=== PATIENT | male | born 1945 | race Caucasian/White ===

== ENCOUNTER → 2017-05-20 | Outpatient (CLI) | payer MEDICARE ==
[2017-05-20 07:33] LABS: CH 30.8; CHCM 34.3; HCT 38.1 % (39.0-53.0); HDW 2.58; HGB 13.5 gm/dL (13.0-17.5); MCHC 35.4 g/dL (31.0-37.0); MCV 90.3 fL (80.0-100.0); Mean Platelet Volume 7.2; RBC 4.22 m/uL (4.30-5.90); RDW 12.9 % (11.5-15.5); WBC 5.9 k/uL (3.8-10.6)
[2017-05-20 08:02] LABS: ALT 35 U/L (21-72); AST 21 U/L (17-59); Alkaline Phosphatase 51 U/L (38-126); Anion Gap 12 mmol/L; Blood Urea Nitrogen 19 mg/dL (9-20); Calcium 9.4 mg/dL (8.4-10.2); Carbon Dioxide 27 mmol/L (22-30); Chloride 102 mmol/L (98-107); Cholesterol 148 mg/dL (<200); Glucose 172 mg/dL (74-99); HDL Cholesterol 51 mg/dL (40-60); Non-African American GFR(MDRD) >60 (>60 ml/min/1.73 sqM); Potassium 4.5 mmol/L (3.5-5.1); Sodium 141 mmol/L (137-145); Total Bilirubin 0.5 mg/dL (0.2-1.3); Total Protein 7.6 g/dL (6.3-8.2); Triglycerides 122 mg/dL (<150)
[2017-05-20 12:41] LABS: Urine Creatinine 113.1 mg/dL
[2017-05-20 14:38] LABS: Hemoglobin A1C 7.6 % (4.2-6.1)
== END | disposition home or self-care (01) ==
LOC: LABWHC1 06:40
PROVIDERS: ATTEND Internal Medicine
DX: I10 Essential (primary) hypertension (principal); E78.00 Pure hypercholesterolemia, unspecified; E11.9 Type 2 diabetes mellitus without complications
CPT/HCPCS: 36415; 80053; 80061; 82043; 82570; 83036; 84443; 85027

== ENCOUNTER 2018-03-27 15:12 | Emergency (ER) | payer MEDICARE ==
[2018-03-27 15:32] VITALS: PULSE 82; TEMP 98.1
--- NOTE | 2018-03-27 16:30 | ED ---
Fall HPI - General Chief Complaint: Fall Stated Complaint: Fall From Ladder Time Seen by Provider: 03/27/18 16:01 Source: patient Mode of arrival: ambulatory - History of Present Illness Initial Comments: Patient is a 73-year-old male presenting for injuries sustained from the fall. He states that he was on approximately a 4 foot ladder when he fell off landing on his right side. He states that he did not hit his head and denies any back pain or neck pain as well as loss consciousness. He takes aspirin but primarily came in for right shoulder pain. He admits to decreased range of motion of the right shoulder as well as some minor right rib pain and right thigh pain. He thinks that the thigh pain came from the keys that were in his pocket. There is no nausea/vomiting or abdominal pain as well and he denies any vision changes or changes in mental status as well - Related Data Home Medications Medication Instructions Recorded Confirmed Aspirin [Adult Low Dose Aspirin EC] 81 mg PO DAILY 11/23/15 05/11/16 Atenolol [Atenolol] 50 mg PO BID 11/23/15 05/11/16 Cholecalciferol [Vitamin D3] 2,000 unit PO DAILY@1600 11/23/15 05/11/16 Cyanocobalamin [Vitamin B-12] 500 mcg PO DAILY@1600 11/23/15 05/11/16 Glimepiride [Amaryl] 2 mg PO TID 11/23/15 05/11/16 Nitroglycerin Sl Tabs [Nitrostat] 0.4 mg PO Q5M PRN 11/23/15 05/11/16 Omeprazole [PriLOSEC] 20 mg PO DAILY 11/23/15 05/11/16 Simvastatin [Simvastatin] 20 mg PO DAILY@1600 11/23/15 05/11/16 Allergies Allergy/AdvReac Type Severity Reaction Status Date / Time cyclobenzaprine Allergy Unknown Verified 03/27/18 15:32 [From Flexeril] doxycycline Allergy Unknown Verified 03/27/18 15:32 metformin Allergy Unknown Verified 03/27/18 15:32 Penicillins Allergy Unknown Verified 03/27/18 15:32 Review of Systems ROS Statement: Those systems with pertinent positive or pertinent negative responses have been documented in the HPI. Constitutional: Negative for chills, fatigue and fever. HENT: Negative for congestion. Respiratory: Negative for chest tightness, shortness of breath and wheezing. Negative for cough Cardiovascular: Negative for chest pain and palpitations. Gastrointestinal: Negative for abdominal pain. Negative for abdominal distention , diarrhea, nausea and vomiting. Genitourinary: Negative for dysuria. Musculoskeletal: Negative for back pain, neck pain and neck stiffness. Positive for right rib pain, right thigh pain, right shoulder pain Skin: Negative for color change. Neurological: Negative for dizziness, speech difficulty, weakness and light- headedness. Psychiatric/Behavioral: Negative for agitation and confusion. The patient is not nervous/anxious. ROS Other: All systems not noted in ROS Statement are negative. Past Medical History Past Medical History: Chest Pain / Angina, Diabetes Mellitus, GERD/Reflux, Hyperlipidemia, Hypertension History of Any Multi-Drug Resistant Organisms: None Reported Past Surgical History: Appendectomy, Heart Catheterization Additional Past Surgical History / Comment(s): Patient has never had a colonoscopy. Past Anesthesia/Blood Transfusion Reactions: No Reported Reaction Past Psychological History: No Psychological Hx Reported Smoking Status: Former smoker Past Alcohol Use History: Rare Past Drug Use History: None Reported - Past Family History Mother Additional Family Medical History / Comment(s): BREAST Father Additional Family Medical History / Comment(s): Father at age 60 from a myocardial infarction. Brother(s) Additional Family Medical History / Comment(s): Patient has 7 brothers and one has coronary artery disease status post 3 vessel CABG. Patient does not have any sisters. Patient has 3 children, 2 boys and one girl with no major medical problems. General Exam - General Exam Comments Initial Comments: Constitutional: Pt is oriented to person, place, and time. Pt appears well- developed and well-nourished. No distress. HENT: Head: Normocephalic and atraumatic. Eyes: EOM are normal. Neck: Normal range of motion. Neck supple. Cardiovascular: Normal rate, regular rhythm, S1 normal, S2 normal and normal heart sounds. Exam reveals no gallop and no friction rub. No murmur heard. Pulmonary/Chest: Effort normal and breath sounds normal. No tachypnea and no bradypnea. No respiratory distress. No wheezes or rales noted. Abdominal: Soft. Bowel sounds are normal. Pt exhibits no shifting dullness, no distension, no pulsatile liver, no fluid wave, no abdominal bruit and no ascites. There is no tenderness. There is no rigidity, no rebound, no guarding, no tenderness at McBurney's point and negative Crouch's sign. Musculoskeletal: Decreased range of motion of the right shoulder in flexion, extension, abduction. Palpable pulses and neurosensory is intact. No tenderness to the C-spine, T-spine, L-spine. Pelvis is stable with full range of motion of the right hip. There is mild tenderness to the right thigh with no overlying ecchymosis or hematomas. Neurological: Pt is alert and oriented to person, place, and time. No cranial nerve deficit. Skin: Skin is warm and dry. No rash noted. Pt is not diaphoretic. No erythema. No pallor. Psychiatric: Pt has a normal mood and affect. Pt behavior is normal. Thought content normal. Limitations: no limitations Course Vital Signs 03/27/18 15:29 Temperature 98.1 F Pulse Rate 82 Respiratory 20 Rate Blood Pressure 145/73 O2 Sat by Pulse 96 Oximetry Medical Decision Making - Medical Decision Making X-ray showed no evidence of acute pathology which included chest x-ray, shoulder x-ray, humerus, pelvis, right ribs, femur patient was ambulatory in the emergency department and in good spirits. He was recommended to follow-up with orthopedics and use Tylenol or Motrin for pain. He currently declined any narcotics such as [place]. There is extensive discussion had with both family and the son and stated that CAT scan is likely not reveal any significant pathology but that if symptoms worsen or return, he should return immediately to the ER. He was also advised to follow up with PCP 1-2 days. Patient was agreeable to plan. Disposition Clinical Impression: Fall from ladder, Syncope, Right shoulder pain Disposition: HOME SELF-CARE Condition: Good Instructions: Fall Prevention for Older Adults (ED) Is patient prescribed a controlled substance at d/c from ED?: No Referrals: Preston Cast MD [Primary Care Provider] - 1-2 days Santiago Crouch MD [STAFF PHYSICIAN] - 1-2 days Time of Disposition: 17:50
--- NOTE | 2018-03-27 17:35 | XR ---
Right humerus and right shoulder HISTORY: Trauma and pain 2 views of the right humerus correlated to 3 views of the right shoulder Arthropathy is present in the acromion clavicular joint. Right shoulder is somewhat high riding. Bone mineralization maintained. No dislocation. No evident fracture. IMPRESSION: Correlate for possible rotator cuff tear.
--- NOTE | 2018-03-27 17:36 | XR ---
EXAMINATION TYPE: XR chest 2V DATE OF EXAM: 03/27/2018 COMPARISON: Prior chest x-ray dated 05/11/2016 HISTORY: Trauma and pain TECHNIQUE: Frontal and lateral views of the chest are obtained. FINDINGS: There is no focal air space opacity, pleural effusion, or pneumothorax seen. The cardiac silhouette size is within normal limits. The osseous structures are intact. IMPRESSION: No acute cardiopulmonary process.
--- NOTE | 2018-03-27 17:37 | XR ---
Right femur HISTORY: Trauma and pain 2 views of the right femur on 4 images Bone mineralization, joint spaces and alignment are maintained. IMPRESSION: No fracture or dislocation.
--- NOTE | 2018-03-27 17:38 | XR ---
Right RIBS HISTORY: Trauma and pain 4 views of the right RIBS Comparison to chest x-ray same date No pneumothorax or pleural effusion, no evident lung contusion. Bone mineralization is maintained. Ri ght shoulder is high riding. No evident displaced rib fracture. IMPRESSION: No evident displaced rib fracture, bone scan could be performed for increased sensitivity if occult fracture is suspected clinically.
[2018-03-27 18:26] VITALS: BP 145/71; RESP 18
== END 2018-03-27 17:55 | disposition home or self-care (01) ==
LOC: EC 15:12
DX: M25.511 Pain in right shoulder (principal); R55 Syncope and collapse; R07.81 Pleurodynia; M79.651 Pain in right thigh; E11.9 Type 2 diabetes mellitus without complications; K21.9 Gastro-esophageal reflux disease without esophagitis; E78.5 Hyperlipidemia, unspecified; I10 Essential (primary) hypertension; Z87.891 Personal history of nicotine dependence; Z79.82 Long term (current) use of aspirin; Z79.84 Long term (current) use of oral hypoglycemic drugs; Z79.899 Other long term (current) drug therapy; Z88.0 Allergy status to penicillin; Z88.1 Allergy status to other antibiotic agents; Z88.8 Allergy status to other drugs, medicaments and biological substances; Z95.818 Presence of other cardiac implants and grafts; W11.XXXA Fall on and from ladder, initial encounter; Y92.009 Unspecified place in unspecified non-institutional (private) residence as the place of occurrence of the external cause
CPT/HCPCS: 71046; 99283

== ENCOUNTER → 2018-04-09 | Outpatient (CLI) | payer MEDICARE ==
[2018-04-09 07:17] LABS: Albumin 4.4 g/dL (3.5-5.0); Calcium 9.4 mg/dL (8.4-10.2); Potassium 4.8 mmol/L (3.5-5.1); Total Bilirubin 0.5 mg/dL (0.2-1.3); Total Protein 7.1 g/dL (6.3-8.2)
[2018-04-09 12:25] LABS: Hemoglobin A1C 7.2 % (4.0-6.0)
== END | disposition home or self-care (01) ==
LOC: LABWHC1 06:34
PROVIDERS: ATTEND Internal Medicine
DX: E11.9 Type 2 diabetes mellitus without complications (principal)
CPT/HCPCS: 36415; 80053; 83036

== ENCOUNTER 2020-09-17 07:02 | Emergency (ER) | payer MEDICARE ==
[2020-09-17] MEDS ORDERED: DEXTROSE 5%-0.45% NACL 1,000 ML IV ONE (07:22)
--- NOTE | 2020-09-17 07:25 | ED ---
General Adult HPI - General Chief complaint: Weakness Stated complaint: weakness Time Seen by Provider: 09/17/20 07:13 Source: patient, family, RN notes reviewed Mode of arrival: wheelchair Limitations: no limitations - History of Present Illness Initial comments: Patient is a pleasant 75-year-old male presenting to the emergency Department with complaints of generalized weakness. Onset of symptoms was around a week ago. Patient's is in the hospital and he does have increased stress. Patient has decreased appetite. Blood sugars have been running low, sometimes in the 50s and 60s. Patient last took his oral diabetic medication yesterday. He should stop taking his injection of insulin and nighttime around 4 days ago. A fish feels generally weak all over. No isolated area of weakness. No confusion or speech problems. - Related Data Home Medications Medication Instructions Recorded Confirmed Aspirin [Adult Low Dose Aspirin EC] 81 mg PO DAILY 11/23/15 09/17/20 Cholecalciferol [Vitamin D3] 5,000 unit PO MOWEFR 11/23/15 09/17/20 Glimepiride [Amaryl] 4 mg PO BID 11/23/15 09/17/20 Nitroglycerin Sl Tabs [Nitrostat] 0.4 mg PO Q5M PRN 11/23/15 09/17/20 Omeprazole [PriLOSEC] 20 mg PO BID 11/23/15 09/17/20 Simvastatin 20 mg PO DAILY 11/23/15 09/17/20 atenoloL [Atenolol] 50 mg PO BID 11/23/15 09/17/20 Brimonidine Tartrate [Alphagan P 1 drop BOTH EYES BID 09/17/20 09/17/20 0.2% Ophth Soln] Insulin Glargine,Hum.rec.anlog 15 unit SQ DAILY 09/17/20 09/17/20 [Lantus Solostar] Isosorbide Mononitrate ER [Imdur] 15 mg PO DAILY 09/17/20 09/17/20 Latanoprost Ophth [Xalatan 0.005%] 1 drop PO HS 09/17/20 09/17/20 Timolol 0.5% Ophth Soln [Timoptic 1 drop BOTH EYES BID 09/17/20 09/17/20 0.5% Ophth Soln] lisinopriL 40 mg PO DAILY 09/17/20 09/17/20 Allergies Allergy/AdvReac Type Severity Reaction Status Date / Time cyclobenzaprine Allergy Unknown Verified 09/17/20 09:59 [From Flexeril] doxycycline Allergy Unknown Verified 09/17/20 09:59 metformin Allergy Unknown Verified 09/17/20 09:59 Penicillins Allergy Unknown Verified 09/17/20 09:59 Review of Systems ROS Statement: Those systems with pertinent positive or pertinent negative responses have been documented in the HPI. ROS Other: All systems not noted in ROS Statement are negative. Constitutional: Denies: fever Eyes: Denies: eye pain ENT: Denies: ear pain Respiratory: Denies: cough Cardiovascular: Denies: chest pain Endocrine: Denies: fatigue Gastrointestinal: Denies: abdominal pain Genitourinary: Denies: dysuria Musculoskeletal: Denies: back pain Skin: Denies: rash Neurological: Reports: as per HPI. Denies: headache, confusion Past Medical History Past Medical History: Chest Pain / Angina, Diabetes Mellitus, GERD/Reflux, Hyperlipidemia, Hypertension History of Any Multi-Drug Resistant Organisms: None Reported Past Surgical History: Appendectomy, Heart Catheterization Additional Past Surgical History / Comment(s): Patient has never had a colonoscopy. Past Anesthesia/Blood Transfusion Reactions: No Reported Reaction Past Psychological History: No Psychological Hx Reported Smoking Status: Former smoker Past Alcohol Use History: Rare Past Drug Use History: None Reported - Past Family History Mother Additional Family Medical History / Comment(s): BREAST Father Additional Family Medical History / Comment(s): Father at age 60 from a myocardial infarction. Brother(s) Additional Family Medical History / Comment(s): Patient has 7 brothers and one has coronary artery disease status post 3 vessel CABG. Patient does not have any sisters. Patient has 3 children, 2 boys and one girl with no major medical problems. General Exam Limitations: no limitations General appearance: alert, in no apparent distress Head exam: Present: normocephalic Eye exam: Present: normal appearance, PERRL, EOMI ENT exam: Present: normal oropharynx Neck exam: Present: normal inspection Respiratory exam: Present: normal lung sounds bilaterally Cardiovascular Exam: Present: regular rate, normal rhythm GI/Abdominal exam: Present: soft. Absent: tenderness Extremities exam: Present: normal inspection, full ROM Neurological exam: Present: alert, oriented X3, CN II-XII intact. Absent: motor sensory deficit Expanded Neurological exam: Present: protecting the airway Speech: Present: fluid speech Cranial nerves: EOM's Intact: Normal Sensory exam: Upper Extremity Light Touch: Normal, Lower Extremity Light Touch: Normal Motor strength exam: RUE: 5, LUE: 5, RLE: 5, LLE: 5 Eye Response: (4) open spontaneously Motor Response: (6) obeys commands Verbal Response: (5) oriented Psychiatric exam: Present: normal affect, normal mood Skin exam: Present: normal color Course Vital Signs 09/17/20 07:09 Temperature 98 F Pulse Rate 66 Respiratory 16 Rate Blood Pressure 138/77 O2 Sat by Pulse 98 Oximetry EKG Findings - EKG Comments: EKG Findings:: Sinus rhythm at 66. First 3 AV block MD of 236. QRS 174. QT 454. QTC 470 5P left axis. Left bundle branch block. No acute ST change. Medical Decision Making - Medical Decision Making Patient reevaluated and resting comfortably in bed. Patient is able to perform ADLs and patient and family are comfortable with discharge home. They are recommended close follow-up and will be given fluid prior to discharge. - Lab Data Result diagrams: 09/17/20 07:31 09/17/20 07:31 Lab Results 09/17/20 09/17/20 09/17/20 Range/Units 07:19 07:31 07:31 WBC 5.5 (3.8-10.6) k/uL RBC 4.25 L (4.30-5.90) m/uL Hgb 13.0 (13.0-17.5) gm/dL Hct 39.0 (39.0-53.0) % MCV 91.7 (80.0-100.0) fL MCH 30.6 (25.0-35.0) pg MCHC 33.3 (31.0-37.0) g/dL RDW 12.6 (11.5-15.5) % Plt Count 182 (150-450) k/uL Neutrophils % 68 % Lymphocytes % 13 % Monocytes % 15 % Eosinophils % 0 % Basophils % 1 % Neutrophils # 3.7 (1.3-7.7) k/uL Lymphocytes # 0.7 L (1.0-4.8) k/uL Monocytes # 0.8 (0-1.0) k/uL Eosinophils # 0.0 (0-0.7) k/uL Basophils # 0.1 (0-0.2) k/uL PT 10.0 (9.0-12.0) sec INR 1.0 (<1.2) APTT 25.8 (22.0-30.0) sec Sodium (137-145) mmol/L Potassium (3.5-5.1) mmol/L Chloride (98-107) mmol/L Carbon Dioxide (22-30) mmol/L Anion Gap mmol/L BUN (9-20) mg/dL Creatinine (0.66-1.25) mg/dL Est GFR (CKD-EPI)AfAm (>60 ml/min/1.73 sqM) Est GFR (CKD-EPI)NonAf (>60 ml/min/1.73 sqM) Glucose (74-99) mg/dL POC Glucose (mg/dL) 72 L (75-99) mg/dL POC Glu Spool Winder SHANICE Crouch Leonel Plasma Lactic Acid Yovany (0.7-2.0) mmol/L Calcium (8.4-10.2) mg/dL Phosphorus (2.5-4.5) mg/dL Magnesium (1.6-2.3) mg/dL Total Bilirubin (0.2-1.3) mg/dL AST (17-59) U/L ALT (4-49) U/L Alkaline Phosphatase (38-126) U/L Troponin I (0.000-0.034) ng/mL Total Protein (6.3-8.2) g/dL Albumin (3.5-5.0) g/dL TSH (0.465-4.680) mIU/L Urine Color Urine Appearance (Clear) Urine pH (5.0-8.0) Ur Specific [place] (1.001-1.035) Urine Protein (Negative) Urine Glucose (UA) (Negative) Urine Ketones (Negative) Urine Blood (Negative) Urine Nitrite (Negative) Urine Bilirubin (Negative) Urine Urobilinogen (<2.0) mg/dL Ur Leukocyte Esterase (Negative) Urine RBC (0-5) /hpf Urine WBC (0-5) /hpf Ur Squamous Epith Cells (0-4) /hpf Urine Mucus (None) /hpf 09/17/20 09/17/20 09/17/20 Range/Units 07:31 07:31 07:31 WBC (3.8-10.6) k/uL RBC (4.30-5.90) m/uL Hgb (13.0-17.5) gm/dL Hct (39.0-53.0) % MCV (80.0-100.0) fL MCH (25.0-35.0) pg MCHC (31.0-37.0) g/dL RDW (11.5-15.5) % Plt Count (150-450) k/uL Neutrophils % % Lymphocytes % % Monocytes % % Eosinophils % % Basophils % % Neutrophils # (1.3-7.7) k/uL Lymphocytes # (1.0-4.8) k/uL Monocytes # (0-1.0) k/uL Eosinophils # (0-0.7) k/uL Basophils # (0-0.2) k/uL PT (9.0-12.0) sec INR (<1.2) APTT (22.0-30.0) sec Sodium 135 L (137-145) mmol/L Potassium 4.5 (3.5-5.1) mmol/L Chloride 101 (98-107) mmol/L Carbon Dioxide 26 (22-30) mmol/L Anion Gap 8 mmol/L BUN 28 H (9-20) mg/dL Creatinine 1.10 (0.66-1.25) mg/dL Est GFR (CKD-EPI)AfAm 76 (>60 ml/min/1.73 sqM) Est GFR (CKD-EPI)NonAf 66 (>60 ml/min/1.73 sqM) Glucose 67 L (74-99) mg/dL POC Glucose (mg/dL) (75-99) mg/dL POC Glu Spool Winder ID Plasma Lactic Acid Yovany 1.1 (0.7-2.0) mmol/L Calcium 9.0 (8.4-10.2) mg/dL Phosphorus 4.2 (2.5-4.5) mg/dL Magnesium 2.0 (1.6-2.3) mg/dL Total Bilirubin 0.5 (0.2-1.3) mg/dL AST 62 H (17-59) U/L ALT 44 (4-49) U/L Alkaline Phosphatase 45 (38-126) U/L Troponin I (0.000-0.034) ng/mL Total Protein 7.5 (6.3-8.2) g/dL Albumin 4.3 (3.5-5.0) g/dL TSH 0.304 L (0.465-4.680) mIU/L Urine Color Yellow Urine Appearance Clear (Clear) Urine pH 5.5 (5.0-8.0) Ur Specific [place] 1.025 (1.001-1.035) Urine Protein Trace H (Negative) Urine Glucose (UA) Negative (Negative) Urine Ketones Negative (Negative) Urine Blood Negative (Negative) Urine Nitrite Negative (Negative) Urine Bilirubin Negative (Negative) Urine Urobilinogen <2.0 (<2.0) mg/dL Ur Leukocyte Esterase Moderate H (Negative) Urine RBC <1 (0-5) /hpf Urine WBC 3 (0-5) /hpf Ur Squamous Epith Cells 1 (0-4) /hpf Urine Mucus Rare H (None) /hpf 09/17/20 09/17/20 Range/Units 07:31 10:00 WBC (3.8-10.6) k/uL RBC (4.30-5.90) m/uL Hgb (13.0-17.5) gm/dL Hct (39.0-53.0) % MCV (80.0-100.0) fL MCH (25.0-35.0) pg MCHC (31.0-37.0) g/dL RDW (11.5-15.5) % Plt Count (150-450) k/uL Neutrophils % % Lymphocytes % % Monocytes % % Eosinophils % % Basophils % % Neutrophils # (1.3-7.7) k/uL Lymphocytes # (1.0-4.8) k/uL Monocytes # (0-1.0) k/uL Eosinophils # (0-0.7) k/uL Basophils # (0-0.2) k/uL PT (9.0-12.0) sec INR (<1.2) APTT (22.0-30.0) sec Sodium (137-145) mmol/L Potassium (3.5-5.1) mmol/L Chloride (98-107) mmol/L Carbon Dioxide (22-30) mmol/L Anion Gap mmol/L BUN (9-20) mg/dL Creatinine (0.66-1.25) mg/dL Est GFR (CKD-EPI)AfAm (>60 ml/min/1.73 sqM) Est GFR (CKD-EPI)NonAf (>60 ml/min/1.73 sqM) Glucose (74-99) mg/dL POC Glucose (mg/dL) 147 H (75-99) mg/dL POC Glu Spool Winder Leonel Jimenez Plasma Lactic Acid Yovany (0.7-2.0) mmol/L Calcium (8.4-10.2) mg/dL Phosphorus (2.5-4.5) mg/dL Magnesium (1.6-2.3) mg/dL Total Bilirubin (0.2-1.3) mg/dL AST (17-59) U/L ALT (4-49) U/L Alkaline Phosphatase (38-126) U/L Troponin I <0.012 (0.000-0.034) ng/mL Total Protein (6.3-8.2) g/dL Albumin (3.5-5.0) g/dL TSH (0.465-4.680) mIU/L Urine Color Urine Appearance (Clear) Urine pH (5.0-8.0) Ur Specific [place] (1.001-1.035) Urine Protein (Negative) Urine Glucose (UA) (Negative) Urine Ketones (Negative) Urine Blood (Negative) Urine Nitrite (Negative) Urine Bilirubin (Negative) Urine Urobilinogen (<2.0) mg/dL Ur Leukocyte Esterase (Negative) Urine RBC (0-5) /hpf Urine WBC (0-5) /hpf Ur Squamous Epith Cells (0-4) /hpf Urine Mucus (None) /hpf - Radiology Data Radiology results: report reviewed (Computed tomography scan of the brain shows no acute hemorrhage or shift. Mild atrophy and mild to moderateVessel ischemic change.), image reviewed (Chest x-ray shows no acute process) Disposition Clinical Impression: General weakness Disposition: HOME SELF-CARE Condition: Stable Instructions (If sedation given, give patient instructions): Weakness (ED) Additional Instructions: Please follow-up with your primary care physician in the next day or 2 for recheck. If symptoms continue consider neurology evaluation. Return for increased weakness, fevers, unable able to take care of self, worsening symptoms or other concerns. Please continue to hold her diabetic medication at this time and do frequent blood sugar tests, at least 4 times daily Is patient prescribed a controlled substance at d/c from ED?: No Referrals: Preston Cast MD [Primary Care Provider] - 1-2 days Time of Disposition: 10:30
[2020-09-17 07:26] LABS: Glucose,Whole Blood 72 mg/dL (75-99)
--- NOTE | 2020-09-17 07:56 | XR ---
EXAMINATION TYPE: XR chest 2V DATE OF EXAM: 09/17/2020 COMPARISON: 03/27/2018 HISTORY: Shortness of breath TECHNIQUE: Frontal and lateral views of the chest are obtained. FINDINGS: Scattered senescent parenchymal changes noted. Hyperinflation compatible with COPD. No evidence for infiltrate. No evidence for atelectasis. Heart size is stable. Mediastinal structures are stable and grossly unremarkable. No evidence for hilar prominence. Degenerative changes dorsal spine. IMPRESSION: 1. No evidence for acute pulmonary disease.
[2020-09-17 08:04] LABS: Albumin 4.3 g/dL (3.5-5.0); Partial Thromboplastin Time 25.8 sec (22.0-30.0); Phosphorus 4.2 mg/dL (2.5-4.5); Potassium 4.5 mmol/L (3.5-5.1); Total Bilirubin 0.5 mg/dL (0.2-1.3); Total Protein 7.5 g/dL (6.3-8.2)
[2020-09-17 08:10] LABS: Basophils # (A) 0.1 k/uL (0-0.2); Basophils % (A) 1 %; Eosinophils % (A) 0 %; Lymphocytes # (A) 0.7 k/uL (1.0-4.8); Lymphocytes % (A) 13 %; MCH 30.6 pg (25.0-35.0); MCHC 33.3 g/dL (31.0-37.0); MCV 91.7 fL (80.0-100.0); Mean Platelet Volume 7.5; Monocytes # (A) 0.8 k/uL (0-1.0); Monocytes % (A) 15 %; Neutrophils # (A) 3.7 k/uL (1.3-7.7); Neutrophils % (A) 68 %; Platelet Count 182 k/uL (150-450); RBC 4.25 m/uL (4.30-5.90); RDW 12.6 % (11.5-15.5); WBC 5.5 k/uL (3.8-10.6)
[2020-09-17 09:30] LABS: Appearance,Urine Clear (Clear); Bilirubin,Urine Negative (Negative); Blood,Urine Negative (Negative); Color,Urine Yellow; Glucose,Urine (UA) Negative (Negative); Ketones,Urine Negative (Negative); Leukocyte Esterase,Urine Moderate (Negative); Mucus,Urine Rare /hpf; Nitrite,Urine Negative (Negative); PH, Urine 5.5 (5.0-8.0); Protein,Urine Trace (Negative); RBC,Urine <1 /hpf (0-5); Specific Gravity,Urine 1.025 (1.001-1.035); Squamous Epithelial Cell,Urine 1 /hpf (0-4); Urobilinogen,Urine <2.0 mg/dL (<2.0); WBC,Urine 3 /hpf (0-5)
--- NOTE | 2020-09-17 09:36 | CT ---
EXAMINATION TYPE: CT brain wo con DATE OF EXAM: 09/17/2020 HISTORY: dizzy, weak CT DLP: 997.7 mGycm. Automated Exposure Control for Dose Reduction was Utilized. TECHNIQUE: CT scan of the head is performed without contrast. COMPARISON: None. FINDINGS: There is no acute intracranial hemorrhage or midline shift identified. There is diffuse v entricular and sulcal prominence consistent with diffuse age-related cerebral atrophy. There is low- attenuation in the periventricular white matter consistent with chronic small vessel ischemic change. The globes are intact and the visualized sinuses are clear. IMPRESSION: No acute intracranial hemorrhage or midline shift. There is mild diffuse age-related ce rebral atrophy and mild to moderate chronic small vessel ischemic change noted.
[2020-09-17 10:02] LABS: Glucose,Whole Blood 147 mg/dL (75-99)
[2020-09-17] MEDS ORDERED: SODIUM CHLORIDE 0.9% 500 ML 500 ML IV STA (10:29)
[2020-09-17 11:32] VITALS: BP 135/61; PULSE 65; RESP 18; TEMP 98.5
== END 2020-09-17 11:45 | disposition home or self-care (01) ==
LOC: EC 07:02
DX: R53.1 Weakness (principal); I10 Essential (primary) hypertension; E11.9 Type 2 diabetes mellitus without complications; I20.9 Angina pectoris, unspecified; K21.9 Gastro-esophageal reflux disease without esophagitis; E78.5 Hyperlipidemia, unspecified; Z79.82 Long term (current) use of aspirin; Z79.899 Other long term (current) drug therapy; Z79.4 Long term (current) use of insulin; Z88.0 Allergy status to penicillin; Z88.8 Allergy status to other drugs, medicaments and biological substances; Z88.1 Allergy status to other antibiotic agents; Z87.891 Personal history of nicotine dependence
CPT/HCPCS: 36415; 70450; 71046; 80053; 81001; 83605; 83735; 84100; 84443; 84484; 85025; 85610; 85730; 93005; 96360; 96361; 99285

== ENCOUNTER 2020-09-20 11:14 | Inpatient (IN) | payer MEDICARE ==
[2020-09-20 13:02] LABS: Basophils # (A) 0.1 k/uL (0-0.2); Basophils % (A) 2 %; Eosinophils % (A) 0 %; HCT 35.2 % (39.0-53.0); HGB 12.1 gm/dL (13.0-17.5); Lymphocytes # (A) 0.5 k/uL (1.0-4.8); Lymphocytes % (A) 10 %; MCH 31.4 pg (25.0-35.0); MCHC 34.5 g/dL (31.0-37.0); MCV 90.9 fL (80.0-100.0); Mean Platelet Volume 7.3; Monocytes # (A) 0.4 k/uL (0-1.0); Monocytes % (A) 8 %; Neutrophils # (A) 3.8 k/uL (1.3-7.7); Neutrophils % (A) 79 %; Platelet Count 180 k/uL (150-450); RBC 3.87 m/uL (4.30-5.90); WBC 4.8 k/uL (3.8-10.6)
[2020-09-20 13:16] LABS: Albumin 3.8 g/dL (3.5-5.0); C Reactive Protein 63.9 mg/L (<10.0); Calcium 8.4 mg/dL (8.4-10.2); Magnesium 1.8 mg/dL (1.6-2.3); Potassium 4.8 mmol/L (3.5-5.1); Total Bilirubin 0.6 mg/dL (0.2-1.3); Total Protein 6.7 g/dL (6.3-8.2)
[2020-09-20 13:23] LABS: Partial Thromboplastin Time 27.1 sec (22.0-30.0); Prothrombin Time 10.2 sec (9.0-12.0)
--- NOTE | 2020-09-20 13:35 | ED ---
Recheck HPI - General Chief Complaint: Recheck/Abnormal Lab/Rx Stated Complaint: Covid symptoms, confusion Time Seen by Provider: 09/20/20 11:58 Source: patient Mode of arrival: wheelchair Limitations: no limitations - History of Present Illness Initial Comments: 75-year-old male presenting today for chief complaint of generalized weakness fatigue, slight cough. Patient states that last Thursday his tested positive for Covid 19. He states he feels he has had symptoms for the past week and a half. Patient states he feels weak all over fatigue he has an occasional dry cough and states she has had chills at times but has not recorded a fever he denies chest pain or shortness of breath he denies leg swelling hemoptysis or pain with deep inspiration. Denies vomiting, abdominal pain diarrhea, headache or neck stiffness. Patient states that he did present on Thursday was evaluated and discharged home. Patient denies any additional complaints. Afebrile on arrival - Related Data Home Medications Medication Instructions Recorded Confirmed Aspirin [Adult Low Dose Aspirin EC] 81 mg PO DAILY 11/23/15 09/20/20 Cholecalciferol [Vitamin D3] 5,000 unit PO MOWEFR 11/23/15 09/20/20 Glimepiride [Amaryl] 4 mg PO BID 11/23/15 09/20/20 Nitroglycerin Sl Tabs [Nitrostat] 0.4 mg PO Q5M PRN 11/23/15 09/20/20 Omeprazole [PriLOSEC] 20 mg PO BID 11/23/15 09/20/20 Simvastatin 20 mg PO DAILY 11/23/15 09/20/20 atenoloL [Atenolol] 50 mg PO BID 11/23/15 09/20/20 Brimonidine Tartrate [Alphagan P 1 drop BOTH EYES BID 09/17/20 09/20/20 0.2% Ophth Soln] Insulin Glargine,Hum.rec.anlog 15 unit SQ DAILY 09/17/20 09/20/20 [Lantus Solostar] Isosorbide Mononitrate ER [Imdur] 15 mg PO DAILY 09/17/20 09/20/20 Latanoprost Ophth [Xalatan 0.005%] 1 drop PO HS 11/09/20 11/12/20 Timolol 0.5% Ophth Soln [Timoptic 1 drop BOTH EYES BID 09/17/20 09/20/20 0.5% Ophth Soln] lisinopriL 40 mg PO DAILY 09/17/20 09/20/20 Ondansetron [Zofran] 4 mg PO Q8HR PRN 09/20/20 09/20/20 Allergies Allergy/AdvReac Type Severity Reaction Status Date / Time cyclobenzaprine Allergy Unknown Verified 09/20/20 11:25 [From Flexeril] doxycycline Allergy Unknown Verified 09/20/20 11:25 metformin Allergy Unknown Verified 09/20/20 11:25 Penicillins Allergy Unknown Verified 09/20/20 11:25 Review of Systems ROS Statement: Those systems with pertinent positive or pertinent negative responses have been documented in the HPI. ROS Other: All systems not noted in ROS Statement are negative. Past Medical History Past Medical History: Chest Pain / Angina, Diabetes Mellitus, GERD/Reflux, Hyperlipidemia, Hypertension History of Any Multi-Drug Resistant Organisms: None Reported Past Surgical History: Appendectomy, Heart Catheterization Additional Past Surgical History / Comment(s): Patient has never had a colonoscopy. Past Anesthesia/Blood Transfusion Reactions: No Reported Reaction Past Psychological History: No Psychological Hx Reported Smoking Status: Former smoker Past Alcohol Use History: Rare Past Drug Use History: None Reported - Past Family History Mother Additional Family Medical History / Comment(s): BREAST Father Additional Family Medical History / Comment(s): Father at age 60 from a myocardial infarction. Brother(s) Additional Family Medical History / Comment(s): Patient has 7 brothers and one has coronary artery disease status post 3 vessel CABG. Patient does not have any sisters. Patient has 3 children, 2 boys and one girl with no major medical problems. General Exam - General Exam Comments Initial Comments: General: The patient is awake and alert, appears fatigued, but not altered or lethargic Eye: +3 mm pupils are equal, round and reactive to light, extra-ocular movements are intact. No nystagmus. There is normal conjunctiva bilaterally. No signs of icterus. Ears, nose, mouth and throat: There are moist mucous membranes and no oral lesions. Neck: The neck is supple, there is no tenderness or JVD. Cardiovascular: There is a regular rate and rhythm. No murmur, rub or gallop is appreciated. Respiratory: Lungs are clear to auscultation, respirations are non-labored, breath sounds are equal. No wheezes, stridor, rales, or rhonchi. Gastrointestinal: Soft, non-distended, non-tender abdomen without masses or organomegaly noted. There is no rebound or guarding present. Musculoskeletal: Normal ROM, no tenderness. Strength 5/5 of the UE and LE b/l. Sensation intact. radial pulses equal bilaterally 2+. Neurological: A&O x 3. CN II-XII intact, There are no obvious motor or sensory deficits. Coordination appears grossly intact. Speech is normal. Skin: Skin is warm and dry and no rashes or lesions are noted. No lower extremity edema. No calf swelling or pain Psychiatric: Cooperative, appropriate mood & affect, normal judgment. Limitations: no limitations Course Vital Signs 09/20/20 09/20/20 09/20/20 11:22 12:34 13:00 Temperature 98.8 F Pulse Rate 83 73 71 Respiratory 18 18 18 Rate Blood Pressure 122/63 111/63 103/60 O2 Sat by Pulse 94 L 94 L 91 L Oximetry 09/20/20 09/20/20 09/20/20 13:30 14:00 15:00 Temperature Pulse Rate 75 Respiratory Rate Blood Pressure 103/60 104/56 113/81 O2 Sat by Pulse 90 L 97 Oximetry 09/20/20 09/20/20 09/20/20 15:30 16:00 16:30 Temperature Pulse Rate 71 73 83 Respiratory Rate Blood Pressure 113/54 99/56 125/64 O2 Sat by Pulse 96 97 94 L Oximetry 09/20/20 17:00 Temperature Pulse Rate 84 Respiratory Rate Blood Pressure 125/86 O2 Sat by Pulse Oximetry Medical Decision Making - Medical Decision Making Hyponatremia on labs. Patient remains with oxygen levels in the low 90s, given symptoms and exposure to covid 19 (sleeps with who has it) I feel this is most likely cause. Patient denies chest pain/SOB. Patient case discussed with Dr Terry garcia advanced age, clinical appearance, oxygen saturation and hyponatremia felt most likely to be secondary to dehydration pt will be admitted for IV hydration/monitoring. Patient agreeable to admission. Dr. Mcdaniel who accepted admission after speaking with Dr. Stewart who was agreeable to care plan. - Lab Data Result diagrams: 09/20/20 12:41 09/20/20 12:41 Lab Results 09/20/20 09/20/20 09/20/20 Range/Units 12:41 12:41 12:41 WBC 4.8 (3.8-10.6) k/uL RBC 3.87 L (4.30-5.90) m/uL Hgb 12.1 L (13.0-17.5) gm/dL Hct 35.2 L (39.0-53.0) % MCV 90.9 (80.0-100.0) fL MCH 31.4 (25.0-35.0) pg MCHC 34.5 (31.0-37.0) g/dL RDW 12.0 (11.5-15.5) % Plt Count 180 (150-450) k/uL MPV 7.3 Neutrophils % 79 % Lymphocytes % 10 % Monocytes % 8 % Eosinophils % 0 % Basophils % 2 % Neutrophils # 3.8 (1.3-7.7) k/uL Lymphocytes # 0.5 L (1.0-4.8) k/uL Monocytes # 0.4 (0-1.0) k/uL Eosinophils # 0.0 (0-0.7) k/uL Basophils # 0.1 (0-0.2) k/uL PT 10.2 (9.0-12.0) sec INR 1.0 (<1.2) APTT 27.1 (22.0-30.0) sec D-Dimer (<0.60) mg/L FEU Sodium 128 L (137-145) mmol/L Potassium 4.8 (3.5-5.1) mmol/L Chloride 95 L (98-107) mmol/L Carbon Dioxide 26 (22-30) mmol/L Anion Gap 7 mmol/L BUN 16 (9-20) mg/dL Creatinine 0.97 (0.66-1.25) mg/dL Est GFR (CKD-EPI)AfAm 89 (>60 ml/min/1.73 sqM) Est GFR (CKD-EPI)NonAf 77 (>60 ml/min/1.73 sqM) Glucose 163 H (74-99) mg/dL Plasma Lactic Acid Yovany (0.7-2.0) mmol/L Calcium 8.4 (8.4-10.2) mg/dL Magnesium 1.8 (1.6-2.3) mg/dL Ferritin 1644.3 H (22.0-322.0) ng/mL Total Bilirubin 0.6 (0.2-1.3) mg/dL AST 53 (17-59) U/L ALT 33 (4-49) U/L Alkaline Phosphatase 41 (38-126) U/L Lactate Dehydrogenase 596 (313-618) U/L C-Reactive Protein 63.9 H (<10.0) mg/L Total Protein 6.7 (6.3-8.2) g/dL Albumin 3.8 (3.5-5.0) g/dL Procalcitonin (0.02-0.09) ng/mL 09/20/20 09/20/20 09/20/20 Range/Units 12:41 12:41 12:41 WBC (3.8-10.6) k/uL RBC (4.30-5.90) m/uL Hgb (13.0-17.5) gm/dL Hct (39.0-53.0) % MCV (80.0-100.0) fL MCH (25.0-35.0) pg MCHC (31.0-37.0) g/dL RDW (11.5-15.5) % Plt Count (150-450) k/uL MPV Neutrophils % % Lymphocytes % % Monocytes % % Eosinophils % % Basophils % % Neutrophils # (1.3-7.7) k/uL Lymphocytes # (1.0-4.8) k/uL Monocytes # (0-1.0) k/uL Eosinophils # (0-0.7) k/uL Basophils # (0-0.2) k/uL PT (9.0-12.0) sec INR (<1.2) APTT (22.0-30.0) sec D-Dimer 0.56 (<0.60) mg/L FEU Sodium (137-145) mmol/L Potassium (3.5-5.1) mmol/L Chloride (98-107) mmol/L Carbon Dioxide (22-30) mmol/L Anion Gap mmol/L BUN (9-20) mg/dL Creatinine (0.66-1.25) mg/dL Est GFR (CKD-EPI)AfAm (>60 ml/min/1.73 sqM) Est GFR (CKD-EPI)NonAf (>60 ml/min/1.73 sqM) Glucose (74-99) mg/dL Plasma Lactic Acid Yovany 1.4 (0.7-2.0) mmol/L Calcium (8.4-10.2) mg/dL Magnesium (1.6-2.3) mg/dL Ferritin (22.0-322.0) ng/mL Total Bilirubin (0.2-1.3) mg/dL AST (17-59) U/L ALT (4-49) U/L Alkaline Phosphatase (38-126) U/L Lactate Dehydrogenase (313-618) U/L C-Reactive Protein (<10.0) mg/L Total Protein (6.3-8.2) g/dL Albumin (3.5-5.0) g/dL Procalcitonin 0.06 (0.02-0.09) ng/mL Disposition Clinical Impression: Weakness, Hypoxia, Exposure to COVID-19 virus Disposition: ADMITTED IP TO THIS [facility] Condition: Stable Is patient prescribed a controlled substance at d/c from ED?: No Time of Disposition: 14:34 Decision to Admit Reason: Admit from EC Decision Date: 09/20/20 Decision Time: 14:34
[2020-09-20] MEDS ORDERED: SODIUM CHLORIDE 0.9% 500 ML 500 ML IV ONE (13:38)
--- NOTE | 2020-09-20 13:53 | XR ---
EXAMINATION TYPE: XR chest 1V portable DATE OF EXAM: 09/20/2020 COMPARISON: Chest x-ray 3 days ago HISTORY: Weakness and shortness of breath. Covid exposure TECHNIQUE: Single AP portable frontal upright view of the chest is obtained. FINDINGS: There is chronic parenchymal change without definitive new suspicious focal air space opac ity, pleural effusion, or pneumothorax seen. Slightly diminished inspiration on current study. The ca rdiac silhouette size is upper limits of normal. The osseous structures are intact. IMPRESSION: Chronic changes without new acute focal infiltrate.
[2020-09-20] MEDS ORDERED: NALOXONE 0.4 MG/ML 1 ML VIAL IV PRN (14:27)
[2020-09-20] MEDS ORDERED: NITROGLYCERIN SL TABS 0.4 MG TAB SUBLINGUAL PRN (16:43)
[2020-09-20] MEDS ORDERED: ONDANSETRON 4 MG TAB PO PRN (16:43)
[2020-09-20 17:43] LABS: Glucose,Whole Blood 115 mg/dL (75-99)
[2020-09-20] MEDS: INSULIN ASPART (NovoLOG) 100 UNIT/ML VIAL SQ SCH ×2 (17:54→21:53)
--- NOTE | 2020-09-20 18:16 | CONS ---
CONSULTATION DATE OF SERVICE: September 20, 2020 HISTORY OF PRESENT ILLNESS: This is a 75-year-old gentleman who apparently presents with complaints of weakness and fatigue. A bit of a mild cough. No phlegm production. No shortness of breath. The patient's apparently tested positive for COVID 19 a week ago. The patient apparently has had symptoms for the last couple of days. He states his primary complaint is just weakness. He was feeling a little bit dehydrated. Denies any chest pain or pressure. He is not short of breath. He has very minimal cough. Not producing any phlegm. He does have some muscle aches and joint aches. The patient denies any nausea, vomiting, diarrhea, or abdominal pain. Denies any genitourinary complaints. The patient is currently in the ER, being evaluated. His Covid test was sent. It is not back yet. Currently, he is on 2 L. Not receiving any IV fluids. MEDICATIONS: Reviewed. He is on aspirin, vitamin D3, Amaryl, Nitrostat, omeprazole, simvastatin, atenolol, eye drops, insulin, Imdur, lisinopril, and Zofran. ALLERGIES: FLEXERIL, DOXYCYCLINE, METFORMIN, PENICILLIN. MEDICAL HISTORY: Angina pectoris, diabetes mellitus, gastroesophageal reflux disease, hyperlipidemia, hypertension. SURGICAL HISTORY: Includes appendectomy and heart catheterization. SOCIAL HISTORY: Positive for rare alcohol use. He is a former smoker. No illicit drug use. FAMILY HISTORY: Positive for mother with breast cancer. Father with a history of previous myocardial infarction and a brother with coronary artery disease. REVIEW OF SYSTEMS: CONSTITUTIONAL weakness and fatigue. NEUROLOGIC negative. HEENT negative. CARDIOVASCULAR negative. PULMONARY: Dry cough. GI negative. negative. RHEUMATOLOGIC negative. IMMUNOLOGIC negative. ENDOCRINOLOGIC negative. DERMATOLOGIC negative. PHYSICAL EXAMINATION: VITAL SIGNS: Current vital signs reveal temperature 98.8, heart rate 71, respiratory rate 18, blood pressure 103/60 mean 74, room air saturation 91%. GENERAL: Appears in no acute distress. HEENT: Examination is grossly unremarkable. NECK: Supple. Full range of motion. No adenopathy. Neck veins are flat. CARDIOVASCULAR: Examination reveals regular rhythm and rate. Heart rate 71. S1, S2 normal. No S3, S4, or murmur. LUNGS: Reveal clear breath sounds. No wheezes or rhonchi. ABDOMEN: Soft. Bowel sounds are heard. EXTREMITIES are intact. No cyanosis, clubbing, or edema. SKIN: Without rash. NEUROLOGIC: Examination is nonfocal. LABS: Reviewed. White count 4.8, hemoglobin 12.1, hematocrit 35.2, platelet count is a 180,000. PT/INR normal. PTT normal. Sodium 128, potassium 4.8, chloride 95, CO2 26, anion gap is 7. BUN and creatinine were 16 and 0.97. Glucose 163. C-reactive protein 63.9, LDH 596. Microbiology is negative. COVID testing is pending. Chest x-ray shows no acute disease. There are some granulomatous changes. Current medications are reviewed. The patient is on vitamin C, Decadron, Lovenox, folic acid, Narcan, zinc, and saline IV. ASSESSMENT: 1. Suspected Covid 19 infection, with mild complaints. Currently, no respiratory issues to speak of. 2. History of diabetes mellitus. 3. History of angina pectoris. 4. History of gastroesophageal reflux disease. 5. History of hyperlipidemia. 6. History of hypertension. PLAN: Currently, the patient seemed relatively stable. I do not think the patient should be admitted to the hospital. I would have given some IV fluids and sent him home. No additional recommendations are made. If he gets sick, he can come back to the hospital. Currently not having any pulmonary complaints whatsoever other than mild nonproductive cough. Chest x-ray is normal. No additional recommendations are made. Prognosis is thought to be good. MMODL / IJN: [id number] /
[2020-09-20] MEDS: SODIUM CHLORIDE 0.9% 1,000 ML IV SCH ×2 (20:23→23:50)
[2020-09-20] MEDS: BRIMONIDINE TARTRATE 0.2% DROPS 5 ML BTL BOTH EYES SCH (20:34)
[2020-09-20] MEDS: atenoloL 50 MG TAB PO SCH (20:35)
[2020-09-20] MEDS: LATANOPROST 0.005% OPHTH DROPS 2.5 ML BTL BOTH EYES SCH (20:35)
[2020-09-20] MEDS: TIMOLOL 0.5% OPHTH DROPS 5 ML BTL BOTH EYES SCH (20:35)
[2020-09-20] MEDS: GLIMEPIRIDE 4 MG TAB PO SCH ×2 (20:36→20:50)
[2020-09-20 21:32] LABS: Glucose,Whole Blood 121 mg/dL (75-99)
[2020-09-20] MEDS: dexAMETHasone 4 MG TAB PO SCH (21:53)
[2020-09-20 22:25] LABS: Ferritin 1644.3 ng/mL (22.0-322.0)
--- NOTE | 2020-09-20 23:14 | P.HPIM ---
History of Present Illness H&P Date: 09/20/20 Chief Complaint: Covid 19, severe hyponatremia, weakness, history of hyperte nsion, hyperlipi 75-year-old male one of Dr. mishra's patient with past medical history of type 2 diabetes, hypertension, hyperlipidemia and severe GERD who has not felt well the last 10 days. Patient's was admitted to the hospital last week for Covid 19 positive along with pneumonitis left the hospital on Thursday and according to him there both have been quite keen for the last 2 weeks. Patient become more symptomatic with fever or chills significant fatigue This and worsening symptoms with lack of appetite not been able to ambulate walk today he developed to have significant shortness of breath dyspnea and severe hypoxia with minimum exertion ended up coming to the emergency department at [facility] where was seen and evaluated surprisingly sodium was low at 128 Covid test was done still pending patient was hospitalized after done his lab and chest x-ray lab shows slightly abnormal marker with C-reactive protein be in 63 and ferritin level was 1644, blood sugar was mildly elevated patient's LDH was 596. Patient was started on IV hydration, Decadron, vitamin C, vitamin D and zinc we'll consult infectious disease and pulmonary admit patient to the hospital for the above problem. Review of Systems CONSTITUTIONAL: Well-developed no acute respiratory distress. EYES: No icterus sclerae, no conjunctivitis. EARS, NOSE, MOUTH, THROAT, and FACE: No sore throat, lymphadenopathy, carotid bruits or deformity. Significant congestion with sinus ALLERGY. RESPIRATORY: Positive shortness of breath with hypoxia cough no wheezes. CARDIOVASCULAR: No CP, Palpitation, PND, Orthopnea, or angina. GASTROINTESTINAL: No Abd pain, Nausea or vomiting, no Diarrhea or constipation, No GI Bleed, no distention or masses. GENITOURINARY: Negative for Hematuria or UTI, no kidney stones. INTEGUMENT/BREAST: Negative for any muscular injury with mild osteoarthritis.. Generalized myalgia and arthralgia. HEMATOLOGIC/LYMPHATIC: Negative for bleed or purpura. MUSCULOSKELTAL: Negative for Myalgia or arthralgia. NEURLOGICAL: No LOC, Sz or syncope, blurred vision dizziness or abnormality.. BEHAVIORAL/PSYCH: Negative. ENDOCRINE: Negative. Past Medical History Past Medical History: Chest Pain / Angina, Diabetes Mellitus, GERD/Reflux, Hyperlipidemia, Hypertension History of Any Multi-Drug Resistant Organisms: None Reported Past Surgical History: Appendectomy, Heart Catheterization Additional Past Surgical History / Comment(s): Patient has never had a colonoscopy. Past Anesthesia/Blood Transfusion Reactions: No Reported Reaction Past Psychological History: No Psychological Hx Reported Smoking Status: Former smoker Past Alcohol Use History: Rare Past Drug Use History: None Reported - Past Family History Mother Additional Family Medical History / Comment(s): BREAST Father Additional Family Medical History / Comment(s): Father at age 60 from a myocardial infarction. Brother(s) Additional Family Medical History / Comment(s): Patient has 7 brothers and one has coronary artery disease status post 3 vessel CABG. Patient does not have any sisters. Patient has 3 children, 2 boys and one girl with no major medical problems. Medications and Allergies Home Medications Medication Instructions Recorded Confirmed Type Aspirin [Adult Low Dose Aspirin EC] 81 mg PO DAILY 11/23/15 09/20/20 History Cholecalciferol [Vitamin D3] 5,000 unit PO MOWEFR 11/23/15 09/20/20 History Glimepiride [Amaryl] 4 mg PO BID 11/23/15 09/20/20 History Nitroglycerin Sl Tabs [Nitrostat] 0.4 mg PO Q5M PRN 11/23/15 09/20/20 History Omeprazole [PriLOSEC] 20 mg PO BID 11/23/15 09/20/20 History Simvastatin 20 mg PO DAILY 11/23/15 09/20/20 History atenoloL [Atenolol] 50 mg PO BID 11/23/15 09/20/20 History Brimonidine Tartrate [Alphagan P 1 drop BOTH EYES BID 09/17/20 09/20/20 History 0.2% Ophth Soln] Insulin Glargine,Hum.rec.anlog 15 unit SQ DAILY 09/17/20 09/20/20 History [Lantus Solostar] Isosorbide Mononitrate ER [Imdur] 15 mg PO DAILY 09/17/20 09/20/20 History Latanoprost Ophth [Xalatan 0.005%] 1 drop PO HS 09/17/20 09/20/20 History Timolol 0.5% Ophth Soln [Timoptic 1 drop BOTH EYES BID 09/17/20 09/20/20 History 0.5% Ophth Soln] lisinopriL 40 mg PO DAILY 09/17/20 09/20/20 History Ondansetron [Zofran] 4 mg PO Q8HR PRN 09/20/20 09/20/20 History Allergies Allergy/AdvReac Type Severity Reaction Status Date / Time cyclobenzaprine Allergy Unknown Verified 09/20/20 11:25 [From Flexeril] doxycycline Allergy Unknown Verified 09/20/20 11:25 metformin Allergy Unknown Verified 09/20/20 11:25 Penicillins Allergy Unknown Verified 09/20/20 11:25 Physical Exam Vitals: Vital Signs Temp Pulse Resp BP Pulse Ox 09/20/20 17:00 84 125/86 09/20/20 16:30 83 125/64 94 L 09/20/20 16:00 73 99/56 97 09/20/20 15:30 71 113/54 96 09/20/20 15:00 75 113/81 97 09/20/20 14:00 104/56 09/20/20 13:30 103/60 90 L 09/20/20 13:00 71 18 103/60 91 L 09/20/20 12:34 73 18 111/63 94 L 09/20/20 11:22 98.8 F 83 18 122/63 94 L Intake and Output 09/20/20 09/20/20 09/20/20 06:59 14:59 22:59 Other: Weight 81.647 kg General Appearance: Alert, cooperative, no distress, appears stated age. Neck HEENT: Supple, no lymphadenopathy, no thyroid enlargement, no carotid bruits. Mild sinus drainage Lungs: Clear to auscultation without crackles or wheezes no rhonchi, no deformity. Chest Wall: Decrease expansion with deep inspiration no tenderness and no deformity was found on exam, no costochondral pain or discomfort. Heart: Regular rate and rhythm, S1, S2 normal, no murmur, rub or gallop. Back: Symmetric, no curvature, ROM normal, no CVA tenderness. Abdomen: Soft, non-tender, bowel sounds active all four quadrants, no masses, no organomegaly. Extremities: Extremities normal, atraumatic, no cyanosis or edema. Positive generalized arthralgia Pulses: 2+ and symmetric. Skin: Skin color, texture, tugor normal, no rashes or lesions. Neurologic: Alert oriented x3 cranial nerves II through XII intact, no motor deficit, no abnormal balance or gait. Results CBC & Chem 7: 09/20/20 12:41 11 12:41 Labs: Abnormal Lab Results - Last 24 Hours (Table) 09/20/20 09/20/20 09/20/20 Range/Units 12:41 12:41 17:41 RBC 3.87 L (4.30-5.90) m/uL Hgb 12.1 L (13.0-17.5) gm/dL Hct 35.2 L (39.0-53.0) % Lymphocytes # 0.5 L (1.0-4.8) k/uL Sodium 128 L (137-145) mmol/L Chloride 95 L (98-107) mmol/L Glucose 163 H (74-99) mg/dL POC Glucose (mg/dL) 115 H (75-99) mg/dL C-Reactive Protein 63.9 H (<10.0) mg/L Assessment and Plan Assessment: 1 Covid 19 infection: Patient does not have any classical symptoms at this point keep watching patient symptom for any worsening hypoxia, worsening of respiration along with cardiac symptoms if he continue to run very high fever then antiviral medication will be an option the meanwhile continue anticoagulation, continue vitamin D along with zinc. 2 severe hyponatremia: Continue gentle hydration repeat CMP in the next 24 hours. 3 severe hypoxia: Most likely from Covid 19 continue oxygen support and care. 4 Type 2 diabetes: Accu-Chek with sliding scales coverage and be done continue patient on Levemir along with NovoLog. 5 hypertension: Remain on lisinopril 40 mg a day along with atenolol 50 mg twice a day continue medication. 6 hyperlipidemia: Remain on simvastatin 20 mg a day. 7 severe GERD: Continue patient on omeprazole. 8 CODE STATUS: Full code. Admit patient to inpatient service for more than 2 night stay.
[2020-09-21] MEDS: SODIUM CHLORIDE 0.9% 1,000 ML IV SCH ×3 (05:38→20:54)
[2020-09-21 07:12] LABS: Glucose,Whole Blood 181 mg/dL (75-99)
[2020-09-21] MEDS: ZINC SULFATE 220 MG CAP PO SCH (07:32)
[2020-09-21] MEDS: INSULIN DETEMIR (LEVEMIR) 100 UNIT/ML SYR SQ SCH (07:32)
[2020-09-21] MEDS: ISOSORBIDE MONONITRATE ER 15 MG TAB PO SCH (07:32)
[2020-09-21] MEDS: ASPIRIN 81 MG PO SCH (07:33)
[2020-09-21] MEDS: FOLIC ACID 1 MG TAB PO SCH (07:33)
[2020-09-21] MEDS: ASCORBIC ACID 500 MG TAB PO SCH (07:33)
[2020-09-21] MEDS: dexAMETHasone 4 MG TAB PO SCH ×2 (07:33→20:58)
[2020-09-21] MEDS: GLIMEPIRIDE 4 MG TAB PO SCH ×2 (07:33→20:58)
[2020-09-21] MEDS: atenoloL 50 MG TAB PO SCH ×2 (07:33→20:58)
[2020-09-21] MEDS: ATORVASTATIN 10 MG TAB PO SCH (07:34)
[2020-09-21] MEDS: PANTOPRAZOLE 40 MG TABLET PO SCH (07:34)
[2020-09-21] MEDS: INSULIN ASPART (NovoLOG) 100 UNIT/ML VIAL SQ SCH ×4 (07:43→20:56)
[2020-09-21] MEDS: ENOXAPARIN 40 MG/0.4 ML SYRINGE SQ SCH (07:44)
[2020-09-21] MEDS: TIMOLOL 0.5% OPHTH DROPS 5 ML BTL BOTH EYES SCH ×2 (07:44→20:59)
[2020-09-21] MEDS: BRIMONIDINE TARTRATE 0.2% DROPS 5 ML BTL BOTH EYES SCH ×2 (07:44→20:58)
[2020-09-21] MEDS ORDERED: lisinopriL 20 MG TAB PO SCH (09:00)
[2020-09-21] MEDS ORDERED: CHOLECALCIFEROL 1,000 UNIT TAB PO SCH (09:00)
[2020-09-21 09:36] LABS: African American GFR (CKD) 85.6 (60.0-200.0); Anion Gap 10.2 mmol/L (4.00-12.00); Calcium 8.3 mg/dL (8.7-10.3); Carbon Dioxide 24.8 mmol/L (21.6-31.8); Non-African American GFR(CKD) 73.8 (60.0-200.0); Potassium 4.9 mmol/L (3.5-5.5)
--- NOTE | 2020-09-21 10:57 | P.PN ---
Subjective Progress Note Date: 09/21/20 HISTORY OF PRESENT ILLNESS 75-year-old male one of Dr. mishra's patient with past medical history of type 2 diabetes, hypertension, hyperlipidemia and severe GERD who has not felt well the last 10 days. Patient's was admitted to the hospital last week for Covid 19 positive along with pneumonitis left the hospital on Thursday and according to him there both have been quite keen for the last 2 weeks. Patient become more symptomatic with fever or chills significant fatigue This and worsening symptoms with lack of appetite not been able to ambulate walk today he developed to have significant shortness of breath dyspnea and severe hypoxia with minimum exertion ended up coming to the emergency department at [facility] where was seen and evaluated surprisingly sodium was low at 128 Covid test was done still pending patient was hospitalized after done his lab and chest x-ray lab shows slightly abnormal marker with C-reactive protein be in 63 and ferritin level was 1644, blood sugar was mildly elevated patient's LDH was 596. Patient was started on IV hydration, Decadron, vitamin C, vitamin D and zinc we'll consult infectious disease and pulmonary admit patient to the hospital for the above problem. 09/21: Patient denies any new complaints today. He is on room air pulse oxing 93%. He's been afebrile overnight. Heart rate 136/66, heart rate 65. Repeat sodium is up to 136, potassium 4.9, creatinine 1. Blood sugars running between 120 181. Patient has been seen by pulmonary medicine. REVIEW OF SYSTEMS CONSTITUTIONAL: Well-developed no acute respiratory distress. EYES: No icterus sclerae, no conjunctivitis. EARS, NOSE, MOUTH, THROAT, and FACE: No sore throat, lymphadenopathy, carotid bruits or deformity. Significant congestion with sinus ALLERGY. RESPIRATORY: Positive shortness of breath with hypoxia cough no wheezes. CARDIOVASCULAR: No CP, Palpitation, PND, Orthopnea, or angina. GASTROINTESTINAL: No Abd pain, Nausea or vomiting, no Diarrhea or constipation, No GI Bleed, no distention or masses. GENITOURINARY: Negative for Hematuria or UTI, no kidney stones. INTEGUMENT/BREAST: Negative for any muscular injury with mild osteoarthritis.. Generalized myalgia and arthralgia. HEMATOLOGIC/LYMPHATIC: Negative for bleed or purpura. MUSCULOSKELTAL: Negative for Myalgia or arthralgia. NEURLOGICAL: No LOC, Sz or syncope, blurred vision dizziness or abnormality.. BEHAVIORAL/PSYCH: Negative. ENDOCRINE: Negative. PHYSICAL EXAMINATION General Appearance: Alert, cooperative, no distress, appears stated age. Neck HEENT: Supple, no lymphadenopathy, no thyroid enlargement, no carotid b ruits. Mild sinus drainage Lungs: Clear to auscultation without crackles or wheezes no rhonchi, no deformity. Chest Wall: Decrease expansion with deep inspiration no tenderness and no deformity was found on exam, no costochondral pain or discomfort. Heart: Regular rate and rhythm, S1, S2 normal, no murmur, rub or gallop. Back: Symmetric, no curvature, ROM normal, no CVA tenderness. Abdomen: Soft, non-tender, bowel sounds active all four quadrants, no masses, no organomegaly. Extremities: Extremities normal, atraumatic, no cyanosis or edema. Positive generalized arthralgia Pulses: 2+ and symmetric. Skin: Skin color, texture, tugor normal, no rashes or lesions. Neurologic: Alert oriented x3 cranial nerves II through XII intact, no motor deficit, no abnormal balance or gait. ASSESSMENT AND PLAN 1 Covid 19 infection: Patient does not have any classical symptoms at this point keep watching patient symptom for any worsening hypoxia, worsening of respir ation along with cardiac symptoms. if he continue to run very high fever then antiviral medication will be an option the meanwhile continue anticoagulation, continue vitamin D along with zinc. 2 severe hyponatremia: Continue gentle hydration repeat CMP in the next 24 hours. 3 monitor for hypoxia from Covid 19 continue oxygen support and care. 4 Type 2 diabetes: Accu-Chek with sliding scales coverage and be done continue patient on Levemir along with NovoLog. 5 hypertension: Remain on lisinopril 40 mg a day along with atenolol 50 mg twice a day continue medication. 6 hyperlipidemia: Remain on simvastatin 20 mg a day. 7 severe GERD: Continue patient on omeprazole. 8 CODE STATUS: Full code. DISCHARGE PLAN home Thursday Impression and plan of care have been directed as dictated by the signing physician. Cathy Walker nurse practitioner acting as scribe for signing physician. Objective - Vital Signs Vital signs: Vital Signs Temp 97.9 F 09/21/20 07:00 Pulse 65 09/21/20 07:00 Resp 16 09/21/20 07:00 BP 136/66 09/21/20 07:00 Pulse Ox 93 L 09/21/20 07:00 Intake & Output 09/20/20 09/21/20 09/21/20 18:59 06:59 18:59 Weight 81.647 kg Other: Voiding Method Toilet # Voids 4 - Labs CBC & Chem 7: 09/20/20 12:41 09/21/20 06:12 Labs: Abnormal Lab Results - Last 24 Hours (Table) 09/20/20 09/20/20 09/20/20 Range/Units 12:41 12:41 17:41 RBC 3.87 L (4.30-5.90) m/uL Hgb 12.1 L (13.0-17.5) gm/dL Hct 35.2 L (39.0-53.0) % Lymphocytes # 0.5 L (1.0-4.8) k/uL Sodium 128 L (137-145) mmol/L Chloride 95 L (98-107) mmol/L Glucose 163 H (74-99) mg/dL POC Glucose (mg/dL) 115 H (75-99) mg/dL Ferritin 1644.3 H (22.0-322.0) ng/mL C-Reactive Protein 63.9 H (<10.0) mg/L 09/20/20 09/21/20 Range/Units 21:22 07:10 RBC (4.30-5.90) m/uL Hgb (13.0-17.5) gm/dL Hct (39.0-53.0) % Lymphocytes # (1.0-4.8) k/uL Sodium (137-145) mmol/L Chloride (98-107) mmol/L Glucose (74-99) mg/dL POC Glucose (mg/dL) 121 H 181 H (75-99) mg/dL Ferritin (22.0-322.0) ng/mL C-Reactive Protein (<10.0) mg/L
[2020-09-21 11:35] LABS: Glucose,Whole Blood 159 mg/dL (75-99)
--- NOTE | 2020-09-21 14:42 | P.PN ---
Subjective Progress Note Date: 09/21/20 Principal diagnosis: Weakness, fatigue, mild cough This is 75-year-old white male patient of Dr. Cast who came into the hospital on 09/20/2020 for evaluation of weakness, fatigue, mild cough, which was nonproductive, but no shortness of breath. Patient's spouse was diagnosed with COVID 19 a week ago. Patient developed his symptoms couple days ago before presentation. He also felt to be dehydrated, denied any chest discomfort, denying palpitations, some mild muscle aches and joint aches, but denied any nausea vomiting, diarrhea or abdominal pain. His chest x-ray did not show any acute disease, and showed some evidence of granulomatous changes. His Covid 19 PCR is still pending at this time. On today's evaluation patient remains on room air, pulse ox 93%, no worsening symptoms, feeling a little better, afebrile, hemodynamically stable, no dyspnea, no chest pain. Patient continues on Decadron, IV hydration, vitamin C, oral zinc, and prophylactic dose of Loven ox. Did not qualify for Remdesivir due to lack of dyspnea, mild symptoms, and no pulmonary infiltrates on the chest x-ray. Objective - Vital Signs Vital signs: Vital Signs Temp 97.9 F 09/21/20 07:00 Pulse 65 09/21/20 08:00 Resp 16 09/21/20 08:00 BP 136/66 09/21/20 07:00 Pulse Ox 93 L 09/21/20 07:00 Intake & Output 09/20/20 09/21/20 09/21/20 18:59 06:59 18:59 Weight 81.647 kg Other: Voiding Method Toilet Toilet # Voids 4 4 - Exam GENERAL EXAM: Alert, very pleasant, 75-year-old white male, on room air, with a pulse ox 93% comfortable in no apparent distress. HEAD: Normocephalic/atraumatic. EYES: Normal reaction of pupils, equal size. Conjunctiva pink, sclera white. NOSE: Clear with pink turbinates. THROAT: No erythema or exudates. NECK: No masses, no JVD, no thyroid enlargement, no adenopathy. CHEST: No chest wall deformity. Symmetrical expansion. LUNGS: Equal air entry with no crackles, wheeze, rhonchi or dullness. CVS: Regular rate and rhythm, normal S1 and S2, no gallops, no murmurs, no rubs ABDOMEN: Soft, nontender. No hepatosplenomegaly, normal bowel sounds, no guarding or rigidity. EXTREMITIES: No clubbing, no edema, no cyanosis, 2+ pulses and upper and lower extremities. MUSCULOSKELETAL: Muscle strength and tone normal. SPINE: No scoliosis or deformity SKIN: No rashes CENTRAL NERVOUS SYSTEM: Alert and oriented -3. No focal deficits, tone is normal in all 4 extremities. PSYCHIATRIC: Alert and oriented -3. Appropriate affect. Intact judgment and insight. - Labs CBC & Chem 7: 09/20/20 12:41 09/21/20 06:12 Labs: Abnormal Lab Results - Last 24 Hours (Table) 09/20/20 09/20/20 09/20/20 Range/Units 12:41 17:41 21:22 Glucose (70-110) mg/dL POC Glucose (mg/dL) 115 H 121 H (75-99) mg/dL Calcium (8.7-10.3) mg/dL Ferritin 1644.3 H (22.0-322.0) ng/mL 09/21/20 09/21/20 09/21/20 Range/Units 06:12 07:10 11:34 Glucose 156 H (70-110) mg/dL POC Glucose (mg/dL) 181 H 159 H (75-99) mg/dL Calcium 8.3 L (8.7-10.3) mg/dL Ferritin (22.0-322.0) ng/mL Assessment and Plan Plan: Assessment: #1. Rule out COVID 19 infection, patient presented symptoms of weakness, fatigue, dehydration, muscle aches, mild dry cough, no dyspnea, chest x-ray showed no acute pulmonary process #2. Spouse diagnosed with Covid 19 infection a week ago #3. Type 2 diabetes mellitus #4. Hypertension #5. Hyperlipidemia #6. Severe GERD Plan: No reports of dyspnea, patient is feeling better, continue IV hydration, has been afebrile, vital signs are stable, continue Lovenox, Decadron, and vitamin C and zinc supplements, still awaiting results of his Covid 19 PCR. Continues to remain stable and improved and consider for discharge home tomorrow I performed a history & physical examination of the patient and discussed their management with my nurse practitioner, Ciara Koenig. I reviewed the nurse practitioner's note and agree with the documented findings and plan of care. Lung sounds are positive for diminished breath sounds. The findings and the impression was discussed with the patient. I attest to the documentation by the nurse practitioner. Time with Patient: Less than 30
[2020-09-21 16:34] LABS: Glucose,Whole Blood 89 mg/dL (75-99)
[2020-09-21 20:54] LABS: Glucose,Whole Blood 122 mg/dL (75-99)
[2020-09-21] MEDS: LATANOPROST 0.005% OPHTH DROPS 2.5 ML BTL BOTH EYES SCH (20:58)
--- NOTE | 2020-09-21 22:53 | P.CONS ---
History of Present Illness - Reason for Consult Consult date: 09/21/20 Covid 19 Requesting physician: Eduardo Mcdaniel - Chief Complaint Weakness and not feeling well x 1 week - History of Present Illness Patient is a 75 year male presenting to the ER at [facility] yesterday morning for evaluation of generalized weakness. The patient's and has been going on for about a week, the patient tested positive for covid 19 prior to his symptoms, the patient may symptom remains to be Generalized weakness and fatigue. She did have mild dry cough not bringing up any sputum did have some chills, the patient denies having any nausea no vomiting and no diarrhea, patient will milligrams daily was afebrile patient currently has been sitting 94-98% on room air, patient did have a normal white count with lymphopenia d-dimer was normal at 0.56, patient did have normal liver enzymes CRP was 63.9 and pro-calcitonin of 0.06, patient's chest x-ray was negative for any acute infiltrate, patient is currently being treated with Love nox dexamethasone and zinc infectious disease was consulted for further management Review of Systems Positive point has been mentioned in the HPI rest of the systems are negative Past Medical History Past Medical History: Chest Pain / Angina, Diabetes Mellitus, GERD/Reflux, Hyperlipidemia, Hypertension History of Any Multi-Drug Resistant Organisms: None Reported Past Surgical History: Appendectomy, Heart Catheterization Additional Past Surgical History / Comment(s): Patient has never had a colonoscopy. Past Anesthesia/Blood Transfusion Reactions: No Reported Reaction Past Psychological History: No Psychological Hx Reported Smoking Status: Former smoker Past Alcohol Use History: Rare Past Drug Use History: None Reported - Past Family History Mother Additional Family Medical History / Comment(s): BREAST Father Additional Family Medical History / Comment(s): Father at age 60 from a myocardial infarction. Brother(s) Additional Family Medical History / Comment(s): Patient has 7 brothers and one has coronary artery disease status post 3 vessel CABG. Patient does not have any sisters. Patient has 3 children, 2 boys and one girl with no major medical problems. Medications and Allergies Home Medications Medication Instructions Recorded Confirmed Type Aspirin [Adult Low Dose Aspirin EC] 81 mg PO DAILY 11/23/15 09/20/20 History Cholecalciferol [Vitamin D3] 5,000 unit PO MOWEFR 11/23/15 09/20/20 History Glimepiride [Amaryl] 4 mg PO BID 11/23/15 09/20/20 History Nitroglycerin Sl Tabs [Nitrostat] 0.4 mg PO Q5M PRN 11/23/15 09/20/20 History Omeprazole [PriLOSEC] 20 mg PO BID 11/23/15 09/20/20 History Simvastatin 20 mg PO DAILY 11/23/15 09/20/20 History atenoloL [Atenolol] 50 mg PO BID 11/23/15 09/20/20 History Brimonidine Tartrate [Alphagan P 1 drop BOTH EYES BID 09/17/20 09/20/20 History 0.2% Ophth Soln] Insulin Glargine,Hum.rec.anlog 15 unit SQ DAILY 09/17/20 09/20/20 History [Lantus Solostar] Isosorbide Mononitrate ER [Imdur] 15 mg PO DAILY 09/17/20 09/20/20 History Latanoprost Ophth [Xalatan 0.005%] 1 drop PO HS 09/17/20 09/20/20 History Timolol 0.5% Ophth Soln [Timoptic 1 drop BOTH EYES BID 09/17/20 09/20/20 History 0.5% Ophth Soln] lisinopriL 40 mg PO DAILY 09/17/20 09/20/20 History Ondansetron [Zofran] 4 mg PO Q8HR PRN 09/20/20 09/20/20 History Allergies Allergy/AdvReac Type Severity Reaction Status Date / Time cyclobenzaprine Allergy Unknown Verified 09/20/20 11:25 [From Flexeril] doxycycline Allergy Unknown Verified 09/20/20 11:25 metformin Allergy Unknown Verified 09/20/20 11:25 Penicillins Allergy Unknown Verified 09/20/20 11:25 Physical Exam Vitals: Vital Signs Temp Pulse Pulse Resp BP BP Pulse Ox 09/21/20 15:00 98.2 F 63 18 138/74 93 L 09/21/20 08:00 65 16 09/21/20 07:00 97.9 F 65 16 136/66 93 L 09/21/20 01:40 98.7 F 83 16 128/63 93 L 09/21/20 00:10 16 09/20/20 20:05 98.1 F 94 18 108/74 98 09/20/20 17:00 84 125/86 09/20/20 16:30 83 125/64 94 L Intake and Output 09/21/20 09/21/20 09/21/20 06:59 14:59 22:59 Other: Voiding Method Toilet # Voids 4 3 GENERAL DESCRIPTION: Elderly male lying in bed, no distress. No tachypnea or accessory muscle of respiration use. HEENT: Shows Pallor , no scleral icterus. Oral mucous membrane is dry. No pharyngeal erythema or thrush NECK: Trachea central, no thyromegaly. LUNGS: Unlabored breathing. Decreased breath sounds at the base. No wheeze or crackle. HEART: S1, S2, regular rate and rhythm. No loud murmur ABDOMEN: Soft, no tenderness , guarding or rigidity, no organomegaly EXTREMITIES: No edema of feet. SKIN: No rash, no masses palpable. NEUROLOGICAL: The patient is awake, alert, oriented x3, mood and affect normal. Results CBC & Chem 7: 09/20/20 12:41 09/21/20 06:12 Labs: Abnormal Lab Results - Last 24 Hours (Table) 09/20/20 09/20/20 09/20/20 Range/Units 12:41 17:41 21:22 Glucose (70-110) mg/dL POC Glucose (mg/dL) 115 H 121 H (75-99) mg/dL Calcium (8.7-10.3) mg/dL Ferritin 1644.3 H (22.0-322.0) ng/mL 09/21/20 09/21/20 09/21/20 Range/Units 06:12 07:10 11:34 Glucose 156 H (70-110) mg/dL POC Glucose (mg/dL) 181 H 159 H (75-99) mg/dL Calcium 8.3 L (8.7-10.3) mg/dL Ferritin (22.0-322.0) ng/mL Assessment and Plan Assessment: 1-patient presented to the hospital with generalized weakness no energy in this patient did not have significant respiratory symptoms currently not running any fever and not required any supplemental oxygen likely representing a mild covid 19 infection (1) COVID-19 Current Visit: Yes Status: Acute Code(s): U07.1 - COVID-19 SNOMED Code(s): 631864939 Plan: 1-patient to continue with the dexamethasone Lovenox and zinc sulfate 2-no need for Remdisivir or systemic antibiotic therapy 3-droplet isolation We will follow on clinical condition and cultures to further adjust medication if needed Thank you for this consultation will follow this patient with you Time with Patient: Greater than 30
[2020-09-22] MEDS: SODIUM CHLORIDE 0.9% 1,000 ML IV SCH (05:39)
[2020-09-22 07:34] LABS: Glucose,Whole Blood 143 mg/dL (75-99)
[2020-09-22 09:19] VITALS: BP 150/74; TEMP 97.5
[2020-09-22] MEDS: FOLIC ACID 1 MG TAB PO SCH (09:35)
[2020-09-22] MEDS: ASCORBIC ACID 500 MG TAB PO SCH (09:35)
[2020-09-22] MEDS: dexAMETHasone 4 MG TAB PO SCH (09:35)
[2020-09-22] MEDS: INSULIN ASPART (NovoLOG) 100 UNIT/ML VIAL SQ SCH ×2 (09:35→12:44)
[2020-09-22] MEDS: atenoloL 50 MG TAB PO SCH (09:35)
[2020-09-22] MEDS: PANTOPRAZOLE 40 MG TABLET PO SCH (09:35)
[2020-09-22] MEDS: ATORVASTATIN 10 MG TAB PO SCH (09:35)
[2020-09-22] MEDS: ASPIRIN 81 MG PO SCH (09:35)
[2020-09-22] MEDS: ISOSORBIDE MONONITRATE ER 15 MG TAB PO SCH (09:35)
[2020-09-22] MEDS: GLIMEPIRIDE 4 MG TAB PO SCH (09:35)
[2020-09-22] MEDS: ZINC SULFATE 220 MG CAP PO SCH (09:36)
[2020-09-22] MEDS: ENOXAPARIN 40 MG/0.4 ML SYRINGE SQ SCH (09:36)
[2020-09-22] MEDS: INSULIN DETEMIR (LEVEMIR) 100 UNIT/ML SYR SQ SCH (09:38)
[2020-09-22] MEDS: BRIMONIDINE TARTRATE 0.2% DROPS 5 ML BTL BOTH EYES SCH (09:38)
[2020-09-22] MEDS: TIMOLOL 0.5% OPHTH DROPS 5 ML BTL BOTH EYES SCH (09:39)
[2020-09-22 10:19] VITALS: PULSE 63
--- NOTE | 2020-09-22 10:40 | P.DS ---
Providers Date of admission: 09/20/20 14:36 Attending physician: Mouna Kelly Consults: 09/20/20 15:10 Consult Physician Urgent Consulting Provider: Alessandro Huitron Consult Reason/Comments: COVID Do you want consulting provider notified?: Yes 09/20/20 15:11 Consult Physician Urgent Consulting Provider: Tim Peterson Consult Reason/Comments: COVID Do you want consulting provider notified?: Yes Primary care physician: [facility] Course: 75-year-old male one of Dr. mishra's patient with past medical history of type 2 diabetes, hypertension, hyperlipidemia and severe GERD who has not felt well the last 10 days. Patient's was admitted to the hospital last week for Covid 19 positive along with pneumonitis left the hospital on Thursday and according to him there both have been quite keen for the last 2 weeks. Patient become more symptomatic with fever or chills significant fatigue This and worsening symptoms with lack of appetite not been able to ambulate walk today he developed to have significant shortness of breath dyspnea and severe hypoxia with minimum exertion ended up coming to the emergency department at [facility] where was seen and evaluated surprisingly sodium was low at 128 Covid test was done still pending patient was hospitalized after done his lab and chest x-ray lab shows slightly abnormal marker with C-reactive protein be in 63 and ferritin level was 1644, blood sugar was mildly elevated patient's LDH was 596. Patient was started on IV hydration, Decadron, vitamin C, vitamin D and zinc we'll consult infectious disease and pulmonary admit patient to the hospital for the above problem. 09/21: Patient denies any new complaints today. He is on room air pulse oxing 93%. He's been afebrile overnight. Heart rate 136/66, heart rate 65. Repeat sodium is up to 136, potassium 4.9, creatinine 1. Blood sugars running between 120 181. Patient has been seen by pulmonary medicine. 09/22: Patient is sitting up in bed without any new complaints. He is pulse oxing 94% 3 L. Patient will be evaluated for home O2 prior to discharge today. Patient does not want to wait for his test to come back here like to leave today. Discharge diagnosis: 1 Covid 19 infection: 2 severe hyponatremia: 3 hypoxia from Covid 19 4 Type 2 diabetes: 5 hypertension 6 hyperlipidemia: 7 severe GERD: Discharge disposition: Home self-care Impression and plan of care have been directed as dictated by the signing physician. Ginger Shepard nurse practitioner acting as scribe for signing physician. Patient Condition at Discharge: Stable Plan - Discharge Summary Discharge Rx Participant: Yes New Discharge Prescriptions: New Folic Acid 1 mg PO DAILY #30 tab dexAMETHasone [Hexadrol] 4 mg PO BID #10 tab Zinc Sulfate [Orazinc] 220 mg PO DAILY #30 cap Ascorbic Acid [Vitamin C] 500 mg PO DAILY #30 tab Azithromycin [Zithromax] 500 mg PO DAILY 5 Days #5 tab Continue Simvastatin 20 mg PO DAILY Omeprazole [PriLOSEC] 20 mg PO BID Nitroglycerin Sl Tabs [Nitrostat] 0.4 mg PO Q5M PRN PRN Reason: Angina Glimepiride [Amaryl] 4 mg PO BID Cholecalciferol [Vitamin D3 (25 Mcg = 1000 Iu)] 5,000 unit PO MOWEFR atenoloL [Atenolol] 50 mg PO BID Aspirin [Adult Low Dose Aspirin EC] 81 mg PO DAILY Brimonidine Tartrate [Alphagan P 0.2% Ophth Soln] 1 drop BOTH EYES BID Insulin Glargine,Hum.rec.anlog [Lantus Solostar] 15 unit SQ DAILY Isosorbide Mononitrate ER [Imdur] 15 mg PO DAILY Latanoprost Ophth [Xalatan 0.005%] 1 drop PO HS lisinopriL 40 mg PO DAILY Timolol 0.5% Ophth Soln [Timoptic 0.5% Ophth Soln] 1 drop BOTH EYES BID Ondansetron [Zofran] 4 mg PO Q8HR PRN PRN Reason: severe nausea Discharge Medication List Aspirin [Adult Low Dose Aspirin EC] 81 mg PO DAILY 11/23/15 [History] Cholecalciferol [Vitamin D3 (25 Mcg = 1000 Iu)] 5,000 unit PO MOWEFR 11/23/15 [History] Glimepiride [Amaryl] 4 mg PO BID 11/23/15 [History] Nitroglycerin Sl Tabs [Nitrostat] 0.4 mg PO Q5M PRN 11/23/15 [History] Omeprazole [PriLOSEC] 20 mg PO BID 11/23/15 [History] Simvastatin 20 mg PO DAILY 11/23/15 [History] atenoloL [Atenolol] 50 mg PO BID 11/23/15 [History] Brimonidine Tartrate [Alphagan P 0.2% Ophth Soln] 1 drop BOTH EYES BID 09/17/20 [History] Insulin Glargine,Hum.rec.anlog [Lantus Solostar] 15 unit SQ DAILY 09/17/20 [History] Isosorbide Mononitrate ER [Imdur] 15 mg PO DAILY 09/17/20 [History] Latanoprost Ophth [Xalatan 0.005%] 1 drop PO HS 09/17/20 [History] Timolol 0.5% Ophth Soln [Timoptic 0.5% Ophth Soln] 1 drop BOTH EYES BID 09/17/20 [History] lisinopriL 40 mg PO DAILY 09/17/20 [History] Ondansetron [Zofran] 4 mg PO Q8HR PRN 09/20/20 [History] Ascorbic Acid [Vitamin C] 500 mg PO DAILY #30 tab 09/22/20 [Rx] Azithromycin [Zithromax] 500 mg PO DAILY 5 Days #5 tab 09/22/20 [Rx] Folic Acid 1 mg PO DAILY #30 tab 09/22/20 [Rx] Zinc Sulfate [Orazinc] 220 mg PO DAILY #30 cap 09/22/20 [Rx] dexAMETHasone [Hexadrol] 4 mg PO BID #10 tab 09/22/20 [Rx] Follow up Appointment(s)/Referral(s): Preston Cast MD [Primary Care Provider] - 1-2 days (office closed at time of discharge. Please call Thursday to schedule appointment)
[2020-09-22 11:48] LABS: Glucose,Whole Blood 169 mg/dL (75-99)
[2020-09-22 12:38] VITALS: RESP 18
--- NOTE | 2020-09-22 15:01 | PN ---
PROGRESS NOTE DATE OF SERVICE: 09/22/2020. REASON FOR FOLLOW UP: COVID-19 infection. INTERVAL HISTORY: Patient is seen early this afternoon. The patient has been afebrile. The patient is breathing comfortably on room air. The patient denies having any chest pain. No cough. No abdominal pain or diarrhea. PHYSICAL EXAMINATION: Blood pressure 150/74 with a pulse of 73, temperature 97.5. He is 96% on room air. General description is an elderly male up in the room in no distress. Respiratory system reveals unlabored breathing, clear to auscultation. Extremities no edema of the feet. LABS: No new labs have been obtained today. IMPRESSION/PLAN: Patient has COVID-19 infection. This patient has shown overall clinical improvement. He will finish therapy with short course of oral dexamethasone, zinc, and . close outpatient followup. Questions and concerns were answered. MMODL / IJN: [id number] /
== END 2020-09-22 13:15 | disposition home or self-care (01) | DRG 178 ==
LOC: EC 11:14 → 6NMEDSUR 14:36 → 4SSUR 17:24
PROVIDERS: ADMIT Family Medicine; ATTEND Family Medicine
DX: U07.1 COVID-19 (principal); E87.1 Hypo-osmolality and hyponatremia; E11.9 Type 2 diabetes mellitus without complications; E78.5 Hyperlipidemia, unspecified; I10 Essential (primary) hypertension; K21.9 Gastro-esophageal reflux disease without esophagitis; E86.0 Dehydration; R09.02 Hypoxemia; Z79.899 Other long term (current) drug therapy; Z79.84 Long term (current) use of oral hypoglycemic drugs; Z79.82 Long term (current) use of aspirin; Z90.49 Acquired absence of other specified parts of digestive tract; Z87.891 Personal history of nicotine dependence; Z82.49 Family history of ischemic heart disease and other diseases of the circulatory system; Z80.3 Family history of malignant neoplasm of breast
CPT/HCPCS: 36415; 71045; 80048; 80053; 82728; 83605; 83615; 83735; 84145; 85025; 85379; 85610; 85730; 86140; 93005; 99285

== ENCOUNTER 2020-09-25 08:11 | Inpatient (IN) | payer MEDICARE ==
--- NOTE | 2020-09-25 08:42 | ED ---
SOB HPI - General Chief Complaint: Shortness of Breath Stated Complaint: Covid Positive,JANIA Time Seen by Provider: 09/25/20 08:20 Source: patient Mode of arrival: wheelchair Limitations: physical limitation - History of Present Illness Initial Comments: Patient is a 75-year-old male with past medical history of hypertension, diabetes who presents to the emergency department with worsening shortness of breath. Patient reports that he was diagnosed with Covid and hospitalized at our facility. Patient was admitted on the and discharged on the . He had an oxygen evaluation prior to discharge and the patient states his oxygen saturation sat around 92% so he went home without oxygen. He did not receive remdesmivir. Patient reports that since he has been home he has not felt any better. He has not developed a pleuritic chest pain, worsening shortness of breath. He does have a pulse ox machine at home and noted that it was reading 82%. He feels generally fatigued and has had difficulty eating a good appetite. Because of his reported worsening symptoms he presents again to the emergency room for evaluation. Denies ripping or tearing sensation to his back. No other alleviating, precipitating or modifying factors - Related Data Home Medications Medication Instructions Recorded Confirmed Aspirin [Adult Low Dose Aspirin EC] 81 mg PO DAILY 11/23/15 09/25/20 Cholecalciferol [Vitamin D3 (25 5,000 unit PO MOWEFR 11/23/15 09/25/20 Mcg = 1000 Iu)] Glimepiride [Amaryl] 4 mg PO BID 11/23/15 09/25/20 Nitroglycerin Sl Tabs [Nitrostat] 0.4 mg PO Q5M PRN 11/23/15 09/25/20 Omeprazole [PriLOSEC] 20 mg PO BID 11/23/15 09/25/20 Simvastatin 20 mg PO DAILY 11/23/15 09/25/20 atenoloL [Atenolol] 50 mg PO BID 11/23/15 09/25/20 Brimonidine Tartrate [Alphagan P 1 drop BOTH EYES BID 09/17/20 09/25/20 0.2% Ophth Soln] Insulin Glargine,Hum.rec.anlog 15 unit SQ HS 09/17/20 09/25/20 [Lantus Solostar] Isosorbide Mononitrate ER [Imdur] 15 mg PO DAILY 09/17/20 09/25/20 Latanoprost Ophth [Xalatan 0.005%] 1 drop BOTH EYES HS 09/17/20 09/25/20 Timolol 0.5% Ophth Soln [Timoptic 1 drop BOTH EYES BID 09/17/20 09/25/20 0.5% Ophth Soln] lisinopriL 40 mg PO DAILY 09/17/20 09/25/20 Ondansetron [Zofran] 4 mg PO Q8HR PRN 09/20/20 09/25/20 Previous Rx's Medication Instructions Recorded Ascorbic Acid [Vitamin C] 500 mg PO DAILY #30 tab 09/22/20 Azithromycin [Zithromax] 500 mg PO DAILY 5 Days #5 tab 09/22/20 Folic Acid 1 mg PO DAILY #30 tab 09/22/20 Zinc Sulfate [Orazinc] 220 mg PO DAILY #30 cap 09/22/20 dexAMETHasone [Hexadrol] 4 mg PO BID #10 tab 09/22/20 Allergies Allergy/AdvReac Type Severity Reaction Status Date / Time cyclobenzaprine Allergy Unknown Verified 09/25/20 08:31 [From Flexeril] doxycycline Allergy Unknown Verified 09/25/20 08:31 metformin Allergy Unknown Verified 09/25/20 08:31 Penicillins Allergy Unknown Verified 09/25/20 08:31 Review of Systems ROS Statement: Those systems with pertinent positive or pertinent negative responses have been documented in the HPI. ROS Other: All systems not noted in ROS Statement are negative. Past Medical History Past Medical History: Chest Pain / Angina, Diabetes Mellitus, GERD/Reflux, Hyperlipidemia, Hypertension Additional Past Medical History / Comment(s): covid History of Any Multi-Drug Resistant Organisms: None Reported Past Surgical History: Appendectomy, Heart Catheterization Additional Past Surgical History / Comment(s): Patient has never had a colonoscopy. Past Anesthesia/Blood Transfusion Reactions: No Reported Reaction Past Psychological History: No Psychological Hx Reported Smoking Status: Former smoker Past Alcohol Use History: Rare Past Drug Use History: None Reported - Past Family History Mother Additional Family Medical History / Comment(s): BREAST Father Additional Family Medical History / Comment(s): Father at age 60 from a myocardial infarction. Brother(s) Additional Family Medical History / Comment(s): Patient has 7 brothers and one has coronary artery disease status post 3 vessel CABG. Patient does not have any sisters. Patient has 3 children, 2 boys and one girl with no major medical problems. General Exam Limitations: physical limitation General appearance: alert, in no apparent distress Head exam: Present: atraumatic, normocephalic, normal inspection Eye exam: Present: normal appearance, PERRL, EOMI. Absent: scleral icterus, conjunctival injection, periorbital swelling ENT exam: Present: normal exam, mucous membranes moist Neck exam: Present: normal inspection. Absent: tenderness, meningismus, lymphadenopathy Respiratory exam: Present: normal lung sounds bilaterally, accessory muscle use, other (tachypnia at rest). Absent: wheezes, rales, rhonchi, stridor Cardiovascular Exam: Present: regular rate, normal rhythm, normal heart sounds. Absent: systolic murmur, diastolic murmur, rubs, gallop, clicks GI/Abdominal exam: Present: soft, normal bowel sounds. Absent: distended, tenderness, guarding, rebound, rigid Extremities exam: Present: normal inspection, full ROM, normal capillary refill. Absent: tenderness, pedal edema, joint swelling, calf tenderness Back exam: Present: normal inspection Neurological exam: Present: alert, oriented X3, CN II-XII intact Psychiatric exam: Present: normal affect, normal mood Skin exam: Present: warm, dry, intact, normal color. Absent: rash Course Vital Signs 09/25/20 09/25/20 09/25/20 08:20 08:54 09:01 Temperature 97.7 F Pulse Rate 84 76 Pulse Rate [ Left] Respiratory 22 30 H 18 Rate Blood Pressure 150/60 133/78 Blood Pressure [Left Arm] O2 Sat by Pulse 83 L 94 L Oximetry 09/25/20 09/25/20 09/25/20 11:19 14:16 14:23 Temperature 98.2 F 98.6 F Pulse Rate 76 52 L 69 Pulse Rate [ Left] Respiratory 24 18 18 Rate Blood Pressure 133/83 153/76 Blood Pressure [Left Arm] O2 Sat by Pulse 94 L 97 97 Oximetry 09/25/20 09/25/20 14:42 15:00 Temperature 97.9 F Pulse Rate Pulse Rate [ 75 Left] Respiratory 24 Rate Blood Pressure Blood Pressure 148/77 [Left Arm] O2 Sat by Pulse 97 93 L Oximetry Medical Decision Making - Medical Decision Making Upon arrival patient is placed into room 3. A thorough history and physical exam was performed. Patient does require 4 L of oxygen. Laboratory studies were obtained. White count 22.4. D-dimer 1.19. Glucose 43. LDH 1095, C reactive protein 157.[address] the patient's chest was performed which demonstrates no signs of PE. Diffuse bilateral infiltrates consistent with Covid pneumonia. Discuss results with the patient. Recommend hospitalization for which patient did agree to. He was given a dose of Decadron and an amp of dextrose. Patient reevaluated and remained in stable condition. He is awaiting a bed on the floor - Lab Data Result diagrams: 09/29/20 05:46 09/29/20 05:46 Lab Results 09/25/20 09/25/20 09/25/20 Range/Units 08:47 08:47 08:47 WBC 22.4 H (3.8-10.6) k/uL RBC 4.27 L (4.30-5.90) m/uL Hgb 12.9 L (13.0-17.5) gm/dL Hct 38.3 L (39.0-53.0) % MCV 89.7 (80.0-100.0) fL MCH 30.3 (25.0-35.0) pg MCHC 33.7 (31.0-37.0) g/dL RDW 12.6 (11.5-15.5) % Plt Count 303 (150-450) k/uL MPV 7.7 Neutrophils % 95 % Lymphocytes % 2 % Monocytes % 2 % Eosinophils % 0 % Basophils % 0 % Neutrophils # 21.2 H (1.3-7.7) k/uL Lymphocytes # 0.5 L (1.0-4.8) k/uL Monocytes # 0.4 (0-1.0) k/uL Eosinophils # 0.1 (0-0.7) k/uL Basophils # 0.1 (0-0.2) k/uL PT 10.2 (9.0-12.0) sec INR 1.0 (<1.2) APTT 22.2 (22.0-30.0) sec D-Dimer 1.19 H (<0.60) mg/L FEU Sodium 137 (137-145) mmol/L Potassium 4.3 (3.5-5.1) mmol/L Chloride 104 (98-107) mmol/L Carbon Dioxide 25 (22-30) mmol/L Anion Gap 8 mmol/L BUN 15 (9-20) mg/dL Creatinine 0.78 (0.66-1.25) mg/dL Est GFR (CKD-EPI)AfAm >90 (>60 ml/min/1.73 sqM) Est GFR (CKD-EPI)NonAf 89 (>60 ml/min/1.73 sqM) Glucose 43 L* (74-99) mg/dL Plasma Lactic Acid Yovany (0.7-2.0) mmol/L Calcium 9.1 (8.4-10.2) mg/dL Magnesium 2.1 (1.6-2.3) mg/dL Ferritin 2679.7 H (22.0-322.0) ng/mL Total Bilirubin 0.8 (0.2-1.3) mg/dL AST 78 H (17-59) U/L ALT 54 H (4-49) U/L Alkaline Phosphatase 49 (38-126) U/L Lactate Dehydrogenase 1295 H (313-618) U/L C-Reactive Protein 157.9 H (<10.0) mg/L Total Protein 7.0 (6.3-8.2) g/dL Albumin 3.7 (3.5-5.0) g/dL Procalcitonin (0.02-0.09) ng/mL Coronavirus (PCR) (Not Detectd) Influenza Type A RNA (Not Detectd) Influenza Type B (PCR) (Not Detectd) 09/25/20 09/25/20 09/25/20 Range/Units 08:47 08:47 08:47 WBC (3.8-10.6) k/uL RBC (4.30-5.90) m/uL Hgb (13.0-17.5) gm/dL Hct (39.0-53.0) % MCV (80.0-100.0) fL MCH (25.0-35.0) pg MCHC (31.0-37.0) g/dL RDW (11.5-15.5) % Plt Count (150-450) k/uL MPV Neutrophils % % Lymphocytes % % Monocytes % % Eosinophils % % Basophils % % Neutrophils # (1.3-7.7) k/uL Lymphocytes # (1.0-4.8) k/uL Monocytes # (0-1.0) k/uL Eosinophils # (0-0.7) k/uL Basophils # (0-0.2) k/uL PT (9.0-12.0) sec INR (<1.2) APTT (22.0-30.0) sec D-Dimer (<0.60) mg/L FEU Sodium (137-145) mmol/L Potassium (3.5-5.1) mmol/L Chloride (98-107) mmol/L Carbon Dioxide (22-30) mmol/L Anion Gap mmol/L BUN (9-20) mg/dL Creatinine (0.66-1.25) mg/dL Est GFR (CKD-EPI)AfAm (>60 ml/min/1.73 sqM) Est GFR (CKD-EPI)NonAf (>60 ml/min/1.73 sqM) Glucose (74-99) mg/dL Plasma Lactic Acid Yovany 1.9 (0.7-2.0) mmol/L Calcium (8.4-10.2) mg/dL Magnesium (1.6-2.3) mg/dL Ferritin (22.0-322.0) ng/mL Total Bilirubin (0.2-1.3) mg/dL AST (17-59) U/L ALT (4-49) U/L Alkaline Phosphatase (38-126) U/L Lactate Dehydrogenase (313-618) U/L C-Reactive Protein (<10.0) mg/L Total Protein (6.3-8.2) g/dL Albumin (3.5-5.0) g/dL Procalcitonin 0.05 (0.02-0.09) ng/mL Coronavirus (PCR) Detected A (Not Detectd) Influenza Type A RNA Not Detected (Not Detectd) Influenza Type B (PCR) Not Detected (Not Detectd) - EKG Data EKG Comments: EKG demonstrates a sinus rhythm with a first-degree AV block. Rate of 84. OK interval is 224. QRS 172. QTC of 527. There is a left bundle branch block. Negative sgarbossa criteria. Critical Care Time Critical Care Time: Yes Critical Care Time: 32 minutes Disposition Clinical Impression: COVID-19, Hypoxia, Hypoglycemia, Pneumonia due to COVID-19 virus Disposition: ADMITTED IP TO THIS [facility] Condition: Serious Is patient prescribed a controlled substance at d/c from ED?: No Decision to Admit Reason: Admit from EC Decision Date: 09/25/20 Decision Time: 10:01
[2020-09-25 09:04] LABS: Basophils # (A) 0.1 k/uL (0-0.2); Basophils % (A) 0 %; Eosinophils # (A) 0.1 k/uL (0-0.7); Eosinophils % (A) 0 %; HCT 38.3 % (39.0-53.0); HGB 12.9 gm/dL (13.0-17.5); Lymphocytes # (A) 0.5 k/uL (1.0-4.8); Lymphocytes % (A) 2 %; MCH 30.3 pg (25.0-35.0); MCHC 33.7 g/dL (31.0-37.0); MCV 89.7 fL (80.0-100.0); Mean Platelet Volume 7.7; Monocytes # (A) 0.4 k/uL (0-1.0); Monocytes % (A) 2 %; Neutrophils # (A) 21.2 k/uL (1.3-7.7); Neutrophils % (A) 95 %; Platelet Count 303 k/uL (150-450); RBC 4.27 m/uL (4.30-5.90); RDW 12.6 % (11.5-15.5); WBC 22.4 k/uL (3.8-10.6)
[2020-09-25 09:20] LABS: ALT 54 U/L (4-49); AST 78 U/L (17-59); African American GFR (CKD) >90 (>60 ml/min/1.73 sqM); Albumin 3.7 g/dL (3.5-5.0); Alkaline Phosphatase 49 U/L (38-126); Anion Gap 8 mmol/L; Blood Urea Nitrogen 15 mg/dL (9-20); Calcium 9.1 mg/dL (8.4-10.2); Carbon Dioxide 25 mmol/L (22-30); Chloride 104 mmol/L (98-107); LDH 1295 U/L (313-618); Magnesium 2.1 mg/dL (1.6-2.3); Non-African American GFR(CKD) 89 (>60 ml/min/1.73 sqM); Potassium 4.3 mmol/L (3.5-5.1); Sodium 137 mmol/L (137-145); Total Bilirubin 0.8 mg/dL (0.2-1.3)
[2020-09-25 09:25] LABS: SARS-CoV-2 RNA Rapid Abbott Detected (Not Detectd)
[2020-09-25] MEDS: ALBUTEROL HFA INHALER INHALATION PRN ×2 (09:28→11:59)
[2020-09-25 09:30] LABS: Partial Thromboplastin Time 22.2 sec (22.0-30.0); Prothrombin Time 10.2 sec (9.0-12.0)
[2020-09-25 09:35] LABS: D-Dimer 1.19 mg/L FEU (<0.60)
[2020-09-25 09:49] LABS: C Reactive Protein 157.9 mg/L (<10.0); Glucose 43 mg/dL (74-99)
[2020-09-25] MEDS ORDERED: DEXTROSE 50% SYRINGE 50 ML IVP STA (09:49)
--- NOTE | 2020-09-25 10:39 | CT ---
EXAMINATION TYPE: CT chest angio for PE DATE OF EXAM: 09/25/2020 COMPARISON: Chest x-ray 09/20/2020 HISTORY: SOB, chest pain, covid positive CT DLP: 456.4 mGycm Automated exposure control for dose reduction was used. CONTRAST: CT Chest for pulmonary embolism performed with with IV Contrast, patient injected with 100 mL of Isov ue 370. FINDINGS: LUNGS: The lungs show bilateral groundglass opacity, airspace disease, there is some motion on the ex am. There is no pleural effusion or pneumothorax seen. The tracheobronchial tree is patent. MEDIASTINUM: There is satisfactory enhancement of the pulmonary artery and somewhat limited opacifica tion of the peripheral branches at the lung bases thought likely to be technical, there is no CT evid ence for pulmonary embolism. There are no greater than 1 cm hilar or mediastinal lymph nodes. No p ericardial effusion is seen. There is a hiatal hernia present. AORTA: No additional significant abnormality is seen. OTHER: No additional significant abnormality is seen. IMPRESSION: There are some technical limitations the exam. No pulmonary embolism is evident. Findings consistent with Covid pneumonia.
[2020-09-25] MEDS ORDERED: NALOXONE 0.4 MG/ML 1 ML VIAL IV PRN (10:48)
[2020-09-25] MEDS ORDERED: DEXAMETHASONE SOD PHOSPHATE 10 MG/ML 1 ML VIAL IV STA (11:24)
[2020-09-25 11:44] LABS: Glucose,Whole Blood 76 mg/dL (75-99)
[2020-09-25] MEDS: ENOXAPARIN 40 MG/0.4 ML SYRINGE SQ SCH (11:45)
[2020-09-25] MEDS: ACETAMINOPHEN TAB 325 MG TAB PO PRN (11:51)
[2020-09-25 13:12] LABS: Glucose,Whole Blood 107 mg/dL (75-99)
[2020-09-25] MEDS ORDERED: NITROGLYCERIN SL TABS 0.4 MG TAB SUBLINGUAL PRN (14:08)
[2020-09-25] MEDS ORDERED: ONDANSETRON 4 MG TAB PO PRN (14:08)
[2020-09-25 14:23] LABS: Glucose,Whole Blood 97 mg/dL (75-99)
[2020-09-25 15:48] LABS: Ferritin 2679.7 ng/mL (22.0-322.0)
[2020-09-25 17:24] LABS: Glucose,Whole Blood 95 mg/dL (75-99)
[2020-09-25] MEDS ORDERED: CHOLECALCIFEROL 400 UNIT TAB PO SCH (18:00)
--- NOTE | 2020-09-25 18:53 | P.HPIM ---
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 Patient was the hospital for 3 days did not require much oxygen he ended up feeling decent insisted leave the hospital on Thursday. Patient return to the emergency room today complaining of worsening symptom with fever chills severe hypoxia with minimum exertion fatigue tiredness nausea and mild diarrhea and overall not feeling well. His d-dimer was elevated his marker were much higher today including d-dimer, C-reactive protein, Ferritin and LDH patient ended up going for CT of the lung came back with ground glass picture consistent with Covid pneumonitis, patient was severely hypoxic requiring 4 L O2 to keep his pulse ox above 90 percentile. Call pulmonary start patient on Remdesivir, steroid and O2 and admit patient to the hospital. Review of Systems CONSTITUTIONAL: Well-developed no acute respiratory distress. EYES: No icterus sclerae, no conjunctivitis. EARS, NOSE, MOUTH, THROAT, and FACE: No sore throat, lymphadenopathy, carotid bruits or deformity. RESPIRATORY: No SOB cough or wheezes. Severe dyspnea and shortness of breath with Covid pneumonitis. CARDIOVASCULAR: No CP, Palpitation, PND, Orthopnea, or angina. Palpitation. GASTROINTESTINAL: Lack of appetite nausea with mild vomiting positive diarrhea no GI bleed. GENITOURINARY: Negative for Hematuria or UTI, no kidney stones. INTEGUMENT/BREAST: Negative for any muscular injury with mild osteoarthritis.. HEMATOLOGIC/LYMPHATIC: Negative for bleed or purpura. MUSCULOSKELTAL: Generalized arthralgia and myalgia. NEURLOGICAL: No LOC, Sz or syncope, blurred vision dizziness or abnormality.. BEHAVIORAL/PSYCH: Negative. ENDOCRINE: Negative. Past Medical History Past Medical History: Chest Pain / Angina, Diabetes Mellitus, GERD/Reflux, Hyperlipidemia, Hypertension Additional Past Medical History / Comment(s): covid History of Any Multi-Drug Resistant Organisms: None Reported Past Surgical History: Appendectomy, Heart Catheterization Additional Past Surgical History / Comment(s): Patient has never had a colonoscopy. Past Anesthesia/Blood Transfusion Reactions: No Reported Reaction Past Psychological History: No Psychological Hx Reported Smoking Status: Former smoker Past Alcohol Use History: Rare Past Drug Use History: None Reported - Past Family History Mother Additional Family Medical History / Comment(s): BREAST Father Additional Family Medical History / Comment(s): Father at age 60 from a myocardial infarction. Brother(s) Additional Family Medical History / Comment(s): Patient has 7 brothers and one has coronary artery disease status post 3 vessel CABG. Patient does not have any sisters. Patient has 3 children, 2 boys and one girl with no major medical problems. Medications and Allergies Home Medications Medication Instructions Recorded Confirmed Type Aspirin [Adult Low Dose Aspirin EC] 81 mg PO DAILY 11/23/15 09/25/20 History Cholecalciferol [Vitamin D3 (25 5,000 unit PO MOWEFR 11/23/15 09/25/20 History Mcg = 1000 Iu)] Glimepiride [Amaryl] 4 mg PO BID 11/23/15 09/25/20 History Nitroglycerin Sl Tabs [Nitrostat] 0.4 mg PO Q5M PRN 11/23/15 09/25/20 History Omeprazole [PriLOSEC] 20 mg PO BID 11/23/15 09/25/20 History Simvastatin 20 mg PO DAILY 11/23/15 09/25/20 History atenoloL [Atenolol] 50 mg PO BID 11/23/15 09/25/20 History Brimonidine Tartrate [Alphagan P 1 drop BOTH EYES BID 09/17/20 09/25/20 History 0.2% Ophth Soln] Insulin Glargine,Hum.rec.anlog 15 unit SQ HS 09/17/20 09/25/20 History [Lantus Solostar] Isosorbide Mononitrate ER [Imdur] 15 mg PO DAILY 09/17/20 09/25/20 History Latanoprost Ophth [Xalatan 0.005%] 1 drop BOTH EYES HS 09/17/20 09/25/20 History Timolol 0.5% Ophth Soln [Timoptic 1 drop BOTH EYES BID 09/17/20 09/25/20 History 0.5% Ophth Soln] lisinopriL 40 mg PO DAILY 09/17/20 09/25/20 History Ondansetron [Zofran] 4 mg PO Q8HR PRN 09/20/20 09/25/20 History Ascorbic Acid [Vitamin C] 500 mg PO DAILY #30 tab 09/22/20 09/25/20 Rx Azithromycin [Zithromax] 500 mg PO DAILY 5 Days #5 tab 09/22/20 09/25/20 Rx Folic Acid 1 mg PO DAILY #30 tab 09/22/20 09/25/20 Rx Zinc Sulfate [Orazinc] 220 mg PO DAILY #30 cap 09/22/20 09/25/20 Rx dexAMETHasone [Hexadrol] 4 mg PO BID #10 tab 09/22/20 09/25/20 Rx Allergies Allergy/AdvReac Type Severity Reaction Status Date / Time cyclobenzaprine Allergy Unknown Verified 09/25/20 08:31 [From Flexeril] doxycycline Allergy Unknown Verified 09/25/20 08:31 metformin Allergy Unknown Verified 09/25/20 08:31 Penicillins Allergy Unknown Verified 09/25/20 08:31 Physical Exam Vitals: Vital Signs Temp Pulse Pulse Resp BP BP Pulse Ox 09/25/20 15:47 75 20 09/25/20 15:25 69 20 145/77 97 09/25/20 15:00 97.9 F 75 24 148/77 93 L 09/25/20 14:42 97 09/25/20 14:23 98.6 F 69 18 97 09/25/20 14:16 52 L 18 153/76 97 09/25/20 11:19 98.2 F 76 24 133/83 94 L 09/25/20 09:01 76 18 133/78 94 L 09/25/20 08:54 30 H 09/25/20 08:20 97.7 F 84 22 150/60 83 L Intake and Output 09/25/20 09/25/20 09/25/20 06:59 14:59 22:59 Other: Weight 81.647 kg General Appearance: Alert, cooperative, no distress, appears stated age. Neck HEENT: Supple, no lymphadenopathy, no thyroid enlargement, no carotid bruits. Dry mucosa Lungs: Occasional expansion bilaterally pacify rhonchi with mild crackles in the bases positive mild expiratory wheezes. Chest Wall: Decrease expansion with deep inspiration no tenderness and no deformity was found on exam, no costochondral pain or discomfort. Heart: Regular rate and rhythm, S1, S2 normal, no murmur, rub or gallop. Back: Symmetric, no curvature, ROM normal, no CVA tenderness. Abdomen: Soft, non-tender, bowel sounds active all four quadrants, slight disc omfort in the mid epigastric and mid abdominal region area. Extremities: Extremities normal, atraumatic, no cyanosis or edema. Pulses: 2+ and symmetric. Skin: Skin color, texture, tugor normal, no rashes or lesions. Neurologic: Alert oriented x3 cranial nerves II through XII intact, no motor deficit, no abnormal balance or gait. Results CBC & Chem 7: 09/25/20 08:47 09/25/20 08:47 Labs: Abnormal Lab Results - Last 24 Hours (Table) 09/25/20 09/25/20 09/25/20 Range/Units 08:47 08:47 08:47 WBC 22.4 H (3.8-10.6) k/uL RBC 4.27 L (4.30-5.90) m/uL Hgb 12.9 L (13.0-17.5) gm/dL Hct 38.3 L (39.0-53.0) % Neutrophils # 21.2 H (1.3-7.7) k/uL Lymphocytes # 0.5 L (1.0-4.8) k/uL D-Dimer 1.19 H (<0.60) mg/L FEU Glucose 43 L* (74-99) mg/dL POC Glucose (mg/dL) (75-99) mg/dL Ferritin 2679.7 H (22.0-322.0) ng/mL AST 78 H (17-59) U/L ALT 54 H (4-49) U/L Lactate Dehydrogenase 1295 H (313-618) U/L C-Reactive Protein 157.9 H (<10.0) mg/L Coronavirus (PCR) (Not Detectd) 09/25/20 09/25/20 Range/Units 08:47 13:11 WBC (3.8-10.6) k/uL RBC (4.30-5.90) m/uL Hgb (13.0-17.5) gm/dL Hct (39.0-53.0) % Neutrophils # (1.3-7.7) k/uL Lymphocytes # (1.0-4.8) k/uL D-Dimer (<0.60) mg/L FEU Glucose (74-99) mg/dL POC Glucose (mg/dL) 107 H (75-99) mg/dL Ferritin (22.0-322.0) ng/mL AST (17-59) U/L ALT (4-49) U/L Lactate Dehydrogenase (313-618) U/L C-Reactive Protein (<10.0) mg/L Coronavirus (PCR) Detected A (Not Detectd) Thrombosis Risk Factor Assmnt - DVT/VTE Prophylaxis DVT/VTE Prophylaxis: Pharmacologic Prophylaxis ordered, Mechanical Prophylaxis ordered - Choose All That Apply Any of the Below Risk Factors Present?: Yes Each Factor Represents 1 point: Obesity (BMI >25) Other Risk Factors: Yes Each Risk Factor Represents 2 Points: Age 61-74 years Thrombosis Risk Factor Assessment Total Risk Factor Score: 3 Thrombosis Risk Factor Assessment Level: Moderate Risk Assessment and Plan Assessment: 1 acute Covid pneumonitis: With failure to outpatient treatment, and relapse from last week with much worsening hypoxia, chest x-ray and CTA of the chest consistent with Covid pneumonitis patient will be started on Remdisevir, along with Decadron, O2, updraft treatment zinc vitamin D vitamin C. Pulmonary consultation and ID consultation be done. 2 severe hypoxia: Secondary to Covid pneumonitis: Patient will be on O2 continue supportive care for now he might require oxygen for the next 4 weeks. 3 severe gastrointestinal symptom: Mostly from Covid continue supportive care along with hydration gradually increase on his diet continue anti-inflammatory medication along with PPI. 4 type 2 diabetes: Continue patient on Accu-Chek with sliding scales coverage, patient has been on oral hypoglycemic agent along with Lantus and NovoLog. 5 hypertension: Remain on lisinopril 40 mg a day and atenolol 50 mg twice a day. 6 hyperlipidemia: Remain on simvastatin 20 mg daily. 7 atherosclerotic heart disease: Remain on beta brayan, alex and isosorbide. 8 severe GERD/GI prophylaxis: Patient will be on omeprazole or pantoprazole daily. 9 DVT prophylaxis: Patient will be on Lovenox 40 mg subcutaneous daily. CODE STATUS: Full code. Admit patient to the inpatient service for more than 2 night stay.
[2020-09-25] MEDS ORDERED: REMDESIVIR (EUA) 200 MG in SODIUM CHLORIDE 0.9% 250 ML IVPB ONE (19:00)
--- NOTE | 2020-09-25 19:20 | P.CNPUL ---
History of Present Illness Consult date: 09/25/20 Reason for consult: dyspnea, pneumonia History of present illness: 75-year-old male patient, with established diagnosis of COVID 19 infection who was admitted to the hospital between 09/20/2020 and 09/22/2020. At that time, the patient was treated symptomatically and the patient was discharged home. The patient is known to have diabetes and hypertension as morbid conditions. The patient came back at a hospital today as the patient was feeling shortness of breath and his pulse ox and drop down to 82%. Note that at the time of discharge from the hospital during his earlier admission, the patient's phosphorus was above 90%. He was feeling fatigued and tired and he was having difficulties with oral intake. Based on his worsening symptoms, the patient was admitted to the hospital and a pulmonary consultation was requested. The patient's current white cell count of 22.4. Hemoglobin was at 12.9 and the patient's platelet count is at 303. He continues to have lymphopenia. D-dimer 1.19. Rest of the coagulation profile is within normal limits. His glucose was 43 in the emergency department and this was treated. BUN is at 50 with a creatinine of 0.7. Rest of the electrodes are within normal limits. Ferritin level is at 2679. AST 78, ALT 54, LDH is at 1295 and the patient has a CRP of 157. The pro-calcitonin is a 0.05. The pleitez virus Covid 19 testing was repeated and it was again positive. A CT angiogram was done and the patient's lungs showed bilateral groundglass opacity and airspace disease. No pleural e ffusion. Note that during his earlier admission, the patient was not given Remdesivir as the patient's symptoms were mild and the patient had no significant shortness of breath and hypoxemia or pulmonary infiltration of the chest x-ray at that time. Review of Systems Constitutional: Reports fatigue, Reports poor appetite, Reports weakness Eyes: denies as per HPI, denies blurred vision, denies bulging eye, denies decreased vision, denies diplopia, denies discharge, denies dry eye, denies irritation, denies itching, denies pain, denies photophobia, denies loss of peripheral vision, denies loss of vision, denies tunnel vision/blind spots Ears: deny: decreased hearing, ear discharge, earache, tinnitus Ears, nose, mouth and throat: Denies headache, Denies sore throat Breasts: absent: as per HPI, gynecomastia Cardiovascular: Reports decreased exercise tolerance, Reports dyspnea on exertion Respiratory: Reports cough, Reports dyspnea Gastrointestinal: Reports as per HPI Genitourinary: Reports as per HPI Musculoskeletal: Reports as per HPI Musculoskeletal: absent: ankle pain, ankle stiffness, ankle swelling, as per HPI Integumentary: Reports as per HPI Neurological: Reports as per HPI, Reports weakness Psychiatric: Reports as per HPI Endocrine: Reports as per HPI Hematologic/Lymphatic: Reports as per HPI Allergic/Immunologic: Reports as per HPI Past Medical History Past Medical History: Chest Pain / Angina, Diabetes Mellitus, GERD/Reflux, Hyperlipidemia, Hypertension Additional Past Medical History / Comment(s): covid History of Any Multi-Drug Resistant Organisms: None Reported Past Surgical History: Appendectomy, Heart Catheterization Additional Past Surgical History / Comment(s): Patient has never had a colonoscopy. Past Anesthesia/Blood Transfusion Reactions: No Reported Reaction Past Psychological History: No Psychological Hx Reported Smoking Status: Former smoker Past Alcohol Use History: Rare Past Drug Use History: None Reported - Past Family History Mother Additional Family Medical History / Comment(s): BREAST Father Additional Family Medical History / Comment(s): Father at age 60 from a myocardial infarction. Brother(s) Additional Family Medical History / Comment(s): Patient has 7 brothers and one has coronary artery disease status post 3 vessel CABG. Patient does not have any sisters. Patient has 3 children, 2 boys and one girl with no major medical problems. Medications and Allergies Home Medications Medication Instructions Recorded Confirmed Type Aspirin [Adult Low Dose Aspirin EC] 81 mg PO DAILY 11/23/15 09/25/20 History Cholecalciferol [Vitamin D3 (25 5,000 unit PO MOWEFR 11/23/15 09/25/20 History Mcg = 1000 Iu)] Glimepiride [Amaryl] 4 mg PO BID 11/23/15 09/25/20 History Nitroglycerin Sl Tabs [Nitrostat] 0.4 mg PO Q5M PRN 11/23/15 09/25/20 History Omeprazole [PriLOSEC] 20 mg PO BID 11/23/15 09/25/20 History Simvastatin 20 mg PO DAILY 11/23/15 09/25/20 History atenoloL [Atenolol] 50 mg PO BID 11/23/15 09/25/20 History Brimonidine Tartrate [Alphagan P 1 drop BOTH EYES BID 09/17/20 09/25/20 History 0.2% Ophth Soln] Insulin Glargine,Hum.rec.anlog 15 unit SQ HS 09/17/20 09/25/20 History [Lantus Solostar] Isosorbide Mononitrate ER [Imdur] 15 mg PO DAILY 09/17/20 09/25/20 History Latanoprost Ophth [Xalatan 0.005%] 1 drop BOTH EYES HS 09/17/20 09/25/20 History Timolol 0.5% Ophth Soln [Timoptic 1 drop BOTH EYES BID 09/17/20 09/25/20 History 0.5% Ophth Soln] lisinopriL 40 mg PO DAILY 09/17/20 09/25/20 History Ondansetron [Zofran] 4 mg PO Q8HR PRN 09/20/20 09/25/20 History Ascorbic Acid [Vitamin C] 500 mg PO DAILY #30 tab 09/22/20 09/25/20 Rx Azithromycin [Zithromax] 500 mg PO DAILY 5 Days #5 tab 09/22/20 09/25/20 Rx Folic Acid 1 mg PO DAILY #30 tab 09/22/20 09/25/20 Rx Zinc Sulfate [Orazinc] 220 mg PO DAILY #30 cap 09/22/20 09/25/20 Rx dexAMETHasone [Hexadrol] 4 mg PO BID #10 tab 09/22/20 09/25/20 Rx Allergies Allergy/AdvReac Type Severity Reaction Status Date / Time cyclobenzaprine Allergy Unknown Verified 09/25/20 08:31 [From Flexeril] doxycycline Allergy Unknown Verified 09/25/20 08:31 metformin Allergy Unknown Verified 09/25/20 08:31 Penicillins Allergy Unknown Verified 09/25/20 08:31 Physical Exam Vitals: Vital Signs Temp Pulse Pulse Resp BP BP Pulse Ox 09/25/20 15:47 75 20 09/25/20 15:25 69 20 145/77 97 09/25/20 15:00 97.9 F 75 24 148/77 93 L 09/25/20 14:42 97 09/25/20 14:23 98.6 F 69 18 97 09/25/20 14:16 52 L 18 153/76 97 09/25/20 11:19 98.2 F 76 24 133/83 94 L 09/25/20 09:01 76 18 133/78 94 L 09/25/20 08:54 30 H 09/25/20 08:20 97.7 F 84 22 150/60 83 L Intake and Output 09/25/20 09/25/20 09/25/20 06:59 14:59 22:59 Other: Weight 81.647 kg GENERAL EXAM: Alert, very pleasant, 75-year-old white male, currently on 4 L of oxygen by nasal cannula with pulse ox of 97% HEAD: Normocephalic/atraumatic. EYES: Normal reaction of pupils, equal size. Conjunctiva pink, sclera white. NOSE: Clear with pink turbinates. THROAT: No erythema or exudates. NECK: No masses, no JVD, no thyroid enlargement, no adenopathy. CHEST: No chest wall deformity. Symmetrical expansion. LUNGS: Equal air entry with bilateral crackles, and there is no wheeze, rhonchi or dullness. CVS: Regular rate and rhythm, normal S1 and S2, no gallops, no murmurs, no rubs ABDOMEN: Soft, nontender. No hepatosplenomegaly, normal bowel sounds, no guarding or rigidity. EXTREMITIES: No clubbing, no edema, no cyanosis, 2+ pulses and upper and lower extremities. MUSCULOSKELETAL: Muscle strength and tone normal. SPINE: No scoliosis or deformity SKIN: No rashes CENTRAL NERVOUS SYSTEM: Alert and oriented -3. No focal deficits, tone is nor mal in all 4 extremities. PSYCHIATRIC: Alert and oriented -3. Appropriate affect. Intact judgment and insight. Results - Laboratory Findings CBC and BMP: 09/25/20 08:47 09/25/20 08:47 PT/INR, D-dimer PT 10.2 sec (9.0-12.0) 09/25/20 08:47 INR 1.0 (<1.2) 09/25/20 08:47 D-Dimer 1.19 mg/L FEU (<0.60) H 09/25/20 08:47 Abnormal lab findings: Abnormal Labs 09/25/20 09/25/20 09/25/20 08:47 08:47 08:47 WBC 22.4 H RBC 4.27 L Hgb 12.9 L Hct 38.3 L Neutrophils # 21.2 H Lymphocytes # 0.5 L D-Dimer 1.19 H Glucose 43 L* POC Glucose (mg/dL) Ferritin 2679.7 H AST 78 H ALT 54 H Lactate Dehydrogenase 1295 H C-Reactive Protein 157.9 H Coronavirus (PCR) 09/25/20 09/25/20 08:47 13:11 WBC RBC Hgb Hct Neutrophils # Lymphocytes # D-Dimer Glucose POC Glucose (mg/dL) 107 H Ferritin AST ALT Lactate Dehydrogenase C-Reactive Protein Coronavirus (PCR) Detected A - Diagnostic Findings CT scan - chest: image reviewed Assessment and Plan Plan: 1 Covid 19 related pneumonia with secondary shortness of breath. The patient w as diagnosed and hospitalized briefly between 09/20/2028 09/22/2020 and the patient's condition got worse and the patient became more short of breath and he is coming in for worsening shortness of breath and hypoxemia. 2 acute hypoxic respiratory failure currently on 4 L of oxygen by nasal cannula, secondary to above 3 Generalized weakness secondary to above 4 leukocytosis, likely reactive. Pro-calcitonin is negative and it's very unlikely the patient is superinfection with bacteria. This is pretty much in progression of his pleitez virus Covid 19 infection 5 diabetes mellitus type 2 6 hypertension 7 hyperlipidemia 8 elevated inflammatory markers secondary to Covid 19 infection Plan Continue oxygen therapy at 4 L per minute nasal cannula Monitor oxygenation Offered this patient Decadron 6 vigorous by mouth daily Offered this patient Remdesivir per protocol Monitored inflammatory markers IV fluid hydration Lovenox subcu for prophylaxis, d-dimer is mildly elevated at 1.19 Monitor the blood sugar as the patient will be placed on Decadron Continue supplements including vitamin C, vitamin D, zinc, Pepcid and melatonin We'll continue to follow.
[2020-09-25 20:16] LABS: Glucose,Whole Blood 191 mg/dL (75-99)
[2020-09-25] MEDS: BRIMONIDINE TARTRATE 0.2% DROPS 5 ML BTL BOTH EYES SCH (20:26)
[2020-09-25] MEDS: atenoloL 50 MG TAB PO SCH (20:26)
[2020-09-25] MEDS: FAMOTIDINE 20 MG TAB PO SCH (20:26)
[2020-09-25] MEDS: ASCORBIC ACID 500 MG TAB PO SCH (20:26)
[2020-09-25] MEDS: SODIUM CHLORIDE 0.9% 1,000 ML IV SCH (20:27)
[2020-09-25] MEDS: LATANOPROST 0.005% OPHTH DROPS 2.5 ML BTL BOTH EYES SCH (20:27)
[2020-09-25] MEDS: GLIMEPIRIDE 4 MG TAB PO SCH (20:27)
[2020-09-25] MEDS: TIMOLOL 0.5% OPHTH DROPS 5 ML BTL BOTH EYES SCH (20:27)
[2020-09-25] MEDS ORDERED: INSULIN DETEMIR (LEVEMIR) 100 UNIT/ML SYR SQ SCH (21:00)
[2020-09-25] MEDS ORDERED: dexAMETHasone 4 MG TAB PO SCH (21:00)
[2020-09-26 04:17] LABS: Glucose,Whole Blood 39 mg/dL (75-99)
[2020-09-26 04:17] LABS: Glucose,Whole Blood 36 mg/dL (75-99)
[2020-09-26 04:34] LABS: Glucose,Whole Blood 43 mg/dL (75-99)
[2020-09-26 04:52] LABS: Glucose,Whole Blood 55 mg/dL (75-99)
[2020-09-26 05:09] LABS: Glucose,Whole Blood 70 mg/dL (75-99)
[2020-09-26 05:27] LABS: Glucose,Whole Blood 97 mg/dL (75-99)
[2020-09-26 06:57] LABS: Glucose,Whole Blood 130 mg/dL (75-99)
[2020-09-26 07:02] LABS: Basophils % (A) 0 %; Eosinophils % (A) 0 %; HCT 39.3 % (39.0-53.0); HGB 12.9 gm/dL (13.0-17.5); Lymphocytes # (A) 0.3 k/uL (1.0-4.8); Lymphocytes % (A) 2 %; MCH 30.6 pg (25.0-35.0); MCHC 32.9 g/dL (31.0-37.0); Mean Platelet Volume 7.4; Monocytes # (A) 0.4 k/uL (0-1.0); Monocytes % (A) 2 %; Neutrophils # (A) 19.2 k/uL (1.3-7.7); Neutrophils % (A) 95 %; Platelet Count 348 k/uL (150-450); RBC 4.22 m/uL (4.30-5.90); RDW 12.4 % (11.5-15.5); WBC 20.1 k/uL (3.8-10.6)
[2020-09-26] MEDS ORDERED: PANTOPRAZOLE 40 MG TABLET PO SCH (07:30)
[2020-09-26] MEDS: ALBUTEROL HFA INHALER INHALATION PRN ×3 (08:53→20:58)
[2020-09-26] MEDS ORDERED: ASCORBIC ACID 500 MG TAB PO SCH (09:00)
[2020-09-26] MEDS: ASCORBIC ACID 500 MG TAB PO SCH (09:19)
[2020-09-26] MEDS: ASPIRIN 81 MG PO SCH (09:20)
[2020-09-26] MEDS: FOLIC ACID 1 MG TAB PO SCH (09:20)
[2020-09-26] MEDS: FAMOTIDINE 20 MG TAB PO SCH ×3 (09:20→20:25)
[2020-09-26] MEDS: CHOLECALCIFEROL 1,000 UNIT TAB PO SCH (09:20)
[2020-09-26] MEDS: lisinopriL 20 MG TAB PO SCH (09:20)
[2020-09-26] MEDS: ATORVASTATIN 10 MG TAB PO SCH (09:20)
[2020-09-26] MEDS: SODIUM CHLORIDE 0.9% 1,000 ML IV SCH ×2 (09:21→20:50)
[2020-09-26] MEDS: dexAMETHasone 2 MG TAB PO SCH (09:21)
[2020-09-26] MEDS: atenoloL 50 MG TAB PO SCH ×2 (09:21→20:25)
[2020-09-26] MEDS: ZINC SULFATE 220 MG CAP PO SCH (09:22)
[2020-09-26] MEDS: AZITHROMYCIN 500 MG TAB PO SCH (09:22)
[2020-09-26] MEDS: ENOXAPARIN 40 MG/0.4 ML SYRINGE SQ SCH (09:22)
[2020-09-26] MEDS: ISOSORBIDE MONONITRATE ER 15 MG TAB PO SCH (09:22)
[2020-09-26] MEDS: BRIMONIDINE TARTRATE 0.2% DROPS 5 ML BTL BOTH EYES SCH ×3 (09:23→20:44)
[2020-09-26] MEDS: GLIMEPIRIDE 4 MG TAB PO SCH ×2 (09:23→09:33)
[2020-09-26] MEDS: TIMOLOL 0.5% OPHTH DROPS 5 ML BTL BOTH EYES SCH ×3 (09:23→20:49)
[2020-09-26 09:24] LABS: African American GFR (CKD) 97.2 (60.0-200.0); Albumin 3.6 g/dL (3.80-4.90); Albumin/Globulin Ratio 1.24 (1.60-3.17); Anion Gap 11.3 mmol/L (4.00-12.00); BUN/Creat Ratio 22.22 Ratio (12.00-20.00); Calcium 8.9 mg/dL (8.7-10.3); Carbon Dioxide 24.7 mmol/L (21.6-31.8); Globulin 2.9 g/dL (1.6-3.3); Non-African American GFR(CKD) 83.8 (60.0-200.0); Potassium 3.9 mmol/L (3.5-5.5); Total Bilirubin 0.5 mg/dL (0.2-1.2); Total Protein 6.5 g/dL (6.2-8.2)
--- NOTE | 2020-09-26 10:34 | P.PN ---
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 Patient was the hospital for 3 days did not require much oxygen he ended up feeling decent insisted leave the hospital on Thursday. Patient return to the emergency room today complaining of worsening symptom with fever chills severe hypoxia with minimum exertion fatigue tiredness nausea and mild diarrhea and overall not feeling well. His d-dimer was elevated his marker were much higher today including d-dimer, C-reactive protein, Ferritin and LDH patient ended up going for CT of the lung came back with ground glass picture consistent with Covid pneumonitis, patient was severely hypoxic requiring 4 L O2 to keep his pulse ox above 90 percentile. Call pulmonary start patient on Remdesivir, steroid and O2 and admit patient to the hospital. 09/26: Patient remains on oxygen also oxygenating 89% on 4 L. We'll plan to switch her to high flow nasal cannula. His blood sugar was 36 during the night and Levemir and glimepiride will be discontinued for now and continue NovoLog scale only. He has been afebrile, heart rate 76, blood pressure 148/70. Repeat blood work reveals W BC 20.1, hemoglobin 12.9. Electrolytes renal function normal. REVIEW OF SYSTEMS CONSTITUTIONAL: Well-developed no acute respiratory distress. No documented fevers. EYES: No icterus sclerae, no conjunctivitis. EARS, NOSE, MOUTH, THROAT, and FACE: No sore throat, lymphadenopathy, carotid bruits or deformity. RESPIRATORY: Positive SOB cough or wheezes. Severe dyspnea and shortness of breath with Covid pneumonitis. CARDIOVASCULAR: No CP, Palpitation, PND, Orthopnea, or angina. Palpitation. GASTROINTESTINAL: Lack of appetite nausea with mild vomiting positive diarrhea no GI bleed. GENITOURINARY: Negative for Hematuria or UTI, no kidney stones. INTEGUMENT/BREAST: Negative for any muscular injury with mild osteoarthritis.. HEMATOLOGIC/LYMPHATIC: Negative for bleed or purpura. MUSCULOSKELTAL: Generalized arthralgia and myalgia. NEURLOGICAL: No LOC, Sz or syncope, blurred vision dizziness or abnormality.. BEHAVIORAL/PSYCH: Negative. ENDOCRINE: Negative. PHYSICAL EXAMINATION General Appearance: Alert, cooperative, no distress, appears stated age. Neck HEENT: Supple, no lymphadenopathy, no thyroid enlargement, no carotid bruits. Dry mucosa Lungs: Occasional expansion bilaterally pacify rhonchi with mild crackles in the bases positive mild expiratory wheezes. Chest Wall: Decrease expansion with deep inspiration no tenderness and no deformity was found on exam, no costochondral pain or discomfort. Heart: Regular rate and rhythm, S1, S2 normal, no murmur, rub or gallop. Back: Symmetric, no curvature, ROM normal, no CVA tenderness. Abdomen: Soft, non-tender, bowel sounds active all four quadrants, slight discomfort in the mid epigastric and mid abdominal region area. Extremities: Extremities normal, atraumatic, no cyanosis or edema. Pulses: 2+ and symmetric. Skin: Skin color, texture, tugor normal, no rashes or lesions. Neurologic: Alert oriented x3 cranial nerves II through XII intact, no motor deficit, no abnormal balance or gait. ASSESSMENT AND PLAN 1 acute hypoxic respiratory failure secondary to Covid pneumonitis: With failure to outpatient treatment, and relapse from last week with much worsening hypoxia, chest x-ray and CTA of the chest consistent with Covid pneumonitis patient will be started on Remdisevir, along with Decadron, O2, updraft treatment zinc vitamin D vitamin C. Pulmonary consultation and ID consultation be done. Continue O2 supplementation 2 acute hypoxic respiratory failure Secondary to Covid pneumonitis: Patient will be on O2 continue supportive care for now he might require oxygen for the next 4 weeks. Patient will be switched to high flow nasal cannula. 3 severe gastrointestinal symptom: Mostly from Covid continue supportive care along with hydration gradually increase on his diet continue anti-inflammatory medication along with PPI. 4 type 2 diabetes uncontrolled with hypoglycemia. Glimepiride and Levemir will be discontinued. Patient will be on NovoLog scale only for now.: 5 hypertension: Remain on lisinopril 40 mg a day and atenolol 50 mg twice a day. 6 hyperlipidemia: Remain on simvastatin 20 mg daily. 7 atherosclerotic heart disease: Remain on beta brayan, alex and isosorbide. 8 severe GERD/GI prophylaxis: Patient will be on omeprazole or pantoprazole daily. 9 DVT prophylaxis: Patient will be on Lovenox 40 mg subcutaneous daily. CODE STATUS: Full code. DISCHARGE PLAN Most likely return home once stabilized. Impression and plan of care have been directed as dictated by the signing physician. Cathy Walker nurse practitioner acting as scribe for signing physician. Objective - Vital Signs Vital signs: Vital Signs Temp 97.8 F 09/26/20 07:00 Pulse 76 09/26/20 07:00 Resp 18 09/26/20 07:00 BP 148/70 09/26/20 07:00 Pulse Ox 89 L 09/26/20 07:00 Intake & Output 09/25/20 09/26/20 09/26/20 18:59 06:59 18:59 Intake Total 600 Output Total 200 Balance 400 Weight 81.647 kg Intake: Intake, IV Titration 600 Amount Sodium Chloride 0.9% 1, 600 000 ml @ 75 mls/hr IV . [id number] DELFINO Rx#:[id number] Output: Urine 200 Other: # Voids 3 # Bowel Movements 1 - Labs CBC & Chem 7: 09/26/20 06:30 09/26/20 06:30 Labs: Abnormal Lab Results - Last 24 Hours (Table) 09/25/20 09/25/20 09/25/20 Range/Units 08:47 08:47 08:47 WBC 22.4 H (3.8-10.6) k/uL RBC 4.27 L (4.30-5.90) m/uL Hgb 12.9 L (13.0-17.5) gm/dL Hct 38.3 L (39.0-53.0) % Neutrophils # 21.2 H (1.3-7.7) k/uL Lymphocytes # 0.5 L (1.0-4.8) k/uL D-Dimer 1.19 H (<0.60) mg/L FEU Glucose 43 L* (74-99) mg/dL POC Glucose (mg/dL) (75-99) mg/dL Ferritin 2679.7 H (22.0-322.0) ng/mL AST 78 H (17-59) U/L ALT 54 H (4-49) U/L Lactate Dehydrogenase 1295 H (313-618) U/L C-Reactive Protein 157.9 H (<10.0) mg/L Coronavirus (PCR) (Not Detectd) 09/25/20 09/25/2009/25/20 Range/Units 08:47 13:11 20:15 WBC (3.8-10.6) k/uL RBC (4.30-5.90) m/uL Hgb (13.0-17.5) gm/dL Hct (39.0-53.0) % Neutrophils # (1.3-7.7) k/uL Lymphocytes # (1.0-4.8) k/uL D-Dimer (<0.60) mg/L FEU Glucose (74-99) mg/dL POC Glucose (mg/dL) 107 H 191 H (75-99) mg/dL Ferritin (22.0-322.0) ng/mL AST (17-59) U/L ALT (4-49) U/L Lactate Dehydrogenase (313-618) U/L C-Reactive Protein (<10.0) mg/L Coronavirus (PCR) Detected A (Not Detectd) 09/26/20 09/26/20 09/26/20 Range/Units 04:14 04:15 04:33 WBC (3.8-10.6) k/uL RBC (4.30-5.90) m/uL Hgb (13.0-17.5) gm/dL Hct (39.0-53.0) % Neutrophils # (1.3-7.7) k/uL Lymphocytes # (1.0-4.8) k/uL D-Dimer (<0.60) mg/L FEU Glucose (74-99) mg/dL POC Glucose (mg/dL) 39 L 36 L 43 L (75-99) mg/dL Ferritin (22.0-322.0) ng/mL AST (17-59) U/L ALT (4-49) U/L Lactate Dehydrogenase (313-618) U/L C-Reactive Protein (<10.0) mg/L Coronavirus (PCR) (Not Detectd) 09/26/20 09/26/20 09/26/20 Range/Units 04:51 05:08 06:30 WBC 20.1 H (3.8-10.6) k/uL RBC 4.22 L (4.30-5.90) m/uL Hgb 12.9 L (13.0-17.5) gm/dL Hct (39.0-53.0) % Neutrophils # 19.2 H (1.3-7.7) k/uL Lymphocytes # 0.3 L (1.0-4.8) k/uL D-Dimer (<0.60) mg/L FEU Glucose (74-99) mg/dL POC Glucose (mg/dL) 55 L 70 L (75-99) mg/dL Ferritin (22.0-322.0) ng/mL AST (17-59) U/L ALT (4-49) U/L Lactate Dehydrogenase (313-618) U/L C-Reactive Protein (<10.0) mg/L Coronavirus (PCR) (Not Detectd) 09/26/20 Range/Units 06:55 WBC (3.8-10.6) k/uL RBC (4.30-5.90) m/uL Hgb (13.0-17.5) gm/dL Hct (39.0-53.0) % Neutrophils # (1.3-7.7) k/uL Lymphocytes # (1.0-4.8) k/uL D-Dimer (<0.60) mg/L FEU Glucose (74-99) mg/dL POC Glucose (mg/dL) 130 H (75-99) mg/dL Ferritin (22.0-322.0) ng/mL AST (17-59) U/L ALT (4-49) U/L Lactate Dehydrogenase (313-618) U/L C-Reactive Protein (<10.0) mg/L Coronavirus (PCR) (Not Detectd)
[2020-09-26 10:56] LABS: Glucose,Whole Blood 101 mg/dL (75-99)
[2020-09-26] MEDS: INSULIN ASPART (NovoLOG) 100 UNIT/ML VIAL SQ SCH ×3 (12:45→20:25)
--- NOTE | 2020-09-26 16:10 | P.PN ---
Subjective Progress Note Date: 09/26/20 Principal diagnosis: Dyspnea, pneumonia 75-year-old male patient, with established diagnosis of COVID 19 infection who was admitted to the hospital between 09/20/2020 and 09/22/2020. At that time, the patient was treated symptomatically and the patient was discharged home. The patient is known to have diabetes and hypertension as morbid conditions. The patient came back at a hospital today as the patient was feeling shortness of breath and his pulse ox and drop down to 82%. Note that at the time of discharge from the hospital during his earlier admission, the patien t's phosphorus was above 90%. He was feeling fatigued and tired and he was having difficulties with oral intake. Based on his worsening symptoms, the patient was admitted to the hospital and a pulmonary consultation was requested. The patient's current white cell count of 22.4. Hemoglobin was at 12.9 and the patient's platelet count is at 303. He continues to have lymphopenia. D-dimer 1.19. Rest of the coagulation profile is within normal limits. His glucose was 43 in the emergency department and this was treated. BUN is at 50 with a creatinine of 0.7. Rest of the electrodes are within normal limits. Ferritin level is at 2679. AST 78, ALT 54, LDH is at 1295 and the patient has a CRP of 157. The pro-calcitonin is a 0.05. The pleitez virus Covid 19 testing was repeated and it was again positive. A CT angiogram was done and the patient's lungs showed bilateral groundglass opacity and airspace disease. No pleural effusion. Note that during his earlier admission, the patient was not given Remdesivir as the patient's symptoms were mild and the patient had no significant shortness of breath and hypoxemia or pulmonary infiltration of the chest x-ray at that time. On 09/26/2020 patient seen in follow-up on medical surgical floor. Remains on 15 L of oxygen, his pulse ox of 97%, we dropped FiO2 down to 10 L. This is day 2 of Remdesivir, remains on azithromycin, oral Decadron. Patient has been afebrile, no chest discomfort. Lung sounds reveal bilateral crackles. Pro- calcitonin 0.05, inflammatory markers are significantly elevated on admission. No nausea vomiting diarrhea. No cough. Objective - Vital Signs Vital signs: Vital Signs Temp 97.8 F 09/26/20 07:00 Pulse 76 09/26/20 07:00 Resp 18 09/26/20 07:00 BP 148/70 09/26/20 07:00 Pulse Ox 97 09/26/20 11:01 Intake & Output 09/25/20 09/26/20 09/26/20 18:59 06:59 18:59 Intake Total 600 Output Total 200 Balance 400 Weight 81.647 kg Intake: Intake, IV Titration 600 Amount Sodium Chloride 0.9% 1, 600 000 ml @ 75 mls/hr IV . [id number] [facility] Rx#:[id number] Output: Urine 200 Other: # Voids 3 # Bowel Movements 1 - Exam GENERAL EXAM: Alert, very pleasant, 75-year-old white male, on 15 L of oxygen a pulse ox of 97% comfortable in no apparent distress. HEAD: Normocephalic/atraumatic. EYES: Normal reaction of pupils, equal size. Conjunctiva pink, sclera white. NOSE: Clear with pink turbinates. THROAT: No erythema or exudates. NECK: No masses, no JVD, no thyroid enlargement, no adenopathy. CHEST: No chest wall deformity. Symmetrical expansion. LUNGS: Equal air entry with bilateral crackles, but no wheeze, rhonchi or dullness. CVS: Regular rate and rhythm, normal S1 and S2, no gallops, no murmurs, no rubs ABDOMEN: Soft, nontender. No hepatosplenomegaly, normal bowel sounds, no guarding or rigidity. EXTREMITIES: No clubbing, no edema, no cyanosis, 2+ pulses and upper and lower extremities. MUSCULOSKELETAL: Muscle strength and tone normal. SPINE: No scoliosis or deformity SKIN: No rashes CENTRAL NERVOUS SYSTEM: Alert and oriented -3. No focal deficits, tone is normal in all 4 extremities. PSYCHIATRIC: Alert and oriented -3. Appropriate affect. Intact judgment and insight. - Labs CBC & Chem 7: 09/26/20 06:30 09/26/20 06:30 Labs: Abnormal Lab Results - Last 24 Hours (Table) 09/25/20 09/26/20 09/26/20 Range/Units 20:15 04:14 04:15 WBC (3.8-10.6) k/uL RBC (4.30-5.90) m/uL Hgb (13.0-17.5) gm/dL Neutrophils # (1.3-7.7) k/uL Lymphocytes # (1.0-4.8) k/uL BUN/Creatinine Ratio (12.00-20.00) Ratio Glucose (70-110) mg/dL POC Glucose (mg/dL) 191 H 39 L 36 L (75-99) mg/dL AST (14-35) U/L ALT (10-49) U/L Albumin (3.80-4.90) g/dL Albumin/Globulin Ratio (1.60-3.17) g/dL 09/26/20 09/26/20 09/26/20 Range/Units 04:33 04:51 05:08 WBC (3.8-10.6) k/uL RBC (4.30-5.90) m/uL Hgb (13.0-17.5) gm/dL Neutrophils # (1.3-7.7) k/uL Lymphocytes # (1.0-4.8) k/uL BUN/Creatinine Ratio (12.00-20.00) Ratio Glucose (70-110) mg/dL POC Glucose (mg/dL) 43 L 55 L 70 L (75-99) mg/dL AST (14-35) U/L ALT (10-49) U/L Albumin (3.80-4.90) g/dL Albumin/Globulin Ratio (1.60-3.17) g/dL 09/26/20 09/26/20 09/26/20 Range/Units 06:30 06:30 06:55 WBC 20.1 H (3.8-10.6) k/uL RBC 4.22 L (4.30-5.90) m/uL Hgb 12.9 L (13.0-17.5) gm/dL Neutrophils # 19.2 H (1.3-7.7) k/uL Lymphocytes # 0.3 L (1.0-4.8) k/uL BUN/Creatinine Ratio 22.22 H (12.00-20.00) Ratio Glucose 133 H (70-110) mg/dL POC Glucose (mg/dL) 130 H (75-99) mg/dL AST 73 H (14-35) U/L ALT 76 H (10-49) U/L Albumin 3.60 L (3.80-4.90) g/dL Albumin/Globulin Ratio 1.24 L (1.60-3.17) g/dL 09/26/20 Range/Units 10:52 WBC (3.8-10.6) k/uL RBC (4.30-5.90) m/uL Hgb (13.0-17.5) gm/dL Neutrophils # (1.3-7.7) k/uL Lymphocytes # (1.0-4.8) k/uL BUN/Creatinine Ratio (12.00-20.00) Ratio Glucose (70-110) mg/dL POC Glucose (mg/dL) 101 H (75-99) mg/dL AST (14-35) U/L ALT (10-49) U/L Albumin (3.80-4.90) g/dL Albumin/Globulin Ratio (1.60-3.17) g/dL Microbiology - Last 24 Hours (Table) 09/25/20 08:47 Blood Culture - Preliminary Blood No Growth after 24 hours Assessment and Plan Plan: Assessment: 1 Covid 19 related pneumonia with secondary shortness of breath. The patient was diagnosed and hospitalized briefly between 09/20/2028 09/22/2020 and the patient's condition got worse and the patient became more short of breath and he is coming in for worsening shortness of breath and hypoxemia. 2 acute hypoxic respiratory failure currently on 4 L of oxygen by nasal cannula, secondary to above 3 Generalized weakness secondary to above 4 leukocytosis, likely reactive. Pro-calcitonin is negative and it's very unlikely the patient is superinfection with bacteria. This is pretty much in progression of his pleitez virus Covid 19 infection 5 diabetes mellitus type 2 6 hypertension 7 hyperlipidemia 8 elevated inflammatory markers secondary to Covid 19 infection Plan: Continue with Remdesivir, continue oral Decadron, continue vitamin C, zinc supplement, we'll transfuse 1 unit of convalescent plasma. Repeat inflammatory markers for tomorrow, repeat chest x-ray, IV hydration, continue to follow I performed a history & physical examination of the patient and discussed their management with my nurse practitioner, Ciara Koenig. I reviewed the nurse pr actitioner's note and agree with the documented findings and plan of care. Lung sounds are positive for diminished breath sounds. The findings and the impression was discussed with the patient. I attest to the documentation by the nurse practitioner. Time with Patient: Less than 30
[2020-09-26 16:59] LABS: Glucose,Whole Blood 112 mg/dL (75-99)
[2020-09-26 20:11] LABS: Glucose,Whole Blood 160 mg/dL (75-99)
[2020-09-26] MEDS: MELATONIN 3 MG TABLET PO SCH (20:25)
[2020-09-26] MEDS: REMDESIVIR (EUA) 100 MG in SODIUM CHLORIDE 0.9% 250 ML IVPB SCH (20:25)
[2020-09-26] MEDS: LATANOPROST 0.005% OPHTH DROPS 2.5 ML BTL BOTH EYES SCH (20:50)
--- NOTE | 2020-09-26 22:24 | P.CONS ---
History of Present Illness - Reason for Consult Consult date: 09/26/20 Covid 19 pneumonia Requesting physician: Eduardo Mcdaniel - Chief Complaint Shortness of breath x few days - History of Present Illness Patient is a 75-year-old male presenting to the at [facility] yesterday morning for evaluation of worsening shortness of breath apparently the patient was recently admitted to this facility between September 20 and with the patient was treated symptomatically and subsequently discharged home without any oxygen patient mentioned since he left the hospital he has not been feeling well patient complaining of worsening shortness of breath on minimal exertion and check his O2 sats at home which was 82% cream to complain of generalized fatigue no appetite with asymptomatic the patient presented back to the hospital, on arrival to the patient was afebrile however he was hypoxic with O2 sats of 83%. He did have a white count of 20,000 with lymphopenia, patient did have normal creatinine and liver enzymes elevated, patient did have CT angiogram of the chest with no PE however evidence of a late stage infected concerning for community pneumonia patient was admitted to the hospital the patient has been started on Zithromax , dexamethasone Lovenox and Remdisivir , infectious disease was consulted for further management Review of Systems Positive point has been mentioned in the HPI rest of the systems are negative Past Medical History Past Medical History: Chest Pain / Angina, Diabetes Mellitus, GERD/Reflux, Hyperlipidemia, Hypertension Additional Past Medical History / Comment(s): covid History of Any Multi-Drug Resistant Organisms: None Reported Past Surgical History: Appendectomy, Heart Catheterization Additional Past Surgical History / Comment(s): Patient has never had a colonoscopy. Past Anesthesia/Blood Transfusion Reactions: No Reported Reaction Past Psychological History: No Psychological Hx Reported Smoking Status: Former smoker Past Alcohol Use History: Rare Past Drug Use History: None Reported - Past Family History Mother Additional Family Medical History / Comment(s): BREAST Father Additional Family Medical History / Comment(s): Father at age 60 from a myocardial infarction. Brother(s) Additional Family Medical History / Comment(s): Patient has 7 brothers and one has coronary artery disease status post 3 vessel CABG. Patient does not have any sisters. Patient has 3 children, 2 boys and one girl with no major medical problems. Medications and Allergies Home Medications Medication Instructions Recorded Confirmed Type Aspirin [Adult Low Dose Aspirin EC] 81 mg PO DAILY 11/23/15 09/25/20 History Cholecalciferol [Vitamin D3 (25 5,000 unit PO MOWEFR 11/23/15 09/25/20 History Mcg = 1000 Iu)] Glimepiride [Amaryl] 4 mg PO BID 11/23/15 09/25/20 History Nitroglycerin Sl Tabs [Nitrostat] 0.4 mg PO Q5M PRN 11/23/15 09/25/20 History Omeprazole [PriLOSEC] 20 mg PO BID 11/23/15 09/25/20 History Simvastatin 20 mg PO DAILY 11/23/15 09/25/20 History atenoloL [Atenolol] 50 mg PO BID 11/23/15 09/25/20 History Brimonidine Tartrate [Alphagan P 1 drop BOTH EYES BID 09/17/20 09/25/20 History 0.2% Ophth Soln] Insulin Glargine,Hum.rec.anlog 15 unit SQ HS 09/17/20 09/25/20 History [Lantus Solostar] Isosorbide Mononitrate ER [Imdur] 15 mg PO DAILY 09/17/20 09/25/20 History Latanoprost Ophth [Xalatan 0.005%] 1 drop BOTH EYES HS 09/17/20 09/25/20 History Timolol 0.5% Ophth Soln [Timoptic 1 drop BOTH EYES BID 09/17/20 09/25/20 History 0.5% Ophth Soln] lisinopriL 40 mg PO DAILY 09/17/20 09/25/20 History Ondansetron [Zofran] 4 mg PO Q8HR PRN 09/20/20 09/25/20 History Ascorbic Acid [Vitamin C] 500 mg PO DAILY #30 tab 09/22/20 09/25/20 Rx Azithromycin [Zithromax] 500 mg PO DAILY 5 Days #5 tab 09/22/20 09/25/20 Rx Folic Acid 1 mg PO DAILY #30 tab 09/22/20 09/25/20 Rx Zinc Sulfate [Orazinc] 220 mg PO DAILY #30 cap 09/22/20 09/25/20 Rx dexAMETHasone [Hexadrol] 4 mg PO BID #10 tab 09/22/20 09/25/20 Rx Allergies Allergy/AdvReac Type Severity Reaction Status Date / Time cyclobenzaprine Allergy Unknown Verified 09/25/20 08:31 [From Flexeril] doxycycline Allergy Unknown Verified 09/25/20 08:31 metformin Allergy Unknown Verified 09/25/20 08:31 Penicillins Allergy Unknown Verified 09/25/20 08:31 Physical Exam Vitals: Vital Signs Temp Pulse Pulse Pulse Resp BP BP 09/26/20 11:01 09/26/20 09:07 09/26/20 07:00 97.8 F 76 18 148/70 09/26/20 00:19 97.8 F 66 24 159/72 09/25/20 19:30 97.8 F 85 26 H 147/73 09/25/20 15:47 75 20 09/25/20 15:25 69 20 145/77 Pulse Ox 09/26/20 11:01 97 09/26/20 09:07 94 L 09/26/20 07:00 89 L 09/26/20 00:19 91 L 09/25/20 19:30 88 L 09/25/20 15:47 09/25/20 15:25 97 Intake and Output 09/26/20 09/26/20 09/26/20 06:59 14:59 22:59 Intake Total 600 Balance 600 Intake: Intake, IV Titration 600 Amount Sodium Chloride 0.9% 1, 600 000 ml @ 75 mls/hr IV . [id number] [facility] Rx#:[id number] Other: # Voids 3 # Bowel Movements 1 GENERAL DESCRIPTION: An elderly male lying in bed, no distress. No tachypnea or accessory muscle of respiration use. HEENT: Shows Pallor , no scleral icterus. Oral mucous membrane is dry. No pharyngeal erythema or thrush NECK: Trachea central, no thyromegaly. LUNGS: Unlabored breathing. Decreased intensity of breath sounds. No wheeze or crackle. HEART: S1, S2, regular rate and rhythm. No loud murmur ABDOMEN: Soft, no tenderness , guarding or rigidity, no organomegaly EXTREMITIES: No edema of feet. SKIN: No rash, no masses palpable. NEUROLOGICAL: The patient is awake, alert, oriented x3, mood and affect normal. Results CBC & Chem 7: 09/26/20 06:30 09/26/20 06:30 Labs: Abnormal Lab Results - Last 24 Hours (Table) 11/17/20 11/17/20 11/18/20 Range/Units 08:47 20:15 04:14 WBC (3.8-10.6) k/uL RBC (4.30-5.90) m/uL Hgb (13.0-17.5) gm/dL Neutrophils # (1.3-7.7) k/uL Lymphocytes # (1.0-4.8) k/uL BUN/Creatinine Ratio (12.00-20.00) Ratio Glucose (70-110) mg/dL POC Glucose (mg/dL) 191 H 39 L (75-99) mg/dL Ferritin 2679.7 H (22.0-322.0) ng/mL AST (14-35) U/L ALT (10-49) U/L Albumin (3.80-4.90) g/dL Albumin/Globulin Ratio (1.60-3.17) g/dL 09/26/20 09/26/20 09/26/20 Range/Units 04:15 04:33 04:51 WBC (3.8-10.6) k/uL RBC (4.30-5.90) m/uL Hgb (13.0-17.5) gm/dL Neutrophils # (1.3-7.7) k/uL Lymphocytes # (1.0-4.8) k/uL BUN/Creatinine Ratio (12.00-20.00) Ratio Glucose (70-110) mg/dL POC Glucose (mg/dL) 36 L 43 L 55 L (75-99) mg/dL Ferritin (22.0-322.0) ng/mL AST (14-35) U/L ALT (10-49) U/L Albumin (3.80-4.90) g/dL Albumin/Globulin Ratio (1.60-3.17) g/dL 09/26/20 09/26/20 09/26/20 Range/Units 05:08 06:30 06:30 WBC 20.1 H (3.8-10.6) k/uL RBC 4.22 L (4.30-5.90) m/uL Hgb 12.9 L (13.0-17.5) gm/dL Neutrophils # 19.2 H (1.3-7.7) k/uL Lymphocytes # 0.3 L (1.0-4.8) k/uL BUN/Creatinine Ratio 22.22 H (12.00-20.00) Ratio Glucose 133 H (70-110) mg/dL POC Glucose (mg/dL) 70 L (75-99) mg/dL Ferritin (22.0-322.0) ng/mL AST 73 H (14-35) U/L ALT 76 H (10-49) U/L Albumin 3.60 L (3.80-4.90) g/dL Albumin/Globulin Ratio 1.24 L (1.60-3.17) g/dL 09/26/20 09/26/20 Range/Units 06:55 10:52 WBC (3.8-10.6) k/uL RBC (4.30-5.90) m/uL Hgb (13.0-17.5) gm/dL Neutrophils # (1.3-7.7) k/uL Lymphocytes # (1.0-4.8) k/uL BUN/Creatinine Ratio (12.00-20.00) Ratio Glucose (70-110) mg/dL POC Glucose (mg/dL) 130 H 101 H (75-99) mg/dL Ferritin (22.0-322.0) ng/mL AST (14-35) U/L ALT (10-49) U/L Albumin (3.80-4.90) g/dL Albumin/Globulin Ratio (1.60-3.17) g/dL Microbiology - Last 24 Hours (Table) 09/25/20 08:47 Blood Culture - Preliminary Blood No Growth after 24 hours Assessment and Plan Assessment: 1- patient presented to the hospital with increasing shortness of breath or hypoxemia in this patient did have evidence of diffuse decision depending on the CT angiogram with recent diagnosis of covid 19 and pneumonia this patient feeling outpatient symptomatic treatment (1) Pneumonia due to COVID-19 virus Current Visit: Yes Status: Acute Code(s): U07.1 - COVID-19; J12.89 - OTHER VIRAL PNEUMONIA SNOMED Code(s): 495902776923430781 Plan: 1- patient to continue with Remdisivir per protocol 2-continue with dexamethasone Lovenox and zinc sulfate 3-droplet isolation and respiratory support We will follow on clinical condition and cultures to further adjust medication if needed Thank you for this consultation will follow this patient with you Time with Patient: Greater than 30
[2020-09-27 03:49] LABS: Glucose,Whole Blood 140 mg/dL (75-99)
[2020-09-27 06:50] LABS: Glucose,Whole Blood 121 mg/dL (75-99)
[2020-09-27] MEDS: INSULIN ASPART (NovoLOG) 100 UNIT/ML VIAL SQ SCH ×4 (07:57→20:41)
[2020-09-27 08:06] LABS: Basophils # (A) 0.1 k/uL (0-0.2); Basophils % (A) 1 %; Eosinophils % (A) 0 %; HCT 37.3 % (39.0-53.0); HGB 12.4 gm/dL (13.0-17.5); Lymphocytes # (A) 0.3 k/uL (1.0-4.8); Lymphocytes % (A) 3 %; MCH 30.8 pg (25.0-35.0); MCHC 33.2 g/dL (31.0-37.0); MCV 92.7 fL (80.0-100.0); Mean Platelet Volume 7.6; Monocytes # (A) 0.4 k/uL (0-1.0); Monocytes % (A) 3 %; Neutrophils # (A) 10.1 k/uL (1.3-7.7); Neutrophils % (A) 92 %; Platelet Count 361 k/uL (150-450); RBC 4.02 m/uL (4.30-5.90); RDW 12.3 % (11.5-15.5); WBC 10.9 k/uL (3.8-10.6)
[2020-09-27] MEDS: ALBUTEROL HFA INHALER INHALATION PRN ×4 (08:10→20:39)
[2020-09-27] MEDS: ASPIRIN 81 MG PO SCH (08:41)
[2020-09-27] MEDS: atenoloL 50 MG TAB PO SCH ×2 (08:41→20:46)
[2020-09-27] MEDS: ATORVASTATIN 10 MG TAB PO SCH (08:41)
[2020-09-27] MEDS: FOLIC ACID 1 MG TAB PO SCH (08:41)
[2020-09-27] MEDS: lisinopriL 20 MG TAB PO SCH (08:41)
[2020-09-27] MEDS: FAMOTIDINE 20 MG TAB PO SCH ×2 (08:41→20:46)
[2020-09-27] MEDS: dexAMETHasone 2 MG TAB PO SCH (08:41)
[2020-09-27] MEDS: ZINC SULFATE 220 MG CAP PO SCH (08:42)
[2020-09-27] MEDS: ASCORBIC ACID 500 MG TAB PO SCH (08:42)
[2020-09-27] MEDS: ENOXAPARIN 40 MG/0.4 ML SYRINGE SQ SCH (08:42)
[2020-09-27] MEDS: AZITHROMYCIN 500 MG TAB PO SCH (08:42)
[2020-09-27] MEDS: ISOSORBIDE MONONITRATE ER 15 MG TAB PO SCH (08:42)
[2020-09-27] MEDS: BRIMONIDINE TARTRATE 0.2% DROPS 5 ML BTL BOTH EYES SCH ×2 (10:04→20:45)
[2020-09-27] MEDS: TIMOLOL 0.5% OPHTH DROPS 5 ML BTL BOTH EYES SCH ×2 (10:05→20:45)
--- NOTE | 2020-09-27 10:05 | P.PN ---
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 Cast patient was hospitalized last week for Covid symptoms at the time was mildly hypoxic but was having more constitutional symptoms consistent with fever chills generalized fatigue tiredness with mild exertional shortness of breath. Patient was the hospital for 3 days did not require much oxygen he ended up feeling decent insisted leave the hospital on Thursday. Patient return to the emergency room today complaining of worsening symptom with fever chills severe hypoxia with minimum exertion fatigue tiredness nausea and mild diarrhea and overall not feeling well. His d-dimer was elevated his marker were much higher today including d-dimer, C-reactive protein, Ferritin and LDH patient ended up going for CT of the lung came back with ground glass picture consistent with Covid pneumonitis, patient was severely hypoxic requiring 4 L O2 to keep his pulse ox above 90 percentile. Call pulmonary start patient on Remdesivir, steroid and O2 and admit patient to the hospital. 09/26: Patient remains on oxygen also oxygenating 89% on 4 L. We'll plan to switch her to high flow nasal cannula. His blood sugar was 36 during the night and Levemir and glimepiride will be discontinued for now and continue NovoLog scale only. He has been afebrile, heart rate 76, blood pressure 148/70. Repeat blood work reveals W BC 20.1, hemoglobin 12.9. Electrolytes renal function normal. 09/27: Patient continues to complain of shortness of breath but he appears more relaxed today. Lung sounds are improving. He was started on convalescent plasma treatment yesterday. He is observatory 1200 MLS on incentive spirometry. Pulse ox is 90% on 10 L high flow nasal cannula. He has been afebrile, heart rate 70, blood pressure 158/76. Patient continues to have very little appetite and is eating very little. REVIEW OF SYSTEMS CONSTITUTIONAL: Well-developed no acute respiratory distress. No documented fevers. EYES: No icterus sclerae, no conjunctivitis. EARS, NOSE, MOUTH, THROAT, and FACE: No sore throat, lymphadenopathy, carotid bruits or deformity. RESPIRATORY: Positive SOB cough or wheezes. Severe dyspnea and shortness of breath with Covid pneumonitis. CARDIOVASCULAR: No CP, Palpitation, PND, Orthopnea, or angina. Palpitation. GASTROINTESTINAL: Lack of appetite nausea with mild vomiting positive diarrhea no GI bleed. GENITOURINARY: Negative for Hematuria or UTI, no kidney stones. INTEGUMENT/BREAST: Negative for any muscular injury with mild osteoarthritis.. HEMATOLOGIC/LYMPHATIC: Negative for bleed or purpura. MUSCULOSKELTAL: Generalized arthralgia and myalgia. NEURLOGICAL: No LOC, Sz or syncope, blurred vision dizziness or abnormality.. BEHAVIORAL/PSYCH: Negative. ENDOCRINE: Negative. PHYSICAL EXAMINATION General Appearance: Alert, cooperative, no distress, appears stated age. Neck HEENT: Supple, no lymphadenopathy, no thyroid enlargement, no carotid bruits. Dry mucosa Lungs: Occasional expansion bilaterally mild rhonchi with mild crackles in the bases positive mild expiratory wheezes. Chest Wall: Decrease expansion with deep inspiration no tenderness and no deformity was found on exam, no costochondral pain or discomfort. Heart: Regular rate and rhythm, S1, S2 normal, no murmur, rub or gallop. Back: Symmetric, no curvature, ROM normal, no CVA tenderness. Abdomen: Soft, non-tender, bowel sounds active all four quadrants, slight discomfort in the mid epigastric and mid abdominal region area. Extremities: Extremities normal, atraumatic, no cyanosis or edema. Pulses: 2+ and symmetric. Skin: Skin color, texture, tugor normal, no rashes or lesions. Neurologic: Alert oriented x3 cranial nerves II through XII intact, no motor de ficit, no abnormal balance or gait. ASSESSMENT AND PLAN 1 acute hypoxic respiratory failure secondary to Covid pneumonitis: With failure to outpatient treatment, and relapse from last week with much worsening hypoxia, chest x-ray and CTA of the chest consistent with Covid pneumonitis patient will be started on Remdisevir, along with Decadron, O2, updraft treatment zinc vitamin D vitamin C. Pulmonary consultation and ID consultation be done. Continue O2 supplementation. Patient is status post convalescent plasma treatment. 2 acute hypoxic respiratory failure Secondary to Covid pneumonitis: Patient will be on O2 continue supportive care for now he might require oxygen for the next 4 weeks. Patient will be switched to high flow nasal cannula. 3 severe gastrointestinal symptom: Mostly from Covid continue supportive care along with hydration gradually increase on his diet continue anti-inflammatory medication along with PPI. 4 type 2 diabetes uncontrolled with hypoglycemia. Glimepiride and Levemir will be discontinued. Patient will be on NovoLog scale only for now.: 5 hypertension: Remain on lisinopril 40 mg a day and atenolol 50 mg twice a day. 6 hyperlipidemia: Remain on simvastatin 20 mg daily. 7 atherosclerotic heart disease: Remain on beta brayan, alex and isosorbide. 8 severe GERD/GI prophylaxis: Patient will be on omeprazole or pantoprazole daily. 9 DVT prophylaxis: Patient will be on Lovenox 40 mg subcutaneous daily. CODE STATUS: Full code. DISCHARGE PLAN Most likely return home once stabilized. Impression and plan of care have been directed as dictated by the signing physician. Cathy Walker nurse practitioner acting as scribe for signing physician. Objective - Vital Signs Vital signs: Vital Signs Temp 97.7 F 09/27/20 04:32 Pulse 72 09/27/20 04:32 Resp 16 09/27/20 04:32 BP 162/79 09/27/20 04:32 Pulse Ox 92 L 09/27/20 04:32 Intake & Output 09/26/20 09/27/20 09/27/20 18:59 06:59 18:59 Intake Total 800 Output Total 600 200 Balance -600 600 Intake: Intake, IV Titration 600 Amount Sodium Chloride 0.9% 1, 600 000 ml @ 75 mls/hr IV . [id number] [facility] Rx#:[id number] Blood Product 200 Ffp Pher Conval Covid19 200 Acda 2 Unit [id number] Output: Urine 600 200 Other: # Voids 4 - Labs CBC & Chem 7: 09/27/20 07:07 09/26/20 06:30 Labs: Abnormal Lab Results - Last 24 Hours (Table) 09/26/20 09/26/20 09/26/20 Range/Units 06:30 10:52 16:57 BUN/Creatinine Ratio 22.22 H (12.00-20.00) Ratio Glucose 133 H (70-110) mg/dL POC Glucose (mg/dL) 101 H 112 H (75-99) mg/dL AST 73 H (14-35) U/L ALT 76 H (10-49) U/L Albumin 3.60 L (3.80-4.90) g/dL Albumin/Globulin Ratio 1.24 L (1.60-3.17) g/dL 09/26/20 09/27/2009/27/20 Range/Units 20:10 03:48 06:47 BUN/Creatinine Ratio (12.00-20.00) Ratio Glucose (70-110) mg/dL POC Glucose (mg/dL) 160 H 140 H 121 H (75-99) mg/dL AST (14-35) U/L ALT (10-49) U/L Albumin (3.80-4.90) g/dL Albumin/Globulin Ratio (1.60-3.17) g/dL Microbiology - Last 24 Hours (Table) 09/25/20 08:47 Blood Culture - Preliminary Blood No Growth after 24 hours
[2020-09-27 11:24] LABS: Glucose,Whole Blood 139 mg/dL (75-99)
[2020-09-27] MEDS: SODIUM CHLORIDE 0.9% 1,000 ML IV SCH (12:08)
[2020-09-27 13:38] LABS: Albumin 3.4 g/dL (3.80-4.90); Albumin/Globulin Ratio 1.36 (1.60-3.17); Anion Gap 9.8 mmol/L (4.00-12.00); BUN/Creat Ratio 27.5 Ratio (12.00-20.00); C Reactive Protein 12.5 mg/dL (0.0-0.8); Calcium 8.5 mg/dL (8.7-10.3); Carbon Dioxide 24.2 mmol/L (21.6-31.8); Globulin 2.5 g/dL (1.6-3.3); Potassium 4.4 mmol/L (3.5-5.5); Total Bilirubin 0.6 mg/dL (0.3-1.2); Total Protein 5.9 g/dL (6.2-8.2)
--- NOTE | 2020-09-27 16:18 | P.PN ---
Subjective Progress Note Date: 09/27/20 Principal diagnosis: Dyspnea, pneumonia 75-year-old male patient, with established diagnosis of COVID 19 infection who was admitted to the hospital between 09/20/2020 and 09/22/2020. At that time, the patient was treated symptomatically and the patient was discharged home. The patient is known to have diabetes and hypertension as morbid conditions. The patient came back at a hospital today as the patient was feeling shortness of breath and his pulse ox and drop down to 82%. Note that at the time of discharge from the hospital during his earlier admission, the patien t's phosphorus was above 90%. He was feeling fatigued and tired and he was having difficulties with oral intake. Based on his worsening symptoms, the patient was admitted to the hospital and a pulmonary consultation was requested. The patient's current white cell count of 22.4. Hemoglobin was at 12.9 and the patient's platelet count is at 303. He continues to have lymphopenia. D-dimer 1.19. Rest of the coagulation profile is within normal limits. His glucose was 43 in the emergency department and this was treated. BUN is at 50 with a creatinine of 0.7. Rest of the electrodes are within normal limits. Ferritin level is at 2679. AST 78, ALT 54, LDH is at 1295 and the patient has a CRP of 157. The pro-calcitonin is a 0.05. The pleitez virus Covid 19 testing was repeated and it was again positive. A CT angiogram was done and the patient's lungs showed bilateral groundglass opacity and airspace disease. No pleural effusion. Note that during his earlier admission, the patient was not given Remdesivir as the patient's symptoms were mild and the patient had no significant shortness of breath and hypoxemia or pulmonary infiltration of the chest x-ray at that time. On 09/26/2020 patient seen in follow-up on medical surgical floor. Remains on 15 L of oxygen, his pulse ox of 97%, we dropped FiO2 down to 10 L. This is day 2 of Remdesivir, remains on azithromycin, oral Decadron. Patient has been afebrile, no chest discomfort. Lung sounds reveal bilateral crackles. Pro- calcitonin 0.05, inflammatory markers are significantly elevated on admission. No nausea vomiting diarrhea. No cough. On 09/27/2020 patient is seen in follow-up on medical surgical floor. Remains on high flow oxygen 15 L, with pulse ox of 92%, and afebrile. Patient continues on Remdesivir, today is day 2, continues on oral dexamethasone, but didn't seek, zinc, and vitamin D. No worsening dyspnea. Yesterday we started him on convalescent plasma, no nausea vomiting or diarrhea. She is on azithromycin for empiric antibiotic coverage. Respiratory improving, LDH is down 444, and CRP 12.5. Pro-calcitonin is negative at 0.05. D-dimer is 3.40, white blood cell count is improving, down to 10.9. Objective - Vital Signs Vital signs: Vital Signs Temp 98.2 F 09/27/20 14:25 Pulse 77 09/27/20 14:25 Resp 18 09/27/20 14:25 BP 151/74 09/27/20 14:25 Pulse Ox 92 L 09/27/20 14:25 Intake & Output 09/26/20 09/27/20 09/27/20 18:59 06:59 18:59 Intake Total 800 450 Output Total 600 200 Balance -600 600 450 Intake: Intake, IV Titration 600 450 Amount Sodium Chloride 0.9% 1, 600 450 000 ml @ 75 mls/hr IV . [id number] DELFINO Rx#:[id number] Blood Product 200 Ffp Pher Conval Covid19 200 Acda 2 Unit [id number] Output: Urine 600 200 Other: # Voids 4 - Exam GENERAL EXAM: Alert, very pleasant, 75-year-old white male, on 10 L of oxygen a pulse ox of 92% comfortable in no apparent distress. HEAD: Normocephalic/atraumatic. EYES: Normal reaction of pupils, equal size. Conjunctiva pink, sclera white. NOSE: Clear with pink turbinates. THROAT: No erythema or exudates. NECK: No masses, no JVD, no thyroid enlargement, no adenopathy. CHEST: No chest wall deformity. Symmetrical expansion. LUNGS: Equal air entry with bilateral crackles, but no wheeze, rhonchi or dullness. CVS: Regular rate and rhythm, normal S1 and S2, no gallops, no murmurs, no rubs ABDOMEN: Soft, nontender. No hepatosplenomegaly, normal bowel sounds, no guarding or rigidity. EXTREMITIES: No clubbing, no edema, no cyanosis, 2+ pulses and upper and lower extremities. MUSCULOSKELETAL: Muscle strength and tone normal. SPINE: No scoliosis or deformity SKIN: No rashes CENTRAL NERVOUS SYSTEM: Alert and oriented -3. No focal deficits, tone is normal in all 4 extremities. PSYCHIATRIC: Alert and oriented -3. Appropriate affect. Intact judgment and insight. - Labs CBC & Chem 7: 09/27/20 07:07 09/27/20 07:07 Labs: Abnormal Lab Results - Last 24 Hours (Table) 09/26/20 09/26/20 09/27/20 Range/Units 16:57 20:10 03:48 WBC (3.8-10.6) k/uL RBC (4.30-5.90) m/uL Hgb (13.0-17.5) gm/dL Hct (39.0-53.0) % Neutrophils # (1.3-7.7) k/uL Lymphocytes # (1.0-4.8) k/uL D-Dimer (<0.60) mg/L FEU BUN/Creatinine Ratio (12.00-20.00) Ratio Glucose (70-110) mg/dL POC Glucose (mg/dL) 112 H 160 H 140 H (75-99) mg/dL Calcium (8.7-10.3) mg/dL AST (14-35) U/L ALT (10-49) U/L Lactate Dehydrogenase (120-246) U/L C-Reactive Protein (0.0-0.8) mg/dL Total Protein (6.2-8.2) g/dL Albumin (3.80-4.90) g/dL Albumin/Globulin Ratio (1.60-3.17) g/dL 09/27/20 09/27/20 09/27/20 Range/Units 06:47 07:07 07:07 WBC 10.9 H (3.8-10.6) k/uL RBC 4.02 L (4.30-5.90) m/uL Hgb 12.4 L (13.0-17.5) gm/dL Hct 37.3 L (39.0-53.0) % Neutrophils # 10.1 H (1.3-7.7) k/uL Lymphocytes # 0.3 L (1.0-4.8) k/uL D-Dimer (<0.60) mg/L FEU BUN/Creatinine Ratio 27.50 H (12.00-20.00) Ratio Glucose 123 H (70-110) mg/dL POC Glucose (mg/dL) 121 H (75-99) mg/dL Calcium 8.5 L (8.7-10.3) mg/dL AST 50 H (14-35) U/L ALT 77 H (10-49) U/L Lactate Dehydrogenase 444 H (120-246) U/L C-Reactive Protein 12.5 H (0.0-0.8) mg/dL Total Protein 5.9 L (6.2-8.2) g/dL Albumin 3.40 L (3.80-4.90) g/dL Albumin/Globulin Ratio 1.36 L (1.60-3.17) g/dL 09/27/20 09/27/20 Range/Units 07:07 11:22 WBC (3.8-10.6) k/uL RBC (4.30-5.90) m/uL Hgb (13.0-17.5) gm/dL Hct (39.0-53.0) % Neutrophils # (1.3-7.7) k/uL Lymphocytes # (1.0-4.8) k/uL D-Dimer 3.40 H (<0.60) mg/L FEU BUN/Creatinine Ratio (12.00-20.00) Ratio Glucose (70-110) mg/dL POC Glucose (mg/dL) 139 H (75-99) mg/dL Calcium (8.7-10.3) mg/dL AST (14-35) U/L ALT (10-49) U/L Lactate Dehydrogenase (120-246) U/L C-Reactive Protein (0.0-0.8) mg/dL Total Protein (6.2-8.2) g/dL Albumin (3.80-4.90) g/dL Albumin/Globulin Ratio (1.60-3.17) g/dL Microbiology - Last 24 Hours (Table) 09/25/20 08:47 Blood Culture - Preliminary Blood No Growth after 48 hours Assessment and Plan Plan: Assessment: 1 Covid 19 related pneumonia with secondary shortness of breath. The patient was diagnosed and hospitalized briefly between 09/20/2028 09/22/2020 and the patient's condition got worse and the patient became more short of breath and he is coming in for worsening shortness of breath and hypoxemia. 2 acute hypoxic respiratory failure currently on 4 L of oxygen by nasal cannula, secondary to above 3 Generalized weakness secondary to above 4 leukocytosis, likely reactive. Pro-calcitonin is negative and it's very unlikely the patient is superinfection with bacteria. This is pretty much in p rogression of his pletiez virus Covid 19 infection 5 diabetes mellitus type 2 6 hypertension 7 hyperlipidemia 8 elevated inflammatory markers secondary to Covid 19 infection Plan: Continue current treatment, inflammatory markers are significantly improved from a couple days ago, still requiring high flow oxygen, wean FiO2, continue with oral Decadron, patient's d-dimer has increased and Lovenox will be adjusted to 40 mg subcu twice daily. We'll continue following inflammatory markers, wean FiO2, monitor oxygenation, dyspnea, febrile pattern. We'll continue to follow I performed a history & physical examination of the patient and discussed their management with my nurse practitioner, Ciara Koenig. I reviewed the nurse practitioner's note and agree with the documented findings and plan of care. Lung sounds are positive for diminished breath sounds. The findings and the impression was discussed with the patient. I attest to the documentation by the nurse practitioner. Time with Patient: Less than 30
[2020-09-27 16:46] LABS: Glucose,Whole Blood 178 mg/dL (75-99)
[2020-09-27] MEDS: REMDESIVIR (EUA) 100 MG in SODIUM CHLORIDE 0.9% 250 ML IVPB SCH (18:12)
[2020-09-27 20:29] LABS: Glucose,Whole Blood 185 mg/dL (75-99)
[2020-09-27] MEDS: LATANOPROST 0.005% OPHTH DROPS 2.5 ML BTL BOTH EYES SCH (20:45)
[2020-09-27] MEDS: MELATONIN 3 MG TABLET PO SCH (20:46)
--- NOTE | 2020-09-27 23:02 | PN ---
PROGRESS NOTE DATE OF SERVICE: 09/27/2020 REASON FOR FOLLOWUP: Acute COVID-19 infection. INTERVAL HISTORY: The patient is currently afebrile. The patient is breathing slightly comfortably; however, he is still requiring high-flow nasal cannula oxygen. The patient denies having any chest pain. Did have a cough, not bringing up any sputum. No nausea, no vomiting. No abdominal pain or diarrhea. PHYSICAL EXAMINATION: Blood pressure 151/80 with a pulse of 85, temperature 98.4. He is 92% on 15 L nasal cannula. General description is an elderly male lying in bed in no distress. RESPIRATORY SYSTEM: Unlabored breathing with decreased intensity of breath sounds. No wheeze. HEART: S1, S2. Regular rate and rhythm. ABDOMEN: Soft. No tenderness. LABS: White count 10.9, hemoglobin 12.4, BUN of 22, creatinine 0.8. DIAGNOSTIC IMPRESSION AND PLAN: Patient with acute COVID-19 pneumonia in this patient currently being treated with Zithromax, Lovenox, dexamethasone and remdesivir; to continue along with respiratory support. Monitor clinical course closely. MMODL / IJN: [id number] /
[2020-09-28] MEDS: SODIUM CHLORIDE 0.9% 1,000 ML IV SCH ×2 (01:56→23:57)
[2020-09-28 06:54] LABS: Glucose,Whole Blood 101 mg/dL (75-99)
[2020-09-28 07:08] LABS: Basophils % (A) 0 %; Eosinophils % (A) 0 %; HCT 37.1 % (39.0-53.0); HGB 12.5 gm/dL (13.0-17.5); Lymphocytes # (A) 0.3 k/uL (1.0-4.8); Lymphocytes % (A) 2 %; MCH 30.7 pg (25.0-35.0); MCHC 33.8 g/dL (31.0-37.0); MCV 90.9 fL (80.0-100.0); Mean Platelet Volume 7.3; Monocytes # (A) 0.4 k/uL (0-1.0); Monocytes % (A) 3 %; Neutrophils # (A) 12.4 k/uL (1.3-7.7); Neutrophils % (A) 93 %; Platelet Count 391 k/uL (150-450); RBC 4.07 m/uL (4.30-5.90); RDW 12.2 % (11.5-15.5); WBC 13.2 k/uL (3.8-10.6)
[2020-09-28] MEDS: INSULIN ASPART (NovoLOG) 100 UNIT/ML VIAL SQ SCH ×3 (07:55→22:00)
[2020-09-28] MEDS: ALBUTEROL HFA INHALER INHALATION PRN ×3 (08:04→16:25)
[2020-09-28] MEDS: ZINC SULFATE 220 MG CAP PO SCH (09:50)
[2020-09-28] MEDS: ISOSORBIDE MONONITRATE ER 15 MG TAB PO SCH (09:50)
[2020-09-28] MEDS: dexAMETHasone 2 MG TAB PO SCH (09:50)
[2020-09-28] MEDS: ASCORBIC ACID 500 MG TAB PO SCH (09:51)
[2020-09-28] MEDS: ATORVASTATIN 10 MG TAB PO SCH (09:51)
[2020-09-28] MEDS: ASPIRIN 81 MG PO SCH (09:51)
[2020-09-28] MEDS: ENOXAPARIN 40 MG/0.4 ML SYRINGE SQ SCH (09:51)
[2020-09-28] MEDS: FAMOTIDINE 20 MG TAB PO SCH ×2 (09:51→22:00)
[2020-09-28] MEDS: lisinopriL 20 MG TAB PO SCH (09:51)
[2020-09-28] MEDS: FOLIC ACID 1 MG TAB PO SCH (09:51)
[2020-09-28] MEDS: BRIMONIDINE TARTRATE 0.2% DROPS 5 ML BTL BOTH EYES SCH ×2 (09:51→22:00)
[2020-09-28] MEDS: atenoloL 50 MG TAB PO SCH ×2 (09:51→22:00)
[2020-09-28] MEDS: AZITHROMYCIN 500 MG TAB PO SCH (09:51)
[2020-09-28] MEDS: TIMOLOL 0.5% OPHTH DROPS 5 ML BTL BOTH EYES SCH ×2 (09:52→23:58)
[2020-09-28] MEDS: CHOLECALCIFEROL 1,000 UNIT TAB PO SCH (10:50)
[2020-09-28 11:31] LABS: Glucose,Whole Blood 165 mg/dL (75-99)
[2020-09-28 12:18] LABS: Albumin 3.3 g/dL (3.80-4.90); Albumin/Globulin Ratio 1.27 (1.60-3.17); Anion Gap 9.2 mmol/L (4.00-12.00); BUN/Creat Ratio 26.25 Ratio (12.00-20.00); C Reactive Protein 7.4 mg/dL (0.0-0.8); Calcium 8.8 mg/dL (8.7-10.3); Carbon Dioxide 24.8 mmol/L (21.6-31.8); Globulin 2.6 g/dL (1.6-3.3); Potassium 4.7 mmol/L (3.5-5.5); Total Bilirubin 0.6 mg/dL (0.2-1.2); Total Protein 5.9 g/dL (6.2-8.2)
--- NOTE | 2020-09-28 13:17 | P.PN ---
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 Cast patient was hospitalized last week for Covid symptoms at the time was mildly hypoxic but was having more constitutional symptoms consistent with fever chills generalized fatigue tiredness with mild exertional shortness of breath. Patient was the hospital for 3 days did not require much oxygen he ended up feeling decent insisted leave the hospital on Thursday. Patient return to the emergency room today complaining of worsening symptom with fever chills severe hypoxia with minimum exertion fatigue tiredness nausea and mild diarrhea and overall not feeling well. His d-dimer was elevated his marker were much higher today including d-dimer, C-reactive protein, Ferritin and LDH patient ended up going for CT of the lung came back with ground glass picture consistent with Covid pneumonitis, patient was severely hypoxic requiring 4 L O2 to keep his pulse ox above 90 percentile. Call pulmonary start patient on Remdesivir, steroid and O2 and admit patient to the hospital. 09/26: Patient remains on oxygen also oxygenating 89% on 4 L. We'll plan to switch her to high flow nasal cannula. His blood sugar was 36 during the night and Levemir and glimepiride will be discontinued for now and continue NovoLog scale only. He has been afebrile, heart rate 76, blood pressure 148/70. Repeat blood work reveals W BC 20.1, hemoglobin 12.9. Electrolytes renal function normal. 09/27: Patient continues to complain of shortness of breath but he appears more relaxed today. Lung sounds are improving. He was started on convalescent plasma treatment yesterday. He is observatory 1200 MLS on incentive spirometry. Pulse ox is 90% on 10 L high flow nasal cannula. He has been afebrile, heart rate 70, blood pressure 158/76. Patient continues to have very little appetite and is eating very little. 09/28: Patient is seen today on the [facility] floor, sitting in chair. He is day 4/5 of Remdesivir in status post convalescent plasma treatment. He continues to have crackles in bilateral bases. He denies any abdominal symptoms and eating very little. He has been afebrile, heart rate 71, blood pressure 149/84, pulse ox 90% on 15 L high flow nasal cannula. Repeat blood work revealed WBC 13.2, hemoglobin 12.5. Electrolytes and renal function normal. Blood sugar running between 101 185. LDH 525. D-dimer 4.87. C-reactive protein 7.4, CK 787. AST 63 and ALT 70. The patient will be ready for discharge until early next week. REVIEW OF SYSTEMS CONSTITUTIONAL: Well-developed no acute respiratory distress. No documented fevers. Denies chills. EYES: No icterus sclerae, no conjunctivitis. EARS, NOSE, MOUTH, THROAT, and FACE: No sore throat, lymphadenopathy, carotid bruits or deformity. RESPIRATORY: Positive SOB cough or wheezes. Severe dyspnea and shortness of breath with Covid pneumonitis. CARDIOVASCULAR: No CP, Palpitation, PND, Orthopnea, or angina. Palpitation. GASTROINTESTINAL: Lack of appetite nausea with mild vomiting positive diarrhea no GI bleed. GENITOURINARY: Negative for Hematuria or UTI, no kidney stones. INTEGUMENT/BREAST: Negative for any muscular injury with mild osteoarthritis.. HEMATOLOGIC/LYMPHATIC: Negative for bleed or purpura. MUSCULOSKELTAL: Generalized arthralgia and myalgia. NEURLOGICAL: No LOC, Sz or syncope, blurred vision dizziness or abnormality.. BEHAVIORAL/PSYCH: Negative. ENDOCRINE: Negative. PHYSICAL EXAMINATION General Appearance: Alert, cooperative, no distress, appears stated age. Patient is resting in chair and appears to be comfortable at rest. Neck HEENT: Supple, no lymphadenopathy, no thyroid enlargement, no carotid bruits. Dry mucosa Lungs: Occasional expansion bilaterally mild rhonchi with mild crackles in the bilateral bases positive mild expiratory wheezes. Chest Wall: Decrease expansion with deep inspiration no tenderness and no deformity was found on exam, no costochondral pain or discomfort. Heart: Regular rate and rhythm, S1, S2 normal, no murmur, rub or gallop. Back: Symmetric, no curvature, ROM normal, no CVA tenderness. Abdomen: Soft, non-tender, bowel sounds active all four quadrants, slight discomfort in the mid epigastric and mid abdominal region area. Extremities: Extremities normal, atraumatic, no cyanosis or edema. Pulses: 2+ and symmetric. Skin: Skin color, texture, tugor normal, no rashes or lesions. Neurologic: Alert oriented x3 cranial nerves II through XII intact, no motor deficit, no abnormal balance or gait. ASSESSMENT AND PLAN 1 acute hypoxic respiratory failure secondary to Covid pneumonitis: With failure to outpatient treatment, and relapse from last week with much worsening hypoxia, chest x-ray and CTA of the chest consistent with Covid pneumonitis patient will be started on Remdisevir 4/5, along with Decadron, O2, updraft treatment zinc vitamin D vitamin C. Pulmonary consultation and ID consultation be done. Continue O2 supplementation. Patient is status post convalescent plasma treatme nt. 2 acute hypoxic respiratory failure Secondary to Covid pneumonitis: Patient will be on O2 continue supportive care for now he might require oxygen for the next 4 weeks. Continue high flow nasal cannula. 3 severe gastrointestinal symptom: Mostly from Covid continue supportive care along with hydration gradually increase on his diet continue anti-inflammatory medication along with PPI. 4 type 2 diabetes uncontrolled with hypoglycemia. Glimepiride and Levemir will be discontinued. Patient will be on NovoLog scale only for now.: 5 hypertension: Remain on lisinopril 40 mg a day and atenolol 50 mg twice a day. 6 hyperlipidemia: Remain on simvastatin 20 mg daily. 7 atherosclerotic heart disease: Remain on beta brayan, alex and isosorbide. 8 severe GERD/GI prophylaxis: Patient will be on omeprazole or pantoprazole daily. 9 DVT prophylaxis: Patient will be on Lovenox 40 mg subcutaneous daily. CODE STATUS: Full code. DISCHARGE PLAN Most likely return home once stabilized. Impression and plan of care have been directed as dictated by the signing physic ian. Cathy Walker nurse practitioner acting as scribe for signing physician. Objective - Vital Signs Vital signs: Vital Signs Temp 98.0 F 09/28/20 05:37 Pulse 71 09/28/20 05:37 Resp 17 09/28/20 05:37 BP 149/84 09/28/20 05:37 Pulse Ox 90 L 09/28/20 05:37 Intake & Output 09/27/20 09/28/20 09/28/20 18:59 06:59 18:59 Intake Total 450 225 Balance 450 225 Intake: Intake, IV Titration 450 225 Amount Sodium Chloride 0.9% 1, 450 225 000 ml @ 75 mls/hr IV . [id number] DELFINO Rx#:[id number] Other: # Voids 5 6 - Labs CBC & Chem 7: 09/28/20 06:16 09/28/20 06:16 Labs: Abnormal Lab Results - Last 24 Hours (Table) 09/27/20 09/27/20 09/27/20 Range/Units 07:07 11:22 16:45 WBC (3.8-10.6) k/uL RBC (4.30-5.90) m/uL Hgb (13.0-17.5) gm/dL Hct (39.0-53.0) % Neutrophils # (1.3-7.7) k/uL Lymphocytes # (1.0-4.8) k/uL D-Dimer (<0.60) mg/L FEU BUN/Creatinine Ratio 27.50 H (12.00-20.00) Ratio Glucose 123 H (70-110) mg/dL POC Glucose (mg/dL) 139 H 178 H (75-99) mg/dL Calcium 8.5 L (8.7-10.3) mg/dL AST 50 H (14-35) U/L ALT 77 H (10-49) U/L Lactate Dehydrogenase 444 H (120-246) U/L C-Reactive Protein 12.5 H (0.0-0.8) mg/dL Total Protein 5.9 L (6.2-8.2) g/dL Albumin 3.40 L (3.80-4.90) g/dL Albumin/Globulin Ratio 1.36 L (1.60-3.17) g/dL 09/27/20 09/28/20 09/28/20 Range/Units 20:27 06:16 06:16 WBC 13.2 H (3.8-10.6) k/uL RBC 4.07 L (4.30-5.90) m/uL Hgb 12.5 L (13.0-17.5) gm/dL Hct 37.1 L (39.0-53.0) % Neutrophils # 12.4 H (1.3-7.7) k/uL Lymphocytes # 0.3 L (1.0-4.8) k/uL D-Dimer 4.87 H (<0.60) mg/L FEU BUN/Creatinine Ratio (12.00-20.00) Ratio Glucose (70-110) mg/dL POC Glucose (mg/dL) 185 H (75-99) mg/dL Calcium (8.7-10.3) mg/dL AST (14-35) U/L ALT (10-49) U/L Lactate Dehydrogenase (120-246) U/L C-Reactive Protein (0.0-0.8) mg/dL Total Protein (6.2-8.2) g/dL Albumin (3.80-4.90) g/dL Albumin/Globulin Ratio (1.60-3.17) g/dL 09/28/20 Range/Units 06:53 WBC (3.8-10.6) k/uL RBC (4.30-5.90) m/uL Hgb (13.0-17.5) gm/dL Hct (39.0-53.0) % Neutrophils # (1.3-7.7) k/uL Lymphocytes # (1.0-4.8) k/uL D-Dimer (<0.60) mg/L FEU BUN/Creatinine Ratio (12.00-20.00) Ratio Glucose (70-110) mg/dL POC Glucose (mg/dL) 101 H (75-99) mg/dL Calcium (8.7-10.3) mg/dL AST (14-35) U/L ALT (10-49) U/L Lactate Dehydrogenase (120-246) U/L C-Reactive Protein (0.0-0.8) mg/dL Total Protein (6.2-8.2) g/dL Albumin (3.80-4.90) g/dL Albumin/Globulin Ratio (1.60-3.17) g/dL Microbiology - Last 24 Hours (Table) 09/25/20 08:47 Blood Culture - Preliminary Blood No Growth after 48 hours
--- NOTE | 2020-09-28 16:41 | P.PN ---
Subjective Progress Note Date: 09/28/20 Principal diagnosis: Dyspnea, pneumonia 75-year-old male patient, with established diagnosis of COVID 19 infection who was admitted to the hospital between 09/20/2020 and 09/22/2020. At that time, the patient was treated symptomatically and the patient was discharged home. The patient is known to have diabetes and hypertension as morbid conditions. The patient came back at a hospital today as the patient was feeling shortness of breath and his pulse ox and drop down to 82%. Note that at the time of discharge from the hospital during his earlier admission, the patien t's phosphorus was above 90%. He was feeling fatigued and tired and he was having difficulties with oral intake. Based on his worsening symptoms, the patient was admitted to the hospital and a pulmonary consultation was requested. The patient's current white cell count of 22.4. Hemoglobin was at 12.9 and the patient's platelet count is at 303. He continues to have lymphopenia. D-dimer 1.19. Rest of the coagulation profile is within normal limits. His glucose was 43 in the emergency department and this was treated. BUN is at 50 with a creatinine of 0.7. Rest of the electrodes are within normal limits. Ferritin level is at 2679. AST 78, ALT 54, LDH is at 1295 and the patient has a CRP of 157. The pro-calcitonin is a 0.05. The pleitez virus Covid 19 testing was repeated and it was again positive. A CT angiogram was done and the patient's lungs showed bilateral groundglass opacity and airspace disease. No pleural effusion. Note that during his earlier admission, the patient was not given Remdesivir as the patient's symptoms were mild and the patient had no significant shortness of breath and hypoxemia or pulmonary infiltration of the chest x-ray at that time. On 09/26/2020 patient seen in follow-up on medical surgical floor. Remains on 15 L of oxygen, his pulse ox of 97%, we dropped FiO2 down to 10 L. This is day 2 of Remdesivir, remains on azithromycin, oral Decadron. Patient has been afebrile, no chest discomfort. Lung sounds reveal bilateral crackles. Pro- calcitonin 0.05, inflammatory markers are significantly elevated on admission. No nausea vomiting diarrhea. No cough. On 09/27/2020 patient is seen in follow-up on medical surgical floor. Remains on high flow oxygen 15 L, with pulse ox of 92%, and afebrile. Patient continues on Remdesivir, today is day 2, continues on oral dexamethasone, but didn't seek, zinc, and vitamin D. No worsening dyspnea. Yesterday we started him on convalescent plasma, no nausea vomiting or diarrhea. She is on azithromycin for empiric antibiotic coverage. Respiratory improving, LDH is down 444, and CRP 12.5. Pro-calcitonin is negative at 0.05. D-dimer is 3.40, white blood cell count is improving, down to 10.9. On 09/28/2020 patient seen in follow-up on medical surgical floor. He is on high flow oxygen, currently 15 L with pulse ox of 90%, minimal crackles at bilateral bases, he is generally weak, but no acute distress, breathing comfortably, slightly confused, he is on Remdesivir and he has received 1 unit of convalescent plasma. Is on prophylactic dose of Lovenox, azithromycin, and oral Decadron. His diet d-dimer has increased to 4.87, and we will increase his Lovenox to therapeutic dose his white blood cell count is 13.2, still lymphopenia with the cone of 0.3, inflammatory markers including LDH and CRP came down, his CK has increased to 787 on today's labs. Objective - Vital Signs Vital signs: Vital Signs Temp 98.5 F 09/28/20 14:00 Pulse 72 09/28/20 15:10 Resp 17 09/28/20 15:10 BP 130/74 09/28/20 14:00 Pulse Ox 92 L 09/28/20 14:00 Intake & Output 09/27/20 09/28/20 09/28/20 18:59 06:59 18:59 Intake Total 450 225 950 Output Total 400 Balance 450 225 550 Intake: Intake, IV Titration 450 225 600 Amount Sodium Chloride 0.9% 1, 450 225 600 000 ml @ 75 mls/hr IV . [id number] [facility] Rx#:[id number] Oral 350 Output: Urine 400 Other: # Voids 5 6 3 - Exam GENERAL EXAM: Alert, very pleasant, 75-year-old white male, on 10 L of oxygen a pulse ox of 92% comfortable in no apparent distress. HEAD: Normocephalic/atraumatic. EYES: Normal reaction of pupils, equal size. Conjunctiva pink, sclera white. NOSE: Clear with pink turbinates. THROAT: No erythema or exudates. NECK: No masses, no JVD, no thyroid enlargement, no adenopathy. CHEST: No chest wall deformity. Symmetrical expansion. LUNGS: Equal air entry with bilateral crackles, but no wheeze, rhonchi or dullness. CVS: Regular rate and rhythm, normal S1 and S2, no gallops, no murmurs, no rubs ABDOMEN: Soft, nontender. No hepatosplenomegaly, normal bowel sounds, no guarding or rigidity. EXTREMITIES: No clubbing, no edema, no cyanosis, 2+ pulses and upper and lower extremities. MUSCULOSKELETAL: Muscle strength and tone normal. SPINE: No scoliosis or deformity SKIN: No rashes CENTRAL NERVOUS SYSTEM: Alert and oriented -3. No focal deficits, tone is normal in all 4 extremities. PSYCHIATRIC: Alert and oriented -3. Appropriate affect. Intact judgment and insight. - Labs CBC & Chem 7: 09/28/20 06:16 09/28/20 06:16 Labs: Abnormal Lab Results - Last 24 Hours (Table) 09/27/20 09/27/20 09/28/20 Range/Units 16:45 20:27 06:16 WBC 13.2 H (3.8-10.6) k/uL RBC 4.07 L (4.30-5.90) m/uL Hgb 12.5 L (13.0-17.5) gm/dL Hct 37.1 L (39.0-53.0) % Neutrophils # 12.4 H (1.3-7.7) k/uL Lymphocytes # 0.3 L (1.0-4.8) k/uL D-Dimer (<0.60) mg/L FEU BUN/Creatinine Ratio (12.00-20.00) Ratio POC Glucose (mg/dL) 178 H 185 H (75-99) mg/dL AST (14-35) U/L ALT (10-49) U/L Lactate Dehydrogenase (120-246) U/L Creatine Kinase (35-257) U/L C-Reactive Protein (0.0-0.8) mg/dL Total Protein (6.2-8.2) g/dL Albumin (3.80-4.90) g/dL Albumin/Globulin Ratio (1.60-3.17) g/dL 09/28/20 09/28/20 09/28/20 Range/Units 06:16 06:16 06:53 WBC (3.8-10.6) k/uL RBC (4.30-5.90) m/uL Hgb (13.0-17.5) gm/dL Hct (39.0-53.0) % Neutrophils # (1.3-7.7) k/uL Lymphocytes # (1.0-4.8) k/uL D-Dimer 4.87 H (<0.60) mg/L FEU BUN/Creatinine Ratio 26.25 H (12.00-20.00) Ratio POC Glucose (mg/dL) 101 H (75-99) mg/dL AST 63 H (14-35) U/L ALT 70 H (10-49) U/L Lactate Dehydrogenase 525 H (120-246) U/L Creatine Kinase 787 H (35-257) U/L C-Reactive Protein 7.4 H (0.0-0.8) mg/dL Total Protein 5.9 L (6.2-8.2) g/dL Albumin 3.30 L (3.80-4.90) g/dL Albumin/Globulin Ratio 1.27 L (1.60-3.17) g/dL 09/28/20 Range/Units 11:29 WBC (3.8-10.6) k/uL RBC (4.30-5.90) m/uL Hgb (13.0-17.5) gm/dL Hct (39.0-53.0) % Neutrophils # (1.3-7.7) k/uL Lymphocytes # (1.0-4.8) k/uL D-Dimer (<0.60) mg/L FEU BUN/Creatinine Ratio (12.00-20.00) Ratio POC Glucose (mg/dL) 165 H (75-99) mg/dL AST (14-35) U/L ALT (10-49) U/L Lactate Dehydrogenase (120-246) U/L Creatine Kinase (35-257) U/L C-Reactive Protein (0.0-0.8) mg/dL Total Protein (6.2-8.2) g/dL Albumin (3.80-4.90) g/dL Albumin/Globulin Ratio (1.60-3.17) g/dL Microbiology - Last 24 Hours (Table) 09/25/20 08:47 Blood Culture - Preliminary Blood No Growth after 72 hours Assessment and Plan Plan: Assessment: 1 Covid 19 related pneumonia with secondary shortness of breath. The patient was diagnosed and hospitalized briefly between 09/20/2028 09/22/2020 and the patient's condition got worse and the patient became more short of breath and he is coming in for worsening shortness of breath and hypoxemia. 2 acute hypoxic respiratory failure currently on 4 L of oxygen by nasal cannula, secondary to above, 3 Generalized weakness secondary to above 4 leukocytosis, likely reactive. Pro-calcitonin is negative and it's very unlikely the patient is superinfection with bacteria. This is pretty much in progression of his pleitez virus Covid 19 infection 5 diabetes mellitus type 2 6 hypertension 7 hyperlipidemia 8 elevated inflammatory markers secondary to Covid 19 infection Plan: Continue Remdesivir, patient is status post 1 unit of convalescent plasma, he is on 15 L high flow oxygen, titrate FiO2 to keep O2 sat at 90% or above. His CK was elevated on today's labs, we'll discontinue Lipitor, we'll obtain troponin, we'll increase Lovenox to therapeutic dose 80 mg twice daily, discontinue azithromycin, pro-calcitonin was negative. Continue oral dexamethasone, vitamin C, zinc supplement, melatonin, and vitamin D. We'll continue to follow I performed a history & physical examination of the patient and discussed their management with my nurse practitioner, Ciara Koenig. I reviewed the nurse practitioner's note and agree with the documented findings and plan of care. Lung sounds are positive for diminished breath sounds. The findings and the impression was discussed with the patient. I attest to the documentation by the nurse practitioner. Time with Patient: Less than 30
[2020-09-28 16:54] LABS: Glucose,Whole Blood 210 mg/dL (75-99)
[2020-09-28 20:37] LABS: Glucose,Whole Blood 199 mg/dL (75-99)
[2020-09-28] MEDS: ENOXAPARIN 80 MG/0.8 ML SYRINGE SQ SCH (22:00)
[2020-09-28] MEDS: MELATONIN 3 MG TABLET PO SCH (22:00)
[2020-09-28] MEDS: REMDESIVIR (EUA) 100 MG in SODIUM CHLORIDE 0.9% 250 ML IVPB SCH (22:04)
[2020-09-28] MEDS: LATANOPROST 0.005% OPHTH DROPS 2.5 ML BTL BOTH EYES SCH (23:58)
[2020-09-29] MEDS: INSULIN ASPART (NovoLOG) 100 UNIT/ML VIAL SQ SCH ×5 (04:38→20:38)
[2020-09-29] MEDS: SODIUM CHLORIDE 0.9% 1,000 ML IV SCH ×2 (04:39→18:51)
--- NOTE | 2020-09-29 06:02 | PN ---
PROGRESS NOTE DATE OF SERVICE: 09/28/2020 REASON FOR VISIT: Acute COVID-19 pneumonia. INTERVAL HISTORY: Patient is . The patient has been afebrile, breathing more comfortably. Denies having any chest pain. Minimal cough. No nausea. No vomiting or diarrhea. PHYSICAL EXAMINATION: Blood pressure 156/80 with a pulse of 83, temperature 99, he is 92% on 3 L nasal cannula. General description is an elderly male lying in bed in no distress. Respiratory system: Unlabored breathing, decreased breath sounds at the bases. No wheeze. HEART: S1, S2. Regular rate and rhythm. Abdomen is soft, no tenderness. LABS: Hemoglobin is 12.5, white count 13.2, BUN of 21, creatinine 0.8. Blood culture has been negative. IMPRESSION/PLAN: Patient with acute COVID-19 pneumonia in this patient currently covered with dexamethasone, Lovenox and Remdesivir. Continue along with respiratory support and monitor clinical course closely. MMODL / IJN: [id number] /
[2020-09-29 06:29] LABS: Basophils % (A) 0 %; Eosinophils % (A) 0 %; HCT 32.3 % (39.0-53.0); HGB 11.1 gm/dL (13.0-17.5); Lymphocytes # (A) 0.3 k/uL (1.0-4.8); Lymphocytes % (A) 3 %; MCHC 34.4 g/dL (31.0-37.0); MCV 89.9 fL (80.0-100.0); Mean Platelet Volume 7.4; Monocytes # (A) 0.3 k/uL (0-1.0); Monocytes % (A) 3 %; Neutrophils # (A) 10.2 k/uL (1.3-7.7); Neutrophils % (A) 94 %; Platelet Count 278 k/uL (150-450); RDW 12.2 % (11.5-15.5); WBC 10.9 k/uL (3.8-10.6)
[2020-09-29 07:00] LABS: Glucose,Whole Blood 141 mg/dL (75-99)
[2020-09-29] MEDS: ASCORBIC ACID 500 MG TAB PO SCH (08:59)
[2020-09-29] MEDS: ENOXAPARIN 80 MG/0.8 ML SYRINGE SQ SCH ×2 (08:59→20:41)
[2020-09-29] MEDS: FAMOTIDINE 20 MG TAB PO SCH ×2 (08:59→20:43)
[2020-09-29] MEDS: ASPIRIN 81 MG PO SCH (08:59)
[2020-09-29] MEDS: FOLIC ACID 1 MG TAB PO SCH (09:00)
[2020-09-29] MEDS: ISOSORBIDE MONONITRATE ER 15 MG TAB PO SCH (09:00)
[2020-09-29] MEDS: ZINC SULFATE 220 MG CAP PO SCH (09:00)
[2020-09-29] MEDS: dexAMETHasone 2 MG TAB PO SCH (09:00)
[2020-09-29] MEDS: atenoloL 50 MG TAB PO SCH ×2 (09:00→20:43)
[2020-09-29] MEDS: lisinopriL 20 MG TAB PO SCH (09:01)
[2020-09-29] MEDS: TIMOLOL 0.5% OPHTH DROPS 5 ML BTL BOTH EYES SCH ×2 (09:09→19:42)
[2020-09-29] MEDS: BRIMONIDINE TARTRATE 0.2% DROPS 5 ML BTL BOTH EYES SCH ×2 (09:09→19:42)
[2020-09-29 09:31] LABS: Albumin 2.9 g/dL (3.80-4.90); Albumin/Globulin Ratio 1.32 (1.60-3.17); Anion Gap 7.9 mmol/L (4.00-12.00); BUN/Creat Ratio 28.75 Ratio (12.00-20.00); C Reactive Protein 11.2 mg/dL (0.0-0.8); Calcium 8.1 mg/dL (8.7-10.3); Carbon Dioxide 24.1 mmol/L (21.6-31.8); Globulin 2.2 g/dL (1.6-3.3); Potassium 4.1 mmol/L (3.5-5.5); Total Bilirubin 0.5 mg/dL (0.3-1.2); Total Protein 5.1 g/dL (6.2-8.2)
--- NOTE | 2020-09-29 10:28 | XR ---
EXAMINATION TYPE: XR chest 1V portable DATE OF EXAM: 09/29/2020 HISTORY: Shortness of breath. COMPARISON: 09/20/2020 TECHNIQUE: Single view of the chest is submitted. FINDINGS: Demonstrated are scattered senescent parenchymal change. Patchy right upper lobe and left lower lobe infiltrates compatible with pneumonia. The heart is stable. Hilar and mediastinal structures are within normal limits. Degenerative changes are seen of the dorsal spine. IMPRESSION: 1. Patchy right upper lobe and left lower lobe infiltrates compatible with pneumonia.
[2020-09-29] MEDS: DEXAMETHASONE SOD PHOSPHATE 10 MG/ML 1 ML VIAL IV SCH ×3 (10:54→20:43)
--- NOTE | 2020-09-29 11:07 | P.PN ---
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 Patient was the hospital for 3 days did not require much oxygen he ended up feeling decent insisted leave the hospital on Thursday. Patient return to the emergency room today complaining of worsening symptom with fever chills severe hypoxia with minimum exertion fatigue tiredness nausea and mild diarrhea and overall not feeling well. His d-dimer was elevated his marker were much higher today including d-dimer, C-reactive protein, Ferritin and LDH patient ended up going for CT of the lung came back with ground glass picture consistent with Covid pneumonitis, patient was severely hypoxic requiring 4 L O2 to keep his pulse ox above 90 percentile. Call pulmonary start patient on Remdesivir, steroid and O2 and admit patient to the hospital. 09/26: Patient remains on oxygen also oxygenating 89% on 4 L. We'll plan to switch her to high flow nasal cannula. His blood sugar was 36 during the night and Levemir and glimepiride will be discontinued for now and continue NovoLog scale only. He has been afebrile, heart rate 76, blood pressure 148/70. Repeat blood work reveals W BC 20.1, hemoglobin 12.9. Electrolytes renal function normal. 09/27: Patient continues to complain of shortness of breath but he appears more relaxed today. Lung sounds are improving. He was started on convalescent plasma treatment yesterday. He is observatory 1200 MLS on incentive spirometry. Pulse ox is 90% on 10 L high flow nasal cannula. He has been afebrile, heart rate 70, blood pressure 158/76. Patient continues to have very little appetite and is eating very little. 09/28: Patient is seen today on the [facility] floor, sitting in chair. He is day 4/5 of Remdesivir in status post convalescent plasma treatment. He continues to have crackles in bilateral bases. He denies any abdominal symptoms and eating very little. He has been afebrile, heart rate 71, blood pressure 149/84, pulse ox 90% on 15 L high flow nasal cannula. Repeat blood work revealed WBC 13.2, hemoglobin 12.5. Electrolytes and renal function normal. Blood sugar running between 101 185. LDH 525. D-dimer 4.87. C-reactive protein 7.4, CK 787. AST 63 and ALT 70. The patient will be ready for discharge until early next week. 09/29: Patient has worsening hypoxia with pulse ox of 81% on nonrebreather. P atient is being transitioned to BiPAP and assisted into a prone position. Dexamethasone changed to IV at 6 mg every 6 hours. He will complete course of Remdesivir this evening. He has been afebrile, heart rate 87, respiratory rate 34, blood pressure 134/64. Repeat blood work reveals WBC 10.9, hemoglobin 11.3, lymphopenia at 0.3. Electrolytes and renal function normal. Blood sugars running 141-199. AST 59, ALT 59, alkaline phosphatase 50. LDH 472. CK 593. C-reactive protein 11.2. Due to resolution of hypoglycemia and increased dose of steroids, Levemir will be resumed at 15 mg at bedtime. REVIEW OF SYSTEMS CONSTITUTIONAL: Well-developed acute respiratory distress. No documented fevers. Denies chills. EYES: No icterus sclerae, no conjunctivitis. EARS, NOSE, MOUTH, THROAT, and FACE: No sore throat, lymphadenopathy, carotid bruits or deformity. RESPIRATORY: Positive SOB cough or wheezes. Severe dyspnea and shortness of breath with Covid pneumonitis. CARDIOVASCULAR: No CP, Palpitation, PND, Orthopnea, or angina. Palpitation. GASTROINTESTINAL: Lack of appetite nausea with mild vomiting positive diarrhea no GI bleed. GENITOURINARY: Negative for Hematuria or UTI, no kidney stones. INTEGUMENT/BREAST: Negative for any muscular injury with mild osteoarthritis.. HEMATOLOGIC/LYMPHATIC: Negative for bleed or purpura. MUSCULOSKELTAL: Generalized arthralgia and myalgia. NEURLOGICAL: No LOC, Sz or syncope, blurred vision dizziness or abnormality.. BEHAVIORAL/PSYCH: Negative. ENDOCRINE: Negative. PHYSICAL EXAMINATION General Appearance: Alert, cooperative, no distress, appears stated age. Patient is resting in bed and appears dyspneic at rest. Neck HEENT: Supple, no lymphadenopathy, no thyroid enlargement, no carotid bruits. Dry mucosa Lungs: Occasional expansion bilaterally mild rhonchi with mild crackles in the bilateral bases positive mild expiratory wheezes. Chest Wall: Decrease expansion with deep inspiration no tenderness and no deformity was found on exam, costochondral pain or discomfort. Heart: Regular rate and rhythm, S1, S2 normal, no murmur, rub or gallop. Back: Symmetric, no curvature, ROM normal, no CVA tenderness. Abdomen: Soft, non-tender, bowel sounds active all four quadrants, slight discomfort in the mid epigastric and mid abdominal region area. Extremities: Extremities normal, atraumatic, no cyanosis or edema. Pulses: 2+ and symmetric. Skin: Skin color, texture, tugor normal, no rashes or lesions. Neurologic: Alert oriented x3 cranial nerves II through XII intact, no motor def icit, no abnormal balance or gait. ASSESSMENT AND PLAN 1 acute hypoxic respiratory failure secondary to Covid pneumonitis: With failure to outpatient treatment, and relapse from last week with much worsening hypoxia, chest x-ray and CTA of the chest consistent with Covid pneumonitis. Continue Remdisevir 5/5, along with Decadron transitioned to IV 6 mg every 6 hours, O2, updraft treatment zinc vitamin D vitamin C. Pulmonary consultation and ID consultation be done. Continue O2 supplementation. Patient is status post convalescent plasma treatment. Prone positioning. 2 acute hypoxic respiratory failure Secondary to Covid pneumonitis: Patient will be on O2 continue supportive care for now he might require oxygen for the next 4 weeks. Patient transitioning to BiPAP. 3 severe gastrointestinal symptom: Mostly from Covid continue supportive care along with hydration gradually increase on his diet continue anti-inflammatory medication along with PPI. 4 type 2 diabetes uncontrolled with hypoglycemia. Glimepiride discontinued. Patient will be on NovoLog scale only for now. Levemir resumed at 15 units at bedtime. 5 hypertension: Remain on lisinopril 40 mg a day and atenolol 50 mg twice a day. 6 hyperlipidemia: Remain on simvastatin 20 mg daily. 7 atherosclerotic heart disease: Remain on beta brayan, alex and isosorbide. 8 severe GERD/GI prophylaxis: Patient will be on omeprazole or pantoprazole daily. 9 DVT prophylaxis: Patient will be on Lovenox 40 mg subcutaneous daily. CODE STATUS: Full code. DISCHARGE PLAN Most likely return home once stabilized. Impression and plan of care have been directed as dictated by the signing physician. Cathy Walker nurse practitioner acting as scribe for signing physi pancho. Objective - Vital Signs Vital signs: Vital Signs Temp 97.2 F L 09/29/20 06:10 Pulse 71 09/29/20 06:10 Resp 20 09/29/20 06:10 BP 169/84 09/29/20 06:10 Pulse Ox 95 09/29/20 06:10 Intake & Output 09/28/20 09/29/20 09/29/20 18:59 06:59 18:59 Intake Total 950 Output Total 400 Balance 550 Intake: Intake, IV Titration 600 Amount Sodium Chloride 0.9% 1, 600 000 ml @ 75 mls/hr IV . [id number] [facility] Rx#:[id number] Oral 350 Output: Urine 400 Other: # Voids 3 3 - Labs CBC & Chem 7: 09/29/20 05:46 09/29/20 05:46 Labs: Abnormal Lab Results - Last 24 Hours (Table) 09/28/20 09/28/20 09/28/20 Range/Units 06:16 11:29 16:52 WBC (3.8-10.6) k/uL RBC (4.30-5.90) m/uL Hgb (13.0-17.5) gm/dL Hct (39.0-53.0) % Neutrophils # (1.3-7.7) k/uL Lymphocytes # (1.0-4.8) k/uL D-Dimer (<0.60) mg/L FEU BUN/Creatinine Ratio 26.25 H (12.00-20.00) Ratio Glucose (70-110) mg/dL POC Glucose (mg/dL) 165 H 210 H (75-99) mg/dL Calcium (8.7-10.3) mg/dL AST 63 H (14-35) U/L ALT 70 H (10-49) U/L Lactate Dehydrogenase 525 H (120-246) U/L Creatine Kinase 787 H (35-257) U/L C-Reactive Protein 7.4 H (0.0-0.8) mg/dL Total Protein 5.9 L (6.2-8.2) g/dL Albumin 3.30 L (3.80-4.90) g/dL Albumin/Globulin Ratio 1.27 L (1.60-3.17) g/dL 11/09/29/20 09/29/20 Range/Units 20:35 05:46 05:46 WBC 10.9 H (3.8-10.6) k/uL RBC 3.60 L (4.30-5.90) m/uL Hgb 11.1 L (13.0-17.5) gm/dL Hct 32.3 L (39.0-53.0) % Neutrophils # 10.2 H (1.3-7.7) k/uL Lymphocytes # 0.3 L (1.0-4.8) k/uL D-Dimer 14.68 H (<0.60) mg/L FEU BUN/Creatinine Ratio (12.00-20.00) Ratio Glucose (70-110) mg/dL POC Glucose (mg/dL) 199 H (75-99) mg/dL Calcium (8.7-10.3) mg/dL AST (14-35) U/L ALT (10-49) U/L Lactate Dehydrogenase (120-246) U/L Creatine Kinase (35-257) U/L C-Reactive Protein (0.0-0.8) mg/dL Total Protein (6.2-8.2) g/dL Albumin (3.80-4.90) g/dL Albumin/Globulin Ratio (1.60-3.17) g/dL 09/29/20 09/29/20 Range/Units 05:46 06:59 WBC (3.8-10.6) k/uL RBC (4.30-5.90) m/uL Hgb (13.0-17.5) gm/dL Hct (39.0-53.0) % Neutrophils # (1.3-7.7) k/uL Lymphocytes # (1.0-4.8) k/uL D-Dimer (<0.60) mg/L FEU BUN/Creatinine Ratio 28.75 H (12.00-20.00) Ratio Glucose 154 H (70-110) mg/dL POC Glucose (mg/dL) 141 H (75-99) mg/dL Calcium 8.1 L (8.7-10.3) mg/dL AST 59 H (14-35) U/L ALT 59 H (10-49) U/L Lactate Dehydrogenase 472 H (120-246) U/L Creatine Kinase 593 H (35-257) U/L C-Reactive Protein 11.2 H (0.0-0.8) mg/dL Total Protein 5.1 L (6.2-8.2) g/dL Albumin 2.90 L (3.80-4.90) g/dL Albumin/Globulin Ratio 1.32 L (1.60-3.17) g/dL Microbiology - Last 24 Hours (Table) 09/25/20 08:47 Blood Culture - Preliminary Blood No Growth after 72 hours
[2020-09-29 12:06] LABS: Glucose,Whole Blood 183 mg/dL (75-99)
[2020-09-29 16:16] LABS: Glucose,Whole Blood 184 mg/dL (75-99)
--- NOTE | 2020-09-29 17:14 | P.PN ---
Subjective Progress Note Date: 09/29/20 Principal diagnosis: Acute CoVID 19 pneumonia 75-year-old male patient, with established diagnosis of COVID 19 infection who was admitted to the hospital between 09/20/2020 and 09/22/2020. At that time, the patient was treated symptomatically and the patient was discharged h ome. The patient is known to have diabetes and hypertension as morbid conditions. The patient came back at a hospital today as the patient was feeling shortness of breath and his pulse ox and drop down to 82%. Note that at the time of discharge from the hospital during his earlier admission, the patient's phosphorus was above 90%. He was feeling fatigued and tired and he was having difficulties with oral intake. Based on his worsening symptoms, the patient was admitted to the hospital and a pulmonary consultation was requested. The patient's current white cell count of 22.4. Hemoglobin was at 12.9 and the patient's platelet count is at 303. He continues to have lymphopenia. D-dimer 1.19. Rest of the coagulation profile is within normal limits. His glucose was 43 in the emergency department and this was treated. BUN is at 50 with a creatinine of 0.7. Rest of the electrodes are within normal limits. Ferritin level is at 2679. AST 78, ALT 54, LDH is at 1295 and the patient has a CRP of 157. The pro-calcitonin is a 0.05. The pleitez virus Covid 19 testing was repeated and it was again positive. A CT angiogram was done and the patient's lungs showed bilateral groundglass opacity and airspace disease. No pleural effusion. Note that during his earlier admission, the patient was not given Remdesivir as the patient's symptoms were mild and the patient had no significa nt shortness of breath and hypoxemia or pulmonary infiltration of the chest x- ray at that time. On 09/26/2020 patient seen in follow-up on medical surgical floor. Remains on 15 L of oxygen, his pulse ox of 97%, we dropped FiO2 down to 10 L. This is day 2 of Remdesivir, remains on azithromycin, oral Decadron. Patient has been afebrile, no chest discomfort. Lung sounds reveal bilateral crackles. Pro- calcitonin 0.05, inflammatory markers are significantly elevated on admission. No nausea vomiting diarrhea. No cough. On 09/27/2020 patient is seen in follow-up on medical surgical floor. Remains on high flow oxygen 15 L, with pulse ox of 92%, and afebrile. Patient continues on Remdesivir, today is day 2, continues on oral dexamethasone, but didn't seek, zinc, and vitamin D. No worsening dyspnea. Yesterday we started him on convalescent plasma, no nausea vomiting or diarrhea. She is on azithromycin for empiric antibiotic coverage. Respiratory improving, LDH is down 444, and CRP 12.5. Pro-calcitonin is negative at 0.05. D-dimer is 3.40, white blood cell count is improving, down to 10.9. On 09/28/2020 patient seen in follow-up on medical surgical floor. He is on high flow oxygen, currently 15 L with pulse ox of 90%, minimal crackles at bilateral bases, he is generally weak, but no acute distress, breathing comfortably, slightly confused, he is on Remdesivir and he has received 1 unit of convalescent plasma. Is on prophylactic dose of Lovenox, azithromycin, and oral Decadron. His diet d-dimer has increased to 4.87, and we will increase his Lovenox to therapeutic dose his white blood cell count is 13.2, still lymphopenia with the cone of 0.3, inflammatory markers including LDH and CRP came down, his CK has increased to 787 on today's labs. The patient is seen today 09/29/2020 in follow-up on the regular medical floor. He is still requiring 15 L high flow nasal cannula to maintain O2 saturations in the 90s. Chest x-ray shows a new patchy right upper lobe and left lower lobe infiltrates compatible with pneumonia. He is still quite dyspneic with minimal exertion. White count 10.9. Hemoglobin 11.1. D-dimer 14.6. Sodium 136. Potassium 4.1. Creatinine 0.8. Glucose 154. LDH 472. C-reactive protein 11.2. This is day #5 of Remdesivir. He received 1 convalescent plasma. Continued on vitamin supplements and Decadron, Pepcid along with Lovenox. Objective - Vital Signs Vital signs: Vital Signs Temp 98.2 F 09/29/20 17:04 Pulse 63 09/29/20 17:04 Resp 31 H 09/29/20 17:04 BP 179/93 09/29/20 17:04 Pulse Ox 93 L 09/29/20 15:40 Intake & Output 09/28/20 09/29/20 09/29/20 18:59 06:59 18:59 Intake Total 950 214 Output Total 400 700 Balance 550 -486 Intake: Intake, IV Titration 600 Amount Sodium Chloride 0.9% 1, 600 000 ml @ 75 mls/hr IV . [id number] [facility] Rx#:[id number] Oral 350 Blood Product 214 Ffp Pher Conval Covid19 214 Acda 2 Unit [id number] Output: Urine 400 700 Other: # Voids 3 3 - Exam GENERAL EXAM: Alert, very pleasant, 75-year-old white male, on 15 L of oxygen a pulse ox of 93% comfortable in no apparent distress. HEAD: Normocephalic/atraumatic. EYES: Normal reaction of pupils, equal size. Conjunctiva pink, sclera white. NOSE: Clear with pink turbinates. THROAT: No erythema or exudates. NECK: No masses, no JVD, no thyroid enlargement, no adenopathy. CHEST: No chest wall deformity. Symmetrical expansion. LUNGS: Equal air entry with bilateral crackles, but no wheeze, rhonchi or dullness. CVS: Regular rate and rhythm, normal S1 and S2, no gallops, no murmurs, no rubs ABDOMEN: Soft, nontender. No hepatosplenomegaly, normal bowel sounds, no guarding or rigidity. EXTREMITIES: No clubbing, no edema, no cyanosis, 2+ pulses and upper and lower extremities. MUSCULOSKELETAL: Muscle strength and tone normal. SPINE: No scoliosis or deformity SKIN: No rashes CENTRAL NERVOUS SYSTEM: Alert and oriented -3. No focal deficits, tone is normal in all 4 extremities. PSYCHIATRIC: Alert and oriented -3. Appropriate affect. Intact judgment and insight. - Labs CBC & Chem 7: 09/29/20 05:46 09/29/20 05:46 Labs: Abnormal Lab Results - Last 24 Hours (Table) 09/28/20 09/29/20 09/29/20 Range/Units 20:35 05:46 05:46 WBC 10.9 H (3.8-10.6) k/uL RBC 3.60 L (4.30-5.90) m/uL Hgb 11.1 L (13.0-17.5) gm/dL Hct 32.3 L (39.0-53.0) % Neutrophils # 10.2 H (1.3-7.7) k/uL Lymphocytes # 0.3 L (1.0-4.8) k/uL D-Dimer 14.68 H (<0.60) mg/L FEU BUN/Creatinine Ratio (12.00-20.00) Ratio Glucose (70-110) mg/dL POC Glucose (mg/dL) 199 H (75-99) mg/dL Calcium (8.7-10.3) mg/dL AST (14-35) U/L ALT (10-49) U/L Lactate Dehydrogenase (120-246) U/L Creatine Kinase (35-257) U/L C-Reactive Protein (0.0-0.8) mg/dL Total Protein (6.2-8.2) g/dL Albumin (3.80-4.90) g/dL Albumin/Globulin Ratio (1.60-3.17) g/dL 09/29/20 09/29/20 09/29/20 Range/Units 05:46 06:59 12:04 WBC (3.8-10.6) k/uL RBC (4.30-5.90) m/uL Hgb (13.0-17.5) gm/dL Hct (39.0-53.0) % Neutrophils # (1.3-7.7) k/uL Lymphocytes # (1.0-4.8) k/uL D-Dimer (<0.60) mg/L FEU BUN/Creatinine Ratio 28.75 H (12.00-20.00) Ratio Glucose 154 H (70-110) mg/dL POC Glucose (mg/dL) 141 H 183 H (75-99) mg/dL Calcium 8.1 L (8.7-10.3) mg/dL AST 59 H (14-35) U/L ALT 59 H (10-49) U/L Lactate Dehydrogenase 472 H (120-246) U/L Creatine Kinase 593 H (35-257) U/L C-Reactive Protein 11.2 H (0.0-0.8) mg/dL Total Protein 5.1 L (6.2-8.2) g/dL Albumin 2.90 L (3.80-4.90) g/dL Albumin/Globulin Ratio 1.32 L (1.60-3.17) g/dL 09/29/20 Range/Units 16:14 WBC (3.8-10.6) k/uL RBC (4.30-5.90) m/uL Hgb (13.0-17.5) gm/dL Hct (39.0-53.0) % Neutrophils # (1.3-7.7) k/uL Lymphocytes # (1.0-4.8) k/uL D-Dimer (<0.60) mg/L FEU BUN/Creatinine Ratio (12.00-20.00) Ratio Glucose (70-110) mg/dL POC Glucose (mg/dL) 184 H (75-99) mg/dL Calcium (8.7-10.3) mg/dL AST (14-35) U/L ALT (10-49) U/L Lactate Dehydrogenase (120-246) U/L Creatine Kinase (35-257) U/L C-Reactive Protein (0.0-0.8) mg/dL Total Protein (6.2-8.2) g/dL Albumin (3.80-4.90) g/dL Albumin/Globulin Ratio (1.60-3.17) g/dL Microbiology - Last 24 Hours (Table) 09/25/20 08:47 Blood Culture - Preliminary Blood No Growth after 96 hours Assessment and Plan Assessment: 1 Covid 19 related pneumonia with secondary shortness of breath. The patient was diagnosed and hospitalized briefly between 09/20/2028 09/22/2020 and the patient's condition got worse and the patient became more short of breath and he is coming in for worsening shortness of breath and hypoxemia. 2 acute hypoxic respiratory failure currently on 4 L of oxygen by nasal cannula, secondary to above, 3 Generalized weakness secondary to above 4 leukocytosis, likely reactive. Pro-calcitonin is negative and it's very unlikely the patient is superinfection with bacteria. This is pretty much in progression of his pleitez virus Covid 19 infection 5 diabetes mellitus type 2 6 hypertension 7 hyperlipidemia 8 elevated inflammatory markers secondary to Covid 19 infection Plan: The patient was seen and evaluated by Dr. Field He is still requiring 15 L high flow nasal cannula Completing Remdesivir today Add a second unit of convalescent plasma Continue current treatment plan Continue to follow I, the cosigning physician, performed a history & physical examination of the patient. Lungs sounds basilar crackles. Maintaining good O2 saturations in the 90s on 15 L high flow nasal cannula. I discussed the assessment and plan of care with my nurse practitioner, Brooklyn Aldana. I attest to the above note as dictated by her.
[2020-09-29] MEDS: LATANOPROST 0.005% OPHTH DROPS 2.5 ML BTL BOTH EYES SCH (19:42)
[2020-09-29 20:28] LABS: Glucose,Whole Blood 140 mg/dL (75-99)
[2020-09-29] MEDS: MELATONIN 3 MG TABLET PO SCH (20:42)
[2020-09-29] MEDS: REMDESIVIR (EUA) 100 MG in SODIUM CHLORIDE 0.9% 250 ML IVPB SCH (20:42)
[2020-09-29] MEDS ORDERED: INSULIN DETEMIR (LEVEMIR) 100 UNIT/ML SYR SQ SCH (21:00)
--- NOTE | 2020-09-29 23:30 | PN ---
PROGRESS NOTE DATE OF SERVICE: 09/29/2020 REASON FOR FOLLOWUP: Acute COVID-19 pneumonia. INTERVAL HISTORY: Patient is currently afebrile. The patient is breathing comfortably. The patient noticed to be hypoxic and is currently requiring BiPAP for his breathing. The patient denies any worsening shortness of breath. Did not have any chest pain. Minimal cough. No abdominal pain or diarrhea. PHYSICAL EXAMINATION: Blood pressure 126/93 with a pulse of 69. Temperature 99.1. He is 99% on BiPAP. General description is an elderly male up in the bed in no distress. Respiratory system: Unlabored breathing, decreased breath sounds in the bases. No wheeze. HEART: S1, S2. Regular rate and rhythm. Abdomen: Soft. No tenderness. LABS: Hemoglobin 11.1, white count 10.9. D-dimer is up to 14.68. DIAGNOSTIC IMPRESSION AND PLAN: Patient acute COVID-19 pneumonia. This patient did have slight worsening of his respiratory status requiring a BiPAP and also worsening of his D-dimer. The patient is currently covered with Remdesivir, Decadron, Lovenox, to continue and monitor clinical course closely. Continue supportive care. MMODL / IJN: [id number] /
[2020-09-30] MEDS: SODIUM CHLORIDE 0.9% 1,000 ML IV SCH ×2 (03:33→19:30)
[2020-09-30] MEDS: DEXAMETHASONE SOD PHOSPHATE 10 MG/ML 1 ML VIAL IV SCH ×5 (04:46→20:58)
[2020-09-30 07:18] LABS: Glucose,Whole Blood 214 mg/dL (75-99)
[2020-09-30] MEDS: INSULIN ASPART (NovoLOG) 100 UNIT/ML VIAL SQ SCH ×4 (08:05→19:50)
[2020-09-30] MEDS: ALBUTEROL HFA INHALER INHALATION PRN ×3 (08:30→15:47)
[2020-09-30] MEDS: FAMOTIDINE 20 MG TAB PO SCH ×2 (08:44→19:50)
[2020-09-30] MEDS: ASPIRIN 81 MG PO SCH (08:44)
[2020-09-30] MEDS: ASCORBIC ACID 500 MG TAB PO SCH (08:45)
[2020-09-30] MEDS: lisinopriL 20 MG TAB PO SCH (08:45)
[2020-09-30] MEDS: FOLIC ACID 1 MG TAB PO SCH (08:45)
[2020-09-30] MEDS: ISOSORBIDE MONONITRATE ER 15 MG TAB PO SCH (08:45)
[2020-09-30] MEDS: atenoloL 50 MG TAB PO SCH ×2 (08:45→19:50)
[2020-09-30] MEDS: ZINC SULFATE 220 MG CAP PO SCH (08:45)
[2020-09-30] MEDS: ENOXAPARIN 80 MG/0.8 ML SYRINGE SQ SCH ×2 (08:47→19:50)
[2020-09-30] MEDS: BRIMONIDINE TARTRATE 0.2% DROPS 5 ML BTL BOTH EYES SCH ×2 (08:48→19:08)
[2020-09-30] MEDS: TIMOLOL 0.5% OPHTH DROPS 5 ML BTL BOTH EYES SCH ×2 (08:48→19:08)
[2020-09-30 11:36] LABS: Glucose,Whole Blood 211 mg/dL (75-99)
--- NOTE | 2020-09-30 12:16 | P.PN ---
Subjective Progress Note Date: 09/30/20 HISTORY OF PRESENT ILLNESS 75-year-old male one of Dr. Cast patient was hospitalized last week for Covid symptoms at the time was mildly hypoxic but was having more constitutional symptoms consistent with fever chills generalized fatigue tiredness with mild exertional shortness of breath. Patient was the hospital for 3 days did not require much oxygen he ended up feeling decent insisted leave the hospital on Thursday. Patient return to the emergency room today complaining of worsening symptom with fever chills severe hypoxia with minimum exertion fatigue tiredness nausea and mild diarrhea and overall not feeling well. His d-dimer was elevated his marker were much higher today including d-dimer, C-reactive protein, Ferritin and LDH patient ended up going for CT of the lung came back with ground glass picture consistent with Covid pneumonitis, patient was severely hypoxic requiring 4 L O2 to keep his pulse ox above 90 percentile. Call pulmonary start patient on Remdesivir, steroid and O2 and admit patient to the hospital. 09/26: Patient remains on oxygen also oxygenating 89% on 4 L. We'll plan to switch her to high flow nasal cannula. His blood sugar was 36 during the night and Levemir and glimepiride will be discontinued for now and continue NovoLog scale only. He has been afebrile, heart rate 76, blood pressure 148/70. Repeat blood work reveals W BC 20.1, hemoglobin 12.9. Electrolytes renal function normal. 09/27: Patient continues to complain of shortness of breath but he appears more relaxed today. Lung sounds are improving. He was started on convalescent plasma treatment yesterday. He is observatory 1200 MLS on incentive spirometry. Pulse ox is 90% on 10 L high flow nasal cannula. He has been afebrile, heart rate 70, blood pressure 158/76. Patient continues to have very little appetite and is eating very little. 09/28: Patient is seen today on the [facility] floor, sitting in chair. He is day 4/5 of Remdesivir in status post convalescent plasma treatment. He continues to have crackles in bilateral bases. He denies any abdominal symptoms and eating very little. He has been afebrile, heart rate 71, blood pressure 149/84, pulse ox 90% on 15 L high flow nasal cannula. Repeat blood work revealed WBC 13.2, hemoglobin 12.5. Electrolytes and renal function normal. Blood sugar running between 101 185. LDH 525. D-dimer 4.87. C-reactive protein 7.4, CK 787. AST 63 and ALT 70. The patient will be ready for discharge until early next week. 09/29: Patient has worsening hypoxia with pulse ox of 81% on nonrebreather. P atient is being transitioned to BiPAP and assisted into a prone position. Dexamethasone changed to IV at 6 mg every 6 hours. He will complete course of Remdesivir this evening. He has been afebrile, heart rate 87, respiratory rate 34, blood pressure 134/64. Repeat blood work reveals WBC 10.9, hemoglobin 11.3, lymphopenia at 0.3. Electrolytes and renal function normal. Blood sugars running 141-199. AST 59, ALT 59, alkaline phosphatase 50. LDH 472. CK 593. C-reactive protein 11.2. Due to resolution of hypoglycemia and increased dose of steroids, Levemir will be resumed at 15 mg at bedtime. 09/30: The patient's respiratory status declined yesterday but improved this morning. He is currently pulse oxing 93-97% on nonrebreather. He has been afebrile, heart rate 85, blood pressure 121/67. He has completed course of Remdesivir and is status post convalescent plasma infusion. Pulmonary medicine and infectious disease continued to follow. Blood sugars running between 140 and 214. Patient has not received Levemir. Will decrease Levemir to 10 units and continue NovoLog scale REVIEW OF SYSTEMS CONSTITUTIONAL: Well-developed acute respiratory distress. No documented fevers. Denies chills. EYES: No icterus sclerae, no conjunctivitis. EARS, NOSE, MOUTH, THROAT, and FACE: No sore throat, lymphadenopathy, carotid bruits or deformity. RESPIRATORY: Positive SOB continues cough or wheezes. Severe dyspnea and shortness of breath with Covid pneumonitis. CARDIOVASCULAR: No CP, Palpitation, PND, Orthopnea, or angina. Palpitation. GASTROINTESTINAL: Lack of appetite nausea with mild vomiting positive diarrhea no GI bleed. GENITOURINARY: Negative for Hematuria or UTI, no kidney stones. INTEGUMENT/BREAST: Negative for any muscular injury with mild osteoarthritis.. HEMATOLOGIC/LYMPHATIC: Negative for bleed or purpura. MUSCULOSKELTAL: Generalized arthralgia and myalgia. NEURLOGICAL: No LOC, Sz or syncope, blurred vision dizziness or abnormality.. BEHAVIORAL/PSYCH: Negative. ENDOCRINE: Negative. PHYSICAL EXAMINATION General Appearance: Alert, cooperative, no distress, appears stated age. Patient is resting in a recliner and appears to be comfortable although on nonrebreather. Neck HEENT: Supple, no lymphadenopathy, no thyroid enlargement, no carotid bruits. Dry mucosa Lungs: Occasional expansion bilaterally mild rhonchi with mild crackles in the bilateral bases positive mild expiratory wheezes. Chest Wall: Decrease expansion with deep inspiration no tenderness and no deformity was found on exam, costochondral pain or discomfort. Heart: Regular rate and rhythm, S1, S2 normal, no murmur, rub or gallop. Back: Symmetric, no curvature, ROM normal, no CVA tenderness. Abdomen: Soft, non-tender, bowel sounds active all four quadrants, slight discomfort in the mid epigastric and mid abdominal region area. Extremities: Extremities normal, atraumatic, no cyanosis or edema. Pulses: 2+ and symmetric. Skin: Skin color, texture, tugor normal, no rashes or lesions. Neurologic: Alert oriented x3 cranial nerves II through XII intact, no motor deficit, no abnormal balance or gait. ASSESSMENT AND PLAN 1 acute hypoxic respiratory failure secondary to Covid pneumonitis: With failure to outpatient treatment, and relapse from last week with much worsening hypoxia, chest x-ray and CTA of the chest consistent with Covid pneumonitis. Completed Remdisevir, continue Decadron IV 6 mg every 6 hours, O2, updraft treatment zinc vitamin D vitamin C. Pulmonary consultation and ID consultation be done. Continue O2 supplementation. Patient is status post convalescent plasma treatment. Prone positioning. 2 acute hypoxic respiratory failure Secondary to Covid pneumonitis: Patient will be on O2 continue supportive care for now he might require oxygen for the next 4 weeks. Patient transitioning to BiPAP. 3 severe gastrointestinal symptom: Mostly from Covid continue supportive care along with hydration gradually increase on his diet continue anti-inflammatory medication along with PPI. 4 type 2 diabetes uncontrolled with hypoglycemia. Glimepiride discontinued. P atient will be on NovoLog scale only for now. Levemir resumed at 10 units at bedtime. 5 hypertension: Remain on lisinopril 40 mg a day and atenolol 50 mg twice a day. 6 hyperlipidemia: Remain on simvastatin 20 mg daily. 7 atherosclerotic heart disease: Remain on beta brayan, alex and isosorbide. 8 severe GERD/GI prophylaxis: Patient will be on omeprazole or pantoprazole daily. 9 DVT prophylaxis: Patient will be on Lovenox 40 mg subcutaneous daily. CODE STATUS: Full code. DISCHARGE PLAN Most likely return home once stabilized. Impression and plan of care have been directed as dictated by the signing physician. Cathy Walker nurse practitioner acting as scribe for signing physician. Objective - Vital Signs Vital signs: Vital Signs Temp 97.9 F 09/30/20 08:26 Pulse 81 09/30/20 08:26 Resp 31 H 09/30/20 08:26 BP 159/84 09/30/20 08:26 Pulse Ox 96 09/30/20 08:44 Intake & Output 09/29/20 09/30/20 09/30/20 18:59 06:59 18:59 Intake Total 214 825 Output Total 700 Balance -486 825 Intake: Intake, IV Titration 825 Amount Sodium Chloride 0.9% 1, 825 000 ml @ 75 mls/hr IV . [id number] [facility] Rx#:[id number] Blood Product 214 Ffp Pher Conval Covid19 214 Acda 2 Unit [id number] Output: Urine 700 Other: Voiding Method Indwelling Catheter Indwelling Catheter - Labs CBC & Chem 7: 09/29/20 05:46 09/29/20 05:46 Labs: Abnormal Lab Results - Last 24 Hours (Table) 09/29/20 09/29/20 09/29/20 Range/Units 05:46 12:04 16:14 BUN/Creatinine Ratio 28.75 H (12.00-20.00) Ratio Glucose 154 H (70-110) mg/dL POC Glucose (mg/dL) 183 H 184 H (75-99) mg/dL Calcium 8.1 L (8.7-10.3) mg/dL AST 59 H (14-35) U/L ALT 59 H (10-49) U/L Lactate Dehydrogenase 472 H (120-246) U/L Creatine Kinase 593 H (35-257) U/L C-Reactive Protein 11.2 H (0.0-0.8) mg/dL Total Protein 5.1 L (6.2-8.2) g/dL Albumin 2.90 L (3.80-4.90) g/dL Albumin/Globulin Ratio 1.32 L (1.60-3.17) g/dL 09/29/20 09/30/20 Range/Units 20:26 07:16 BUN/Creatinine Ratio (12.00-20.00) Ratio Glucose (70-110) mg/dL POC Glucose (mg/dL) 140 H 214 H (75-99) mg/dL Calcium (8.7-10.3) mg/dL AST (14-35) U/L ALT (10-49) U/L Lactate Dehydrogenase (120-246) U/L Creatine Kinase (35-257) U/L C-Reactive Protein (0.0-0.8) mg/dL Total Protein (6.2-8.2) g/dL Albumin (3.80-4.90) g/dL Albumin/Globulin Ratio (1.60-3.17) g/dL Microbiology - Last 24 Hours (Table) 09/25/20 08:47 Blood Culture - Preliminary Blood No Growth after 96 hours
--- NOTE | 2020-09-30 15:44 | P.PN ---
Subjective Progress Note Date: 09/30/20 Principal diagnosis: Acute CoVID 19 pneumonia 75-year-old male patient, with established diagnosis of COVID 19 infection who was admitted to the hospital between 09/20/2020 and 09/22/2020. At that time, the patient was treated symptomatically and the patient was discharged h ome. The patient is known to have diabetes and hypertension as morbid conditions. The patient came back at a hospital today as the patient was feeling shortness of breath and his pulse ox and drop down to 82%. Note that at the time of discharge from the hospital during his earlier admission, the patient's phosphorus was above 90%. He was feeling fatigued and tired and he was having difficulties with oral intake. Based on his worsening symptoms, the patient was admitted to the hospital and a pulmonary consultation was requested. The patient's current white cell count of 22.4. Hemoglobin was at 12.9 and the patient's platelet count is at 303. He continues to have lymphopenia. D-dimer 1.19. Rest of the coagulation profile is within normal limits. His glucose was 43 in the emergency department and this was treated. BUN is at 50 with a creatinine of 0.7. Rest of the electrodes are within normal limits. Ferritin level is at 2679. AST 78, ALT 54, LDH is at 1295 and the patient has a CRP of 157. The pro-calcitonin is a 0.05. The pleitez virus Covid 19 testing was repeated and it was again positive. A CT angiogram was done and the patient's lungs showed bilateral groundglass opacity and airspace disease. No pleural effusion. Note that during his earlier admission, the patient was not given Remdesivir as the patient's symptoms were mild and the patient had no significa nt shortness of breath and hypoxemia or pulmonary infiltration of the chest x- ray at that time. On 09/26/2020 patient seen in follow-up on medical surgical floor. Remains on 15 L of oxygen, his pulse ox of 97%, we dropped FiO2 down to 10 L. This is day 2 of Remdesivir, remains on azithromycin, oral Decadron. Patient has been afebrile, no chest discomfort. Lung sounds reveal bilateral crackles. Pro- calcitonin 0.05, inflammatory markers are significantly elevated on admission. No nausea vomiting diarrhea. No cough. On 09/27/2020 patient is seen in follow-up on medical surgical floor. Remains on high flow oxygen 15 L, with pulse ox of 92%, and afebrile. Patient continues on Remdesivir, today is day 2, continues on oral dexamethasone, but didn't seek, zinc, and vitamin D. No worsening dyspnea. Yesterday we started him on convalescent plasma, no nausea vomiting or diarrhea. She is on azithromycin for empiric antibiotic coverage. Respiratory improving, LDH is down 444, and CRP 12.5. Pro-calcitonin is negative at 0.05. D-dimer is 3.40, white blood cell count is improving, down to 10.9. On 09/28/2020 patient seen in follow-up on medical surgical floor. He is on high flow oxygen, currently 15 L with pulse ox of 90%, minimal crackles at bilateral bases, he is generally weak, but no acute distress, breathing comfortably, slightly confused, he is on Remdesivir and he has received 1 unit of convalescent plasma. Is on prophylactic dose of Lovenox, azithromycin, and oral Decadron. His diet d-dimer has increased to 4.87, and we will increase his Lovenox to therapeutic dose his white blood cell count is 13.2, still lymphopenia with the cone of 0.3, inflammatory markers including LDH and CRP came down, his CK has increased to 787 on today's labs. The patient is seen today 09/29/2020 in follow-up on the regular medical floor. He is still requiring 15 L high flow nasal cannula to maintain O2 saturations in the 90s. Chest x-ray shows a new patchy right upper lobe and left lower lobe infiltrates compatible with pneumonia. He is still quite dyspneic with minimal exertion. White count 10.9. Hemoglobin 11.1. D-dimer 14.6. Sodium 136. Potassium 4.1. Creatinine 0.8. Glucose 154. LDH 472. C-reactive protein 11.2. This is day #5 of Remdesivir. He received 1 convalescent plasma. Continued on vitamin supplements and Decadron, Pepcid along with Lovenox. The patient is seen today 09/30/2020 in follow-up on the regular medical floor. He is doing a bit better today than he was yesterday. He did require BiPAP support throughout the night. Currently back on 15 L high flow nasal cannula and maintaining O2 saturation in the low 90s. He is afebrile. Hemodynamically stable. Blood glucose 211. He has completed his course of Remdesivir. He remains on dexamethasone and Lovenox. Continue Pepcid, melatonin, vitamin C, vitamin D, zinc. Objective - Vital Signs Vital signs: Vital Signs Temp 97.9 F 09/30/20 14:00 Pulse 74 09/30/20 14:00 Resp 17 09/30/20 14:00 BP 130/72 09/30/20 14:00 Pulse Ox 92 L 09/30/20 14:00 Intake & Output 09/29/20 09/30/20 09/30/20 18:59 06:59 18:59 Intake Total 214 825 Output Total 700 Balance -486 825 Intake: Intake, IV Titration 825 Amount Sodium Chloride 0.9% 1, 825 000 ml @ 75 mls/hr IV . [id number] [facility] Rx#:[id number] Blood Product 214 Ffp Pher Conval Covid19 214 Acda 2 Unit [id number] Output: Urine 700 Other: Voiding Method Indwelling Catheter Indwelling Catheter - Exam GENERAL EXAM: Alert, very pleasant, 75-year-old white male, on 15 L of oxygen a pulse ox of 92% comfortable in no apparent distress. HEAD: Normocephalic/atraumatic. EYES: Normal reaction of pupils, equal size. Conjunctiva pink, sclera white. NOSE: Clear with pink turbinates. THROAT: No erythema or exudates. NECK: No masses, no JVD, no thyroid enlargement, no adenopathy. CHEST: No chest wall deformity. Symmetrical expansion. LUNGS: Equal air entry with bilateral crackles, but no wheeze, rhonchi or d ullness. CVS: Regular rate and rhythm, normal S1 and S2, no gallops, no murmurs, no rubs ABDOMEN: Soft, nontender. No hepatosplenomegaly, normal bowel sounds, no guarding or rigidity. EXTREMITIES: No clubbing, no edema, no cyanosis, 2+ pulses and upper and lower extremities. MUSCULOSKELETAL: Muscle strength and tone normal. SPINE: No scoliosis or deformity SKIN: No rashes CENTRAL NERVOUS SYSTEM: Alert and oriented -3. No focal deficits, tone is normal in all 4 extremities. PSYCHIATRIC: Alert and oriented -3. Appropriate affect. Intact judgment and insight. - Labs CBC & Chem 7: 09/29/20 05:46 09/29/20 05:46 Labs: Abnormal Lab Results - Last 24 Hours (Table) 09/29/20 09/29/20 09/30/20 Range/Units 16:14 20:26 07:16 POC Glucose (mg/dL) 184 H 140 H 214 H (75-99) mg/dL 09/30/20 Range/Units 11:35 POC Glucose (mg/dL) 211 H (75-99) mg/dL Microbiology - Last 24 Hours (Table) 09/25/20 08:47 Blood Culture - Preliminary Blood No Growth after 120 hours Assessment and Plan Assessment: 1 Covid 19 related pneumonia with secondary shortness of breath. The patient was diagnosed and hospitalized briefly between 09/20/2028 09/22/2020 and the patient's condition got worse and the patient became more short of breath and he is coming in for worsening shortness of breath and hypoxemia. 2 acute hypoxic respiratory failure currently on 4 L of oxygen by nasal cannula, secondary to above, 3 Generalized weakness secondary to above 4 leukocytosis, likely reactive. Pro-calcitonin is negative and it's very unlikely the patient is superinfection with bacteria. This is pretty much in progression of his pleitez virus Covid 19 infection 5 diabetes mellitus type 2 6 hypertension 7 hyperlipidemia 8 elevated inflammatory markers secondary to Covid 19 infection Plan: The patient was seen and evaluated by Dr. Field He is still requiring 15 L high flow nasal cannula Completed Remdesivir Received 2 units of convalescent plasma Continue current treatment plan We will continue to follow I, the cosigning physician, performed a history & physical examination of the patient. Lungs sounds basilar crackles. Maintaining good O2 saturations in the 90s on 15 L high flow nasal cannula. I discussed the assessment and plan of care with my nurse practitioner, Brooklyn Aldana. I attest to the above note as dictated by her.
[2020-09-30 16:51] LABS: Glucose,Whole Blood 192 mg/dL (75-99)
[2020-09-30] MEDS: LATANOPROST 0.005% OPHTH DROPS 2.5 ML BTL BOTH EYES SCH (19:08)
[2020-09-30 19:47] LABS: Glucose,Whole Blood 285 mg/dL (75-99)
[2020-09-30] MEDS: MELATONIN 3 MG TABLET PO SCH (19:49)
[2020-09-30] MEDS: INSULIN DETEMIR (LEVEMIR) 100 UNIT/ML SYR SQ SCH (20:58)
--- NOTE | 2020-10-01 01:54 | PN ---
PROGRESS NOTE DATE OF SERVICE: 09/30/2020 REASON FOR FOLLOWUP: COVID-19 pneumonia. INTERVAL HISTORY: The patient is currently afebrile. The patient is still requiring high-flow nasal cannula oxygen to maintain his saturation. He seems to be slightly lethargic. Denies having any chest pain. Did have a cough, not bringing up sputum. No abdominal pain, no diarrhea. PHYSICAL EXAMINATION: Blood pressure is 123/86, pulse of 85, temperature 98.6. He is 94% on 15 L nasal cannula. General description is an elderly male lying in bed in no distress. RESPIRATORY SYSTEM: Unlabored breathing, decreased intensity of breath sounds. No wheeze. HEART: S1, S2. Regular rate and rhythm. ABDOMEN: Soft, no tenderness. LABS: No new labs have been obtained today. DIAGNOSTIC IMPRESSION AND PLAN: Patient with acute COVID-19 pneumonia in this patient still have borderline respiratory status. The patient is currently covered with dexamethasone, zinc, Lovenox, has completed his 5-day course of remdesivir, continue along with respiratory support and monitor his clinical course closely. MMODL / IJN: [id number] /
[2020-10-01] MEDS: DEXAMETHASONE SOD PHOSPHATE 10 MG/ML 1 ML VIAL IV SCH ×4 (04:57→21:01)
[2020-10-01 06:59] LABS: Glucose,Whole Blood 236 mg/dL (75-99)
[2020-10-01 07:08] LABS: HCT 35.9 % (39.0-53.0); HGB 12.4 gm/dL (13.0-17.5); MCH 31.4 pg (25.0-35.0); MCHC 34.6 g/dL (31.0-37.0); MCV 90.6 fL (80.0-100.0); Mean Platelet Volume 7.6; Platelet Count 423 k/uL (150-450); RBC 3.97 m/uL (4.30-5.90); RDW 12.3 % (11.5-15.5); WBC 11.9 k/uL (3.8-10.6)
[2020-10-01] MEDS: atenoloL 50 MG TAB PO SCH ×2 (07:49→21:01)
[2020-10-01] MEDS: lisinopriL 20 MG TAB PO SCH (07:49)
[2020-10-01] MEDS: FAMOTIDINE 20 MG TAB PO SCH ×2 (07:49→21:01)
[2020-10-01] MEDS: ASCORBIC ACID 500 MG TAB PO SCH (07:49)
[2020-10-01] MEDS: FOLIC ACID 1 MG TAB PO SCH (07:49)
[2020-10-01] MEDS: ASPIRIN 81 MG PO SCH (07:49)
[2020-10-01] MEDS: INSULIN ASPART (NovoLOG) 100 UNIT/ML VIAL SQ SCH ×5 (07:49→21:02)
[2020-10-01] MEDS: ZINC SULFATE 220 MG CAP PO SCH (07:49)
[2020-10-01] MEDS: TIMOLOL 0.5% OPHTH DROPS 5 ML BTL BOTH EYES SCH ×2 (07:51→21:02)
[2020-10-01] MEDS: BRIMONIDINE TARTRATE 0.2% DROPS 5 ML BTL BOTH EYES SCH ×2 (07:51→21:02)
[2020-10-01] MEDS: CHOLECALCIFEROL 1,000 UNIT TAB PO SCH (07:55)
[2020-10-01] MEDS: ENOXAPARIN 80 MG/0.8 ML SYRINGE SQ SCH ×2 (07:55→21:02)
[2020-10-01] MEDS: ISOSORBIDE MONONITRATE ER 15 MG TAB PO SCH (07:56)
--- NOTE | 2020-10-01 08:04 | XR ---
EXAMINATION TYPE: XR chest 1V portable DATE OF EXAM: 10/01/2020 COMPARISON: 09/29/2020 INDICATION: Covid pneumonia, short of breath, cough TECHNIQUE: Single frontal view of the chest is obtained. FINDINGS: The heart size is normal. The pulmonary vasculature is normal. Patchy bilateral infiltrates are present compatible with atypical pneumonia. There may be some improv ement over the interval. IMPRESSION: 1. Improving patchy bilateral lung infiltrates which can be compatible with atypical pneumonia.
[2020-10-01] MEDS: ALBUTEROL HFA INHALER INHALATION PRN ×2 (09:18→12:44)
[2020-10-01 09:50] LABS: African American GFR (CKD) 97.2 (60.0-200.0); Albumin 3.4 g/dL (3.80-4.90); Albumin/Globulin Ratio 1.31 (1.60-3.17); Anion Gap 8.2 mmol/L (4.00-12.00); BUN/Creat Ratio 41.11 Ratio (12.00-20.00); Calcium 8.7 mg/dL (8.7-10.3); Carbon Dioxide 26.8 mmol/L (21.6-31.8); Globulin 2.6 g/dL (1.6-3.3); Non-African American GFR(CKD) 83.8 (60.0-200.0); Potassium 4.7 mmol/L (3.5-5.5); Total Bilirubin 0.6 mg/dL (0.3-1.2)
[2020-10-01 11:39] LABS: Glucose,Whole Blood 303 mg/dL (75-99)
--- NOTE | 2020-10-01 12:50 | P.PN ---
Subjective Progress Note Date: 10/01/20 HISTORY OF PRESENT ILLNESS 75-year-old male one of Dr. Cast patient was hospitalized last week for Covid symptoms at the time was mildly hypoxic but was having more constitutional symptoms consistent with fever chills generalized fatigue tiredness with mild exertional shortness of breath. Patient was the hospital for 3 days did not require much oxygen he ended up feeling decent insisted leave the hospital on Thursday. Patient return to the emergency room today complaining of worsening symptom with fever chills severe hypoxia with minimum exertion fatigue tiredness nausea and mild diarrhea and overall not feeling well. His d-dimer was elevated his marker were much higher today including d-dimer, C-reactive protein, Ferritin and LDH patient ended up going for CT of the lung came back with ground glass picture consistent with Covid pneumonitis, patient was severely hypoxic requiring 4 L O2 to keep his pulse ox above 90 percentile. Call pulmonary start patient on Remdesivir, steroid and O2 and admit patient to the hospital. 09/26: Patient remains on oxygen also oxygenating 89% on 4 L. We'll plan to switch her to high flow nasal cannula. His blood sugar was 36 during the night and Levemir and glimepiride will be discontinued for now and continue NovoLog scale only. He has been afebrile, heart rate 76, blood pressure 148/70. Repeat blood work reveals W BC 20.1, hemoglobin 12.9. Electrolytes renal function normal. 09/27: Patient continues to complain of shortness of breath but he appears more relaxed today. Lung sounds are improving. He was started on convalescent plasma treatment yesterday. He is observatory 1200 MLS on incentive spirometry. Pulse ox is 90% on 10 L high flow nasal cannula. He has been afebrile, heart rate 70, blood pressure 158/76. Patient continues to have very little appetite and is eating very little. 09/28: Patient is seen today on the [facility] floor, sitting in chair. He is day 4/5 of Remdesivir in status post convalescent plasma treatment. He continues to have crackles in bilateral bases. He denies any abdominal symptoms and eating very little. He has been afebrile, heart rate 71, blood pressure 149/84, pulse ox 90% on 15 L high flow nasal cannula. Repeat blood work revealed WBC 13.2, hemoglobin 12.5. Electrolytes and renal function normal. Blood sugar running between 101 185. LDH 525. D-dimer 4.87. C-reactive protein 7.4, CK 787. AST 63 and ALT 70. The patient will be ready for discharge until early next week. 09/29: Patient has worsening hypoxia with pulse ox of 81% on nonrebreather. P atient is being transitioned to BiPAP and assisted into a prone position. Dexamethasone changed to IV at 6 mg every 6 hours. He will complete course of Remdesivir this evening. He has been afebrile, heart rate 87, respiratory rate 34, blood pressure 134/64. Repeat blood work reveals WBC 10.9, hemoglobin 11.3, lymphopenia at 0.3. Electrolytes and renal function normal. Blood sugars running 141-199. AST 59, ALT 59, alkaline phosphatase 50. LDH 472. CK 593. C-reactive protein 11.2. Due to resolution of hypoglycemia and increased dose of steroids, Levemir will be resumed at 15 mg at bedtime. 09/30: The patient's respiratory status declined yesterday but improved this morning. He is currently pulse oxing 93-97% on nonrebreather. He has been afebrile, heart rate 85, blood pressure 121/67. He has completed course of Remdesivir and is status post convalescent plasma infusion. Pulmonary medicine and infectious disease continued to follow. Blood sugars running between 140 and 214. Patient has not received Levemir. Will decrease Levemir to 10 units and continue NovoLog scale 10/01: Patient's respiratory status again is slightly better from yesterday. He is pulse oxing 95% on 10 L high flow nasal cannula. He has been afebrile, heart rate 75, blood pressure 156/73. Repeat blood work reveals WBC 11.9, hemoglobin 12.4. Electrolytes normal, BUN 37 and creatinine 0.9. Blood sugars running in the 200s. Schedule NovoLog will be added. REVIEW OF SYSTEMS CONSTITUTIONAL: Well-developed acute respiratory distress. No documented fevers. Denies chills. EYES: No icterus sclerae, no conjunctivitis. EARS, NOSE, MOUTH, THROAT, and FACE: No sore throat, lymphadenopathy, carotid bruits or deformity. RESPIRATORY: Positive SOB slowly improving, continued cough or wheezes. Severe dyspnea and shortness of breath with Covid pneumonitis. CARDIOVASCULAR: No CP, Palpitation, PND, Orthopnea, or angina. Palpitation. GASTROINTESTINAL: Lack of appetite nausea with mild vomiting positive diarrhea no GI bleed. GENITOURINARY: Negative for Hematuria or UTI, no kidney stones. INTEGUMENT/BREAST: Negative for any muscular injury with mild osteoarthritis.. HEMATOLOGIC/LYMPHATIC: Negative for bleed or purpura. MUSCULOSKELTAL: Generalized arthralgia and myalgia. NEURLOGICAL: No LOC, Sz or syncope, blurred vision dizziness or abnormality.. BEHAVIORAL/PSYCH: Negative. ENDOCRINE: Negative. PHYSICAL EXAMINATION General Appearance: Alert, cooperative, no distress, appears stated age. Patient is resting in a recliner and appears to be comfortable. Neck HEENT: Supple, no lymphadenopathy, no thyroid enlargement, no carotid bruits. Dry mucosa Lungs: Occasional expansion bilaterally mild rhonchi with mild crackles in the bilateral bases positive mild expiratory wheezes. Chest Wall: Decrease expansion with deep inspiration no tenderness and no deformity was found on exam, costochondral pain or discomfort. Heart: Regular rate and rhythm, S1, S2 normal, no murmur, rub or gallop. Back: Symmetric, no curvature, ROM normal, no CVA tenderness. Abdomen: Soft, non-tender, bowel sounds active all four quadrants, slight dis comfort in the mid epigastric and mid abdominal region area. Extremities: Extremities normal, atraumatic, no cyanosis or edema. Pulses: 2+ and symmetric. Skin: Skin color, texture, tugor normal, no rashes or lesions. Neurologic: Alert oriented x3 cranial nerves II through XII intact, no motor deficit, no abnormal balance or gait. ASSESSMENT AND PLAN 1 acute hypoxic respiratory failure secondary to Covid pneumonitis: With failure to outpatient treatment, and relapse from last week with much worsening hypoxia, chest x-ray and CTA of the chest consistent with Covid pneumonitis. Completed Remdisevir, continue Decadron IV 6 mg every 6 hours, O2, updraft treatment zinc vitamin D vitamin C. Pulmonary consultation and ID consultation be done. Continue O2 supplementation. Patient is status post convalescent plasma treatment. Prone positioning. 2 acute hypoxic respiratory failure secondary to Covid pneumonitis: Patient will be on O2 continue supportive care for now he might require oxygen for the next 4 weeks. Patient currently on high flow nasal cannula. 3 severe gastrointestinal symptom: Mostly from Covid continue supportive care along with hydration gradually increase on his diet continue anti-inflammatory medication along with PPI. 4 type 2 diabetes uncontrolled with hypoglycemia. Glimepiride discontinued. Patient will be on NovoLog scale only for now. Levemir resumed at 10 units at bedtime. Add NovoLog scheduled for units with meals. 5 hypertension: Remain on lisinopril 40 mg a day and atenolol 50 mg twice a day. 6 hyperlipidemia: Remain on simvastatin 20 mg daily. 7 atherosclerotic heart disease: Remain on beta brayan, alex and isosorbide. 8 severe GERD/GI prophylaxis: Patient will be on omeprazole or pantoprazole daily. 9 DVT prophylaxis: Patient will be on Lovenox 40 mg subcutaneous daily. CODE STATUS: Full code. DISCHARGE PLAN Most likely return home once stabilized. Impression and plan of care have been directed as dictated by the signing physician. Cathy Walker nurse practitioner acting as scribe for signing physician. Objective - Vital Signs Vital signs: Vital Signs Temp 97.4 F L 10/01/20 06:00 Pulse 66 10/01/20 06:00 Resp 20 10/01/20 06:00 BP 157/83 10/01/20 06:00 Pulse Ox 95 10/01/20 06:00 Intake & Output 09/30/20 10/01/20 10/01/20 18:59 06:59 18:59 Output Total 475 950 Balance -475 -950 Output: Urine 475 950 Other: Voiding Method Indwelling Catheter Indwelling Catheter - Labs CBC & Chem 7: 10/01/20 06:20 10/01/20 06:20 Labs: Abnormal Lab Results - Last 24 Hours (Table) 09/30/20 09/30/20 09/30/20 Range/Units 11:35 16:49 19:45 WBC (3.8-10.6) k/uL RBC (4.30-5.90) m/uL Hgb (13.0-17.5) gm/dL Hct (39.0-53.0) % POC Glucose (mg/dL) 211 H 192 H 285 H (75-99) mg/dL 10/01/20 10/01/20 Range/Units 06:20 06:56 WBC 11.9 H (3.8-10.6) k/uL RBC 3.97 L (4.30-5.90) m/uL Hgb 12.4 L (13.0-17.5) gm/dL Hct 35.9 L (39.0-53.0) % POC Glucose (mg/dL) 236 H (75-99) mg/dL Microbiology - Last 24 Hours (Table) 09/25/20 08:47 Blood Culture - Preliminary Blood No Growth after 120 hours
[2020-10-01 14:32] VITALS: BMI 27.3
--- NOTE | 2020-10-01 15:51 | P.PN ---
Subjective Progress Note Date: 10/01/20 Principal diagnosis: Dyspnea, pneumonia 75-year-old male patient, with established diagnosis of COVID 19 infection who was admitted to the hospital between 09/20/2020 and 09/22/2020. At that time, the patient was treated symptomatically and the patient was discharged home. The patient is known to have diabetes and hypertension as morbid conditions. The patient came back at a hospital today as the patient was feeling shortness of breath and his pulse ox and drop down to 82%. Note that at the time of discharge from the hospital during his earlier admission, the patien t's phosphorus was above 90%. He was feeling fatigued and tired and he was having difficulties with oral intake. Based on his worsening symptoms, the patient was admitted to the hospital and a pulmonary consultation was requested. The patient's current white cell count of 22.4. Hemoglobin was at 12.9 and the patient's platelet count is at 303. He continues to have lymphopenia. D-dimer 1.19. Rest of the coagulation profile is within normal limits. His glucose was 43 in the emergency department and this was treated. BUN is at 50 with a creatinine of 0.7. Rest of the electrodes are within normal limits. Ferritin level is at 2679. AST 78, ALT 54, LDH is at 1295 and the patient has a CRP of 157. The pro-calcitonin is a 0.05. The pleitez virus Covid 19 testing was repeated and it was again positive. A CT angiogram was done and the patient's lungs showed bilateral groundglass opacity and airspace disease. No pleural effusion. Note that during his earlier admission, the patient was not given Remdesivir as the patient's symptoms were mild and the patient had no significant shortness of breath and hypoxemia or pulmonary infiltration of the chest x-ray at that time. On 09/26/2020 patient seen in follow-up on medical surgical floor. Remains on 15 L of oxygen, his pulse ox of 97%, we dropped FiO2 down to 10 L. This is day 2 of Remdesivir, remains on azithromycin, oral Decadron. Patient has been afebrile, no chest discomfort. Lung sounds reveal bilateral crackles. Pro- calcitonin 0.05, inflammatory markers are significantly elevated on admission. No nausea vomiting diarrhea. No cough. On 09/27/2020 patient is seen in follow-up on medical surgical floor. Remains on high flow oxygen 15 L, with pulse ox of 92%, and afebrile. Patient continues on Remdesivir, today is day 2, continues on oral dexamethasone, but didn't seek, zinc, and vitamin D. No worsening dyspnea. Yesterday we started him on convalescent plasma, no nausea vomiting or diarrhea. She is on azithromycin for empiric antibiotic coverage. Respiratory improving, LDH is down 444, and CRP 12.5. Pro-calcitonin is negative at 0.05. D-dimer is 3.40, white blood cell count is improving, down to 10.9. On 09/28/2020 patient seen in follow-up on medical surgical floor. He is on high flow oxygen, currently 15 L with pulse ox of 90%, minimal crackles at bilateral bases, he is generally weak, but no acute distress, breathing comfortably, slightly confused, he is on Remdesivir and he has received 1 unit of convalescent plasma. Is on prophylactic dose of Lovenox, azithromycin, and oral Decadron. His diet d-dimer has increased to 4.87, and we will increase his Lovenox to therapeutic dose his white blood cell count is 13.2, still lymphopenia with the cone of 0.3, inflammatory markers including LDH and CRP came down, his CK has increased to 787 on today's labs. On 10/01/2020 patient seen in follow-up on general medical surgical floor. He remains on high flow oxygen currently at 10 L, satting 94%, and we cut back the FiO2 to 6 L and patient is maintaining O2 sat at 93-94%, patient has been afebrile, hemodynamically he has been stable. Overall she feels better and seems to be breathing comfortably, no complaints of chest discomfort, no cough, no palpitations, his follow-up chest x-ray shows improving patchy bilateral lung infiltrates. He remains on IV Decadron at 6 mg every 6 hours, she has completed his course of Remdesivir, and he status post 1 unit of convalescent plasma. Clinically he is improving. Objective - Vital Signs Vital signs: Vital Signs Temp 98.4 F 10/01/20 13:58 Pulse 71 10/01/20 13:58 Resp 16 10/01/20 13:58 BP 101/62 10/01/20 13:58 Pulse Ox 93 L 10/01/20 13:58 Intake & Output 09/30/20 10/01/20 10/01/20 18:59 06:59 18:59 Intake Total 750 Output Total 475 950 Balance -475 -950 750 Weight 81.647 kg Intake: Oral 750 Output: Urine 475 950 Other: Voiding Method Indwelling Catheter Indwelling Catheter Indwelling Catheter - Exam GENERAL EXAM: Alert, very pleasant, 75-year-old white male, on 6 L of oxygen a pulse ox of 94% comfortable in no apparent distress. HEAD: Normocephalic/atraumatic. EYES: Normal reaction of pupils, equal size. Conjunctiva pink, sclera white. NOSE: Clear with pink turbinates. THROAT: No erythema or exudates. NECK: No masses, no JVD, no thyroid enlargement, no adenopathy. CHEST: No chest wall deformity. Symmetrical expansion. LUNGS: Equal air entry with bilateral crackles, but no wheeze, rhonchi or dullness. CVS: Regular rate and rhythm, normal S1 and S2, no gallops, no murmurs, no rubs ABDOMEN: Soft, nontender. No hepatosplenomegaly, normal bowel sounds, no guarding or rigidity. EXTREMITIES: No clubbing, no edema, no cyanosis, 2+ pulses and upper and lower extremities. MUSCULOSKELETAL: Muscle strength and tone normal. SPINE: No scoliosis or deformity SKIN: No rashes CENTRAL NERVOUS SYSTEM: Alert and oriented -3. No focal deficits, tone is normal in all 4 extremities. PSYCHIATRIC: Alert and oriented -3. Appropriate affect. Intact judgment and insight. - Labs CBC & Chem 7: 10/01/20 06:20 10/01/20 06:20 Labs: Abnormal Lab Results - Last 24 Hours (Table) 09/30/20 09/30/20 10/01/20 Range/Units 16:49 19:45 06:20 WBC 11.9 H (3.8-10.6) k/uL RBC 3.97 L (4.30-5.90) m/uL Hgb 12.4 L (13.0-17.5) gm/dL Hct 35.9 L (39.0-53.0) % BUN (9.0-27.0) mg/dL BUN/Creatinine Ratio (12.00-20.00) Ratio Glucose (70-110) mg/dL POC Glucose (mg/dL) 192 H 285 H (75-99) mg/dL ALT (10-49) U/L Total Protein (6.2-8.2) g/dL Albumin (3.80-4.90) g/dL Albumin/Globulin Ratio (1.60-3.17) g/dL 10/01/20 10/01/20 10/01/20 Range/Units 06:20 06:56 11:37 WBC (3.8-10.6) k/uL RBC (4.30-5.90) m/uL Hgb (13.0-17.5) gm/dL Hct (39.0-53.0) % BUN 37.0 H (9.0-27.0) mg/dL BUN/Creatinine Ratio 41.11 H (12.00-20.00) Ratio Glucose 233 H (70-110) mg/dL POC Glucose (mg/dL) 236 H 303 H (75-99) mg/dL ALT 58 H (10-49) U/L Total Protein 6.0 L (6.2-8.2) g/dL Albumin 3.40 L (3.80-4.90) g/dL Albumin/Globulin Ratio 1.31 L (1.60-3.17) g/dL Microbiology - Last 24 Hours (Table) 09/25/20 08:47 Blood Culture - Final Blood No Growth after 144 hours Assessment and Plan Plan: Assessment: 1 Covid 19 related pneumonia with secondary shortness of breath. The patient was diagnosed and hospitalized briefly between 09/20/2028 09/22/2020 and the patient's condition got worse and the patient became more short of breath and he is coming in for worsening shortness of breath and hypoxemia. Status post Remdesivir, 1 unit of convalescent plasma, Decadron 2 acute hypoxic respiratory failure at 10 L/m oxygen, with pulse ox of 94%, and overall patient is feeling better, breathing easier, we'll cutback FiO2 to 6 L 3 Generalized weakness secondary to above 4 leukocytosis, likely reactive. Pro-calcitonin is negative and it's very unlikely the patient is superinfection with bacteria. This is pretty much in progression of his pleitez virus Covid 19 infection 5 diabetes mellitus type 2 6 hypertension 7 hyperlipidemia 8 elevated inflammatory markers secondary to Covid 19 infection Plan: Continue current medical treatment, continue weaning FiO2, patient is feeling better, no worsening dyspnea, there has been an improvement in his oxygenation trend, today's chest x-ray shows improving bilateral infiltrates, overall patient is feeling better, continue Decadron, Pepcid, continue therapeutic doses of Lovenox, will obtain follow-up inflammatory markers and d-dimer tomorrow. I performed a history & physical examination of the patient and discussed their management with my nurse practitioner, Ciara Koenig. I reviewed the nurse niraj dunbar's note and agree with the documented findings and plan of care. Lung sounds are positive for diminished breath sounds. The findings and the impression was discussed with the patient. I attest to the documentation by the nurse practitioner. Time with Patient: Less than 30
[2020-10-01 16:35] LABS: Glucose,Whole Blood 304 mg/dL (75-99)
[2020-10-01] MEDS: SODIUM CHLORIDE 0.9% 1,000 ML IV SCH ×2 (19:12→21:03)
[2020-10-01 20:44] LABS: Glucose,Whole Blood 349 mg/dL (75-99)
[2020-10-01] MEDS: MELATONIN 3 MG TABLET PO SCH (21:01)
[2020-10-01] MEDS: LATANOPROST 0.005% OPHTH DROPS 2.5 ML BTL BOTH EYES SCH (21:02)
[2020-10-01] MEDS: INSULIN DETEMIR (LEVEMIR) 100 UNIT/ML SYR SQ SCH (21:02)
--- NOTE | 2020-10-02 00:37 | PN ---
PROGRESS NOTE DATE OF SERVICE: 10/01/2020 REASON FOR FOLLOWUP: COVID-19 pneumonia. INTERVAL HISTORY: The patient is currently afebrile. The patient is breathing slightly comfortably. The patient denies having any chest pain. Minimal cough. No nausea, no vomiting. No abdominal pain or diarrhea. PHYSICAL EXAMINATION: Blood pressure 117/71 with a pulse of 71, temperature 97.6. He is 93% on 6 L nasal cannula. General description is an elderly male up in the chair in no distress. RESPIRATORY SYSTEM: Unlabored breathing, decreased intensity of breath sounds. No wheeze. HEART: S1, S2. Regular rate and rhythm. ABDOMEN: Soft, no tenderness. LABS: Hemoglobin is 12.4, white count 11.9, BUN of 37, creatinine 0.9. DIAGNOSTIC IMPRESSION AND PLAN: Patient with acute COVID-19 pneumonia in this patient seemed to have shown overall clinical improvement. Chest x-ray also showed improved. Patient has completed his 5- day course of remdesivir. Currently on dexamethasone, zinc and Lovenox to continue and monitor clinical course closely. Continue with supportive care. MMODL / IJN: [id number] /
[2020-10-02] MEDS: DEXAMETHASONE SOD PHOSPHATE 10 MG/ML 1 ML VIAL IV SCH ×3 (04:25→15:42)
[2020-10-02 06:52] LABS: Glucose,Whole Blood 181 mg/dL (75-99)
[2020-10-02] MEDS: INSULIN ASPART (NovoLOG) 100 UNIT/ML VIAL SQ SCH ×7 (07:03→20:55)
[2020-10-02] MEDS: ISOSORBIDE MONONITRATE ER 15 MG TAB PO SCH (07:04)
[2020-10-02] MEDS: ENOXAPARIN 80 MG/0.8 ML SYRINGE SQ SCH ×2 (07:04→20:56)
[2020-10-02] MEDS: FAMOTIDINE 20 MG TAB PO SCH ×2 (07:05→20:54)
[2020-10-02] MEDS: ASCORBIC ACID 500 MG TAB PO SCH (07:05)
[2020-10-02] MEDS: ASPIRIN 81 MG PO SCH (07:05)
[2020-10-02] MEDS: lisinopriL 20 MG TAB PO SCH (07:05)
[2020-10-02] MEDS: FOLIC ACID 1 MG TAB PO SCH (07:05)
[2020-10-02] MEDS: ZINC SULFATE 220 MG CAP PO SCH (07:05)
[2020-10-02] MEDS: atenoloL 50 MG TAB PO SCH ×2 (07:05→20:54)
[2020-10-02] MEDS: BRIMONIDINE TARTRATE 0.2% DROPS 5 ML BTL BOTH EYES SCH ×2 (07:06→20:56)
[2020-10-02] MEDS: TIMOLOL 0.5% OPHTH DROPS 5 ML BTL BOTH EYES SCH ×2 (07:06→20:56)
[2020-10-02] MEDS: ALBUTEROL HFA INHALER INHALATION PRN ×2 (08:30→12:55)
[2020-10-02 11:30] LABS: Glucose,Whole Blood 246 mg/dL (75-99)
[2020-10-02 11:55] LABS: C Reactive Protein 2.5 mg/dL (0.0-0.8)
--- NOTE | 2020-10-02 13:38 | P.PN ---
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 Cast patient was hospitalized last week for Covid symptoms at the time was mildly hypoxic but was having more constitutional symptoms consistent with fever chills generalized fatigue tiredness with mild exertional shortness of breath. Patient was the hospital for 3 days did not require much oxygen he ended up feeling decent insisted leave the hospital on Thursday. Patient return to the emergency room today complaining of worsening symptom with fever chills severe hypoxia with minimum exertion fatigue tiredness nausea and mild diarrhea and overall not feeling well. His d-dimer was elevated his marker were much higher today including d-dimer, C-reactive protein, Ferritin and LDH patient ended up going for CT of the lung came back with ground glass picture consistent with Covid pneumonitis, patient was severely hypoxic requiring 4 L O2 to keep his pulse ox above 90 percentile. Call pulmonary start patient on Remdesivir, steroid and O2 and admit patient to the hospital. 09/26: Patient remains on oxygen also oxygenating 89% on 4 L. We'll plan to switch her to high flow nasal cannula. His blood sugar was 36 during the night and Levemir and glimepiride will be discontinued for now and continue NovoLog scale only. He has been afebrile, heart rate 76, blood pressure 148/70. Repeat blood work reveals W BC 20.1, hemoglobin 12.9. Electrolytes renal function normal. 09/27: Patient continues to complain of shortness of breath but he appears more relaxed today. Lung sounds are improving. He was started on convalescent plasma treatment yesterday. He is observatory 1200 MLS on incentive spirometry. Pulse ox is 90% on 10 L high flow nasal cannula. He has been afebrile, heart rate 70, blood pressure 158/76. Patient continues to have very little appetite and is eating very little. 09/28: Patient is seen today on the [facility] floor, sitting in chair. He is day 4/5 of Remdesivir in status post convalescent plasma treatment. He continues to have crackles in bilateral bases. He denies any abdominal symptoms and eating very little. He has been afebrile, heart rate 71, blood pressure 149/84, pulse ox 90% on 15 L high flow nasal cannula. Repeat blood work revealed WBC 13.2, hemoglobin 12.5. Electrolytes and renal function normal. Blood sugar running between 101 185. LDH 525. D-dimer 4.87. C-reactive protein 7.4, CK 787. AST 63 and ALT 70. The patient will be ready for discharge until early next week. 09/29: Patient has worsening hypoxia with pulse ox of 81% on nonrebreather. P atient is being transitioned to BiPAP and assisted into a prone position. Dexamethasone changed to IV at 6 mg every 6 hours. He will complete course of Remdesivir this evening. He has been afebrile, heart rate 87, respiratory rate 34, blood pressure 134/64. Repeat blood work reveals WBC 10.9, hemoglobin 11.3, lymphopenia at 0.3. Electrolytes and renal function normal. Blood sugars running 141-199. AST 59, ALT 59, alkaline phosphatase 50. LDH 472. CK 593. C-reactive protein 11.2. Due to resolution of hypoglycemia and increased dose of steroids, Levemir will be resumed at 15 mg at bedtime. 09/30: The patient's respiratory status declined yesterday but improved this morning. He is currently pulse oxing 93-97% on nonrebreather. He has been afebrile, heart rate 85, blood pressure 121/67. He has completed course of Remdesivir and is status post convalescent plasma infusion. Pulmonary medicine and infectious disease continued to follow. Blood sugars running between 140 and 214. Patient has not received Levemir. Will decrease Levemir to 10 units and continue NovoLog scale 10/01: Patient's respiratory status again is slightly better from yesterday. He is pulse oxing 95% on 10 L high flow nasal cannula. He has been afebrile, heart rate 75, blood pressure 156/73. Repeat blood work reveals WBC 11.9, hemoglobin 12.4. Electrolytes normal, BUN 37 and creatinine 0.9. Blood sugars running in the 200s. Schedule NovoLog will be added. 10/02: Patient is very anxious to be discharged home today. He is currently pulse oxing 90-92% on 6 L nasal cannula. neurology manager to arrange home oxygen. IV fluids discontinued. Repeat d-dimer 2.78, LDH 395, C-reactive protein 2.5. Inflammatory markers are all trending downward. He has been afebrile, heart rate 75, blood pressure 148/79. We will prepare patient for discharge home today pending evaluation by pulmonary medicine. REVIEW OF SYSTEMS CONSTITUTIONAL: Well-developed, noacute respiratory distress. No documented fevers. Denies chills. EYES: No icterus sclerae, no conjunctivitis. EARS, NOSE, MOUTH, THROAT, and FACE: No sore throat, lymphadenopathy, carotid bruits or deformity. RESPIRATORY: Positive SOB slowly improving, continued cough or wheezes. Severe dyspnea and shortness of breath with Covid pneumonitis. CARDIOVASCULAR: No CP, Palpitation, PND, Orthopnea, or angina. Palpitation. GASTROINTESTINAL: Lack of appetite no nausea no vomiting no diarrhea no GI bleed. GENITOURINARY: Negative for Hematuria or UTI, no kidney stones. INTEGUMENT/BREAST: Negative for any muscular injury with mild osteoarthritis. HEMATOLOGIC/LYMPHATIC: Negative for bleed or purpura. MUSCULOSKELTAL: Generalized arthralgia and myalgia. NEURLOGICAL: No LOC, Sz or syncope, blurred vision dizziness or abnormality. BEHAVIORAL/PSYCH: Negative. ENDOCRINE: Negative. PHYSICAL EXAMINATION General Appearance: Alert, cooperative, no distress, appears stated age. Patient is resting in a recliner and appears to be comfortable. Neck HEENT: Supple, no lymphadenopathy, no thyroid enlargement, no carotid bruits. Dry mucosa Lungs: Occasional expansion bilaterally mild rhonchi with mild crackles in the bilateral bases positive mild expiratory wheezes. Chest Wall: Decrease expansion with deep inspiration no tenderness and no deformity was found on exam, costochondral pain or discomfort. Heart: Regular rate and rhythm, S1, S2 normal, no murmur, rub or gallop. Back: Symmetric, no curvature, ROM normal, no CVA tenderness. Abdomen: Soft, non-tender, bowel sounds active all four quadrants, no abdominal tenderness. Extremities: Extremities normal, atraumatic, no cyanosis or edema. Pulses: 2+ and symmetric. Skin: Skin color, texture, tugor normal, no rashes or lesions. Neurologic: Alert oriented x3 cranial nerves II through XII intact, no motor deficit, no abnormal balance or gait. ASSESSMENT AND PLAN 1 acute hypoxic respiratory failure secondary to Covid pneumonitis: With failure to outpatient treatment, and relapse from last week with much worsening hypoxia, chest x-ray and CTA of the chest consistent with Covid pneumonitis. Completed Remdisevir, continue Decadron IV 6 mg every 6 hours, O2, updraft treatment zinc vitamin D vitamin C. Pulmonary consultation and ID consultation be done. Continue O2 supplementation. Patient is status post convalescent plasma treatment. Prone positioning. 2 acute hypoxic respiratory failure secondary to Covid pneumonitis: Patient will be on O2 continue supportive care for now he might require oxygen for the next 4 weeks. Patient currently on high flow nasal cannula. 3 severe gastrointestinal symptom: Mostly from Covid continue supportive care along with hydration gradually increase on his diet continue anti-inflammatory medication along with PPI. 4 type 2 diabetes uncontrolled with hypoglycemia. Glimepiride discontinued. Patient will be on NovoLog scale only for now. Levemir resumed at 10 units at bedtime. Add NovoLog scheduled for units with meals. 5 hypertension: Remain on lisinopril 40 mg a day and atenolol 50 mg twice a day. 6 hyperlipidemia: Remain on simvastatin 20 mg daily. 7 atherosclerotic heart disease: Remain on beta brayan, alex and isosorbide. 8 severe GERD/GI prophylaxis: Patient will be on omeprazole or pantoprazole daily. 9 DVT prophylaxis: Patient will be on Lovenox 40 mg subcutaneous daily. 10. Chronic hypoxic respiratory failure requiring home oxygen. neurology manager to make arrangements for home oxygen at 6 L nasal cannula. CODE STATUS: Full code. DISCHARGE PLAN Home once cleared by pulmonary medicine. Impression and plan of care have been directed as dictated by the signing physician. Cathy Walker nurse practitioner acting as scribe for signing physician. Objective - Vital Signs Vital signs: Vital Signs Temp 97.6 F 10/02/20 05:36 Pulse 75 10/02/20 05:36 Resp 19 10/02/20 05:36 BP 148/79 10/02/20 05:36 Pulse Ox 91 L 10/02/20 08:30 Intake & Output 10/01/20 10/02/20 10/02/20 18:59 06:59 18:59 Intake Total 750 Balance 750 Weight 81.647 kg Intake: Oral 750 Other: Voiding Method Indwelling Catheter Urinal # Voids 1 - Labs CBC & Chem 7: 10/01/20 06:20 10/01/20 06:20 Labs: Abnormal Lab Results - Last 24 Hours (Table) 10/01/20 10/01/20 10/01/20 Range/Units 06:20 11:37 16:32 D-Dimer (<0.60) mg/L FEU BUN 37.0 H (9.0-27.0) mg/dL BUN/Creatinine Ratio 41.11 H (12.00-20.00) Ratio Glucose 233 H (70-110) mg/dL POC Glucose (mg/dL) 303 H 304 H (75-99) mg/dL ALT 58 H (10-49) U/L Total Protein 6.0 L (6.2-8.2) g/dL Albumin 3.40 L (3.80-4.90) g/dL Albumin/Globulin Ratio 1.31 L (1.60-3.17) g/dL 10/01/20 10/02/20 10/02/20 Range/Units 20:43 06:47 06:51 D-Dimer 2.78 H (<0.60) mg/L FEU BUN (9.0-27.0) mg/dL BUN/Creatinine Ratio (12.00-20.00) Ratio Glucose (70-110) mg/dL POC Glucose (mg/dL) 349 H 181 H (75-99) mg/dL ALT (10-49) U/L Total Protein (6.2-8.2) g/dL Albumin (3.80-4.90) g/dL Albumin/Globulin Ratio (1.60-3.17) g/dL Microbiology - Last 24 Hours (Table) 09/25/20 08:47 Blood Culture - Final Blood No Growth after 144 hours
--- NOTE | 2020-10-02 13:40 | P.DS ---
Providers Date of admission: 09/25/20 10:48 Expected date of discharge: 10/02/20 Attending physician: Eduardo Mcdaniel Consults: 09/25/20 10:49 Consult Physician Urgent Consulting Provider: Bozena Field Consult Reason/Comments: covid pna Do you want consulting provider notified?: Yes 09/25/20 14:11 Consult Physician Routine Consulting Provider: Tim Peterson Consult Reason/Comments: COVID 19 Do you want consulting provider notified?: Yes Primary care physician: Preston [facility] Course: HISTORY OF PRESENT ILLNESS 75-year-old male one of Dr. Cast patient was hospitalized last week for Covid symptoms at the time was mildly hypoxic but was having more constitutional symptoms consistent with fever chills generalized fatigue tiredness with mild exertional shortness of breath. Patient was the hospital for 3 days did not require much oxygen he ended up feeling decent insisted leave the hospital on Thursday. Patient return to the emergency room today complaining of worsening symptom with fever chills severe hypoxia with minimum exertion fatigue tiredness nausea and mild diarrhea and overall not feeling well. His d-dimer was elevated his marker were much higher today including d-dimer, C-reactive protein, Ferritin and LDH patient ended up going for CT of the lung came back with ground glass picture consistent with Covid pneumonitis, patient was severely hypoxic requiring 4 L O2 to keep his pulse ox above 90 percentile. Call pulmonary start patient on Remdesivir, steroid and O2 and admit patient to the hospital. 09/26: Patient remains on oxygen also oxygenating 89% on 4 L. We'll plan to switch her to high flow nasal cannula. His blood sugar was 36 during the night and Levemir and glimepiride will be discontinued for now and continue NovoLog scale only. He has been afebrile, heart rate 76, blood pressure 148/70. Repeat blood work reveals W BC 20.1, hemoglobin 12.9. Electrolytes renal function normal. 09/27: Patient continues to complain of shortness of breath but he appears more relaxed today. Lung sounds are improving. He was started on convalescent plasma treatment yesterday. He is observatory 1200 MLS on incentive spirometry. Pulse ox is 90% on 10 L high flow nasal cannula. He has been afebrile, heart rate 70, blood pressure 158/76. Patient continues to have very little appetite and is eating very little. 09/28: Patient is seen today on the [facility] floor, sitting in chair. He is day 4/5 of Remdesivir in status post convalescent plasma treatment. He continues to have crackles in bilateral bases. He denies any abdominal symptoms and eating very little. He has been afebrile, heart rate 71, blood pressure 149/84, pulse ox 90% on 15 L high flow nasal cannula. Repeat blood work revealed WBC 13.2, hemoglobin 12.5. Electrolytes and renal function normal. Blood sugar running between 101 185. LDH 525. D-dimer 4.87. C-reactive protein 7.4, CK 787. AST 63 and ALT 70. The patient will be ready for discharge until early next week. 09/29: Patient has worsening hypoxia with pulse ox of 81% on nonrebreather. Patient is being transitioned to BiPAP and assisted into a prone position. Dexamethasone changed to IV at 6 mg every 6 hours. He will complete course of Remdesivir this evening. He has been afebrile, heart rate 87, respiratory rate 34, blood pressure 134/64. Repeat blood work reveals WBC 10.9, hemoglobin 11.3, lymphopenia at 0.3. Electrolytes and renal function normal. Blood sugars running 141-199. AST 59, ALT 59, alkaline phosphatase 50. LDH 472. CK 593. C-reactive protein 11.2. Due to resolution of hypoglycemia and increased dose of steroids, Levemir will be resumed at 15 mg at bedtime. 09/30: The patient's respiratory status declined yesterday but improved this morning. He is currently pulse oxing 93-97% on nonrebreather. He has been afebrile, heart rate 85, blood pressure 121/67. He has completed course of Remdesivir and is status post convalescent plasma infusion. Pulmonary medicine and infectious disease continued to follow. Blood sugars running between 140 and 214. Patient has not received Levemir. Will decrease Levemir to 10 units a nd continue NovoLog scale 10/01: Patient's respiratory status again is slightly better from yesterday. He is pulse oxing 95% on 10 L high flow nasal cannula. He has been afebrile, heart rate 75, blood pressure 156/73. Repeat blood work reveals WBC 11.9, hemoglobin 12.4. Electrolytes normal, BUN 37 and creatinine 0.9. Blood sugars running in the 200s. Schedule NovoLog will be added. 10/02: Patient is very anxious to be discharged home today. He is currently pulse oxing 90-92% on 6 L nasal cannula. 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 IV fluids discontinued. Repeat d-dimer 2.78, LDH 395, C-reactive protein 2.5. Inflammatory markers are all trending downward. He has been afebrile, heart rate 75, blood pressure 148/79. We will prepare patient for discharge home today pending evaluation by pulmonary medicine. DISCHARGE DIAGNOSES 1 acute hypoxic respiratory failure secondary to Covid pneumonitis: With failure to outpatient treatment, and relapse from last week. 2 acute hypoxic respiratory failure secondary to Covid pneumonitis. 3 severe gastrointestinal symptom: Mostly from Covid. 4 type 2 diabetes uncontrolled with hypoglycemia. . 5 hypertension. 6 hyperlipidemia. 7 atherosclerotic heart disease. 8 severe GERD. 9 chronic hypoxic respiratory failure, home oxygen arranged by case worker. DISCHARGE PLAN HOME. Impression and plan of care have been directed as dictated by the signing physician. Cathy Walker nurse practitioner acting as scribe for signing physician. Patient Condition at Discharge: Fair Plan - Discharge Summary New Discharge Prescriptions: Continue Simvastatin 20 mg PO DAILY Omeprazole [PriLOSEC] 20 mg PO BID Nitroglycerin Sl Tabs [Nitrostat] 0.4 mg PO Q5M PRN PRN Reason: Angina Glimepiride [Amaryl] 4 mg PO BID Cholecalciferol [Vitamin D3 (25 Mcg = 1000 Iu)] 5,000 unit PO MOWEFR atenoloL [Atenolol] 50 mg PO BID Aspirin [Adult Low Dose Aspirin EC] 81 mg PO DAILY Brimonidine Tartrate [Alphagan P 0.2% Ophth Soln] 1 drop BOTH EYES BID Insulin Glargine,Hum.rec.anlog [Lantus Solostar] 15 unit SQ HS Isosorbide Mononitrate ER [Imdur] 15 mg PO DAILY Latanoprost Ophth [Xalatan 0.005%] 1 drop BOTH EYES HS lisinopriL 40 mg PO DAILY Timolol 0.5% Ophth Soln [Timoptic 0.5% Ophth Soln] 1 drop BOTH EYES BID Ondansetron [Zofran] 4 mg PO Q8HR PRN PRN Reason: severe nausea Folic Acid 1 mg PO DAILY #30 tab dexAMETHasone [Hexadrol] 4 mg PO BID #10 tab Zinc Sulfate [Orazinc] 220 mg PO DAILY #30 cap Ascorbic Acid [Vitamin C] 500 mg PO DAILY #30 tab Azithromycin [Zithromax] 500 mg PO DAILY 5 Days #5 tab Discharge Medication List Aspirin [Adult Low Dose Aspirin EC] 81 mg PO DAILY 11/23/15 [History] Cholecalciferol [Vitamin D3 (25 Mcg = 1000 Iu)] 5,000 unit PO MOWEFR 11/23/15 [History] Glimepiride [Amaryl] 4 mg PO BID 11/23/15 [History] Nitroglycerin Sl Tabs [Nitrostat] 0.4 mg PO Q5M PRN 11/23/15 [History] Omeprazole [PriLOSEC] 20 mg PO BID 11/23/15 [History] Simvastatin 20 mg PO DAILY 11/23/15 [History] atenoloL [Atenolol] 50 mg PO BID 11/23/15 [History] Brimonidine Tartrate [Alphagan P 0.2% Ophth Soln] 1 drop BOTH EYES BID 09/17/20 [History] Insulin Glargine,Hum.rec.anlog [Lantus Solostar] 15 unit SQ HS 09/17/20 [History] Isosorbide Mononitrate ER [Imdur] 15 mg PO DAILY 09/17/20 [History] Latanoprost Ophth [Xalatan 0.005%] 1 drop BOTH EYES HS 09/17/20 [History] Timolol 0.5% Ophth Soln [Timoptic 0.5% Ophth Soln] 1 drop BOTH EYES BID 09/17/20 [History] lisinopriL 40 mg PO DAILY 09/17/20 [History] Ondansetron [Zofran] 4 mg PO Q8HR PRN 09/20/20 [History] Ascorbic Acid [Vitamin C] 500 mg PO DAILY #30 tab 09/22/20 [Rx] Azithromycin [Zithromax] 500 mg PO DAILY 5 Days #5 tab 09/22/20 [Rx] Folic Acid 1 mg PO DAILY #30 tab 09/22/20 [Rx] Zinc Sulfate [Orazinc] 220 mg PO DAILY #30 cap 09/22/20 [Rx] dexAMETHasone [Hexadrol] 4 mg PO BID #10 tab 09/22/20 [Rx] Follow up Appointment(s)/Referral(s): Preston Cast MD [Primary Care Provider] - 1 Week Activity/Diet/Wound Care/Special Instructions: Please call [facility] once home to arrange delivery of oxygen concentrator: [phone] Discharge Disposition: HOME SELF-CARE
[2020-10-02] MEDS: ACETAMINOPHEN TAB 325 MG TAB PO PRN ×2 (15:40→20:54)
[2020-10-02 16:29] LABS: Glucose,Whole Blood 111 mg/dL (75-99)
[2020-10-02] MEDS: dexAMETHasone 2 MG TAB PO SCH ×2 (17:28→23:05)
--- NOTE | 2020-10-02 20:13 | P.PN ---
Subjective Progress Note Date: 10/02/20 Principal diagnosis: Acute covid 19 pneumonitis 75-year-old male patient, with established diagnosis of COVID 19 infection who was admitted to the hospital between 09/20/2020 and 09/22/2020. At that time, the patient was treated symptomatically and the patient was discharged home. The patient is known to have diabetes and hypertension as morbid conditions. The patient came back at a hospital today as the patient was feeling shortness of breath and his pulse ox and drop down to 82%. Note that at the time of discharge from the hospital during his earlier admission, the patient's phosphorus was above 90%. He was feeling fatigued and tired and he was having difficulties with oral intake. Based on his worsening symptoms, the patient was admitted to the hospital and a pulmonary consultation was requested. The patient's current white cell count of 22.4. Hemoglobin was at 12.9 and the patient's platelet count is at 303. He continues to have lymphopenia. D-dimer 1.19. Rest of the coagulation profile is within normal limits. His glucose was 43 in the emergency department and this was treated. BUN is at 50 with a creatinine of 0.7. Rest of the electrodes are within normal limits. Ferritin level is at 2679. AST 78, ALT 54, LDH is at 1295 and the patient has a CRP of 157. The pro-calcitonin is a 0.05. The pleitez virus Covid 19 testing was repeated and it was again positive. A CT angiogram was done and the patient's lungs showed bilateral groundglass opacity and airspace disease. No pleural effusion. Note that during his earlier admission, the patient was not given Remdesivir as the patient's symptoms were mild and the patient had no signific ant shortness of breath and hypoxemia or pulmonary infiltration of the chest x- ray at that time. On 09/26/2020 patient seen in follow-up on medical surgical floor. Remains on 15 L of oxygen, his pulse ox of 97%, we dropped FiO2 down to 10 L. This is day 2 of Remdesivir, remains on azithromycin, oral Decadron. Patient has been afebrile, no chest discomfort. Lung sounds reveal bilateral crackles. Pro- calcitonin 0.05, inflammatory markers are significantly elevated on admission. No nausea vomiting diarrhea. No cough. On 09/27/2020 patient is seen in follow-up on medical surgical floor. Remains on high flow oxygen 15 L, with pulse ox of 92%, and afebrile. Patient continues on Remdesivir, today is day 2, continues on oral dexamethasone, but didn't seek, zinc, and vitamin D. No worsening dyspnea. Yesterday we started him on convalescent plasma, no nausea vomiting or diarrhea. She is on azithromycin for empiric antibiotic coverage. Respiratory improving, LDH is down 444, and CRP 12.5. Pro-calcitonin is negative at 0.05. D-dimer is 3.40, white blood cell count is improving, down to 10.9. On 09/28/2020 patient seen in follow-up on medical surgical floor. He is on high flow oxygen, currently 15 L with pulse ox of 90%, minimal crackles at bilateral bases, he is generally weak, but no acute distress, breathing comfortably, slightly confused, he is on Remdesivir and he has received 1 unit of convalescent plasma. Is on prophylactic dose of Lovenox, azithromycin, and oral Decadron. His diet d-dimer has increased to 4.87, and we will increase his Lovenox to therapeutic dose his white blood cell count is 13.2, still lymphopenia with the cone of 0.3, inflammatory markers including LDH and CRP came down, his CK has increased to 787 on today's labs. On 10/01/2020 patient seen in follow-up on general medical surgical floor. He remains on high flow oxygen currently at 10 L, satting 94%, and we cut back the FiO2 to 6 L and patient is maintaining O2 sat at 93-94%, patient has been afebrile, hemodynamically he has been stable. Overall she feels better and seems to be breathing comfortably, no complaints of chest discomfort, no cough, no palpitations, his follow-up chest x-ray shows improving patchy bilateral lung infiltrates. He remains on IV Decadron at 6 mg every 6 hours, she has completed his course of Remdesivir, and he status post 1 unit of convalescent plasma. Clinically he is improving. Reevaluated today on 10/02/20, patient is doing well from the pulmonary perspective, however he is generally weak. O2 saturation is running about 92% on 6 L nasal cannula, and plans are being made to have home O2. If discharged today, patient could go home, and he will likely benefit from home physical therapy or could even consider sending him to rehab. Objective - Vital Signs Vital signs: Vital Signs Temp 98.9 F 10/02/20 18:00 Pulse 69 10/02/20 18:00 Resp 19 10/02/20 05:36 BP 124/73 10/02/20 18:00 Pulse Ox 95 10/02/20 18:00 Intake & Output 10/02/20 10/02/20 10/03/20 06:59 18:59 06:59 Other: Voiding Method Urinal # Voids 1 1 - Exam GENERAL EXAM: Alert, very pleasant, 75-year-old white male, on 6 L of oxygen a pulse ox of 94% comfortable in no apparent distress. Feels generally weak. HEAD: Normocephalic/atraumatic. EYES: Normal reaction of pupils, equal size. Conjunctiva pink, sclera white. NOSE: Clear with pink turbinates. THROAT: No erythema or exudates. NECK: No masses, no JVD, no thyroid enlargement, no adenopathy. CHEST: No chest wall deformity. Symmetrical expansion. LUNGS: Equal air entry with bilateral crackles, but no wheeze, rhonchi or dullness. CVS: Regular rate and rhythm, normal S1 and S2, no gallops, no murmurs, no rubs ABDOMEN: Soft, nontender. No hepatosplenomegaly, normal bowel sounds, no guarding or rigidity. EXTREMITIES: No clubbing, no edema, no cyanosis, 2+ pulses and upper and lower extremities. MUSCULOSKELETAL: Muscle strength and tone normal. SPINE: No scoliosis or deformity SKIN: No rashes CENTRAL NERVOUS SYSTEM: Alert and oriented -3. - Labs CBC & Chem 7: 10/01/20 06:20 10/01/20 06:20 Labs: Abnormal Lab Results - Last 24 Hours (Table) 10/01/20 10/02/20 10/02/20 Range/Units 20:43 06:47 06:47 D-Dimer 2.78 H (<0.60) mg/L FEU POC Glucose (mg/dL) 349 H (75-99) mg/dL Lactate Dehydrogenase 395 H (120-246) U/L C-Reactive Protein 2.5 H (0.0-0.8) mg/dL 10/02/20 10/02/20 10/02/20 Range/Units 06:51 11:28 16:27 D-Dimer (<0.60) mg/L FEU POC Glucose (mg/dL) 181 H 246 H 111 H (75-99) mg/dL Lactate Dehydrogenase (120-246) U/L C-Reactive Protein (0.0-0.8) mg/dL Assessment and Plan Assessment: 1 Covid 19 related pneumonia with secondary shortness of breath. The patient was diagnosed and hospitalized briefly between 09/20/2028 09/22/2020 and the patient's condition got worse and the patient became more short of breath and he is coming in for worsening shortness of breath and hypoxemia. Status post Remdesivir, 1 unit of convalescent plasma, Decadron 2 acute hypoxic respiratory failure at 10 L/m oxygen, with pulse ox of 94%, and overall patient is feeling better, breathing easier, we'll cutback FiO2 to 6 L 3 Generalized weakness secondary to above 4 leukocytosis, likely reactive. Pro-calcitonin is negative and it's very unlikely the patient is superinfection with bacteria. This is pretty much in progression of his pleitez virus Covid 19 infection 5 diabetes mellitus type 2 6 hypertension 7 hyperlipidemia 8 elevated inflammatory markers secondary to Covid 19 infection Recommendation: Agree with discharge planning, patient could have home oxygen. And follow-up on outpatient basis. Recommend rehabilitation or home physical therapy. Assuming the patient goes out to be PCR negative next week Time with Patient: Less than 30
[2020-10-02 20:25] LABS: Glucose,Whole Blood 167 mg/dL (75-99)
[2020-10-02] MEDS: MELATONIN 3 MG TABLET PO SCH (20:54)
[2020-10-02] MEDS: INSULIN DETEMIR (LEVEMIR) 100 UNIT/ML SYR SQ SCH (20:55)
[2020-10-02] MEDS: LATANOPROST 0.005% OPHTH DROPS 2.5 ML BTL BOTH EYES SCH (20:56)
--- NOTE | 2020-10-03 00:50 | PN ---
PROGRESS NOTE DATE OF SERVICE: 10/02/2020 REASON FOR FOLLOWUP: Acute COVID-19 infection. INTERVAL HISTORY: The patient is currently afebrile. The patient is breathing more comfortably. The FiO2 is cut down to 6 L. The patient denies having any chest pain. Minimal cough. No vomiting or diarrhea. PHYSICAL EXAMINATION: Blood pressure 120/65 with a pulse of 84, temperature is 97.4. He is 94% on 6 L nasal cannula. General description is an elderly male up in chair in no distress. RESPIRATORY SYSTEM: Unlabored breathing, decreased breath sounds at the bases. No wheeze. HEART: S1, S2. Regular rate and rhythm. ABDOMEN: Soft, no tenderness. LAB: D-dimer is down to 2.78. CRP is 2.5. LDH is 395. DIAGNOSTIC IMPRESSION AND PLAN: Patient with acute COVID-19 pneumonia in this patient seemed to have shown overall clinical improvement. FiO2 is currently down. The patient has received a 5-day course of remdesivir. To continue with dexamethasone, Lovenox, zinc sulfate and respiratory support. To wean off his oxygen and continue supportive care. MMODL / IJN: [id number] /
[2020-10-03] MEDS: dexAMETHasone 2 MG TAB PO SCH ×2 (05:54→12:15)
[2020-10-03] MEDS: ACETAMINOPHEN TAB 325 MG TAB PO PRN (05:56)
[2020-10-03 06:53] LABS: Glucose,Whole Blood 189 mg/dL (75-99)
[2020-10-03] MEDS: ALBUTEROL HFA INHALER INHALATION PRN (07:34)
[2020-10-03] MEDS: INSULIN ASPART (NovoLOG) 100 UNIT/ML VIAL SQ SCH ×4 (08:05→12:15)
[2020-10-03] MEDS: FOLIC ACID 1 MG TAB PO SCH (08:06)
[2020-10-03] MEDS: lisinopriL 20 MG TAB PO SCH (08:06)
[2020-10-03] MEDS: ENOXAPARIN 80 MG/0.8 ML SYRINGE SQ SCH (08:06)
[2020-10-03] MEDS: ASCORBIC ACID 500 MG TAB PO SCH (08:06)
[2020-10-03] MEDS: ZINC SULFATE 220 MG CAP PO SCH (08:07)
[2020-10-03] MEDS: ISOSORBIDE MONONITRATE ER 15 MG TAB PO SCH (08:07)
[2020-10-03] MEDS: ASPIRIN 81 MG PO SCH (08:07)
[2020-10-03] MEDS: atenoloL 50 MG TAB PO SCH (08:07)
[2020-10-03] MEDS: FAMOTIDINE 20 MG TAB PO SCH (08:07)
[2020-10-03] MEDS: CHOLECALCIFEROL 1,000 UNIT TAB PO SCH (08:07)
[2020-10-03] MEDS: BRIMONIDINE TARTRATE 0.2% DROPS 5 ML BTL BOTH EYES SCH (08:07)
[2020-10-03] MEDS: TIMOLOL 0.5% OPHTH DROPS 5 ML BTL BOTH EYES SCH (08:07)
[2020-10-03 10:53] VITALS: BP 96/63; PULSE 71; RESP 18; TEMP 97.6
--- NOTE | 2020-10-03 11:22 | P.PN ---
Subjective Progress Note Date: 10/03/20 HISTORY OF PRESENT ILLNESS 75-year-old male one of Dr. Cast patient was hospitalized last week for Covid symptoms at the time was mildly hypoxic but was having more constitutional symptoms consistent with fever chills generalized fatigue tiredness with mild exertional shortness of breath. Patient was the hospital for 3 days did not require much oxygen he ended up feeling decent insisted leave the hospital on Thursday. Patient return to the emergency room today complaining of worsening symptom with fever chills severe hypoxia with minimum exertion fatigue tiredness nausea and mild diarrhea and overall not feeling well. His d-dimer was elevated his marker were much higher today including d-dimer, C-reactive protein, Ferritin and LDH patient ended up going for CT of the lung came back with ground glass picture consistent with Covid pneumonitis, patient was severely hypoxic requiring 4 L O2 to keep his pulse ox above 90 percentile. Call pulmonary start patient on Remdesivir, steroid and O2 and admit patient to the hospital. 09/26: Patient remains on oxygen also oxygenating 89% on 4 L. We'll plan to switch her to high flow nasal cannula. His blood sugar was 36 during the night and Levemir and glimepiride will be discontinued for now and continue NovoLog scale only. He has been afebrile, heart rate 76, blood pressure 148/70. Repeat blood work reveals W BC 20.1, hemoglobin 12.9. Electrolytes renal function normal. 09/27: Patient continues to complain of shortness of breath but he appears more relaxed today. Lung sounds are improving. He was started on convalescent plasma treatment yesterday. He is observatory 1200 MLS on incentive spirometry. Pulse ox is 90% on 10 L high flow nasal cannula. He has been afebrile, heart rate 70, blood pressure 158/76. Patient continues to have very little appetite and is eating very little. 09/28: Patient is seen today on the [facility] floor, sitting in chair. He is day 4/5 of Remdesivir in status post convalescent plasma treatment. He continues to have crackles in bilateral bases. He denies any abdominal symptoms and eating very little. He has been afebrile, heart rate 71, blood pressure 149/84, pulse ox 90% on 15 L high flow nasal cannula. Repeat blood work revealed WBC 13.2, hemoglobin 12.5. Electrolytes and renal function normal. Blood sugar running between 101 185. LDH 525. D-dimer 4.87. C-reactive protein 7.4, CK 787. AST 63 and ALT 70. The patient will be ready for discharge until early next week. 09/29: Patient has worsening hypoxia with pulse ox of 81% on nonrebreather. P atient is being transitioned to BiPAP and assisted into a prone position. Dexamethasone changed to IV at 6 mg every 6 hours. He will complete course of Remdesivir this evening. He has been afebrile, heart rate 87, respiratory rate 34, blood pressure 134/64. Repeat blood work reveals WBC 10.9, hemoglobin 11.3, lymphopenia at 0.3. Electrolytes and renal function normal. Blood sugars running 141-199. AST 59, ALT 59, alkaline phosphatase 50. LDH 472. CK 593. C-reactive protein 11.2. Due to resolution of hypoglycemia and increased dose of steroids, Levemir will be resumed at 15 mg at bedtime. 09/30: The patient's respiratory status declined yesterday but improved this morning. He is currently pulse oxing 93-97% on nonrebreather. He has been afebrile, heart rate 85, blood pressure 121/67. He has completed course of Remdesivir and is status post convalescent plasma infusion. Pulmonary medicine and infectious disease continued to follow. Blood sugars running between 140 and 214. Patient has not received Levemir. Will decrease Levemir to 10 units and continue NovoLog scale 10/01: Patient's respiratory status again is slightly better from yesterday. He is pulse oxing 95% on 10 L high flow nasal cannula. He has been afebrile, heart rate 75, blood pressure 156/73. Repeat blood work reveals WBC 11.9, hemoglobin 12.4. Electrolytes normal, BUN 37 and creatinine 0.9. Blood sugars running in the 200s. Schedule NovoLog will be added. 10/02: Patient is very anxious to be discharged home today. He is currently pulse oxing 90-92% on 6 L nasal cannula. manager architectural to arrange home oxygen. IV fluids discontinued. Repeat d-dimer 2.78, LDH 395, C-reactive protein 2.5. Inflammatory markers are all trending downward. He has been afebrile, heart rate 75, blood pressure 148/79. We will prepare patient for discharge home today pending evaluation by pulmonary medicine. 10/03: Patient was prepared for discharge home yesterday but due to patient's immobility and refusal to perform his own ADLs and refusal to participate with physical therapy, pulmonary concern about his safety at home did not give clearance for discharge. We did have machine adjuster leader case trim in the room discussing this with the patient in the morning as well as with the patient's . Home oxygen has been arranged. Patient is currently pulse oxing 91-94% on 5 L. He has been afebrile, heart rate 72, blood pressure 122/79. Patient again refused to work with physical therapy this morning but after discussing with patient the need for him to participate he is agreeable, he is also agreeable after long discussion go to subacute rehab. Patient will be discharged to [facility] once arrangements are completed. REVIEW OF SYSTEMS CONSTITUTIONAL: Well-developed, noacute respiratory distress. No documented fevers. Denies chills. EYES: No icterus sclerae, no conjunctivitis. EARS, NOSE, MOUTH, THROAT, and FACE: No sore throat, lymphadenopathy, carotid bruits or deformity. RESPIRATORY: Positive SOB slowly improving, continued cough or wheezes. Severe dyspnea and shortness of breath with Covid pneumonitis. CARDIOVASCULAR: No CP, Palpitation, PND, Orthopnea, or angina. Palpitation. GASTROINTESTINAL: Lack of appetite no nausea no vomiting no diarrhea no GI bleed. GENITOURINARY: Negative for Hematuria or UTI, no kidney stones. INTEGUMENT/BREAST: Negative for any muscular injury with mild osteoarthritis. HEMATOLOGIC/LYMPHATIC: Negative for bleed or purpura. MUSCULOSKELTAL: Generalized arthralgia and myalgia. NEURLOGICAL: No LOC, Sz or syncope, blurred vision dizziness or abnormality. BEHAVIORAL/PSYCH: Negative. ENDOCRINE: Negative. PHYSICAL EXAMINATION General Appearance: Alert, cooperative, no distress, appears stated age. Patient is resting in a recliner and appears to be comfortable. Neck HEENT: Supple, no lymphadenopathy, no thyroid enlargement, no carotid bruits. Dry mucosa Lungs: Occasional expansion bilaterally mild rhonchi with mild crackles in the bilateral bases positive mild expiratory wheezes. Chest Wall: Decrease expansion with deep inspiration no tenderness and no deformity was found on exam, costochondral pain or discomfort. Heart: Regular rate and rhythm, S1, S2 normal, no murmur, rub or gallop. Back: Symmetric, no curvature, ROM normal, no CVA tenderness. Abdomen: Soft, non-tender, bowel sounds active all four quadrants, no abdominal tenderness. Extremities: Extremities normal, atraumatic, no cyanosis or edema. Pulses: 2+ and symmetric. Skin: Skin color, texture, tugor normal, no rashes or lesions. Neurologic: Alert oriented x3 cranial nerves II through XII intact, no motor deficit, no abnormal balance or gait. ASSESSMENT AND PLAN 1 acute hypoxic respiratory failure secondary to Covid pneumonitis: With failure to outpatient treatment, and relapse from last week with much worsening hypoxia, chest x-ray and CTA of the chest consistent with Covid pneumonitis. Completed Remdisevir, continue Decadron IV 6 mg every 6 hours, O2, updraft treatment zinc vitamin D vitamin C. Pulmonary consultation and ID consultation be done. Continue O2 supplementation. Patient is status post convalescent plasma treatment. Prone positioning. 2 acute hypoxic respiratory failure secondary to Covid pneumonitis: Patient will be on O2 continue supportive care for now he might require oxygen for the next 4 weeks. Patient currently on high flow nasal cannula. 3 severe gastrointestinal symptom: Mostly from Covid continue supportive care along with hydration gradually increase on his diet continue anti-inflammatory medication along with PPI. 4 type 2 diabetes uncontrolled with hypoglycemia. Glimepiride discontinued. Patient will be on NovoLog scale only for now. Levemir resumed at 10 units at bedtime. Add NovoLog scheduled for units with meals. 5 hypertension: Remain on lisinopril 40 mg a day and atenolol 50 mg twice a day. 6 hyperlipidemia: Remain on simvastatin 20 mg daily. 7 atherosclerotic heart disease: Remain on beta brayan, alex and isosorbide. 8 severe GERD/GI prophylaxis: Patient will be on omeprazole or pantoprazole daily. 9 DVT prophylaxis: Patient will be on Lovenox 40 mg subcutaneous daily. 10. Chronic hypoxic respiratory failure requiring home oxygen. manager architectural to make arrangements for home oxygen at 6 L nasal cannula. CODE STATUS: Full code. DISCHARGE PLAN Subacute rehab. Impression and plan of care have been directed as dictated by the signing physician. Cathy Walker nurse practitioner acting as scribe for signing physician. Objective - Vital Signs Vital signs: Vital Signs Temp 98.6 F 10/03/20 05:15 Pulse 72 10/03/20 05:15 Resp 17 10/03/20 05:15 BP 122/79 10/03/20 05:15 Pulse Ox 91 L 10/03/20 05:15 Intake & Output 10/02/20 10/03/20 10/03/20 18:59 06:59 18:59 Output Total 300 Balance -300 Output: Urine 300 Other: Voiding Method Urinal # Voids 1 4 - Labs CBC & Chem 7: 10/01/20 06:20 10/01/20 06:20 Labs: Abnormal Lab Results - Last 24 Hours (Table) 10/02/20 10/02/20 10/02/20 Range/Units 06:47 06:47 11:28 D-Dimer 2.78 H (<0.60) mg/L FEU POC Glucose (mg/dL) 246 H (75-99) mg/dL Lactate Dehydrogenase 395 H (120-246) U/L C-Reactive Protein 2.5 H (0.0-0.8) mg/dL 10/02/20 10/02/20 10/03/20 Range/Units 16:27 20:22 06:52 D-Dimer (<0.60) mg/L FEU POC Glucose (mg/dL) 111 H 167 H 189 H (75-99) mg/dL Lactate Dehydrogenase (120-246) U/L C-Reactive Protein (0.0-0.8) mg/dL
[2020-10-03 11:41] LABS: Glucose,Whole Blood 253 mg/dL (75-99)
--- NOTE | 2020-10-03 15:40 | PN ---
PROGRESS NOTE DATE OF SERVICE: 10/03/2020 REASON FOR FOLLOWUP: Acute COVID-19 pneumonia. INTERVAL HISTORY: The patient is currently afebrile. The patient is breathing comfortably. Denies having any chest pain or shortness of breath. Still requiring high-flow nasal oxygen . No vomiting or diarrhea. PHYSICAL EXAMINATION: Blood pressure 96/56, pulse of 71, temperature 97.6. He is 93% on 6 L. General description is an elderly male up in the chair in no distress. RESPIRATORY SYSTEM: Unlabored breathing with diminished breath sounds per the nursing staff. EXTREMITIES: No edema of the feet. LABS: No new labs have been obtained today. DIAGNOSTIC IMPRESSION AND PLAN: Patient with acute COVID-19 pneumonia. Patient has updated his dexamethasone. The patient has completed his remdesivir therapy. He is currently on dexamethasone, Lovenox, zinc sulfate. Finish therapy with oral dexamethasone to finish a 10-day course of therapy. May benefit or anticoagulation on discharge because of his elevated D-dimer. Close outpatient followup. MMODL / IJN: [id number] /
== END 2020-10-03 15:30 | DRG 177 ==
LOC: EC 08:11 → 4SSUR 10:48
PROVIDERS: ADMIT Internal Medicine Geriatric Medicine; ATTEND Internal Medicine Geriatric Medicine
PROC: XW033E5 Introduction of Remdesivir Anti-infective into Peripheral Vein, Percutaneous Approach, New Technology Group 5 (ICD-10-PCS; principal; 2020-09-25)
PROC: XW13325 Transfusion of Convalescent Plasma (Nonautologous) into Peripheral Vein, Percutaneous Approach, New Technology Group 5 (ICD-10-PCS; 2020-09-27)
PROC: 5A09457 Assistance with Respiratory Ventilation, 24-96 Consecutive Hours, Continuous Positive Airway Pressure (ICD-10-PCS; 2020-09-29)
DX: U07.1 COVID-19 (principal); J12.89 Other viral pneumonia; J96.21 Acute and chronic respiratory failure with hypoxia; E11.649 Type 2 diabetes mellitus with hypoglycemia without coma; Z79.4 Long term (current) use of insulin; D72.810 Lymphocytopenia; K52.9 Noninfective gastroenteritis and colitis, unspecified; K21.9 Gastro-esophageal reflux disease without esophagitis; E78.5 Hyperlipidemia, unspecified; I10 Essential (primary) hypertension; I25.10 Atherosclerotic heart disease of native coronary artery without angina pectoris; Z79.82 Long term (current) use of aspirin; R63.3 Feeding difficulties; Z79.899 Other long term (current) drug therapy; Z87.891 Personal history of nicotine dependence; Z90.49 Acquired absence of other specified parts of digestive tract; Z87.19 Personal history of other diseases of the digestive system; Z98.890 Other specified postprocedural states; Z88.1 Allergy status to other antibiotic agents; Z88.0 Allergy status to penicillin; Z88.8 Allergy status to other drugs, medicaments and biological substances; Z82.49 Family history of ischemic heart disease and other diseases of the circulatory system
CPT/HCPCS: 36415; 71045; 71275; 80053; 82550; 82728; 83605; 83615; 83735; 84145; 85025; 85027; 85379; 85610; 85730; 86140; 86850; 86900; 86901; 87040; 87502; 87635; 93005; 94640; 94660; 94760; 96372; 96374; 96375; 99291

== ENCOUNTER 2020-10-05 15:11 | Inpatient (IN) | payer MEDICARE ==
[2020-10-05] MEDS ORDERED: SODIUM CHLORIDE 0.9% 1,000 ML IV STA ×2 (15:35→17:20)
[2020-10-05] MEDS ORDERED: ACETAMINOPHEN TAB 500 MG TAB PO STA (15:35)
[2020-10-05] MEDS ORDERED: ALBUTEROL HFA INHALER INHALATION STA (15:35)
--- NOTE | 2020-10-05 15:46 | ED ---
SOB HPI - General Chief Complaint: Shortness of Breath Stated Complaint: Respiratory distress, +Covid Time Seen by Provider: 10/05/20 15:24 Source: patient, EMS, RN notes reviewed, old records reviewed Mode of arrival: EMS Limitations: no limitations - History of Present Illness Initial Comments: This is a 75-year-old male DF for evaluation patient Dese for evaluation regards to severe shortness of breath poor story secondary difficulty breathing. Anton farias has recent diagnosis of coronavirus with intubation. Patient is coming from a extended care facility with significant shortness of breath today with hypoxia. Patient states he feels like crap Complaint: shortness of breath, anxiety -: hour(s) Severity: severe Severity scale (1-10): 10 Consistency: constant Improves With: oxygen Worsens With: exertion, movement Known History Of: other (recend COVID w intubation) Context: recent URI (covid), recent illness Associated Symptoms: cough, sputum production Treatments Prior to Arrival: none - Related Data Home Medications Medication Instructions Recorded Confirmed Aspirin [Adult Low Dose Aspirin EC] 81 mg PO DAILY@17011/23/15 10/05/20 Cholecalciferol [Vitamin D3 (25 5,000 unit PO MOWEFR@17011/23/15 10/05/20 Mcg = 1000 Iu)] Glimepiride [Amaryl] 4 mg PO BID@0800,0 11/23/15 10/05/20 Nitroglycerin Sl Tabs [Nitrostat] 0.4 mg PO Q5M PRN 11/23/15 10/05/20 Omeprazole [PriLOSEC] 20 mg PO BID@0800,169911/23/15 10/05/20 Simvastatin 20 mg PO DAILY@2100 11/23/15 10/05/20 atenoloL [Atenolol] 50 mg PO BID@0800,1700 11/23/15 10/05/20 Brimonidine Tartrate [Alphagan P 1 drop BOTH EYES BID@0800,1700 09/17/20 0.2% Ophth Soln] Insulin Glargine,Hum.rec.anlog 15 unit SQ HS@2130 09/17/20 10/05/20 [Lantus Solostar] Isosorbide Mononitrate ER [Imdur] 30 mg PO DAILY@0800 09/17/20 10/05/20 Latanoprost Ophth [Xalatan 0.005%] 1 drop BOTH EYES HS@2100 09/17/20 10/05/20 Timolol 0.5% Ophth Soln [Timoptic 1 drop BOTH EYES BID@0800,1700 09/17/20 10/05/20 0.5% Ophth Soln] lisinopriL 40 mg PO DAILY@0800 09/17/20 10/05/20 Ondansetron [Zofran] 4 mg PO Q8HR PRN 09/20/20 10/05/20 Acetaminophen [Tylenol] 650 mg PO Q4H PRN 10/05/20 10/05/20 Ascorbic Acid [Vitamin C] 500 mg PO DAILY@1700 10/05/20 10/05/20 Folic Acid 1 mg PO DAILY@1700 10/05/20 10/05/20 Magnesium Hydroxide [Milk of 7,200 mg PO DAILY PRN 10/05/20 10/05/20 Magnesia Concentrate] Na Phos,M-B/Na Phos,Di-Ba [Fleet 133 ml RECTAL DAILY PRN 10/05/20 10/05/20 Adult] Zinc Sulfate [Orazinc] 220 mg PO DAILY@1700 10/05/20 10/05/20 bisacodyL [Dulcolax] 10 mg RECTAL DAILY PRN 10/05/20 10/05/20 dexAMETHasone [Hexadrol] 4 mg PO BID@0800,1700 10/05/20 10/05/20 Previous Rx's Medication Instructions Recorded Azithromycin [Zithromax] 500 mg PO DAILY 5 Days #5 tab 09/22/20 Allergies Allergy/AdvReac Type Severity Reaction Status Date / Time cyclobenzaprine Allergy Unknown Verified 10/05/20 17:50 [From Flexeril] doxycycline Allergy Unknown Verified 10/05/20 17:50 metformin Allergy Unknown Verified 10/05/20 17:50 Penicillins Allergy Unknown Verified 10/05/20 17:50 Review of Systems ROS Statement: Those systems with pertinent positive or pertinent negative responses have been documented in the HPI. ROS Other: All systems not noted in ROS Statement are negative. Past Medical History Past Medical History: Chest Pain / Angina, Diabetes Mellitus, GERD/Reflux, Hyperlipidemia, Hypertension Additional Past Medical History / Comment(s): covid History of Any Multi-Drug Resistant Organisms: None Reported Past Surgical History: Appendectomy, Heart Catheterization Additional Past Surgical History / Comment(s): Patient has never had a colonoscopy. Past Anesthesia/Blood Transfusion Reactions: No Reported Reaction Past Psychological History: No Psychological Hx Reported Smoking Status: Former smoker Past Alcohol Use History: Rare Past Drug Use History: None Reported - Past Family History Mother Additional Family Medical History / Comment(s): BREAST Father Additional Family Medical History / Comment(s): Father at age 60 from a myocardial infarction. Brother(s) Additional Family Medical History / Comment(s): Patient has 7 brothers and one has coronary artery disease status post 3 vessel CABG. Patient does not have any sisters. Patient has 3 children, 2 boys and one girl with no major medical problems. General Exam Limitations: no limitations General appearance: alert, anxious, in distress, cachectic Head exam: Present: atraumatic, normocephalic, normal inspection Eye exam: Present: normal appearance, PERRL, EOMI. Absent: scleral icterus, conjunctival injection, periorbital swelling ENT exam: Present: normal exam, mucous membranes dry Neck exam: Present: normal inspection. Absent: tenderness, meningismus, lymphadenopathy Respiratory exam: Present: normal lung sounds bilaterally. Absent: respiratory distress, wheezes, rales, rhonchi, stridor Cardiovascular Exam: Present: regular rate, normal rhythm, normal heart sounds. Absent: systolic murmur, diastolic murmur, rubs, gallop, clicks GI/Abdominal exam: Present: soft, normal bowel sounds. Absent: distended, tenderness, guarding, rebound, rigid Extremities exam: Present: normal inspection, full ROM, normal capillary refill. Absent: tenderness, pedal edema, joint swelling, calf tenderness Back exam: Present: normal inspection Neurological exam: Present: alert, oriented X3, CN II-XII intact Psychiatric exam: Present: normal affect, normal mood Skin exam: Present: warm, dry, intact, normal color. Absent: rash Course Vital Signs 10/05/20 10/05/20 10/05/20 15:18 15:25 15:30 Temperature 97.3 F L Pulse Rate 74 75 72 Respiratory 25 H 20 23 Rate Blood Pressure 84/49 89/51 84/42 O2 Sat by Pulse 98 95 98 Oximetry 10/05/20 10/05/20 16:00 17:00 Temperature Pulse Rate 72 85 Respiratory 25 H 25 H Rate Blood Pressure 83/49 96/50 O2 Sat by Pulse 96 96 Oximetry - Reevaluation(s) Reevaluation #1: 10/05/20 17:13 Medical record is reviewed Reevaluation #2: 10/05/20 18:33 Patient continues remained improved on oxygen here in the ER, feeling better - Consultations Consultation #1: spoke w Dr Jonas her for admission Medical Decision Making - Medical Decision Making 75 male DF for evaluation recent known coronavirus with intubation, patient does have pneumonia, we'll treat with significantly broad-spectrum antibiotics - Lab Data Result diagrams: 10/05/20 15:43 10/05/20 15:43 Lab Results 10/05/20 10/05/20 10/05/20 Range/Units 15:43 15:43 15:43 WBC 21.7 H (3.8-10.6) k/uL RBC 2.56 L (4.30-5.90) m/uL Hgb 8.1 L D (13.0-17.5) gm/dL Hct 23.7 L (39.0-53.0) % MCV 92.6 (80.0-100.0) fL MCH 31.8 (25.0-35.0) pg MCHC 34.3 (31.0-37.0) g/dL RDW 12.7 (11.5-15.5) % Plt Count 257 (150-450) k/uL MPV 8.6 Neutrophils % 95 % Lymphocytes % 1 % Monocytes % 2 % Eosinophils % 1 % Basophils % 0 % Neutrophils # 20.7 H (1.3-7.7) k/uL Lymphocytes # 0.2 L (1.0-4.8) k/uL Monocytes # 0.4 (0-1.0) k/uL Eosinophils # 0.3 (0-0.7) k/uL Basophils # 0.1 (0-0.2) k/uL PT 10.4 (9.0-12.0) sec INR 1.0 (<1.2) APTT 20.4 L (22.0-30.0) sec D-Dimer 1.71 H (<0.60) mg/L FEU Sodium 129 L (137-145) mmol/L Potassium 5.0 (3.5-5.1) mmol/L Chloride 103 (98-107) mmol/L Carbon Dioxide 20 L (22-30) mmol/L Anion Gap 6 mmol/L BUN 79 H (9-20) mg/dL Creatinine 1.53 H (0.66-1.25) mg/dL Est GFR (CKD-EPI)AfAm 51 (>60 ml/min/1.73 sqM) Est GFR (CKD-EPI)NonAf 44 (>60 ml/min/1.73 sqM) Glucose 357 H (74-99) mg/dL Lactic Ac Sepsis Rflx Plasma Lactic Acid Yovany (0.7-2.0) mmol/L Calcium 8.2 L (8.4-10.2) mg/dL Magnesium 2.8 H (1.6-2.3) mg/dL Total Bilirubin 1.0 (0.2-1.3) mg/dL AST 59 (17-59) U/L ALT 59 H (4-49) U/L Alkaline Phosphatase 52 (38-126) U/L Lactate Dehydrogenase 1304 H (313-618) U/L Troponin I (0.000-0.034) ng/mL C-Reactive Protein 35.4 H (<10.0) mg/L NT-Pro-B Natriuret Pep pg/mL Total Protein 5.1 L (6.3-8.2) g/dL Albumin 2.5 L (3.5-5.0) g/dL Urine Color Urine Appearance (Clear) Urine pH (5.0-8.0) Ur Specific [place] (1.001-1.035) Urine Protein (Negative) Urine Glucose (UA) (Negative) Urine Ketones (Negative) Urine Blood (Negative) Urine Nitrite (Negative) Urine Bilirubin (Negative) Urine Urobilinogen (<2.0) mg/dL Ur Leukocyte Esterase (Negative) Blood Type Blood Type Recheck Bld Type Recheck Status Antibody Screen Spec Expiration Date 10/05/20 10/05/20 10/05/20 Range/Units 15:43 15:45 15:55 WBC (3.8-10.6) k/uL RBC (4.30-5.90) m/uL Hgb (13.0-17.5) gm/dL Hct (39.0-53.0) % MCV (80.0-100.0) fL MCH (25.0-35.0) pg MCHC (31.0-37.0) g/dL RDW (11.5-15.5) % Plt Count (150-450) k/uL MPV Neutrophils % % Lymphocytes % % Monocytes % % Eosinophils % % Basophils % % Neutrophils # (1.3-7.7) k/uL Lymphocytes # (1.0-4.8) k/uL Monocytes # (0-1.0) k/uL Eosinophils # (0-0.7) k/uL Basophils # (0-0.2) k/uL PT (9.0-12.0) sec INR (<1.2) APTT (22.0-30.0) sec D-Dimer (<0.60) mg/L FEU Sodium (137-145) mmol/L Potassium (3.5-5.1) mmol/L Chloride (98-107) mmol/L Carbon Dioxide (22-30) mmol/L Anion Gap mmol/L BUN (9-20) mg/dL Creatinine (0.66-1.25) mg/dL Est GFR (CKD-EPI)AfAm (>60 ml/min/1.73 sqM) Est GFR (CKD-EPI)NonAf (>60 ml/min/1.73 sqM) Glucose (74-99) mg/dL Lactic Ac Sepsis Rflx Plasma Lactic Acid Yovany 2.1 H* (0.7-2.0) mmol/L Calcium (8.4-10.2) mg/dL Magnesium (1.6-2.3) mg/dL Total Bilirubin (0.2-1.3) mg/dL AST (17-59) U/L ALT (4-49) U/L Alkaline Phosphatase (38-126) U/L Lactate Dehydrogenase (313-618) U/L Troponin I <0.012 (0.000-0.034) ng/mL C-Reactive Protein (<10.0) mg/L NT-Pro-B Natriuret Pep pg/mL Total Protein (6.3-8.2) g/dL Albumin (3.5-5.0) g/dL Urine Color Urine Appearance (Clear) Urine pH (5.0-8.0) Ur Specific [place] (1.001-1.035) Urine Protein (Negative) Urine Glucose (UA) (Negative) Urine Ketones (Negative) Urine Blood (Negative) Urine Nitrite (Negative) Urine Bilirubin (Negative) Urine Urobilinogen (<2.0) mg/dL Ur Leukocyte Esterase (Negative) Blood Type A Negative Blood Type Recheck A Neg Bld Type Recheck Status No Antibody Screen NEGATIVE Spec Expiration Date 10/08/2020234410/05/20 10/05/20 10/05/20 Range/Units 15:55 16:01 16:14 WBC (3.8-10.6) k/uL RBC (4.30-5.90) m/uL Hgb (13.0-17.5) gm/dL Hct (39.0-53.0) % MCV (80.0-100.0) fL MCH (25.0-35.0) pg MCHC (31.0-37.0) g/dL RDW (11.5-15.5) % Plt Count (150-450) k/uL MPV Neutrophils % % Lymphocytes % % Monocytes % % Eosinophils % % Basophils % % Neutrophils # (1.3-7.7) k/uL Lymphocytes # (1.0-4.8) k/uL Monocytes # (0-1.0) k/uL Eosinophils # (0-0.7) k/uL Basophils # (0-0.2) k/uL PT (9.0-12.0) sec INR (<1.2) APTT (22.0-30.0) sec D-Dimer (<0.60) mg/L FEU Sodium (137-145) mmol/L Potassium (3.5-5.1) mmol/L Chloride (98-107) mmol/L Carbon Dioxide (22-30) mmol/L Anion Gap mmol/L BUN (9-20) mg/dL Creatinine (0.66-1.25) mg/dL Est GFR (CKD-EPI)AfAm (>60 ml/min/1.73 sqM) Est GFR (CKD-EPI)NonAf (>60 ml/min/1.73 sqM) Glucose (74-99) mg/dL Lactic Ac Sepsis Rflx Y Plasma Lactic Acid Yovany (0.7-2.0) mmol/L Calcium (8.4-10.2) mg/dL Magnesium (1.6-2.3) mg/dL Total Bilirubin (0.2-1.3) mg/dL AST (17-59) U/L ALT (4-49) U/L Alkaline Phosphatase (38-126) U/L Lactate Dehydrogenase (313-618) U/L Troponin I (0.000-0.034) ng/mL C-Reactive Protein (<10.0) mg/L NT-Pro-B Natriuret Pep 329 pg/mL Total Protein (6.3-8.2) g/dL Albumin (3.5-5.0) g/dL Urine Color Yellow Urine Appearance Clear (Clear) Urine pH 5.0 (5.0-8.0) Ur Specific [place] 1.022 (1.001-1.035) Urine Protein Trace H (Negative) Urine Glucose (UA) 1+ H (Negative) Urine Ketones Negative (Negative) Urine Blood Negative (Negative) Urine Nitrite Negative (Negative) Urine Bilirubin Negative (Negative) Urine Urobilinogen <2.0 (<2.0) mg/dL Ur Leukocyte Esterase Negative (Negative) Blood Type Blood Type Recheck Bld Type Recheck Status Antibody Screen Spec Expiration Date - EKG Data -: EKG Interpreted by Me (EKG shows NSR 76 DC 204 QRS 164 QTc 519) - Radiology Data Radiology results: report reviewed (S x-ray CTA, patient does have new pneumonia), image reviewed Critical Care Time Critical Care Time: Yes Total Critical Care Time: 31 Disposition Clinical Impression: COVID-19, General weakness, Hypoxia, Nosocomial pneumonia Disposition: ADMITTED IP TO THIS HOSP Condition: Serious Is patient prescribed a controlled substance at d/c from ED?: No Referrals: Eduardo Mcdaniel MD [Primary Care Provider] - 1-2 days
--- NOTE | 2020-10-05 16:07 | XR ---
EXAMINATION TYPE: XR chest 1V portable DATE OF EXAM: 10/05/2020 COMPARISON: 10/01/2020 INDICATION: Short of breath Covid positive TECHNIQUE: Single frontal view of the chest is obtained. FINDINGS: The heart size is normal. The pulmonary vasculature is normal. Mild infiltrate is at the right base. Minimal infiltrate is at the left base. Findings are slightly i mproved over the interval and can be compatible with atypical pneumonia in the proper clinical settin g. IMPRESSION: 1. Bibasilar infiltrates greater at the right base can be compatible with atypical pneumonia.
[2020-10-05 16:09] LABS: Basophils # (A) 0.1 k/uL (0-0.2); Basophils % (A) 0 %; Eosinophils # (A) 0.3 k/uL (0-0.7); Eosinophils % (A) 1 %; HCT 23.7 % (39.0-53.0); Lymphocytes # (A) 0.2 k/uL (1.0-4.8); Lymphocytes % (A) 1 %; MCH 31.8 pg (25.0-35.0); MCHC 34.3 g/dL (31.0-37.0); MCV 92.6 fL (80.0-100.0); Mean Platelet Volume 8.6; Monocytes # (A) 0.4 k/uL (0-1.0); Monocytes % (A) 2 %; Neutrophils # (A) 20.7 k/uL (1.3-7.7); Neutrophils % (A) 95 %; Platelet Count 257 k/uL (150-450); RBC 2.56 m/uL (4.30-5.90); RDW 12.7 % (11.5-15.5); WBC 21.7 k/uL (3.8-10.6)
[2020-10-05 16:14] LABS: Albumin 2.5 g/dL (3.5-5.0); C Reactive Protein 35.4 mg/L (<10.0); Calcium 8.2 mg/dL (8.4-10.2); Magnesium 2.8 mg/dL (1.6-2.3); Total Protein 5.1 g/dL (6.3-8.2)
[2020-10-05 16:15] LABS: HGB 8.1 gm/dL (13.0-17.5)
[2020-10-05 16:33] LABS: Appearance,Urine Clear (Clear); Bilirubin,Urine Negative (Negative); Blood,Urine Negative (Negative); Color,Urine Yellow; Glucose,Urine (UA) 1+ (Negative); Ketones,Urine Negative (Negative); Leukocyte Esterase,Urine Negative (Negative); Nitrite,Urine Negative (Negative); Protein,Urine Trace (Negative); Specific Gravity,Urine 1.022 (1.001-1.035); Urobilinogen,Urine <2.0 mg/dL (<2.0)
[2020-10-05 16:43] LABS: Partial Thromboplastin Time 20.4 sec (22.0-30.0); Prothrombin Time 10.4 sec (9.0-12.0)
[2020-10-05 16:45] LABS: D-Dimer 1.71 mg/L FEU (<0.60)
[2020-10-05] MEDS ORDERED: PNEUMONIA PROTOCOL UTILIZED 1 EACH MISC PO PRN (17:18)
[2020-10-05] MEDS ORDERED: AZITHROMYCIN 500 MG in SODIUM CHLORIDE 0.9% 250 ML IVPB STA (17:18)
[2020-10-05] MEDS ORDERED: CEFEPIME 2 GM in SODIUM CHLORIDE 0.9% 100 ML IVPB STA (17:20)
[2020-10-05] MEDS ORDERED: VANCOMYCIN IV PER PHARMACY 1 EACH MISC MISCELLANE PRN (18:33)
[2020-10-05] MEDS ORDERED: VANCOMYCIN 1,250 MG in SODIUM CHLORIDE 0.9% 250 ML IVPB ONE (18:45)
--- NOTE | 2020-10-05 18:55 | CT ---
EXAMINATION TYPE: CT angio chest DATE OF EXAM: 10/05/2020 COMPARISON: 09/25/2020 HISTORY: Covid, shortness of breath. CT DLP: 340.6 mGycm Automated exposure control for dose reduction was used. CONTRAST: Performed with IV Contrast, patient injected with 80 mL of Isovue 370. There are 3-D post processed images. There is some patchy extensive bilateral interstitial infiltrate in both lungs. There is no pleural e ffusion. There is no pericardial effusion. There are small mediastinal lymph nodes measuring less patricio n 1 cm. There are no hilar masses. There is intact thoracic aorta. There is no aneurysm or dissection. The ascending aorta measures 3.6 cm. The bony thorax is intact sternum is intact. The ribs appear intact. IMPRESSION: Extensive interstitial pulmonary infiltrates are improved compared to last exam and consistent with r esolving interstitial pneumonia. No suspicious pulmonary mass. No evidence of pulmonary embolism.
[2020-10-05] MEDS: SODIUM CHLORIDE 0.9% 1,000 ML IV SCH (20:23)
[2020-10-05] MEDS: ALBUTEROL HFA INHALER INHALATION SCH (20:52)
[2020-10-06 01:12] LABS: Ferritin 3228.7 ng/mL (22.0-322.0)
[2020-10-06] MEDS: CEFEPIME 2 GM in SODIUM CHLORIDE 0.9% 100 ML IVPB SCH ×4 (01:31→22:32)
[2020-10-06] MEDS: ALBUTEROL HFA INHALER INHALATION SCH ×4 (01:56→19:41)
--- NOTE | 2020-10-06 07:39 | XR ---
EXAMINATION TYPE: XR chest 1V portable DATE OF EXAM: 10/06/2020 CLINICAL HISTORY: Difficulty breathing progress study. TECHNIQUE: Single AP portable semiupright view of the chest is obtained. COMPARISON: Chest x-ray and CTA chest from one day earlier and older studies. FINDINGS: Persistent low lung volumes with multifocal bilateral opacities. Cardiac silhouette size s table and within normal limits. Osseous structures are intact. IMPRESSION: Overall stable findings, low lung volumes with bilateral multifocal acute infiltrates c onsistent with covid-19 infection.
[2020-10-06 08:16] LABS: Calcium 8.1 mg/dL (8.4-10.2); Potassium 4.7 mmol/L (3.5-5.1)
[2020-10-06] MEDS: SODIUM CHLORIDE 0.9% 1,000 ML IV SCH ×3 (09:03→22:30)
[2020-10-06 11:47] LABS: Glucose,Whole Blood 316 mg/dL (75-99)
[2020-10-06] MEDS ORDERED: VANCOMYCIN 1,250 MG in SODIUM CHLORIDE 0.9% 250 ML IVPB SCH (12:00)
[2020-10-06] MEDS: INSULIN ASPART (NovoLOG) 100 UNIT/ML VIAL SQ SCH ×3 (14:26→20:10)
[2020-10-06 16:56] LABS: Glucose,Whole Blood 258 mg/dL (75-99)
[2020-10-06] MEDS ORDERED: AZITHROMYCIN 500 MG in SODIUM CHLORIDE 0.9% 250 ML IVPB SCH (18:00)
--- NOTE | 2020-10-06 18:32 | P.HPIM ---
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 This is a subsequent rehospitalization secondary to hypoxemia, increasing dyspnea, was diagnosed to have Covid this Sep, and readmitted September 25, for increasing dyspnea, weakness, and hypoxemia. Patient resides at [facility], for which they had transferred the patient for hypoxemia, and fatigue, and anorexia. He was transferred from [facility] to the emergency room for the above. Chest x- ray with CTA showed extensive interstitial pulmonary infiltrates that are improved compared to previous examination consistent with resolving interstitial pneumonia, no pulmonary mass, no evidence of pulmonary emboli. Urinalysis is negative, glucose at 222, lactic acid 1.1, pCO2 23, sodium 136, creatinine 1.07 patient admitted for suspected nosocomial infection/pneumonia,, globulin level is normal on 2.6, ferritin still elevated at 3227, ProcalAmine 1.93, worse than previous admission hemoglobin at 8.1, WBC count of 21.7 urinalysis normal Review of Systems Constitutional: Reports as per HPI, Denies anorexia, Denies chills, Denies chronic headaches, Denies chronic pain, Denies daytime sleepiness, Denies fatigue, Denies fever, Denies lethargy, Denies malaise, Denies night sweats, Denies poor appetite, Denies sweats, Denies weakness, Denies weight gain, Denies weight loss Ears, nose, mouth and throat: Reports as per HPI Cardiovascular: Reports as per HPI, Reports decreased exercise tolerance, Reports dyspnea on exertion Respiratory: Reports as per HPI, Reports cough, Reports dyspnea, Denies congestion, Denies cough with sputum, Denies excessive sputum, Denies hemoptysis, Denies home oxygen, Denies pain, Denies pain on inspiration, Denies pleurisy, Denies respiratory infections, Denies sleep apnea, Denies snoring, Denies wheezing Gastrointestinal: Reports as per HPI Genitourinary: Reports as per HPI Musculoskeletal: Reports as per HPI, Denies arm numbness/tingling, Denies atrophy, Denies fractures, Denies frequent falls, Denies gait dysfunction, Denies hot joints, Denies leg numbness/tingling, Denies limitation of motion, Denies loss of height, Denies low back pain, Denies morning stiffness, Denies mu scle cramps, Denies muscle weakness, Denies myalgias, Denies neck pain, Denies neck stiffness, Denies prior amputations, Denies redness of joints, Denies shooting arm pain, Denies shooting leg pain Integumentary: Reports as per HPI Neurological: Reports as per HPI, Denies aphasia, Denies ataxia, Denies balance difficulties, Denies burning pain, Denies change in mentation, Denies change in smell/taste, Denies change in speech, Denies confusion, Denies convulsions, Denies double vision, Denies gait dysfunction, Denies head injury, Denies headaches, Denies hearing difficulties, Denies lack of coordination, Denies loss of vision, Denies memory loss, Denies migraines, Denies motor disturbance, Denies numbness, Denies paralysis, Denies paresthesias, Denies seizures, Denies sensory deficit, Denies spasticity, Denies syncope, Denies tic, Denies tingling, Denies transient paralysis, Denies tremors, Denies vertigo, Denies weakness, Denies visual changes Past Medical History Past Medical History: Chest Pain / Angina, Diabetes Mellitus, GERD/Reflux, Hyperlipidemia, Hypertension Additional Past Medical History / Comment(s): covid positive. was recently intubated in [facility] ICU-went to [facility] for rehab and ongoing care. History of Any Multi-Drug Resistant Organisms: None Reported Past Surgical History: Appendectomy, Heart Catheterization Additional Past Surgical History / Comment(s): Patient has never had a colonoscopy. Past Anesthesia/Blood Transfusion Reactions: No Reported Reaction Past Psychological History: No Psychological Hx Reported Smoking Status: Former smoker Past Alcohol Use History: Rare Additional Past Alcohol Use History / Comment(s): Quit smoking 30 years ago. He occasionally drinks alcohol. Past Drug Use History: None Reported - Past Family History Mother Additional Family Medical History / Comment(s): BREAST Father Additional Family Medical History / Comment(s): Father at age 60 from a myocardial infarction. Brother(s) Additional Family Medical History / Comment(s): Patient has 7 brothers and one has coronary artery disease status post 3 vessel CABG. Patient does not have any sisters. Patient has 3 children, 2 boys and one girl with no major medical problems. Medications and Allergies Home Medications Medication Instructions Recorded Confirmed Type Aspirin [Adult Low Dose Aspirin EC] 81 mg PO DAILY@1700 11/23/15 10/05/20 Hist ory Cholecalciferol [Vitamin D3 (25 5,000 unit PO MOWEFR@169911/23/15 10/05/20 History Mcg = 1000 Iu)] Glimepiride [Amaryl] 4 mg PO BID@0800,1700 11/23/15 10/05/20 History Nitroglycerin Sl Tabs [Nitrostat] 0.4 mg PO Q5M PRN 11/23/15 10/05/20 History Omeprazole [PriLOSEC] 20 mg PO BID@0800,1700 11/23/15 10/05/20 History Simvastatin 20 mg PO DAILY@209911/23/15 10/05/20 History atenoloL [Atenolol] 50 mg PO BID@0800,169911/23/15 10/05/20 History Brimonidine Tartrate [Alphagan P 1 drop BOTH EYES BID@0800,1700 09/17/20 10/05/20 History 0.2% Ophth Soln] Insulin Glargine,Hum.rec.anlog 15 unit SQ HS@21309/17/20 10/05/20 History [Lantus Solostar] Isosorbide Mononitrate ER [Imdur] 30 mg PO DAILY@0800 09/17/20 10/05/20 History Latanoprost Ophth [Xalatan 0.005%] 1 drop BOTH EYES HS@209909/17/20 10/05/20 History Timolol 0.5% Ophth Soln [Timoptic 1 drop BOTH EYES BID@0800,1700 09/17/20 10/05/20 History 0.5% Ophth Soln] lisinopriL 40 mg PO DAILY@0800 09/17/20 10/05/20 History Ondansetron [Zofran] 4 mg PO Q8HR PRN 09/20/20 10/05/20 History Azithromycin [Zithromax] 500 mg PO DAILY 5 Days #5 tab 09/22/20 10/05/20 Rx Acetaminophen [Tylenol] 650 mg PO Q4H PRN 10/05/20 10/05/20 History Ascorbic Acid [Vitamin C] 500 mg PO DAILY@1700 10/05/20 10/05/20 History Folic Acid 1 mg PO DAILY@1700 10/05/20 10/05/20 History Magnesium Hydroxide [Milk of 7,200 mg PO DAILY PRN 10/05/20 10/05/20 History Magnesia Concentrate] Na Phos,M-B/Na Phos,Di-Ba [Fleet 133 ml RECTAL DAILY PRN 10/05/20 10/05/20 History Adult] Zinc Sulfate [Orazinc] 220 mg PO DAILY@1700 10/05/20 10/05/20 History bisacodyL [Dulcolax] 10 mg RECTAL DAILY PRN 10/05/20 10/05/20 History dexAMETHasone [Hexadrol] 4 mg PO BID@0800,1700 10/05/20 10/05/20 History Allergies Allergy/AdvReac Type Severity Reaction Status Date / Time cyclobenzaprine Allergy Unknown Verified 10/05/20 17:50 [From Flexeril] doxycycline Allergy Unknown Verified 10/05/20 17:50 metformin Allergy Unknown Verified 10/05/20 17:50 Penicillins Allergy Unknown Verified 10/05/20 17:50 Physical Exam Vitals: Vital Signs Temp Pulse Pulse Resp BP BP Pulse Ox 10/06/20 11:29 86 20 125/67 98 10/06/20 07:30 98.2 F 80 20 119/62 99 10/06/20 07:00 82 18 102/55 99 10/06/20 05:00 80 18 121/59 100 10/06/20 02:00 85 24 105/52 100 10/06/20 01:00 86 24 97/55 100 10/06/20 00:00 97.2 F L 80 25 H 100/58 99 10/05/20 23:00 78 26 H 96/55 99 10/05/20 22:00 85 26 H 99/52 96 10/05/20 21:00 90 28 H 89/52 95 10/05/20 20:00 90 25 H 95/58 96 10/05/20 19:11 90 22 106/54 92 L 10/05/20 19:00 98.2 F 10/05/20 18:49 90 18 95/49 99 10/05/20 18:00 89 23 95/47 95 10/05/20 17:00 85 25 H 96/50 96 10/05/20 16:00 72 25 H 83/49 96 10/05/20 15:30 72 23 84/42 98 10/05/20 15:25 75 20 89/51 95 10/05/20 15:18 97.3 F L 74 25 H 84/49 98 Intake and Output 10/05/20 10/06/20 10/06/20 22:59 06:59 14:59 Intake Total 550 Output Total 400 900 400 Balance -400 -900 150 Intake: Intake, IV Titration 500 Amount Cefepime 2 gm In Sodium 100 Chloride 0.9% 100 ml @ 25 mls/hr IVPB Q8HR DELFINO Rx# :[id number] Sodium Chloride 0.9% 1, 400 000 ml @ 100 mls/hr IV . Q10H DELFINO Rx#:[id number] Oral 50 Output: Urine 400 900 400 Other: Voiding Method Urinal Diaper Weight 74.571 kg 74.571 kg - Constitutional General appearance: average body habitus, cooperative, no acute distress - EENT Eyes: anicteric sclerae, PERRLA, dentition normal ENT: hard of hearing, NA/AT, normal oropharynx - Neck Neck: normal ROM - Respiratory Respiratory: bilateral: CTA, diminished, rhonchi, wheezing - Cardiovascular Rhythm: regular Heart sounds: normal: S1, S2 Abnormal Heart Sounds: no systolic murmur, no diastolic murmur, no rub, no S3 Gallop, no S4 Gallop, no click, no other - Gastrointestinal General gastrointestinal: no absent bowel sounds, no decreased bowel sounds, no distended, no hepatomegaly, no hyperactive bowel sounds, no normal bowel sounds, no organomegaly, no rigid, no scaphoid, no soft, no splenomegaly, no tenderness, no umbilical hernia, no ventral hernia - Integumentary Integumentary: normal - Neurologic Neurologic: CNII-XII intact - Musculoskeletal Musculoskeletal: generalized weakness, strength equal bilaterally - Psychiatric Psychiatric: A&O x's 3, appropriate affect Results CBC & Chem 7: 10/05/20 15:43 10/06/20 07:36 Labs: Abnormal Lab Results - Last 24 Hours (Table) 10/05/20 10/05/20 10/05/20 Range/Units 15:43 15:43 15:43 WBC 21.7 H (3.8-10.6) k/uL RBC 2.56 L (4.30-5.90) m/uL Hgb 8.1 L D (13.0-17.5) gm/dL Hct 23.7 L (39.0-53.0) % Neutrophils # 20.7 H (1.3-7.7) k/uL Lymphocytes # 0.2 L (1.0-4.8) k/uL APTT 20.4 L (22.0-30.0) sec D-Dimer 1.71 H (<0.60) mg/L FEU Sodium 129 L (137-145) mmol/L Chloride (98-107) mmol/L Carbon Dioxide 20 L (22-30) mmol/L BUN 79 H (9-20) mg/dL Creatinine 1.53 H (0.66-1.25) mg/dL Glucose 357 H (74-99) mg/dL POC Glucose (mg/dL) (75-99) mg/dL Plasma Lactic Acid Yovany (0.7-2.0) mmol/L Calcium 8.2 L (8.4-10.2) mg/dL Magnesium 2.8 H (1.6-2.3) mg/dL Ferritin 3228.7 H (22.0-322.0) ng/mL ALT 59 H (4-49) U/L Lactate Dehydrogenase 1304 H (313-618) U/L C-Reactive Protein 35.4 H (<10.0) mg/L Total Protein 5.1 L (6.3-8.2) g/dL Albumin 2.5 L (3.5-5.0) g/dL Procalcitonin (0.02-0.09) ng/mL Urine Protein (Negative) Urine Glucose (UA) (Negative) 10/05/20 10/05/20 10/05/20 Range/Units 15:43 15:43 16:01 WBC (3.8-10.6) k/uL RBC (4.30-5.90) m/uL Hgb (13.0-17.5) gm/dL Hct (39.0-53.0) % Neutrophils # (1.3-7.7) k/uL Lymphocytes # (1.0-4.8) k/uL APTT (22.0-30.0) sec D-Dimer (<0.60) mg/L FEU Sodium (137-145) mmol/L Chloride (98-107) mmol/L Carbon Dioxide (22-30) mmol/L BUN (9-20) mg/dL Creatinine (0.66-1.25) mg/dL Glucose (74-99) mg/dL POC Glucose (mg/dL) (75-99) mg/dL Plasma Lactic Acid Yovany 2.1 H* (0.7-2.0) mmol/L Calcium (8.4-10.2) mg/dL Magnesium (1.6-2.3) mg/dL Ferritin (22.0-322.0) ng/mL ALT (4-49) U/L Lactate Dehydrogenase (313-618) U/L C-Reactive Protein (<10.0) mg/L Total Protein (6.3-8.2) g/dL Albumin (3.5-5.0) g/dL Procalcitonin 1.93 H (0.02-0.09) ng/mL Urine Protein Trace H (Negative) Urine Glucose (UA) 1+ H (Negative) 10/06/20 10/06/20 Range/Units 07:36 11:42 WBC (3.8-10.6) k/uL RBC (4.30-5.90) m/uL Hgb (13.0-17.5) gm/dL Hct (39.0-53.0) % Neutrophils # (1.3-7.7) k/uL Lymphocytes # (1.0-4.8) k/uL APTT (22.0-30.0) sec D-Dimer (<0.60) mg/L FEU Sodium 136 L (137-145) mmol/L Chloride 110 H (98-107) mmol/L Carbon Dioxide (22-30) mmol/L BUN 45 H (9-20) mg/dL Creatinine (0.66-1.25) mg/dL Glucose 222 H (74-99) mg/dL POC Glucose (mg/dL) 316 H (75-99) mg/dL Plasma Lactic Acid Yovany (0.7-2.0) mmol/L Calcium 8.1 L (8.4-10.2) mg/dL Magnesium (1.6-2.3) mg/dL Ferritin (22.0-322.0) ng/mL ALT (4-49) U/L Lactate Dehydrogenase (313-618) U/L C-Reactive Protein (<10.0) mg/L Total Protein (6.3-8.2) g/dL Albumin (3.5-5.0) g/dL Procalcitonin (0.02-0.09) ng/mL Urine Protein (Negative) Urine Glucose (UA) (Negative) Laboratory Results WBC 21.7 k/uL (3.8-10.6) H 10/05/20 15:43 RBC 2.56 m/uL (4.30-5.90) L 10/05/20 15:43 Hgb 8.1 gm/dL (13.0-17.5) L D 10/05/20 15:43 Hct 23.7 % (39.0-53.0) L 10/05/20 15:43 MCV 92.6 fL (80.0-100.0) 10/05/20 15:43 MCH 31.8 pg (25.0-35.0) 10/05/20 15:43 MCHC 34.3 g/dL (31.0-37.0) 10/05/20 15:43 RDW 12.7 % (11.5-15.5) 10/05/20 15:43 Plt Count 257 k/uL (150-450) 10/05/20 15:43 MPV 8.6 10/05/20 15:43 Neutrophils % 95 % 10/05/20 15:43 Lymphocytes % 1 % 10/05/20 15:43 Monocytes % 2 % 10/05/20 15:43 Eosinophils % 1 % 10/05/20 15:43 Basophils % 0 % 10/05/20 15:43 Neutrophils # 20.7 k/uL (1.3-7.7) H 10/05/20 15:43 Lymphocytes # 0.2 k/uL (1.0-4.8) L 10/05/20 15:43 Monocytes # 0.4 k/uL (0-1.0) 10/05/20 15:43 Eosinophils # 0.3 k/uL (0-0.7) 10/05/20 15:43 Basophils # 0.1 k/uL (0-0.2) 10/05/20 15:43 PT 10.4 sec (9.0-12.0) 10/05/20 15:43 INR 1.0 (<1.2) 10/05/20 15:43 APTT 20.4 sec (22.0-30.0) L 10/05/20 15:43 D-Dimer 1.71 mg/L FEU (<0.60) H 10/05/20 15:43 Sodium 136 mmol/L (137-145) L 10/06/20 07:36 Potassium 4.7 mmol/L (3.5-5.1) 10/06/20 07:36 Chloride 110 mmol/L (98-107) H 10/06/20 07:36 Carbon Dioxide 23 mmol/L (22-30) 10/06/20 07:36 Anion Gap 3 mmol/L 10/06/20 07:36 BUN 45 mg/dL (9-20) H 10/06/20 07:36 Creatinine 1.07 mg/dL (0.66-1.25) 10/06/20 07:36 Est GFR (CKD-EPI)AfAm 79 (>60 ml/min/1.73 sqM) 10/06/20 07:36 Est GFR (CKD-EPI)NonAf 69 (>60 ml/min/1.73 sqM) 10/06/20 07:36 Glucose 222 mg/dL (74-99) H 10/06/20 07:36 POC Glucose (mg/dL) 258 mg/dL (75-99) H 10/06/20 16:53 POC Glu Internet Sales Director ID Rowena Valero 10/06/20 16:53 Lactic Ac Sepsis Rflx Y 10/05/20 16:14 Plasma Lactic Acid Yovany 1.1 mmol/L (0.7-2.0) 10/05/20 18:58 Calcium 8.1 mg/dL (8.4-10.2) L 10/06/20 07:36 Magnesium 2.8 mg/dL (1.6-2.3) H 10/05/20 15:43 Ferritin 3228.7 ng/mL (22.0-322.0) H 10/05/20 15:43 Total Bilirubin 1.0 mg/dL (0.2-1.3) 10/05/20 15:43 AST 59 U/L (17-59) 10/05/20 15:43 ALT 59 U/L (4-49) H 10/05/20 15:43 Alkaline Phosphatase 52 U/L (38-126) 10/05/20 15:43 Lactate Dehydrogenase 1304 U/L (313-618) H 10/05/20 15:43 Troponin I <0.012 ng/mL (0.000-0.034) 10/05/20 15:55 C-Reactive Protein 35.4 mg/L (<10.0) H 10/05/20 15:43 NT-Pro-B Natriuret Pep 329 pg/mL 10/05/20 15:55 Total Protein 5.1 g/dL (6.3-8.2) L 10/05/20 15:43 Albumin 2.5 g/dL (3.5-5.0) L 10/05/20 15:43 Procalcitonin 1.93 ng/mL (0.02-0.09) H 10/05/20 15:43 Urine Color Yellow 10/05/20 16:01 Urine Appearance Clear (Clear) 10/05/20 16:01 Urine pH 5.0 (5.0-8.0) 10/05/20 16:01 Ur Specific [place] 1.022 (1.001-1.035) 10/05/20 16:01 Urine Protein Trace (Negative) H 10/05/20 16:01 Urine Glucose (UA) 1+ (Negative) H 10/05/20 16:01 Urine Ketones Negative (Negative) 10/05/20 16: Urine Blood Negative (Negative) 10/05/20 16: Urine Nitrite Negative (Negative) 10/05/20 16:01 Urine Bilirubin Negative (Negative) 10/05/20 16: Urine Urobilinogen <2.0 mg/dL (<2.0) 10/05/20 16:01 Ur Leukocyte Esterase Negative (Negative) 10/05/20 16: Blood Type A Negative 10/05/20 15:45 Blood Type Recheck A Neg 10/05/20 15:45 Bld Type Recheck Status No 10/05/20 15:45 Antibody Screen NEGATIVE 10/05/20 15:45 Spec Expiration Date 10/08/2020234410/05/20 15:45 Thrombosis Risk Factor Assmnt - DVT/VTE Prophylaxis DVT/VTE Prophylaxis: Pharmacologic Prophylaxis ordered - Choose All That Apply Any of the Below Risk Factors Present?: Yes Each Factor Represents 1 point: Abnormal pulmonary function (COPD), Medical pt on bed rest, Serious lung disease incl. pneumonia (< 1month) Other Risk Factors: Yes Each Risk Factor Represents 2 Points: Age 61-74 years Thrombosis Risk Factor Assessment Total Risk Factor Score: 5 Thrombosis Risk Factor Assessment Level: High Risk Assessment and Plan Plan: 1 acute Covid pneumonitis with suspected coinfection with facility acquired pneumonia, possible aspiration pneumonia, secondary to debility.: With failure to outpatient treatment, and relapse from last week with much worsening hypoxia, chest x-ray and CTA of the chest consistent with Covid pneumonitis, negative for PE patient completed Remdisevir during last September 25 admission, restart Decadron 6 mg daily, O2, updraft treatment zinc vitamin D vitamin C. ID consultation be done. Sputum culture, cefepime and Vanco, 2 severe hypoxia elevated d-dimer, negative for PE: Secondary to Covid pneumonitis aspiration pneumonia against facility acquired pneumonia: Patient will be on O2 continue supportive care for now he might require oxygen for the next 4 weeks., 3 facility acquired pneumonia vs aspiration pneumonia 4 type 2 diabetes: Continue patient on Accu-Chek with sliding scales coverage, patient has been on oral hypoglycemic agent along with Lantus and NovoLog. 5 hypertension: Remain on lisinopril 40 mg a day and atenolol 50 mg twice a day. 6 hyperlipidemia: Remain on simvastatin 20 mg daily. 7 atherosclerotic heart disease: Remain on beta brayan, alex and isosorbide. 8 severe GERD/GI prophylaxis: Patient will be on omeprazole or pantoprazole daily. 9 DVT prophylaxis: Patient will be on Lovenox 40 mg subcutaneous daily. CODE STATUS: Full code. Admit patient to the inpatient service for more than 2 night stay. Discharge planning, returning to [facility]
[2020-10-06 20:08] LABS: Glucose,Whole Blood 227 mg/dL (75-99)
[2020-10-06] MEDS ORDERED: NITROGLYCERIN SL TABS 0.4 MG TAB SUBLINGUAL PRN (20:35)
[2020-10-06] MEDS ORDERED: bisacodyL 10 MG SUPP RECTAL PRN (20:35)
[2020-10-06] MEDS ORDERED: MAGNESIUM HYDROXIDE 2,400 MG/10 ML CUP PO PRN (22:00)
[2020-10-06] MEDS ORDERED: ONDANSETRON 4 MG TAB PO PRN (22:00)
[2020-10-06] MEDS: VANCOMYCIN 1,250 MG in SODIUM CHLORIDE 0.9% 250 ML IVPB SCH (22:32)
[2020-10-06] MEDS: INSULIN DETEMIR (LEVEMIR) 100 UNIT/ML SYR SQ SCH (22:32)
[2020-10-06] MEDS: LATANOPROST 0.005% OPHTH DROPS 2.5 ML BTL BOTH EYES SCH (22:38)
[2020-10-06] MEDS: ATORVASTATIN 10 MG TAB PO SCH (22:38)
[2020-10-07] MEDS: ALBUTEROL HFA INHALER INHALATION SCH ×4 (01:38→18:54)
[2020-10-07 06:22] LABS: Glucose,Whole Blood 170 mg/dL (75-99)
[2020-10-07] MEDS: INSULIN ASPART (NovoLOG) 100 UNIT/ML VIAL SQ SCH ×4 (06:39→20:46)
[2020-10-07] MEDS: SODIUM CHLORIDE 0.9% 1,000 ML IV SCH (06:44)
[2020-10-07 07:56] LABS: Basophils % (A) 0 %; Eosinophils # (A) 0.1 k/uL (0-0.7); Eosinophils % (A) 1 %; HCT 21.3 % (39.0-53.0); HGB 7.2 gm/dL (13.0-17.5); Lymphocytes # (A) 0.4 k/uL (1.0-4.8); Lymphocytes % (A) 3 %; MCH 31.2 pg (25.0-35.0); MCHC 33.8 g/dL (31.0-37.0); MCV 92.4 fL (80.0-100.0); Mean Platelet Volume 7.8; Monocytes # (A) 0.5 k/uL (0-1.0); Monocytes % (A) 3 %; Neutrophils # (A) 12.9 k/uL (1.3-7.7); Neutrophils % (A) 93 %; Platelet Count 215 k/uL (150-450); RBC 2.31 m/uL (4.30-5.90); WBC 13.9 k/uL (3.8-10.6)
[2020-10-07] MEDS ORDERED: GLIMEPIRIDE 4 MG TAB PO SCH (08:00)
[2020-10-07 08:08] LABS: ALT 57 U/L (4-49); AST 83 U/L (17-59); African American GFR (CKD) >90 (>60 ml/min/1.73 sqM); Albumin 2.2 g/dL (3.5-5.0); Alkaline Phosphatase 37 U/L (38-126); Anion Gap 0 mmol/L; Blood Urea Nitrogen 26 mg/dL (9-20); Calcium 7.8 mg/dL (8.4-10.2); Carbon Dioxide 26 mmol/L (22-30); Chloride 111 mmol/L (98-107); Glucose 61 mg/dL (74-99); Non-African American GFR(CKD) >90 (>60 ml/min/1.73 sqM); Potassium 4.5 mmol/L (3.5-5.1); Sodium 137 mmol/L (137-145); Total Bilirubin 0.8 mg/dL (0.2-1.3); Total Protein 4.7 g/dL (6.3-8.2)
[2020-10-07] MEDS: PANTOPRAZOLE 40 MG TABLET PO SCH ×2 (09:53→17:52)
[2020-10-07] MEDS: ISOSORBIDE MONONITRATE ER 30 MG TAB.ER.24H PO SCH (09:53)
[2020-10-07] MEDS: dexAMETHasone 4 MG TAB PO SCH ×2 (09:53→17:53)
[2020-10-07] MEDS: CEFEPIME 2 GM in SODIUM CHLORIDE 0.9% 100 ML IVPB SCH ×2 (09:54→17:53)
[2020-10-07] MEDS: atenoloL 50 MG TAB PO SCH ×2 (09:54→17:52)
[2020-10-07] MEDS: lisinopriL 20 MG TAB PO SCH (09:54)
[2020-10-07] MEDS: BRIMONIDINE TARTRATE 0.2% DROPS 5 ML BTL BOTH EYES SCH ×2 (09:55→17:28)
[2020-10-07] MEDS: TIMOLOL 0.5% OPHTH DROPS 5 ML BTL BOTH EYES SCH ×2 (09:55→17:28)
[2020-10-07] MEDS: ENOXAPARIN 30 MG/0.3 ML SYRINGE SQ SCH ×2 (12:19→20:51)
[2020-10-07 12:29] LABS: Glucose,Whole Blood 91 mg/dL (75-99)
[2020-10-07] MEDS: VANCOMYCIN 1,250 MG in SODIUM CHLORIDE 0.9% 250 ML IVPB SCH (12:51)
--- NOTE | 2020-10-07 13:08 | P.PN ---
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 This is a subsequent rehospitalization secondary to hypoxemia, increasing dyspnea, was diagnosed to have Covid this September 20, and readmitted September 25, for increasing dyspnea, weakness, and hypoxemia. Patient resides at [facility], for which they had transferred the patient for hypoxemia, and fatigue, and anorexia. He was transferred from [facility] to the emergency room for the above. Chest x- ray with CTA showed extensive interstitial pulmonary infiltrates that are improved compared to previous examination consistent with resolving interstitial pneumonia, no pulmonary mass, no evidence of pulmonary emboli. Urinalysis is negative, glucose at 222, lactic acid 1.1, pCO2 23, sodium 136, creatinine 1.07 patient admitted for suspected nosocomial infection/pneumonia,, globulin level is normal on 2.6, ferritin still elevated at 3227, ProcalAmine 1.93, worse than previous admission hemoglobin at 8.1, WBC count of 21.7 urinalysis normal October 07: Patient has not been eating, no energy at all, no appetite, patient denies any aspiration, has been noted to have more anasarca at this time, nutritional supplement 3 times a day would be ordered, T-max 98 blood pressure 120 to 1:30, slightly tachypneic consult were made with Dr. Peterson and Tomy No fevers blood sugars are tracking lower secondary to anorexia, hold glimepiride Review of Systems Constitutional: Reports as per HPI, Denies anorexia, Denies chills, Denies chronic headaches, Denies chronic pain, Denies daytime sleepiness, Denies fatigue, Denies fever, Denies lethargy, Denies malaise, Denies night sweats, Denies poor appetite, Denies sweats, Denies weakness, Denies weight gain, Denies weight loss Ears, nose, mouth and throat: Reports as per HPI Cardiovascular: Reports as per HPI, Reports decreased exercise tolerance, Reports dyspnea on exertion Respiratory: Reports as per HPI, Reports cough, Reports dyspnea, Denies congesti on, Denies cough with sputum, Denies excessive sputum, Denies hemoptysis, Denies home oxygen, Denies pain, Denies pain on inspiration, Denies pleurisy, Denies respiratory infections, Denies sleep apnea, Denies snoring, Denies wheezing Gastrointestinal: Reports as per HPI Genitourinary: Reports as per HPI Musculoskeletal: Reports as per HPI, Denies arm numbness/tingling, Denies atrophy, Denies fractures, Denies frequent falls, Denies gait dysfunction, Denies hot joints, Denies leg numbness/tingling, Denies limitation of motion, Denies loss of height, Denies low back pain, Denies morning stiffness, Denies muscle cramps, Denies muscle weakness, Denies myalgias, Denies neck pain, Denies neck stiffness, Denies prior amputations, Denies redness of joints, Denies shooting arm pain, Denies shooting leg pain Integumentary: Reports as per HPI Objective - Vital Signs Vital signs: Vital Signs Temp 97.6 F 10/07/20 08:00 Pulse 76 10/07/20 08:00 Resp 22 10/07/20 08:00 BP 129/66 10/07/20 08:00 Pulse Ox 99 10/07/20 08:00 Intake & Output 10/06/20 10/07/20 10/07/20 18:59 06:59 18:59 Intake Total 1172 240 50 Output Total 600 275 270 Balance 572 35 220 Weight 74.571 kg 71 kg Intake: Intake, IV Titration 700 Amount Cefepime 2 gm In Sodium 200 Chloride 0.9% 100 ml @ 25 mls/hr IVPB Q8HR DELFINO Rx# :[id number] Sodium Chloride 0.9% 1, 500 000 ml @ 100 mls/hr IV . Q10H DELFINO Rx#:[id number] Oral 472 240 50 Output: Urine 600 275 270 Other: Voiding Method Urinal Urinal Urinal Diaper Diaper Diaper # Voids 1 1 - Constitutional General appearance: Present: cooperative, no acute distress - EENT Eyes: Present: anicteric sclerae, EOMI, dentition normal ENT: Present: NA/AT, normal oropharynx - Respiratory Respiratory: bilateral: diminished, negative: dullness, prolonged expiration, prolonged inspiration - Cardiovascular Rhythm: regular Heart sounds: normal: S1, S2 Abnormal Heart Sounds: Absent: systolic murmur, diastolic murmur, rub, S3 Gallop, S4 Gallop, click, other - Neurologic Neurologic: Present: CNII-XII intact - Musculoskeletal Musculoskeletal: Present: generalized weakness - Psychiatric Psychiatric: Present: A&O x's 3, appropriate affect - Labs CBC & Chem 7: 10/07/20 07:07 10/07/20 07:07 Labs: Abnormal Lab Results - Last 24 Hours (Table) 10/06/20 10/06/20 10/06/20 Range/Units 11:42 16:53 20:05 WBC (3.8-10.6) k/uL RBC (4.30-5.90) m/uL Hgb (13.0-17.5) gm/dL Hct (39.0-53.0) % Neutrophils # (1.3-7.7) k/uL Lymphocytes # (1.0-4.8) k/uL Chloride (98-107) mmol/L BUN (9-20) mg/dL Glucose (74-99) mg/dL POC Glucose (mg/dL) 316 H 258 H 227 H (75-99) mg/dL Calcium (8.4-10.2) mg/dL AST (17-59) U/L ALT (4-49) U/L Alkaline Phosphatase (38-126) U/L Total Protein (6.3-8.2) g/dL Albumin (3.5-5.0) g/dL 10/07/20 10/07/20 10/07/20 Range/Units 06:20 07:07 07:07 WBC 13.9 H (3.8-10.6) k/uL RBC 2.31 L (4.30-5.90) m/uL Hgb 7.2 L (13.0-17.5) gm/dL Hct 21.3 L (39.0-53.0) % Neutrophils # 12.9 H (1.3-7.7) k/uL Lymphocytes # 0.4 L (1.0-4.8) k/uL Chloride 111 H (98-107) mmol/L BUN 26 H (9-20) mg/dL Glucose 61 L (74-99) mg/dL POC Glucose (mg/dL) 170 H (75-99) mg/dL Calcium 7.8 L (8.4-10.2) mg/dL AST 83 H (17-59) U/L ALT 57 H (4-49) U/L Alkaline Phosphatase 37 L (38-126) U/L Total Protein 4.7 L (6.3-8.2) g/dL Albumin 2.2 L (3.5-5.0) g/dL Microbiology - Last 24 Hours (Table) 10/05/20 15:40 Blood Culture - Preliminary Blood No Growth after 24 hours Assessment and Plan Plan: 1 acute Covid pneumonitis with suspected coinfection with facility acquired pneumonia, possible aspiration pneumonia, secondary to debility.: With failure to outpatient treatment, and relapse from last week with much worsening hypoxia, chest x-ray and CTA of the chest consistent with Covid pneumonitis, negative for PE patient completed Remdisevir during last September 25 admission, restart Decadron 6 mg daily, O2, updraft treatment zinc vitamin D vitamin C. ID consultation be done. Sputum culture, cefepime and Vanco, 2 severe hypoxia elevated d-dimer, negative for PE: Secondary to Covid pneumonitis aspiration pneumonia against facility acquired pneumonia: Patient will be on O2 continue supportive care for now he might require oxygen for the next 4 weeks., 3 facility acquired pneumonia vs aspiration pneumonia 4 type 2 diabetes: Continue patient on Accu-Chek with sliding scales coverage, patient has been on oral hypoglycemic agent along with Lantus and NovoLog. 5 hypertension: Remain on lisinopril 40 mg a day and atenolol 50 mg twice a day. 6 hyperlipidemia: Remain on simvastatin 20 mg daily. 7 atherosclerotic heart disease: Remain on beta brayan, alex and isosorbide. 8 severe GERD/GI prophylaxis: Patient will be on omeprazole or pantoprazole joe ly. 9 DVT prophylaxis: Patient will be on Lovenox 40 mg subcutaneous daily. CODE STATUS: Full code. Admit patient to the inpatient service for more than 2 night stay. Discharge planning, returning to [facility]
[2020-10-07 17:07] LABS: Glucose,Whole Blood 176 mg/dL (75-99)
[2020-10-07] MEDS: ASPIRIN 81 MG PO SCH (17:52)
[2020-10-07] MEDS: ZINC SULFATE 220 MG CAP PO SCH (17:52)
[2020-10-07] MEDS: FOLIC ACID 1 MG TAB PO SCH (17:52)
[2020-10-07] MEDS: AZITHROMYCIN 500 MG TAB PO SCH (17:52)
[2020-10-07] MEDS: ASCORBIC ACID 500 MG TAB PO SCH (17:52)
[2020-10-07] MEDS: BUDESONIDE 1 MG/2 ML NEBU INHALATION SCH (18:55)
[2020-10-07 19:31] LABS: Glucose,Whole Blood 205 mg/dL (75-99)
[2020-10-07] MEDS: INSULIN DETEMIR (LEVEMIR) 100 UNIT/ML SYR SQ SCH (20:46)
[2020-10-07] MEDS: ATORVASTATIN 10 MG TAB PO SCH (20:47)
[2020-10-07] MEDS: MELATONIN 3 MG TABLET PO SCH (20:47)
[2020-10-07] MEDS: LATANOPROST 0.005% OPHTH DROPS 2.5 ML BTL BOTH EYES SCH (21:00)
[2020-10-08] MEDS: VANCOMYCIN 1,250 MG in SODIUM CHLORIDE 0.9% 250 ML IVPB SCH ×3 (00:51→23:30)
[2020-10-08] MEDS: ALBUTEROL HFA INHALER INHALATION SCH ×4 (01:05→19:04)
[2020-10-08 06:26] LABS: Glucose,Whole Blood 217 mg/dL (75-99)
[2020-10-08] MEDS: CEFEPIME 2 GM in SODIUM CHLORIDE 0.9% 100 ML IVPB SCH ×2 (06:41→17:27)
[2020-10-08] MEDS: INSULIN ASPART (NovoLOG) 100 UNIT/ML VIAL SQ SCH ×4 (06:41→21:37)
[2020-10-08] MEDS: SODIUM CHLORIDE 0.9% 1,000 ML IV SCH ×3 (06:47→17:01)
--- NOTE | 2020-10-08 06:48 | CONS ---
CONSULTATION DATE OF SERVICE: 10/07/2020 REASON FOR CONSULTATION: Nosocomial pneumonia. HISTORY OF PRESENT ILLNESS: The patient is a 75-year-old male who was recently admitted to this facility with COVID-19 pneumonia for which the patient was treated with remdesivir, along with steroids and Lovenox. The patient was subsequently discharged to the assisted. The patient has been brought back to the hospital with concern for increasing weakness, shortness of breath and hypoxemia along with anorexia. The patient was brought to the hospital on 10/05/2020. On arrival to the ER, the patient was afebrile. The patient did have O2 saturation of 98% on supplemental oxygen. The patient did have a white count of 21.7. Kidney function was normal. Liver enzymes are elevated. Procalcitonin elevated 1.93. The patient did have a chest x-ray which shows bibasilar infiltrate greater at the right base can be compatible with atypical pneumonia. He also have a CT angiogram of the chest on admission which shows extensive interstitial pulmonary infiltrate improved compared to last exam consistent with resolving interstitial pneumonia. No suspicion for pulmonary mass. Infectious Disease was consulted today with concern for COVID pneumonia and have at the time of my evaluation the patient says he wants to sleep, when asked specifically the patient denies having any chest pain. He did have some cough but no sputum production. No nausea, no vomiting. No abdominal pain or diarrhea. REVIEW OF SYSTEMS: Positive points have been mentioned in HPI. Rest of the systems are negative. PAST MEDICAL HISTORY: Recent admission for COVID-19 pneumonia, history of diabetes, gastroesophageal reflux disease, hyperlipidemia, hypertension. PAST SURGICAL HISTORY: Appendectomy, heart catheterization, colonoscopy. SOCIAL HISTORY: Remote history of smoking. Rarely drinks. No drug use. FAMILY HISTORY: Mother history of breast cancer. Father from [place]. ALLERGIES: CYCLOBENZAPRINE, DOXYCYCLINE, METFORMIN, PENICILLIN. MEDICATIONS: Medications include the patient is currently on Tylenol, Ventolin, vitamin C, aspirin, Tenormin, Lipitor, Zithromax, Dulcolax, cefepime 2 grams q.8, dexamethasone, Lovenox, Levemir, vancomycin and zinc sulfate. PHYSICAL EXAMINATION: Blood pressure 114/55, pulse of 94, temperature 97.9. He is 98% on 10 L high-flow oxygen. General description is an elderly male up in the bed in no distress. No tachypnea or accessory muscle of respiration use. HEENT: Examination is slight pallor. No scleral icterus. Oral mucous membrane is moist. NECK: Trachea central. No thyromegaly. LUNGS: Unlabored breathing, decreased breath sounds at the bases. No wheeze. HEART: S1, S2. Regular rate and rhythm. ABDOMEN: Soft, no tenderness. No guarding or rigidity. EXTREMITIES: No edema of the feet. SKIN EXAMINATION: No rash or mass palpable. NEUROLOGICAL: Patient is awake, alert, oriented x2. Mood and affect normal. LABS: BUN of 26, creatinine 0.75. Liver enzymes are elevated. Hemoglobin is 7.2. Admission white blood count 21.7 down to 13.9. Did have elevated procalcitonin. DIAGNOSTIC IMPRESSION AND PLAN: Patient admitted to the hospital with increasing shortness of breath, hypoxemia, did have elevated white count with concern for nosocomial pneumonia. This patient was recently admitted to the hospital for COVID-19 infection. The patient's white count did respond to antibiotic and he did have elevated procalcitonin, concern for possible pneumonia, though CT did not show any significant consolidation rather showed improvement in the interstitial infiltrate. PLAN: 1. We will try to obtain a sputum for Gram stain, cultures and sensitivity. 2. Continue with cefepime though dose should be adjusted to q.12 hours as the patient is not neutropenic. 3. Vancomycin to continue while watching his kidney function closely. 4. We will follow on clinical condition and culture to further adjust medication if needed. Thank you for this consultation. Will follow this patient along with you. MMODL / IJN: [id number] /
[2020-10-08] MEDS: ACETAMINOPHEN TAB 325 MG TAB PO PRN ×2 (08:03→17:20)
[2020-10-08] MEDS: dexAMETHasone 4 MG TAB PO SCH ×2 (08:04→17:09)
[2020-10-08] MEDS: atenoloL 50 MG TAB PO SCH ×2 (08:04→17:09)
[2020-10-08] MEDS: ENOXAPARIN 30 MG/0.3 ML SYRINGE SQ SCH ×2 (08:04→21:37)
[2020-10-08] MEDS: lisinopriL 20 MG TAB PO SCH (08:04)
[2020-10-08] MEDS: PANTOPRAZOLE 40 MG TABLET PO SCH ×2 (08:04→17:09)
[2020-10-08] MEDS: ISOSORBIDE MONONITRATE ER 30 MG TAB.ER.24H PO SCH (08:04)
[2020-10-08 08:50] LABS: Basophils % (A) 0 %; Eosinophils % (A) 0 %; HCT 20.7 % (39.0-53.0); Lymphocytes # (A) 0.4 k/uL (1.0-4.8); Lymphocytes % (A) 3 %; MCH 31.4 pg (25.0-35.0); MCHC 33.7 g/dL (31.0-37.0); MCV 93.2 fL (80.0-100.0); Mean Platelet Volume 9.3; Monocytes # (A) 1.2 k/uL (0-1.0); Monocytes % (A) 10 %; Neutrophils % (A) 87 %; Platelet Count 241 k/uL (150-450); RBC 2.22 m/uL (4.30-5.90); RDW 13.1 % (11.5-15.5); WBC 12.7 k/uL (3.8-10.6)
[2020-10-08 09:01] LABS: ALT 62 U/L (4-49); AST 67 U/L (17-59); African American GFR (CKD) >90 (>60 ml/min/1.73 sqM); Albumin 2.3 g/dL (3.5-5.0); Alkaline Phosphatase 40 U/L (38-126); Anion Gap 2 mmol/L; Blood Urea Nitrogen 28 mg/dL (9-20); C Reactive Protein 25.9 mg/L (<10.0); Calcium 7.9 mg/dL (8.4-10.2); Carbon Dioxide 24 mmol/L (22-30); Chloride 109 mmol/L (98-107); Glucose 163 mg/dL (74-99); LDH 897 U/L (313-618); Non-African American GFR(CKD) >90 (>60 ml/min/1.73 sqM); Potassium 4.5 mmol/L (3.5-5.1); Sodium 135 mmol/L (137-145); Total Bilirubin 0.7 mg/dL (0.2-1.3); Total Protein 4.7 g/dL (6.3-8.2)
[2020-10-08 09:10] LABS: Immunoglobulin M 50.2 mg/dL (40.0-280.0)
[2020-10-08] MEDS: BUDESONIDE 1 MG/2 ML NEBU INHALATION SCH ×2 (09:22→19:04)
[2020-10-08] MEDS: BRIMONIDINE TARTRATE 0.2% DROPS 5 ML BTL BOTH EYES SCH ×2 (09:54→17:09)
[2020-10-08] MEDS: TIMOLOL 0.5% OPHTH DROPS 5 ML BTL BOTH EYES SCH ×2 (09:54→17:09)
[2020-10-08] MEDS ORDERED: VANCOMYCIN TROUGH DUE 1 EACH MISC MISCELLANE ONE (11:00)
--- NOTE | 2020-10-08 11:34 | P.PN ---
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 This is a subsequent rehospitalization secondary to hypoxemia, increasing dyspnea, was diagnosed to have Covid this September 20, and readmitted September 25, for increasing dyspnea, weakness, and hypoxemia. Patient resides at [facility], for which they had transferred the patient for hypoxemia, and fatigue, and anorexia. He was transferred from [facility] to the emergency room for the above. Chest x- ray with CTA showed extensive interstitial pulmonary infiltrates that are improved compared to previous examination consistent with resolving interstitial pneumonia, no pulmonary mass, no evidence of pulmonary emboli. Urinalysis is negative, glucose at 222, lactic acid 1.1, pCO2 23, sodium 136, creatinine 1.07 patient admitted for suspected nosocomial infection/pneumonia,, globulin level is normal on 2.6, ferritin still elevated at 3227, ProcalAmine 1.93, worse than previous admission hemoglobin at 8.1, WBC count of 21.7 urinalysis normal October 07: Patient has not been eating, no energy at all, no appetite, patient denies any aspiration, has been noted to have more anasarca at this time, nutritional supplement 3 times a day would be ordered, T-max 98 blood pressure 120 to 1:30, slightly tachypneic consult were made with Dr. Peterson and Tomy No fevers blood sugars are tracking lower secondary to anorexia, hold glimepiride 10/08: REVIEW OF SYSTEMS Constitutional: Denies anorexia, Denies chills, Denies chronic headaches, Denies chronic pain, Denies daytime sleepiness, reports fatigue, Denies fever, reports lethargy, reports malaise, Denies night sweats, reports poor appetite, Denies sweats, reportsweakness, Denies weight gain, Denies weight loss Ears, nose, mouth and throat: No sore throat. Cardiovascular: Reports decreased exercise tolerance, Reports dyspnea on exertion Respiratory: Reports cough, Reports dyspnea, Denies congestion, Denies cough with sputum, Denies excessive sputum, Denies hemoptysis, reports home oxygen, Denies pain, Denies pain on inspiration, Denies pleurisy, Denies respiratory infections, Denies sleep apnea, Denies snoring, Denies wheezing Gastrointestinal: No abdominal pain, no nausea, no vomiting, no diarrhea Genitourinary: No urinary retention, no dysuria Musculoskeletal: Denies arm numbness/tingling, Denies atrophy, Denies fractures, Denies frequent falls, reports gait dysfunction, Denies hot joints, Denies leg numbness/tingling, Denies limitation of motion, Denies loss of height, Denies low back pain, Denies morning stiffness, Denies muscle cramps, Denies muscle weakness, Denies myalgias, Denies neck pain, Denies neck stiffness, Denies prior amputations, Denies redness of joints, Denies shooting arm pain, Denies shooting leg pain Integumentary: No rash, no wounds PHYSICAL EXAMINATION Gen: This is a 75-year-old male. Patient is resting in bed and appears to be very fatigued and weak HEENT: Head is atraumatic, normocephalic. Pupils equal, round. Sclerae is anicteric. Dry mucous membranes. NECK: Supple. No JVD. No lymphadenopathy. No thyromegaly. LUNGS: Mild rhonchi bilaterally. No intercostal retractions. HEART: Regular rate and rhythm. No murmur. ABDOMEN: Soft. Bowel sounds are present. No masses. No tenderness. EXTREMITIES: No pedal edema. No calf tenderness. Dorsalis pedis palpable bilaterally. NEUROLOGICAL: Patient is awake, alert and oriented x3. Cranial nerves 2 through 12 are grossly intact. ASSESSMENT AND PLAN 1. Acute Covid pneumonitis with suspected coinfection with facility acquired pneumonia, possible aspiration pneumonia, secondary to debility with failure of outpatient treatment, and relapse from last week with much worsening hypoxia, chest x-ray and CTA of the chest consistent with Covid pneumonitis, negative for PE patient completed Remdisevir during last September 25 admission, restart Decadron 6 mg daily, O2, updraft treatment zinc vitamin D vitamin C. ID consultation be done. Sputum culture, cefepime and Vanco, 2. Acute on chronic hypoxic respiratory failure secondary to Covid pneumonia with possible aspiration pneumonia. Continue oxygen therapy and antibiotics. 3. Possible gram-negative pneumonia versus aspiration pneumonia. Continue cefepime and vancomycin. ID consult appreciated. 4. Diabetes mellitus type 2. Continue Levemir 15 units at bedtime and insulin scale before meals and at bedtime. 5. Hypertension. Continue lisinopril 40 mg a day and atenolol 50 mg twice a day. 6. Hyperlipidemia. Continue statin. 7. Atherosclerotic heart disease: Remain on beta brayan, alex and isosorbide. 8. Severe GERD/GI prophylaxis: Patient will be on omeprazole or pantoprazole daily. 9. DVT prophylaxis: Patient will be on Lovenox 40 mg subcutaneous daily. CODE STATUS: NO code. DISCHARGE PLAN Return to [facility]. Impression and plan of care have been directed as dictated by the signing physician. Cathy Walker nurse practitioner acting as scribe for signing physician. Objective - Vital Signs Vital signs: Vital Signs Temp 98.2 F 10/08/20 08:00 Pulse 84 10/08/20 08:00 Resp 18 10/08/20 08:00 BP 133/84 10/08/20 08:00 Pulse Ox 95 10/08/20 08:00 Intake & Output 10/07/20 10/08/20 10/08/20 18:59 06:59 18:59 Intake Total 1010 0 Output Total 320 240 Balance 690 -240 Weight 74 kg Intake: Oral 1010 0 Output: Urine 320 240 Other: Voiding Method Urinal Urinal Diaper Diaper # Voids 1 1 - Labs CBC & Chem 7: 10/08/20 07:37 10/08/20 07:37 Labs: Abnormal Lab Results - Last 24 Hours (Table) 10/07/20 10/07/20 10/08/20 Range/Units 17:02 19:24 06:25 WBC (3.8-10.6) k/uL RBC (4.30-5.90) m/uL Hgb (13.0-17.5) gm/dL Hct (39.0-53.0) % Neutrophils # (1.3-7.7) k/uL Lymphocytes # (1.0-4.8) k/uL Monocytes # (0-1.0) k/uL Sodium (137-145) mmol/L Chloride (98-107) mmol/L BUN (9-20) mg/dL Glucose (74-99) mg/dL POC Glucose (mg/dL) 176 H 205 H 217 H (75-99) mg/dL Calcium (8.4-10.2) mg/dL AST (17-59) U/L ALT (4-49) U/L Lactate Dehydrogenase (313-618) U/L C-Reactive Protein (<10.0) mg/L Total Protein (6.3-8.2) g/dL Albumin (3.5-5.0) g/dL 10/08/20 10/08/20 Range/Units 07:37 07:37 WBC 12.7 H (3.8-10.6) k/uL RBC 2.22 L (4.30-5.90) m/uL Hgb 7.0 L (13.0-17.5) gm/dL Hct 20.7 L (39.0-53.0) % Neutrophils # 11.0 H (1.3-7.7) k/uL Lymphocytes # 0.4 L (1.0-4.8) k/uL Monocytes # 1.2 H (0-1.0) k/uL Sodium 135 L (137-145) mmol/L Chloride 109 H (98-107) mmol/L BUN 28 H (9-20) mg/dL Glucose 163 H (74-99) mg/dL POC Glucose (mg/dL) (75-99) mg/dL Calcium 7.9 L (8.4-10.2) mg/dL AST 67 H (17-59) U/L ALT 62 H (4-49) U/L Lactate Dehydrogenase 897 H (313-618) U/L C-Reactive Protein 25.9 H (<10.0) mg/L Total Protein 4.7 L (6.3-8.2) g/dL Albumin 2.3 L (3.5-5.0) g/dL Microbiology - Last 24 Hours (Table) 10/05/20 15:40 Blood Culture - Preliminary Blood No Growth after 48 hours
[2020-10-08 12:26] LABS: Glucose,Whole Blood 210 mg/dL (75-99)
[2020-10-08] MEDS: AZITHROMYCIN 500 MG TAB PO SCH (17:08)
[2020-10-08] MEDS: CHOLECALCIFEROL 1,000 UNIT TAB PO SCH (17:08)
[2020-10-08] MEDS: ASPIRIN 81 MG PO SCH (17:08)
[2020-10-08] MEDS: FOLIC ACID 1 MG TAB PO SCH (17:09)
[2020-10-08] MEDS: ZINC SULFATE 220 MG CAP PO SCH (17:09)
[2020-10-08] MEDS: ASCORBIC ACID 500 MG TAB PO SCH (17:09)
[2020-10-08 17:51] LABS: Glucose,Whole Blood 161 mg/dL (75-99)
[2020-10-08 20:19] LABS: Glucose,Whole Blood 182 mg/dL (75-99)
[2020-10-08] MEDS: MELATONIN 3 MG TABLET PO SCH (21:31)
[2020-10-08] MEDS: ATORVASTATIN 10 MG TAB PO SCH (21:32)
[2020-10-08] MEDS: INSULIN DETEMIR (LEVEMIR) 100 UNIT/ML SYR SQ SCH (21:37)
[2020-10-08] MEDS: LATANOPROST 0.005% OPHTH DROPS 2.5 ML BTL BOTH EYES SCH (21:38)
--- NOTE | 2020-10-08 23:33 | PN ---
PROGRESS NOTE DATE OF SERVICE: 10/08/2020 REASON FOR FOLLOWUP: COVID-19 infection and possible nosocomial pneumonia. INTERVAL HISTORY: The patient is currently afebrile. The patient is breathing comfortably. Denies having any chest pain. Minimal cough. No nausea, no vomiting. No abdominal pain, no diarrhea. PHYSICAL EXAMINATION: Blood pressure 113/63 with a pulse of 74, temperature 97.9. He is 98% on 6 L nasal cannula. General description is an elderly male lying in bed in no distress. RESPIRATORY SYSTEM: Unlabored breathing, decreased intensity of breath sounds, no wheeze. HEART: S1, S2. Regular rate and rhythm. ABDOMEN: Soft, no tenderness. LABS: Hemoglobin 7, white count 12.7, BUN of 28, creatinine 0.76. Vancomycin trough 16.2. DIAGNOSTIC IMPRESSION AND PLAN: Patient admitted to the hospital with increasing shortness of breath, hypoxemia with infiltrate in this patient recently treated for COVID-19 infection. The patient is currently covered with vancomycin and cefepime to continue. Will try to obtain a sputum to narrow down his antibiotics and continue supportive care. MMODL / IJN: [id number] /
[2020-10-09] MEDS: ALBUTEROL HFA INHALER INHALATION SCH ×4 (01:22→20:02)
[2020-10-09] MEDS: SODIUM CHLORIDE 0.9% 1,000 ML IV SCH ×2 (05:20→17:50)
[2020-10-09] MEDS: CEFEPIME 2 GM in SODIUM CHLORIDE 0.9% 100 ML IVPB SCH ×2 (06:23→17:47)
[2020-10-09 06:29] LABS: Glucose,Whole Blood 83 mg/dL (75-99)
[2020-10-09 06:29] LABS: Glucose,Whole Blood 49 mg/dL (75-99)
[2020-10-09] MEDS: INSULIN ASPART (NovoLOG) 100 UNIT/ML VIAL SQ SCH ×4 (06:43→21:00)
[2020-10-09] MEDS ORDERED: DEXTROSE 5%-0.45% NACL 1,000 ML IV SCH (07:15)
[2020-10-09] MEDS: BUDESONIDE 1 MG/2 ML NEBU INHALATION SCH ×2 (07:44→20:02)
[2020-10-09 08:52] LABS: Basophils % (A) 0 %; Eosinophils % (A) 0 %; HCT 24.9 % (39.0-53.0); Lymphocytes # (A) 0.3 k/uL (1.0-4.8); Lymphocytes % (A) 3 %; MCH 32.1 pg (25.0-35.0); MCHC 34.4 g/dL (31.0-37.0); MCV 93.4 fL (80.0-100.0); Mean Platelet Volume 8.1; Monocytes # (A) 0.5 k/uL (0-1.0); Monocytes % (A) 4 %; Neutrophils # (A) 10.6 k/uL (1.3-7.7); Neutrophils % (A) 92 %; Platelet Count 221 k/uL (150-450); RBC 2.67 m/uL (4.30-5.90); RDW 13.6 % (11.5-15.5); WBC 11.5 k/uL (3.8-10.6)
[2020-10-09 08:55] LABS: HGB 8.6 gm/dL (13.0-17.5)
[2020-10-09 09:04] LABS: African American GFR (CKD) >90 (>60 ml/min/1.73 sqM); Anion Gap -1 mmol/L; Blood Urea Nitrogen 27 mg/dL (9-20); Calcium 7.9 mg/dL (8.4-10.2); Carbon Dioxide 27 mmol/L (22-30); Chloride 106 mmol/L (98-107); Glucose 158 mg/dL (74-99); Non-African American GFR(CKD) >90 (>60 ml/min/1.73 sqM); Potassium 4.6 mmol/L (3.5-5.1); Sodium 132 mmol/L (137-145)
[2020-10-09] MEDS: ISOSORBIDE MONONITRATE ER 30 MG TAB.ER.24H PO SCH (09:27)
[2020-10-09] MEDS: atenoloL 50 MG TAB PO SCH ×2 (09:27→17:46)
[2020-10-09] MEDS: PANTOPRAZOLE 40 MG TABLET PO SCH ×2 (09:27→17:46)
[2020-10-09] MEDS: dexAMETHasone 4 MG TAB PO SCH ×2 (09:28→17:46)
[2020-10-09] MEDS: ENOXAPARIN 30 MG/0.3 ML SYRINGE SQ SCH ×2 (09:28→21:03)
[2020-10-09] MEDS: lisinopriL 20 MG TAB PO SCH (09:28)
[2020-10-09] MEDS: BRIMONIDINE TARTRATE 0.2% DROPS 5 ML BTL BOTH EYES SCH ×2 (09:33→17:50)
[2020-10-09] MEDS: TIMOLOL 0.5% OPHTH DROPS 5 ML BTL BOTH EYES SCH ×2 (09:33→17:50)
[2020-10-09 11:56] LABS: Glucose,Whole Blood 103 mg/dL (75-99)
[2020-10-09] MEDS: ESCITALOPRAM 5 MG TAB PO SCH (13:20)
[2020-10-09] MEDS: VANCOMYCIN 1,250 MG in SODIUM CHLORIDE 0.9% 250 ML IVPB SCH ×2 (13:20→23:05)
--- NOTE | 2020-10-09 13:57 | P.PN ---
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 This is a subsequent rehospitalization secondary to hypoxemia, increasing dyspnea, was diagnosed to have Covid this September 20, and readmitted September 25, for increasing dyspnea, weakness, and hypoxemia. Patient resides at [facility], for which they had transferred the patient for hypoxemia, and fatigue, and anorexia. He was transferred from [facility] to the emergency room for the above. Chest x- ray with CTA showed extensive interstitial pulmonary infiltrates that are improved compared to previous examination consistent with resolving interstitial pneumonia, no pulmonary mass, no evidence of pulmonary emboli. Urinalysis is negative, glucose at 222, lactic acid 1.1, pCO2 23, sodium 136, creatinine 1.07 patient admitted for suspected nosocomial infection/pneumonia,, globulin level is normal on 2.6, ferritin still elevated at 3227, ProcalAmine 1.93, worse than previous admission hemoglobin at 8.1, WBC count of 21.7 urinalysis normal October 07: Patient has not been eating, no energy at all, no appetite, patient denies any aspiration, has been noted to have more anasarca at this time, nutritional supplement 3 times a day would be ordered, T-max 98 blood pressure 120 to 1:30, slightly tachypneic consult were made with Dr. Peterson and Tomy 10/08: Patient denies having any abdominal pain, nausea or vomiting. No diarrhea. Patient continues to have difficulty breathing with cough. He has been afebrile, heart rate 75, blood pressure 140/74, pulse ox 95% on 6 L nasal cannula. Repeat blood work reveals the previously 11.5, hemoglobin 8.6. Hemoglobin yesterday was 7 and he received 1 unit of packed RBCs. Sodium 132, potassium 4.6, creatinine 0.72. Patient was hypoglycemic this morning with a blood sugar of 49, currently 103. Insulins will be adjusted. Levemir will be decreased to 10 units at bedtime. Patient was evaluated by speech therapy with recommendations for nectar thick liquids, chopped diet and aspiration precautions. REVIEW OF SYSTEMS Constitutional: Denies anorexia, Denies chills, Denies chronic headaches, Denies chronic pain, Denies daytime sleepiness, reports fatigue, Denies fever, reports lethargy, reports malaise, Denies night sweats, reports poor appetite, Denies sweats, reportsweakness, Denies weight gain, Denies weight loss Ears, nose, mouth and throat: No sore throat. Dysphagia. Cardiovascular: Reports decreased exercise tolerance, Reports dyspnea on exertion Respiratory: Reports cough, Reports dyspnea, Denies congestion, Denies cough with sputum, Denies excessive sputum, Denies hemoptysis, reports home oxygen, Denies pain, Denies pain on inspiration, Denies pleurisy, Denies respiratory infections, Denies sleep apnea, Denies snoring, Denies wheezing Gastrointestinal: No abdominal pain, no nausea, no vomiting, no diarrhea Genitourinary: No urinary retention, no dysuria Musculoskeletal: Denies arm numbness/tingling, Denies atrophy, Denies fractures, Denies frequent falls, reports gait dysfunction, Denies hot joints, Denies leg numbness/tingling, Denies limitation of motion, Denies loss of height, Denies low back pain, Denies morning stiffness, Denies muscle cramps, Denies muscle weakness, Denies myalgias, Denies neck pain, Denies neck stiffness, Denies prior amputations, Denies redness of joints, Denies shooting arm pain, Denies shooting leg pain, reports generalized weakness. Integumentary: No rash, no wounds PHYSICAL EXAMINATION Gen: This is a 75-year-old male. Patient is resting in bed and appears to be fatigued and weak HEENT: Head is atraumatic, normocephalic. Pupils equal, round. Sclerae is anicteric. Dry mucous membranes. NECK: Supple. No JVD. No lymphadenopathy. No thyromegaly. LUNGS: Mild rhonchi bilaterally. No intercostal retractions. HEART: Regular rate and rhythm. No murmur. ABDOMEN: Soft. Bowel sounds are present. No masses. No tenderness. EXTREMITIES: No pedal edema. No calf tenderness. Dorsalis pedis palpable teri aterally. NEUROLOGICAL: Patient is awake, alert and oriented x3. Cranial nerves 2 through 12 are grossly intact. ASSESSMENT AND PLAN 1. Acute Covid pneumonitis with suspected coinfection with facility acquired pneumonia, possible aspiration pneumonia, secondary to debility with failure of outpatient treatment, and relapse from last week with much worsening hypoxia, chest x-ray and CTA of the chest consistent with Covid pneumonitis, negative for PE patient completed Remdisevir during last September 25 admission, restart Decadron 4 mg twice daily, O2, updraft treatment zinc vitamin D vitamin C. ID consultation be done. Sputum culture, cefepime and Vanco, 2. Acute on chronic hypoxic respiratory failure secondary to Covid pneumonia with possible aspiration pneumonia. Continue oxygen therapy and antibiotics. 3. Possible gram-negative pneumonia versus aspiration pneumonia. Continue cefepime and vancomycin. ID consult appreciated. 4. Diabetes mellitus type 2. Continue Levemir 15 units at bedtime and insulin scale before meals and at bedtime. 5. Hypertension. Continue lisinopril 40 mg a day and atenolol 50 mg twice a day. 6. Hyperlipidemia. Continue statin. 7. Atherosclerotic heart disease: Remain on beta brayan, alex and isosorbide. 8. Severe GERD/GI prophylaxis: Patient will be on omeprazole or pantoprazole daily. 9. DVT prophylaxis: Patient will be on Lovenox 40 mg subcutaneous daily. 10. Anemia of unclear etiology. No sign of active bleeding. Stool for occult blood ordered. Patient is status post transfusion 1 unit of packed RBCs. CODE STATUS: NO code. DISCHARGE PLAN Return to [facility]. Impression and plan of care have been directed as dictated by the signing physician. Cathy Walker nurse practitioner acting as scribe for signing physician. Objective - Vital Signs Vital signs: Vital Signs Temp 97.8 F 10/09/20 05:19 Pulse 68 10/09/20 05:19 Resp 19 10/09/20 05:19 BP 140/78 10/09/20 05:19 Pulse Ox 95 10/09/20 05:19 Intake & Output 10/08/20 10/09/20 10/09/20 18:59 06:59 18:59 Intake Total 222 360 Output Total 201 Balance 222 159 Weight 74 kg Intake: Intake, IV Titration 30 Amount Sodium Chloride 0.9% 1, 30 000 ml @ 100 mls/hr IV . Q10H [facility] Rx#:[id number] Oral 222 20 Blood Product 310 Rc As-1 Unit 310 [id number] Output: Urine 200 Urine/Stool Mix 1 Other: Voiding Method Urinal Urinal Diaper Diaper # Voids 1 - Labs CBC & Chem 7: 10/09/20 07:48 10/09/20 07:48 Labs: Abnormal Lab Results - Last 24 Hours (Table) 10/07/20 10/08/20 10/08/20 Range/Units 07:07 07:37 12:12 WBC (3.8-10.6) k/uL RBC (4.30-5.90) m/uL Hgb (13.0-17.5) gm/dL Hct (39.0-53.0) % Neutrophils # (1.3-7.7) k/uL Lymphocytes # (1.0-4.8) k/uL Sodium (137-145) mmol/L BUN (9-20) mg/dL Glucose (74-99) mg/dL POC Glucose (mg/dL) 210 H (75-99) mg/dL Calcium (8.4-10.2) mg/dL Procalcitonin 0.20 H (0.02-0.09) ng/mL IgE 194.00 H (0.00-114.00) IU/mL Crossmatch 10/08/20 10/08/20 10/08/20 Range/Units 17:48 20:18 23:53 WBC (3.8-10.6) k/uL RBC (4.30-5.90) m/uL Hgb (13.0-17.5) gm/dL Hct (39.0-53.0) % Neutrophils # (1.3-7.7) k/uL Lymphocytes # (1.0-4.8) k/uL Sodium (137-145) mmol/L BUN (9-20) mg/dL Glucose (74-99) mg/dL POC Glucose (mg/dL) 161 H 182 H (75-99) mg/dL Calcium (8.4-10.2) mg/dL Procalcitonin (0.02-0.09) ng/mL IgE (0.00-114.00) IU/mL Crossmatch See Detail 10/09/20 10/09/20 10/09/20 Range/Units 06:15 07:48 07:48 WBC 11.5 H (3.8-10.6) k/uL RBC 2.67 L (4.30-5.90) m/uL Hgb 8.6 L D (13.0-17.5) gm/dL Hct 24.9 L (39.0-53.0) % Neutrophils # 10.6 H (1.3-7.7) k/uL Lymphocytes # 0.3 L (1.0-4.8) k/uL Sodium 132 L (137-145) mmol/L BUN 27 H (9-20) mg/dL Glucose 158 H (74-99) mg/dL POC Glucose (mg/dL) 49 L (75-99) mg/dL Calcium 7.9 L (8.4-10.2) mg/dL Procalcitonin (0.02-0.09) ng/mL IgE (0.00-114.00) IU/mL Crossmatch Microbiology - Last 24 Hours (Table) 10/05/20 15:40 Blood Culture - Preliminary Blood No Growth after 72 hours
--- NOTE | 2020-10-09 15:15 | P.PN ---
Subjective Progress Note Date: 10/09/20 HISTORY OF PRESENT ILLNESS This is a 75-year-old male, currently being treated for Covid 19 infe ction possible nosocomial pneumonia. He has had shortness of breath and hypoxemia since his previous admission. He states he continued to have a hard time with breathing along with little cough. He denies having any fever or chills. No nausea or vomiting. No diarrhea. No abdominal pain. Some spirometry will be added. Sputum culture to be obtained. Repeat blood work reveals Oliva BC 11.5, hemoglobin 8.6 status post 1 unit of packed RBCs. Lymphocytes 0.3. Creatinine 0.72. PHYSICAL EXAMINATION Gen: This is a 75-year-old male VS: Afebrile, heart rate 75, blood pressure 140/74, pulse ox 95% on 6 L nasal cannula. HEENT: Head is atraumatic, normocephalic. Pupils equal, round. Sclerae is anicteric. NECK: Supple. No JVD. No lymphadenopathy. No thyromegaly. LUNGS: Diminished breath sounds the bases. No wheezes or rhonchi. No intercostal retractions. HEART: Regular rate and rhythm. No murmur. ABDOMEN: Soft. Bowel sounds are present. No masses. No tenderness. EXTREMITIES: No pedal edema. No calf tenderness. NEUROLOGICAL: Patient is awake, alert and oriented x3. Cranial nerves 2 through 12 are grossly intact. ASSESSMENT Covid 19 infection Possible nosocomial or gram-negative pneumonia Acute hypoxic respiratory failure PLAN Continue azithromycin, dexamethasone 4 mg twice daily, Lovenox 30 mg twice daily Continue vancomycin and cefepime Pharmacy to monitor vancomycin levels Continue oxygen therapy and monitor pulse ox closely Incentive spirometry added The above dictated assessment and findings were discussed with Dr. Peterson. The impression and plan of care have been directed as dictated. Cathy Walker nurse practitioner acting as scribe for Dr. Peterson. Objective - Vital Signs Vital signs: Vital Signs Temp 97.8 F 10/09/20 08:45 Pulse 75 10/09/20 08:45 Resp 19 10/09/20 08:45 BP 140/74 10/09/20 08:45 Pulse Ox 95 10/09/20 05:19 Intake & Output 10/08/20 10/09/20 10/09/20 18:59 06:59 18:59 Intake Total 222 360 120 Output Total 201 Balance 222 159 120 Weight 74 kg Intake: Intake, IV Titration 30 Amount Sodium Chloride 0.9% 1, 30 000 ml @ 100 mls/hr IV . Q10H [facility] Rx#:[id number] Oral 222 20 120 Blood Product 310 Rc As-1 Unit 310 [id number] Output: Urine 200 Urine/Stool Mix 1 Other: Voiding Method Urinal Urinal Diaper Diaper Diaper # Voids 1 2 # Bowel Movements 1 - Labs CBC & Chem 7: 10/09/20 07:48 10/09/20 07:48 Labs: Abnormal Lab Results - Last 24 Hours (Table) 10/07/20 10/08/20 10/08/20 Range/Units 07:07 07:37 17:48 WBC (3.8-10.6) k/uL RBC (4.30-5.90) m/uL Hgb (13.0-17.5) gm/dL Hct (39.0-53.0) % Neutrophils # (1.3-7.7) k/uL Lymphocytes # (1.0-4.8) k/uL Sodium (137-145) mmol/L BUN (9-20) mg/dL Glucose (74-99) mg/dL POC Glucose (mg/dL) 161 H (75-99) mg/dL Calcium (8.4-10.2) mg/dL Procalcitonin 0.20 H (0.02-0.09) ng/mL IgE 194.00 H (0.00-114.00) IU/mL Crossmatch 10/08/20 10/08/20 10/09/20 Range/Units 20:18 23:53 06:15 WBC (3.8-10.6) k/uL RBC (4.30-5.90) m/uL Hgb (13.0-17.5) gm/dL Hct (39.0-53.0) % Neutrophils # (1.3-7.7) k/uL Lymphocytes # (1.0-4.8) k/uL Sodium (137-145) mmol/L BUN (9-20) mg/dL Glucose (74-99) mg/dL POC Glucose (mg/dL) 182 H 49 L (75-99) mg/dL Calcium (8.4-10.2) mg/dL Procalcitonin (0.02-0.09) ng/mL IgE (0.00-114.00) IU/mL Crossmatch See Detail 10/09/20 10/09/20 10/09/20 Range/Units 07:48 07:48 11:55 WBC 11.5 H (3.8-10.6) k/uL RBC 2.67 L (4.30-5.90) m/uL Hgb 8.6 L D (13.0-17.5) gm/dL Hct 24.9 L (39.0-53.0) % Neutrophils # 10.6 H (1.3-7.7) k/uL Lymphocytes # 0.3 L (1.0-4.8) k/uL Sodium 132 L (137-145) mmol/L BUN 27 H (9-20) mg/dL Glucose 158 H (74-99) mg/dL POC Glucose (mg/dL) 103 H (75-99) mg/dL Calcium 7.9 L (8.4-10.2) mg/dL Procalcitonin (0.02-0.09) ng/mL IgE (0.00-114.00) IU/mL Crossmatch Microbiology - Last 24 Hours (Table) 10/05/20 15:40 Blood Culture - Preliminary Blood No Growth after 72 hours
[2020-10-09 16:47] LABS: Glucose,Whole Blood 116 mg/dL (75-99)
[2020-10-09] MEDS: ZINC SULFATE 220 MG CAP PO SCH (17:45)
[2020-10-09] MEDS: ASCORBIC ACID 500 MG TAB PO SCH (17:46)
[2020-10-09] MEDS: FOLIC ACID 1 MG TAB PO SCH (17:46)
[2020-10-09] MEDS: AZITHROMYCIN 500 MG TAB PO SCH (17:46)
[2020-10-09] MEDS: ASPIRIN 81 MG PO SCH (17:47)
[2020-10-09 20:24] LABS: Glucose,Whole Blood 201 mg/dL (75-99)
[2020-10-09] MEDS: ATORVASTATIN 10 MG TAB PO SCH (21:02)
[2020-10-09] MEDS: MELATONIN 3 MG TABLET PO SCH (21:03)
[2020-10-09] MEDS: INSULIN DETEMIR (LEVEMIR) 100 UNIT/ML SYR SQ SCH (21:03)
[2020-10-09] MEDS: LATANOPROST 0.005% OPHTH DROPS 2.5 ML BTL BOTH EYES SCH (21:03)
[2020-10-10] MEDS: ALBUTEROL HFA INHALER INHALATION SCH ×4 (00:30→21:56)
[2020-10-10] MEDS: SODIUM CHLORIDE 0.9% 1,000 ML IV SCH ×3 (04:25→21:24)
[2020-10-10 06:18] LABS: Glucose,Whole Blood 66 mg/dL (75-99)
[2020-10-10] MEDS: CEFEPIME 2 GM in SODIUM CHLORIDE 0.9% 100 ML IVPB SCH ×2 (06:29→16:25)
[2020-10-10 06:30] LABS: Glucose,Whole Blood 105 mg/dL (75-99)
[2020-10-10] MEDS: INSULIN ASPART (NovoLOG) 100 UNIT/ML VIAL SQ SCH ×4 (07:13→20:25)
[2020-10-10 08:37] LABS: African American GFR (CKD) >90 (>60 ml/min/1.73 sqM); Non-African American GFR(CKD) >90 (>60 ml/min/1.73 sqM)
[2020-10-10] MEDS: BUDESONIDE 1 MG/2 ML NEBU INHALATION SCH ×2 (09:34→21:56)
[2020-10-10] MEDS: ISOSORBIDE MONONITRATE ER 30 MG TAB.ER.24H PO SCH (10:15)
[2020-10-10] MEDS: PANTOPRAZOLE 40 MG TABLET PO SCH ×2 (10:15→16:26)
[2020-10-10] MEDS: atenoloL 50 MG TAB PO SCH ×2 (10:15→16:26)
[2020-10-10] MEDS: lisinopriL 20 MG TAB PO SCH (10:15)
[2020-10-10] MEDS: ENOXAPARIN 30 MG/0.3 ML SYRINGE SQ SCH ×2 (10:16→21:17)
[2020-10-10] MEDS: dexAMETHasone 4 MG TAB PO SCH ×2 (10:18→16:28)
[2020-10-10] MEDS: TIMOLOL 0.5% OPHTH DROPS 5 ML BTL BOTH EYES SCH ×2 (10:22→17:13)
[2020-10-10] MEDS: BRIMONIDINE TARTRATE 0.2% DROPS 5 ML BTL BOTH EYES SCH ×2 (10:22→17:13)
[2020-10-10] MEDS: ESCITALOPRAM 5 MG TAB PO SCH (10:24)
--- NOTE | 2020-10-10 11:07 | P.PN ---
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 This is a subsequent rehospitalization secondary to hypoxemia, increasing dyspnea, was diagnosed to have Covid this September 20, and readmitted September 25, for increasing dyspnea, weakness, and hypoxemia. Patient resides at [facility], for which they had transferred the patient for hypoxemia, and fatigue, and anorexia. He was transferred from [facility] to the emergency room for the above. Chest x- ray with CTA showed extensive interstitial pulmonary infiltrates that are improved compared to previous examination consistent with resolving interstitial pneumonia, no pulmonary mass, no evidence of pulmonary emboli. Urinalysis is negative, glucose at 222, lactic acid 1.1, pCO2 23, sodium 136, creatinine 1.07 patient admitted for suspected nosocomial infection/pneumonia,, globulin level is normal on 2.6, ferritin still elevated at 3227, ProcalAmine 1.93, worse than previous admission hemoglobin at 8.1, WBC count of 21.7 urinalysis normal October 07: Patient has not been eating, no energy at all, no appetite, patient denies any aspiration, has been noted to have more anasarca at this time, nutritional supplement 3 times a day would be ordered, T-max 98 blood pressure 120 to 1:30, slightly tachypneic consult were made with Dr. Peterson and Tomy 10/08: Patient denies having any abdominal pain, nausea or vomiting. No diarrhea. Patient continues to have difficulty breathing with cough. He has been afebrile, heart rate 75, blood pressure 140/74, pulse ox 95% on 6 L nasal cannula. Repeat blood work reveals the previously 11.5, hemoglobin 8.6. Hemoglobin yesterday was 7 and he received 1 unit of packed RBCs. Sodium 132, potassium 4.6, creatinine 0.72. Patient was hypoglycemic this morning with a blood sugar of 49, currently 103. Insulins will be adjusted. Levemir will be decreased to 10 units at bedtime. Patient was evaluated by speech therapy with recommendations for nectar thick liquids, chopped diet and aspiration precautions. 10/09:He continues to have a hard time with breathing along with little cough. He denies having any fever or chills. No nausea or vomiting. No diarrhea. No abdominal pain. Incentive spirometry will be added. Sputum culture to be obtained. Repeat blood work reveals WBC 11.5, hemoglobin 8.6 status post 1 unit of packed RBCs. Lymphocytes 0.3. Creatinine 0.72. Speech therapy to reevaluate tomorrow with plan for possible modified barium swallow. 10/10: Patient is currently on 4 L nasal cannula with pulse ox of 94-96%. Patient was started on antidepressant yesterday. He continues to be quite lethargic. He needs significant encouragement to get out of bed or do anything on his own. He is stating that he wants to go home but he was a 2 person assist to get up to the chair today. Plan is for him to return to [facility]. He has been continued on cefepime and vancomycin. Patient is afebrile, heart rate 68, blood pressure 142/72. Anticipate possible discharge on or Thursday this week. REVIEW OF SYSTEMS Constitutional: Denies anorexia, Denies chills, Denies chronic headaches, Denies chronic pain, Denies daytime sleepiness, reports fatigue, Denies fever, reports lethargy, reports malaise, Denies night sweats, reports poor appetite, Denies sweats, reports weakness, Denies weight loss Ears, nose, mouth and throat: No sore throat. Dysphagia. Cardiovascular: Reports decreased exercise tolerance, Reports dyspnea on exertion Respiratory: Reports cough, Reports dyspnea, Denies congestion, Denies cough with sputum, Denies excessive sputum, Denies hemoptysis, reports home oxygen, Denies pain, Denies pain on inspiration, Denies pleurisy, Denies respiratory infections, Denies sleep apnea, Denies snoring, Denies wheezing Gastrointestinal: No abdominal pain, no nausea, no vomiting, no diarrhea Genitourinary: No urinary retention, no dysuria Musculoskeletal: Denies arm numbness/tingling, Denies atrophy, Denies fractures, Denies frequent falls, reports gait dysfunction, Denies hot joints, Denies leg numbness/tingling, Denies limitation of motion, Denies loss of height, Denies low back pain, Denies morning stiffness, Denies muscle cramps, Denies muscle weakness, Denies myalgias, Denies neck pain, Denies neck stiffness, Denies prior amputations, Denies redness of joints, Denies shooting arm pain, Denies shooting leg pain, reports generalized weakness. Integumentary: No rash, no wounds PHYSICAL EXAMINATION Gen: This is a 75-year-old male. Patient is resting in bed and appears to be fatigued and weak but no respiratory distress noted. HEENT: Head is atraumatic, normocephalic. Pupils equal, round. Sclerae is anicteric. Dry mucous membranes. NECK: Supple. No JVD. No lymphadenopathy. No thyromegaly. LUNGS: Mild rhonchi bilaterally. No intercostal retractions. HEART: Regular rate and rhythm. No murmur. ABDOMEN: Soft. Bowel sounds are present. No masses. No tenderness. EXTREMITIES: No pedal edema. No calf tenderness. Dorsalis pedis palpable bilaterally. NEUROLOGICAL: Patient is awake, alert and oriented x3. Cranial nerves 2 through 12 are grossly intact. ASSESSMENT AND PLAN 1. Acute Covid pneumonitis with suspected coinfection with facility acquired pneumonia, possible aspiration pneumonia, secondary to debility with failure of outpatient treatment, and relapse from last week with much worsening hypoxia, chest x-ray and CTA of the chest consistent with Covid pneumonitis, negative for PE patient completed Remdisevir during last September 25 admission, restart Decadron 4 mg twice daily, O2, updraft treatment zinc vitamin D vitamin C. ID consultation be done. Sputum culture, cefepime and Vanco continued, 2. Acute on chronic hypoxic respiratory failure secondary to Covid pneumonia with possible aspiration pneumonia. Continue oxygen therapy and continue to wean and antibiotics. 3. Possible gram-negative pneumonia versus aspiration pneumonia. Continue cefepime and vancomycin. ID consult appreciated. 4. Diabetes mellitus type 2 uncontrolled with episodes of hypoglycemia. Levemir decreased to 10 units at bedtime and insulin scale before meals and at bedtime. 5. Hypertension. Continue lisinopril 40 mg a day and atenolol 50 mg twice a day. 6. Hyperlipidemia. Continue statin. 7. Atherosclerotic heart disease: Remain on beta brayan, alex and isosorbide. 8. Severe GERD/GI prophylaxis: Patient will be on omeprazole or pantoprazole daily. 9. DVT prophylaxis: Patient will be on Lovenox 40 mg subcutaneous daily. 10. Anemia of unclear etiology. No sign of active bleeding. Stool for occult blood ordered. Patient is status post transfusion 1 unit of packed RBCs. CODE STATUS: NO code. DISCHARGE PLAN Return to [facility] on or Thursday. Impression and plan of care have been directed as dictated by the signing gianluca groveian. Cathy Walker nurse practitioner acting as scribe for signing physician. Objective - Vital Signs Vital signs: Vital Signs Temp 97.7 F 10/10/20 04:00 Pulse 68 10/10/20 04:00 Resp 19 10/10/20 04:00 BP 142/72 10/10/20 04:00 Pulse Ox 100 10/10/20 04:00 Intake & Output 10/09/20 10/10/20 10/10/20 18:59 06:59 18:59 Intake Total 240 125 Output Total 745 Balance 240 -620 Weight 74 kg 75 kg Intake: Intake, IV Titration 75 Amount Cefepime 2 gm In Sodium 25 Chloride 0.9% 100 ml @ 25 mls/hr IVPB Q12H [facility] Rx# :[id number] Sodium Chloride 0.9% 1, 50 000 ml @ 100 mls/hr IV . Q10H [facility] Rx#:[id number] Oral 240 50 Output: Urine 745 Other: Voiding Method Diaper Urinal Diaper # Voids 2 1 # Bowel Movements 1 - Labs CBC & Chem 7: 10/09/20 07:48 10/10/20 07:15 Labs: Abnormal Lab Results - Last 24 Hours (Table) 10/09/20 10/09/20 10/09/20 Range/Units 07:48 11:55 16:46 Sodium 132 L (137-145) mmol/L BUN 27 H (9-20) mg/dL Glucose 158 H (74-99) mg/dL POC Glucose (mg/dL) 103 H 116 H (75-99) mg/dL Calcium 7.9 L (8.4-10.2) mg/dL 10/09/20 10/10/20 10/10/20 Range/Units 20:12 06:09 06:28 Sodium (137-145) mmol/L BUN (9-20) mg/dL Glucose (74-99) mg/dL POC Glucose (mg/dL) 201 H 66 L 105 H (75-99) mg/dL Calcium (8.4-10.2) mg/dL Microbiology - Last 24 Hours (Table) 10/05/20 15:40 Blood Culture - Preliminary Blood No Growth after 96 hours
[2020-10-10 12:02] LABS: Glucose,Whole Blood 78 mg/dL (75-99)
[2020-10-10] MEDS: VANCOMYCIN 1,250 MG in SODIUM CHLORIDE 0.9% 250 ML IVPB SCH ×2 (12:41→23:38)
[2020-10-10] MEDS: AZITHROMYCIN 500 MG TAB PO SCH (16:26)
[2020-10-10] MEDS: CHOLECALCIFEROL 1,000 UNIT TAB PO SCH ×2 (16:26→16:27)
[2020-10-10] MEDS: ASPIRIN 81 MG PO SCH ×2 (16:26→16:28)
[2020-10-10] MEDS: ASCORBIC ACID 500 MG TAB PO SCH (16:27)
[2020-10-10] MEDS: ZINC SULFATE 220 MG CAP PO SCH (16:28)
[2020-10-10] MEDS: FOLIC ACID 1 MG TAB PO SCH (16:28)
[2020-10-10 16:49] LABS: Glucose,Whole Blood 94 mg/dL (75-99)
[2020-10-10 20:22] LABS: Glucose,Whole Blood 112 mg/dL (75-99)
[2020-10-10] MEDS: INSULIN DETEMIR (LEVEMIR) 100 UNIT/ML SYR SQ SCH (21:17)
[2020-10-10] MEDS: MELATONIN 3 MG TABLET PO SCH (21:17)
[2020-10-10] MEDS: ATORVASTATIN 10 MG TAB PO SCH (21:17)
[2020-10-10] MEDS: LATANOPROST 0.005% OPHTH DROPS 2.5 ML BTL BOTH EYES SCH (21:18)
--- NOTE | 2020-10-10 23:56 | PN ---
PROGRESS NOTE DATE OF SERVICE: 10/10/2020 REASON FOR FOLLOWUP: Pneumonia. INTERVAL HISTORY: The patient is currently afebrile, has been breathing more comfortably. The patient denies having any chest pain. He did have a cough, not bringing up any sputum. No nausea, no vomiting. No abdominal pain, no diarrhea. PHYSICAL EXAMINATION: Blood pressure 149/82 with a pulse of 72, temperature is 97.7. He is 97% on 4 L nasal cannula. General description is an elderly male lying in bed in no distress. RESPIRATORY SYSTEM: Unlabored breathing, decreased intensity of breath sounds. No wheeze. HEART: S1, S2. Regular rate and rhythm. ABDOMEN: Soft, no tenderness. LABS: Creatinine 0.76. Blood culture has been negative. DIAGNOSTIC IMPRESSION: Patient with admission to the hospital with shortness of breath, hypoxemia with concern for possible pneumonia in this patient recently treated for a COVID-19 infection. Patient's blood culture has been negative so far. Sputum has not been collected. Overall improvement on cefepime and vancomycin to continue. Try to obtain a sputum to narrow down his antibiotics and continue supportive care. MMODL / IJN: [id number] /
[2020-10-11] MEDS: ALBUTEROL HFA INHALER INHALATION SCH ×5 (00:27→21:39)
[2020-10-11] MEDS: SODIUM CHLORIDE 0.9% 1,000 ML IV SCH ×2 (04:17→16:17)
[2020-10-11 06:16] LABS: Glucose,Whole Blood 79 mg/dL (75-99)
[2020-10-11] MEDS: INSULIN ASPART (NovoLOG) 100 UNIT/ML VIAL SQ SCH ×4 (06:31→21:32)
[2020-10-11] MEDS: CEFEPIME 2 GM in SODIUM CHLORIDE 0.9% 100 ML IVPB SCH ×3 (06:34→21:41)
[2020-10-11] MEDS: FLUTICASONE 220 MCG INHALER INHALATION SCH ×3 (08:39→21:44)
[2020-10-11] MEDS: lisinopriL 20 MG TAB PO SCH (09:06)
[2020-10-11] MEDS: ISOSORBIDE MONONITRATE ER 30 MG TAB.ER.24H PO SCH (09:06)
[2020-10-11] MEDS: PANTOPRAZOLE 40 MG TABLET PO SCH ×2 (09:06→18:39)
[2020-10-11] MEDS: dexAMETHasone 4 MG TAB PO SCH ×2 (09:06→18:40)
[2020-10-11] MEDS: ESCITALOPRAM 5 MG TAB PO SCH (09:06)
[2020-10-11] MEDS: atenoloL 50 MG TAB PO SCH ×2 (09:06→18:39)
[2020-10-11] MEDS: ENOXAPARIN 30 MG/0.3 ML SYRINGE SQ SCH ×2 (09:08→21:40)
--- NOTE | 2020-10-11 09:49 | XR ---
EXAMINATION TYPE: XR chest 1V portable DATE OF EXAM: 10/11/2020 Comparison: 10/06/2020 Clinical History: 75-year-old male Pneumonia Findings: Heart normal size. Aorta within normal limits. Scattered interstitial opacities. The focal peripheral right lower lung opacity is slightly improved from prior exam. 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 Impression: Improving but residual peripheral basilar infiltrate. Other bilateral interstitial infiltrates are si milar.
[2020-10-11] MEDS: BRIMONIDINE TARTRATE 0.2% DROPS 5 ML BTL BOTH EYES SCH ×2 (10:39→18:40)
[2020-10-11] MEDS: TIMOLOL 0.5% OPHTH DROPS 5 ML BTL BOTH EYES SCH ×2 (10:39→18:40)
[2020-10-11] MEDS ORDERED: VANCOMYCIN TROUGH DUE 1 EACH MISC MISCELLANE ONE (11:00)
[2020-10-11 11:32] LABS: Basophils % (A) 0 %; Eosinophils # (A) 0.1 k/uL (0-0.7); Eosinophils % (A) 1 %; HCT 27.8 % (39.0-53.0); HGB 9.7 gm/dL (13.0-17.5); Lymphocytes # (A) 0.2 k/uL (1.0-4.8); Lymphocytes % (A) 2 %; MCH 32.7 pg (25.0-35.0); MCV 93.5 fL (80.0-100.0); Mean Platelet Volume 7.3; Monocytes # (A) 0.4 k/uL (0-1.0); Monocytes % (A) 3 %; Neutrophils # (A) 11.9 k/uL (1.3-7.7); Neutrophils % (A) 94 %; Platelet Count 239 k/uL (150-450); RBC 2.97 m/uL (4.30-5.90); WBC 12.7 k/uL (3.8-10.6)
[2020-10-11 11:33] LABS: Glucose,Whole Blood 81 mg/dL (75-99)
[2020-10-11 12:08] LABS: ALT 78 U/L (4-49); AST 60 U/L (17-59); African American GFR (CKD) >90 (>60 ml/min/1.73 sqM); Albumin 2.6 g/dL (3.5-5.0); Alkaline Phosphatase 45 U/L (38-126); Anion Gap 0 mmol/L; Blood Urea Nitrogen 26 mg/dL (9-20); C Reactive Protein 8.2 mg/L (<10.0); Calcium 8.1 mg/dL (8.4-10.2); Carbon Dioxide 29 mmol/L (22-30); Chloride 100 mmol/L (98-107); Glucose 73 mg/dL (74-99); LDH 1226 U/L (313-618); Non-African American GFR(CKD) 86 (>60 ml/min/1.73 sqM); Potassium 4.8 mmol/L (3.5-5.1); Sodium 129 mmol/L (137-145); Total Protein 5.2 g/dL (6.3-8.2)
--- NOTE | 2020-10-11 13:06 | FL ---
MODIFIED SWALLOW / DEGLUTITION STUDY DATE OF EXAM: 10/11/2020 CLINICAL HISTORY: 75-year-old male COVID positive, swallowing weakness and dysphagia. TECHNIQUE: Deglutition study is performed utilizing thin liquid barium, honey and nectar thick liqui d barium, barium thick applesauce, and barium coated cracker. Total fluoroscopy time: 2 minutes 15 seconds. Total images: None. Real-time fluoroscopy support was provided to speech pathology. COMPARISON: None. FINDINGS: There is narendra silent aspiration with thin liquids. Deep penetration with nectar liquids. Honey liqui ds results in penetration which is improved with chin tuck maneuver. No penetration or aspiration wit h either puree or solid consistency with chin tuck maneuver. Moderate vallecular residuals are noted. Poor peristalsis along the posterior pharyngeal wall IMPRESSION: 1. Narendra silent aspiration with thin liquids. Deep penetration with nectar liquids. Penetration with all of the other consistencies as well, improved with chin tuck maneuver. 2. Moderate vallecular residuals. Please refer to speech therapist notes for further details if necessary.
--- NOTE | 2020-10-11 13:46 | P.PN ---
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 This is a subsequent rehospitalization secondary to hypoxemia, increasing dyspnea, was diagnosed to have Covid this September 20, and readmitted September 25, for increasing dyspnea, weakness, and hypoxemia. Patient resides at [facility], for which they had transferred the patient for hypoxemia, and fatigue, and anorexia. He was transferred from [facility] to the emergency room for the above. Chest x- ray with CTA showed extensive interstitial pulmonary infiltrates that are improved compared to previous examination consistent with resolving interstitial pneumonia, no pulmonary mass, no evidence of pulmonary emboli. Urinalysis is negative, glucose at 222, lactic acid 1.1, pCO2 23, sodium 136, creatinine 1.07 patient admitted for suspected nosocomial infection/pneumonia,, globulin level is normal on 2.6, ferritin still elevated at 3227, ProcalAmine 1.93, worse than previous admission hemoglobin at 8.1, WBC count of 21.7 urinalysis normal October 07: Patient has not been eating, no energy at all, no appetite, patient denies any aspiration, has been noted to have more anasarca at this time, nutritional supplement 3 times a day would be ordered, T-max 98 blood pressure 120 to 1:30, slightly tachypneic consult were made with Dr. Peterson and Tomy 10/08: Patient denies having any abdominal pain, nausea or vomiting. No diarrhea. Patient continues to have difficulty breathing with cough. He has been afebrile, heart rate 75, blood pressure 140/74, pulse ox 95% on 6 L nasal cannula. Repeat blood work reveals the previously 11.5, hemoglobin 8.6. Hemoglobin yesterday was 7 and he received 1 unit of packed RBCs. Sodium 132, potassium 4.6, creatinine 0.72. Patient was hypoglycemic this morning with a blood sugar of 49, currently 103. Insulins will be adjusted. Levemir will be decreased to 10 units at bedtime. Patient was evaluated by speech therapy with recommendations for nectar thick liquids, chopped diet and aspiration precautions. 10/09:He continues to have a hard time with breathing along with little cough. He denies having any fever or chills. No nausea or vomiting. No diarrhea. No abdominal pain. Incentive spirometry will be added. Sputum culture to be obtained. Repeat blood work reveals WBC 11.5, hemoglobin 8.6 status post 1 unit of packed RBCs. Lymphocytes 0.3. Creatinine 0.72. Speech therapy to reevaluate tomorrow with plan for possible modified barium swallow. 10/10: Patient is currently on 4 L nasal cannula with pulse ox of 94-96%. Patient was started on antidepressant yesterday. He continues to be quite lethargic. He needs significant encouragement to get out of bed or do anything on his own. He is stating that he wants to go home but he was a 2 person assist to get up to the chair today. Plan is for him to return to [facility]. He has been continued on cefepime and vancomycin. Patient is afebrile, heart rate 68, blood pressure 142/72. Anticipate possible discharge on or Thursday this week. 10/11: Patient underwent modified barium swallow and is at high risk for aspiration with all consistencies. Speech therapy has recommended aspiration precautions, dysphagia diet pured, honey thick liquids, chin tuck with all oral intake. We'll plan to discuss PEG tube placement with patient tomorrow. Patient continues to complain of shortness of breath difficulty breathing. Repeat chest x-ray reveals improving but residual peripheral basilar infiltrate. Other bilateral interstitial infiltrates are similar. Lung sounds are improving. Patient continues to be quite lethargic and needs significant encouragement to participate in his own care. He has been afebrile, heart rate 82, blood pressure 135/73, pulse ox 96% on 4 L nasal cannula. Repeat blood work reveals WBC 12.7, hemoglobin 9.7. Sodium 129. Creatinine 0.85. AST 60, ALT 78, alkaline phosphatase 45. LDH 1226. C-reactive protein normal at 8.2. Blood sugars improved today with running between 73 and 112. Anticipate possible discharge back to [facility] on Thursday. REVIEW OF SYSTEMS Constitutional: Denies anorexia, Denies chills, Denies chronic headaches, Denies chronic pain, Denies daytime sleepiness, reports fatigue, Denies fever, reports lethargy, reports malaise, Denies night sweats, reports poor appetite, Denies sweats, reports weakness, Denies weight loss Ears, nose, mouth and throat: No sore throat. Dysphagia. Cardiovascular: Reports decreased exercise tolerance, Reports dyspnea on exertion Respiratory: Reports cough, Reports dyspnea, Denies congestion, Denies cough with sputum, Denies excessive sputum, Denies hemoptysis, reports home oxygen, Denies pain, Denies pain on inspiration, Denies pleurisy, Denies respiratory infections, Denies sleep apnea, Denies snoring, Denies wheezing Gastrointestinal: No abdominal pain, no nausea, no vomiting, no diarrhea Genitourinary: No urinary retention, no dysuria Musculoskeletal: Denies arm numbness/tingling, Denies atrophy, Denies fractures, Denies frequent falls, reports gait dysfunction, Denies hot joints, Denies leg numbness/tingling, Denies limitation of motion, Denies loss of height, Denies low back pain, Denies morning stiffness, Denies muscle cramps, Denies muscle weakness, Denies myalgias, Denies neck pain, Denies neck stiffness, Denies prior amputations, Denies redness of joints, Denies shooting arm pain, Denies shooting leg pain, reports generalized weakness. Integumentary: No rash, no wounds PHYSICAL EXAMINATION Gen: This is a 75-year-old male. Patient is resting in bed and appears to be fatigued and weak but no respiratory distress noted. HEENT: Head is atraumatic, normocephalic. Pupils equal, round. Sclerae is anicteric. Dry mucous membranes. NECK: Supple. No JVD. No lymphadenopathy. No thyromegaly. LUNGS: Mild rhonchi bilaterally. No intercostal retractions. HEART: Regular rate and rhythm. No murmur. ABDOMEN: Soft. Bowel sounds are present. No masses. No tenderness. EXTREMITIES: No pedal edema. No calf tenderness. Dorsalis pedis palpable bilaterally. NEUROLOGICAL: Patient is awake, alert and oriented x3. Cranial nerves 2 through 12 are grossly intact. ASSESSMENT AND PLAN 1. Acute Covid pneumonitis with suspected coinfection with facility acquired pneumonia, possible aspiration pneumonia, secondary to debility with failure of outpatient treatment, and relapse from last week with much worsening hypoxia, chest x-ray and CTA of the chest consistent with Covid pneumonitis, negative for PE patient completed Remdisevir during last September 25 admission, restart Decadron 4 mg twice daily, O2, updraft treatment zinc vitamin D vitamin C. ID consultation appreciated patient is on antibiotics for bacteria Sputum culture, cefepime and Vanco continued, 2. Acute on chronic hypoxic respiratory failure secondary to Covid pneumonia with possible aspiration pneumonia. Continue oxygen therapy and continue to wean and antibiotics. 3. Possible gram-negative pneumonia versus aspiration pneumonia. Continue cefepime and vancomycin. ID consult appreciated. 4. Diabetes mellitus type 2 uncontrolled with episodes of hypoglycemia. Levemir decreased to 10 units at bedtime and insulin scale before meals and at bedtime. 5. Hypertension. Continue lisinopril 40 mg a day and atenolol 50 mg twice a day. 6. Hyperlipidemia. Continue statin. 7. Atherosclerotic heart disease: Remain on beta brayan, alex and isosorbide. 8. Severe GERD/GI prophylaxis: Patient will be on omeprazole or pantoprazole daily. 9. DVT prophylaxis: Patient will be on Lovenox 40 mg subcutaneous daily. 10. Anemia of unclear etiology. No sign of active bleeding. Stool for occult blood ordered. Patient is status post transfusion 1 unit of packed RBCs. CODE STATUS: NO code. DISCHARGE PLAN Return to [facility] on Thursday. Impression and plan of care have been directed as dictated by the signing physician. Cathy Walker nurse practitioner acting as scribe for signing physician. Objective - Vital Signs Vital signs: Vital Signs Temp 97.6 F 10/11/20 08:00 Pulse 82 10/11/20 08:00 Resp 18 10/11/20 08:00 BP 135/73 10/11/20 08:00 Pulse Ox 96 10/11/20 08:00 Intake & Output 10/10/20 10/11/20 10/11/20 18:59 06:59 18:59 Intake Total 354 Output Total 400 510 Balance -46 -510 Weight 74 kg Intake: Oral 354 Output: Urine 400 510 Other: Voiding Method Urinal Urinal Urinal Diaper Diaper Diaper # Voids 3 1 - Labs CBC & Chem 7: 10/11/20 11:00 10/11/20 11:00 Labs: Abnormal Lab Results - Last 24 Hours (Table) 10/10/20 10/11/20 10/11/20 Range/Units 20:21 11:00 11:00 WBC 12.7 H (3.8-10.6) k/uL RBC 2.97 L (4.30-5.90) m/uL Hgb 9.7 L (13.0-17.5) gm/dL Hct 27.8 L (39.0-53.0) % Neutrophils # 11.9 H (1.3-7.7) k/uL Lymphocytes # 0.2 L (1.0-4.8) k/uL Sodium 129 L (137-145) mmol/L BUN 26 H (9-20) mg/dL Glucose 73 L (74-99) mg/dL POC Glucose (mg/dL) 112 H (75-99) mg/dL Calcium 8.1 L (8.4-10.2) mg/dL AST 60 H (17-59) U/L ALT 78 H (4-49) U/L Lactate Dehydrogenase 1226 H (313-618) U/L Total Protein 5.2 L (6.3-8.2) g/dL Albumin 2.6 L (3.5-5.0) g/dL Microbiology - Last 24 Hours (Table) 10/05/20 15:40 Blood Culture - Preliminary Blood No Growth after 120 hours
[2020-10-11] MEDS: VANCOMYCIN 1,250 MG in SODIUM CHLORIDE 0.9% 250 ML IVPB SCH (13:50)
[2020-10-11 16:58] LABS: Glucose,Whole Blood 90 mg/dL (75-99)
[2020-10-11] MEDS: AZITHROMYCIN 500 MG TAB PO SCH (18:39)
[2020-10-11] MEDS: CHOLECALCIFEROL 1,000 UNIT TAB PO SCH (18:39)
[2020-10-11] MEDS: ZINC SULFATE 220 MG CAP PO SCH (18:39)
[2020-10-11] MEDS: ASCORBIC ACID 500 MG TAB PO SCH (18:39)
[2020-10-11] MEDS: ASPIRIN 81 MG PO SCH (18:39)
[2020-10-11] MEDS: FOLIC ACID 1 MG TAB PO SCH (18:39)
[2020-10-11 20:43] LABS: Glucose,Whole Blood 104 mg/dL (75-99)
[2020-10-11] MEDS: ATORVASTATIN 10 MG TAB PO SCH (21:39)
[2020-10-11] MEDS: MELATONIN 3 MG TABLET PO SCH (21:39)
[2020-10-11] MEDS: INSULIN DETEMIR (LEVEMIR) 100 UNIT/ML SYR SQ SCH (21:40)
[2020-10-11] MEDS: LATANOPROST 0.005% OPHTH DROPS 2.5 ML BTL BOTH EYES SCH (21:40)
--- NOTE | 2020-10-11 22:37 | PN ---
PROGRESS NOTE DATE OF SERVICE: 10/11/2020 REASON FOR FOLLOWUP: Pneumonia. INTERVAL HISTORY: The patient is currently afebrile. The patient is complaining of feeling weak and tired. No energy. Denies having chest pain. Minimal cough, not bringing up any sputum. No nausea, no vomiting. No abdominal pain or diarrhea. PHYSICAL EXAMINATION: Blood pressure 134/77, pulse of 77, temperature 97.8. He is 98% on 5 L nasal cannula. General description is an elderly male up in the bed in no distress. RESPIRATORY SYSTEM: Unlabored breathing with decreased breath sounds at the base. No wheeze. HEART: S1, S2. Regular rate and rhythm. ABDOMEN: Soft. No tenderness. LABS/IMAGING: Hemoglobin 9.7, white count 9.7, BUN of 26, creatinine 0.85. Vancomycin trough is 20. Blood culture negative. Chest x-ray improving peripheral basal infiltrate. DIAGNOSTIC IMPRESSION AND PLAN: Patient admitted to hospital with shortness of breath and a cough with concern for pneumonia in this patient treated with cefepime and vancomycin. Try to obtain a sputum sample to narrow down his antibiotics and monitor his kidney function closely. MMODL / IJN: [id number] /
[2020-10-12] MEDS: SODIUM CHLORIDE 0.9% 1,000 ML IV SCH ×3 (03:11→22:36)
[2020-10-12] MEDS: ALBUTEROL HFA INHALER INHALATION SCH ×4 (03:36→19:58)
[2020-10-12] MEDS: CEFEPIME 2 GM in SODIUM CHLORIDE 0.9% 100 ML IVPB SCH ×2 (05:18→18:43)
[2020-10-12] MEDS: VANCOMYCIN 1,250 MG in SODIUM CHLORIDE 0.9% 250 ML IVPB SCH ×2 (05:18→18:44)
[2020-10-12] MEDS: INSULIN ASPART (NovoLOG) 100 UNIT/ML VIAL SQ SCH ×4 (06:14→21:37)
[2020-10-12 06:17] LABS: Glucose,Whole Blood 63 mg/dL (75-99)
[2020-10-12 07:05] LABS: Glucose,Whole Blood 65 mg/dL (75-99)
[2020-10-12 07:05] LABS: Glucose,Whole Blood 120 mg/dL (75-99)
[2020-10-12] MEDS: FLUTICASONE 220 MCG INHALER INHALATION SCH ×2 (08:14→19:58)
[2020-10-12] MEDS: BRIMONIDINE TARTRATE 0.2% DROPS 5 ML BTL BOTH EYES SCH ×2 (09:25→18:43)
[2020-10-12] MEDS: TIMOLOL 0.5% OPHTH DROPS 5 ML BTL BOTH EYES SCH ×2 (09:25→18:43)
[2020-10-12] MEDS: lisinopriL 20 MG TAB PO SCH (10:12)
[2020-10-12] MEDS: atenoloL 50 MG TAB PO SCH ×2 (10:12→18:42)
[2020-10-12] MEDS: PANTOPRAZOLE 40 MG TABLET PO SCH ×2 (10:12→18:42)
[2020-10-12] MEDS: dexAMETHasone 4 MG TAB PO SCH ×2 (10:12→18:42)
[2020-10-12] MEDS: ISOSORBIDE MONONITRATE ER 30 MG TAB.ER.24H PO SCH (10:12)
[2020-10-12] MEDS: ENOXAPARIN 30 MG/0.3 ML SYRINGE SQ SCH ×2 (10:13→21:51)
[2020-10-12] MEDS: ESCITALOPRAM 5 MG TAB PO SCH (10:13)
[2020-10-12 11:12] LABS: African American GFR (CKD) >90 (>60 ml/min/1.73 sqM); Non-African American GFR(CKD) >90 (>60 ml/min/1.73 sqM)
--- NOTE | 2020-10-12 12:12 | P.PN ---
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 This is a subsequent rehospitalization secondary to hypoxemia, increasing dyspnea, was diagnosed to have Covid this September 20, and readmitted September 25, for increasing dyspnea, weakness, and hypoxemia. Patient resides at [facility], for which they had transferred the patient for hypoxemia, and fatigue, and anorexia. He was transferred from [facility] to the emergency room for the above. Chest x- ray with CTA showed extensive interstitial pulmonary infiltrates that are improved compared to previous examination consistent with resolving interstitial pneumonia, no pulmonary mass, no evidence of pulmonary emboli. Urinalysis is negative, glucose at 222, lactic acid 1.1, pCO2 23, sodium 136, creatinine 1.07 patient admitted for suspected nosocomial infection/pneumonia,, globulin level is normal on 2.6, ferritin still elevated at 3227, ProcalAmine 1.93, worse than previous admission hemoglobin at 8.1, WBC count of 21.7 urinalysis normal October 07: Patient has not been eating, no energy at all, no appetite, patient denies any aspiration, has been noted to have more anasarca at this time, nutritional supplement 3 times a day would be ordered, T-max 98 blood pressure 120 to 1:30, slightly tachypneic consult were made with Dr. Peterson and Tomy 10/08: Patient denies having any abdominal pain, nausea or vomiting. No diarrhea. Patient continues to have difficulty breathing with cough. He has been afebrile, heart rate 75, blood pressure 140/74, pulse ox 95% on 6 L nasal cannula. Repeat blood work reveals the previously 11.5, hemoglobin 8.6. Hemoglobin yesterday was 7 and he received 1 unit of packed RBCs. Sodium 132, potassium 4.6, creatinine 0.72. Patient was hypoglycemic this morning with a blood sugar of 49, currently 103. Insulins will be adjusted. Levemir will be decreased to 10 units at bedtime. Patient was evaluated by speech therapy with recommendations for nectar thick liquids, chopped diet and aspiration precautions. 10/09:He continues to have a hard time with breathing along with little cough. He denies having any fever or chills. No nausea or vomiting. No diarrhea. No abdominal pain. Incentive spirometry will be added. Sputum culture to be obtained. Repeat blood work reveals WBC 11.5, hemoglobin 8.6 status post 1 unit of packed RBCs. Lymphocytes 0.3. Creatinine 0.72. Speech therapy to reevaluate tomorrow with plan for possible modified barium swallow. 10/10: Patient is currently on 4 L nasal cannula with pulse ox of 94-96%. Patient was started on antidepressant yesterday. He continues to be quite lethargic. He needs significant encouragement to get out of bed or do anything on his own. He is stating that he wants to go home but he was a 2 person assist to get up to the chair today. Plan is for him to return to [facility]. He has been continued on cefepime and vancomycin. Patient is afebrile, heart rate 68, blood pressure 142/72. Anticipate possible discharge on or Thursday this week. 10/11: Patient underwent modified barium swallow and is at high risk for aspiration with all consistencies. Speech therapy has recommended aspiration precautions, dysphagia diet pured, honey thick liquids, chin tuck with all oral intake. We'll plan to discuss PEG tube placement with patient tomorrow. Patient continues to complain of shortness of breath difficulty breathing. Repeat chest x-ray reveals improving but residual peripheral basilar infiltrate. Other bilateral interstitial infiltrates are similar. Lung sounds are improving. Patient continues to be quite lethargic and needs significant encouragement to participate in his own care. He has been afebrile, heart rate 82, blood pressure 135/73, pulse ox 96% on 4 L nasal cannula. Repeat blood work reveals WBC 12.7, hemoglobin 9.7. Sodium 129. Creatinine 0.85. AST 60, ALT 78, alkaline phosphatase 45. LDH 1226. C-reactive protein normal at 8.2. Blood sugars improved today with running between 73 and 112. Anticipate possible discharge back to [facility] on Thursday. 10/12: Patient has been refusing to eat and refusing his medication. Nurse was able to convince him this morning to take his morning medications. Based on findings from modified barium swallow, discussed PEG tube option with the patient. Also contacted patient's and son. They wish for him to go for PEG tube placement. Patient subsequently agreed for PEG tube. Consult placed with GI with anticipated placement on Thursday. [place] has been updated. Patient has been afebrile, heart rate 82, blood pressure 137/70, pulse ox 98% on 4 L nasal cannula. Patient continues to complain of feeling short of breath. Patient is continued on cefepime and vancomycin, followed by Dr. Peterson. REVIEW OF SYSTEMS Constitutional: Reports reports anorexia, Denies chills, Denies chronic headaches, Denies chronic pain, Denies daytime sleepiness, reports fatigue, Denies fever, reports lethargy, reports malaise, Denies night sweats, reports poor appetite, Denies sweats, reports weakness, Denies weight loss Ears, nose, mouth and throat: No sore throat. Dysphagia. Cardiovascular: Reports decreased exercise tolerance, Reports dyspnea on exertion Respiratory: Reports cough, Reports dyspnea, Denies congestion, Denies cough with sputum, Denies excessive sputum, Denies hemoptysis, reports home oxygen, Denies pain, Denies pain on inspiration, Denies pleurisy, Denies respiratory infections, Denies sleep apnea, Denies snoring, Denies wheezing Gastrointestinal: No abdominal pain, no nausea, no vomiting, no diarrhea. Reports no appetite. Genitourinary: No urinary retention, no dysuria Musculoskeletal: Denies arm numbness/tingling, Denies atrophy, Denies fractures, Denies frequent falls, reports gait dysfunction, Denies hot joints, Denies leg numbness/tingling, Denies limitation of motion, Denies loss of height, Denies low back pain, Denies morning stiffness, Denies muscle cramps, Denies muscle weakness, Denies myalgias, Denies neck pain, Denies neck stiffness, Denies prior amputations, Denies redness of joints, Denies shooting arm pain, Denies shooting leg pain, reports generalized weakness. Integumentary: No rash, no wounds PHYSICAL EXAMINATION Gen: This is a 75-year-old male. Patient is resting in bed and appears to be fatigued and weak but no respiratory distress noted. HEENT: Head is atraumatic, normocephalic. Pupils equal, round. Sclerae is anicteric. Dry mucous membranes. NECK: Supple. No JVD. No lymphadenopathy. No thyromegaly. LUNGS: Mild rhonchi bilaterally. No intercostal retractions. HEART: Regular rate and rhythm. No murmur. ABDOMEN: Soft. Bowel sounds are present. No masses. No tenderness. EXTREMITIES: No pedal edema. No calf tenderness. Dorsalis pedis palpable bilaterally. NEUROLOGICAL: Patient is awake, alert and oriented x3. Cranial nerves 2 through 12 are grossly intact. ASSESSMENT AND PLAN 1. Acute Covid pneumonitis with suspected coinfection with facility acquired pneumonia, possible aspiration pneumonia, secondary to debility with failure of outpatient treatment, and relapse from last week with much worsening hypoxia, chest x-ray and CTA of the chest consistent with Covid pneumonitis, negative for PE patient completed Remdisevir during last September 25 admission, restart Decadron 4 mg twice daily, O2, updraft treatment zinc vitamin D vitamin C. ID consultation appreciated patient is on antibiotics for bacteria Sputum culture, cefepime and Vanco continued, 2. Acute on chronic hypoxic respiratory failure secondary to Covid pneumonia with possible aspiration pneumonia. Continue oxygen therapy and continue to wean and antibiotics. 3. Possible gram-negative pneumonia versus aspiration pneumonia. Continue cefepime and vancomycin. ID consult appreciated. 4. Diabetes mellitus type 2 uncontrolled with episodes of hypoglycemia. Levemir decreased to 10 units at bedtime and insulin scale before meals and at b edtime. 5. Hypertension. Continue lisinopril 40 mg a day and atenolol 50 mg twice a day. 6. Hyperlipidemia. Continue statin. 7. Atherosclerotic heart disease: Remain on beta brayan, alex and isosorbide. 8. Severe GERD/GI prophylaxis: Patient will be on omeprazole or pantoprazole daily. 9. DVT prophylaxis: Patient will be on Lovenox 40 mg subcutaneous daily. 10. Anemia of unclear etiology. No sign of active bleeding. Stool for occult blood ordered. Patient is status post transfusion 1 unit of packed RBCs. 11. Aspiration with all consistencies. Consult with GI for PEG tube placement. Patient will be placed on. Diet with honey thick liquids for the weekend. PEG tube placement to be done on Thursday CODE STATUS: NO code. DISCHARGE PLAN Return to [facility] on Thursday following PEG tube placement. Impression and plan of care have been directed as dictated by the signing physician. Cathy Walker nurse practitioner acting as scribe for signing ph ysician. Objective - Vital Signs Vital signs: Vital Signs Temp 97.9 F 10/11/20 20:00 Pulse 72 12/04/20 03:36 Resp 16 10/12/20 03:36 BP 145/76 10/12/20 03:36 Pulse Ox 98 10/12/20 03:36 Intake & Output 10/11/20 10/12/20 10/12/20 18:59 06:59 18:59 Intake Total 25 Output Total 525 650 Balance -500 -650 Weight 74 kg 72 kg Intake: Oral 25 Output: Urine 525 650 Other: Voiding Method Urinal Urinal Diaper Diaper # Voids 3 1 - Labs CBC & Chem 7: 10/11/20 11:00 10/12/20 10:41 Labs: Abnormal Lab Results - Last 24 Hours (Table) 10/11/20 10/11/20 10/11/20 Range/Units 11:00 11:00 20:33 WBC 12.7 H (3.8-10.6) k/uL RBC 2.97 L (4.30-5.90) m/uL Hgb 9.7 L (13.0-17.5) gm/dL Hct 27.8 L (39.0-53.0) % Neutrophils # 11.9 H (1.3-7.7) k/uL Lymphocytes # 0.2 L (1.0-4.8) k/uL Sodium 129 L (137-145) mmol/L BUN 26 H (9-20) mg/dL Glucose 73 L (74-99) mg/dL POC Glucose (mg/dL) 104 H (75-99) mg/dL Calcium 8.1 L (8.4-10.2) mg/dL AST 60 H (17-59) U/L ALT 78 H (4-49) U/L Lactate Dehydrogenase 1226 H (313-618) U/L Total Protein 5.2 L (6.3-8.2) g/dL Albumin 2.6 L (3.5-5.0) g/dL 10/12/20 10/12/20 10/12/20 Range/Units 06:04 06:18 06:35 WBC (3.8-10.6) k/uL RBC (4.30-5.90) m/uL Hgb (13.0-17.5) gm/dL Hct (39.0-53.0) % Neutrophils # (1.3-7.7) k/uL Lymphocytes # (1.0-4.8) k/uL Sodium (137-145) mmol/L BUN (9-20) mg/dL Glucose (74-99) mg/dL POC Glucose (mg/dL) 63 L 65 L 120 H (75-99) mg/dL Calcium (8.4-10.2) mg/dL AST (17-59) U/L ALT (4-49) U/L Lactate Dehydrogenase (313-618) U/L Total Protein (6.3-8.2) g/dL Albumin (3.5-5.0) g/dL Microbiology - Last 24 Hours (Table) 10/05/20 15:40 Blood Culture - Final Blood No Growth after 144 hours
[2020-10-12 12:35] LABS: Glucose,Whole Blood 67 mg/dL (75-99)
[2020-10-12 12:52] LABS: Glucose,Whole Blood 64 mg/dL (75-99)
[2020-10-12 12:52] LABS: Glucose,Whole Blood 144 mg/dL (75-99)
[2020-10-12] MEDS: DEXTROSE 5%-0.9% NACL 1,000 ML IV SCH (13:04)
[2020-10-12 13:16] LABS: Glucose,Whole Blood 75 mg/dL (75-99)
[2020-10-12 16:38] LABS: Prothrombin Time 10.5 sec (9.0-12.0)
[2020-10-12 17:39] LABS: Glucose,Whole Blood 84 mg/dL (75-99)
[2020-10-12] MEDS: FOLIC ACID 1 MG TAB PO SCH (18:42)
[2020-10-12] MEDS: AZITHROMYCIN 500 MG TAB PO SCH (18:42)
[2020-10-12] MEDS: ASCORBIC ACID 500 MG TAB PO SCH (18:42)
[2020-10-12] MEDS: ZINC SULFATE 220 MG CAP PO SCH (18:42)
--- NOTE | 2020-10-12 20:26 | CONS ---
CONSULTATION DATE OF DICTATION: 10/12/2020 REASON FOR CONSULTATION: Progressive weight loss, failure to thrive, recent COVID-19 pneumonia. HISTORY OF PRESENT ILLNESS: The patient is a 75-year-old pleasant white male who recently had COVID-19 pneumonia on September 20. He was admitted to the hospital at that time and treated with remdesivir, steroids and anticoagulants and was discharged to the [facility]. Apparently while in the [facility] he continued to have progressive weakness, shortness of breath; not able to eat well, and weight loss. He was brought back to the emergency room and subsequently admitted to the hospital for further evaluation. He did have a chest x- ray done that showed bilateral basilar infiltrates suspicious for atypical pneumonia. He also had a CT of the chest that showed extensive interstitial pulmonary infiltrates. He was started on broad-spectrum antibiotics with cefepime and vancomycin, and Dr. Peterson is following the patient closely. We are consulted for PEG tube placement because of persistent decreased appetite and evidence of aspiration on video fluoroscopic swallow examination that was done yesterday. It revealed narendra silent aspiration with thin liquids and deep penetration with nectar liquids. The patient denies any abdominal pain. He reports no nausea or vomiting. He just has extremely poor appetite. PAST MEDICAL HISTORY: His past medical history is significant for recent COVID-19 pneumonia diagnosed on September 20, 2020, history of diabetes mellitus, hypertension, hyperlipidemia and recent COVID-19 pneumonia with acute respiratory failure a month ago. PAST SURGICAL HISTORY: Appendectomy, cardiac catheterization. MEDICATIONS: Medications at home include aspirin, vitamin D3, Amaryl, Nitrostat, Prilosec, simvastatin, atenolol, Lantus, Isordil, Xalatan, Zofran, Zithromax, Tylenol, vitamin C, magnesium oxide, Dulcolax and Hexadrol. ALLERGIES: METFORMIN, PENICILLIN, DOXYCYCLINE and FLEXERIL. SOCIAL HISTORY: Former smoker. No alcohol use. FAMILY HISTORY: Mother had breast cancer. Father had coronary artery disease. REVIEW OF SYSTEMS: CARDIOPULMONARY: Some shortness of breath but no chest pain. GENITOURINARY: No dysuria or hematuria. MUSCULOSKELETAL: Unremarkable. SKIN: Unremarkable. ENDOCRINE: Unremarkable. PSYCHIATRIC: Unremarkable. NEUROLOGY: Mild depression. ENT/VISION: Unremarkable. CONSTITUTIONAL: Weight loss of 15 pounds. No fever, chills, night sweats. Decreased appetite and overall weakness. PHYSICAL EXAMINATION: He appears comfortable. No apparent distress. Vital signs are stable. Blood pressure is 98/53, pulse rate 88, temperature 98.2. HEENT examination unremarkable. Conjunctivae pink. Sclerae anicteric. Oral cavity no lesions. NECK: No JVD or lymph node enlargement. CHEST: Decreased breath sounds bilaterally. HEART: Regular rate and rhythm. ABDOMEN: Soft. Non-tender. Non-distended. Bowel sounds are positive. No organomegaly. EXTREMITIES: No pedal edema. NEUROLOGIC: He is alert and oriented x3. No focal deficits. LABS: Labs from today show WBC 12.7, hemoglobin 9.7, platelets normal. Basic metabolic panel is within normal limits other than sodium of 129. AST and ALT are 60 and 78, respectively. BUN and alkaline phosphatase are within normal limits. IMPRESSION: 1. Recent COVID-19 pneumonia, for which he was hospitalized a month ago and had acute respiratory failure, for which he was intubated, and subsequently he was discharged home a week later for rehab therapy and currently a resident of [facility]. 2. Worsening shortness of breath, possible aspiration pneumonia, on broad-spectrum antibiotics with vancomycin and cefepime. 3. Failure to thrive with decreased oral intake, decreased appetite. 4. Evidence of aspiration with possible aspiration pneumonia. RECOMMENDATIONS: I had a lengthy discussion with the patient regarding further management. I discussed with him the possibility of an EGD with a PEG tube placement and he is agreeable to it. At this time we will check his COVID status again, and based on the results will plan on upper endoscopy with PEG tube placement tomorrow. The plan was discussed with the patient. He is agreeable to it. Thank you for this consultation. MMODL / IJN: [id number] /
[2020-10-12 21:08] LABS: Glucose,Whole Blood 102 mg/dL (75-99)
[2020-10-12] MEDS: INSULIN DETEMIR (LEVEMIR) 100 UNIT/ML SYR SQ SCH (21:37)
[2020-10-12] MEDS: MELATONIN 3 MG TABLET PO SCH (21:41)
[2020-10-12] MEDS: ATORVASTATIN 10 MG TAB PO SCH (21:41)
[2020-10-12] MEDS: LATANOPROST 0.005% OPHTH DROPS 2.5 ML BTL BOTH EYES SCH (21:51)
--- NOTE | 2020-10-12 23:08 | PN ---
PROGRESS NOTE DATE OF SERVICE: 10/12/2020 REASON FOR FOLLOWUP: Pneumonia. INTERVAL HISTORY: The patient is currently afebrile. He is complaining of feeling weak and tired with no energy. Denies significant chest pain. Minimal cough. No abdominal pain or diarrhea. PHYSICAL EXAMINATION: Blood pressure 130/78, pulse of 88, temperature 98.2. He is 99% on 4 L nasal cannula. General description is an elderly male lying in bed in no distress. RESPIRATORY SYSTEM: Unlabored breathing with decreased breath sounds at the base. No wheeze. HEART: S1, S2. Regular rate and rhythm. ABDOMEN: Soft. No tenderness. LABS: Blood culture negative. Sputum not collected. DIAGNOSTIC IMPRESSION AND PLAN: Patient admitted to hospital with possible pneumonia in this patient with recent medical treatment for COVID-19. The patient's main symptoms remain to be weakness, lethargy, covered with Rocephin antibiotic. Will recheck his inflammatory markers and blood cultures tomorrow and monitor his clinical course closely. MMODL / IJN: [id number] /
[2020-10-13] MEDS: ALBUTEROL HFA INHALER INHALATION SCH ×4 (01:45→20:40)
[2020-10-13] MEDS: DEXTROSE 5%-0.9% NACL 1,000 ML IV SCH (04:13)
[2020-10-13] MEDS: CEFEPIME 2 GM in SODIUM CHLORIDE 0.9% 100 ML IVPB SCH ×2 (06:30→17:24)
[2020-10-13] MEDS: VANCOMYCIN 1,250 MG in SODIUM CHLORIDE 0.9% 250 ML IVPB SCH ×2 (06:30→17:25)
[2020-10-13] MEDS: SODIUM CHLORIDE 0.9% 1,000 ML IV SCH (06:31)
[2020-10-13] MEDS: INSULIN ASPART (NovoLOG) 100 UNIT/ML VIAL SQ SCH ×4 (06:46→21:23)
[2020-10-13 06:48] LABS: Glucose,Whole Blood 102 mg/dL (75-99)
[2020-10-13 08:54] LABS: HCT 28.2 % (39.0-53.0); HGB 9.7 gm/dL (13.0-17.5); MCH 32.1 pg (25.0-35.0); MCHC 34.5 g/dL (31.0-37.0); Mean Platelet Volume 7.2; Platelet Count 208 k/uL (150-450); RBC 3.03 m/uL (4.30-5.90); RDW 14.3 % (11.5-15.5); WBC 10.1 k/uL (3.8-10.6)
[2020-10-13 09:03] LABS: Prothrombin Time 10.4 sec (9.0-12.0)
[2020-10-13] MEDS ORDERED: LIDOCAINE 1% INJ 10MG/ML (20 ML MDV) ONE (09:05)
[2020-10-13] MEDS ORDERED: PROPOFOL 10 MG/ML 20 ML VIAL IV ONE (09:05)
[2020-10-13] MEDS ORDERED: IV FLUID CONTINUATION 1,000 ML IV ONE (09:12)
[2020-10-13 09:15] LABS: ALT 86 U/L (4-49); AST 65 U/L (17-59); African American GFR (CKD) >90 (>60 ml/min/1.73 sqM); Albumin 2.8 g/dL (3.5-5.0); Alkaline Phosphatase 50 U/L (38-126); Anion Gap 1 mmol/L; Blood Urea Nitrogen 18 mg/dL (9-20); Calcium 8.1 mg/dL (8.4-10.2); Carbon Dioxide 30 mmol/L (22-30); Chloride 98 mmol/L (98-107); Glucose 68 mg/dL (74-99); Non-African American GFR(CKD) 88 (>60 ml/min/1.73 sqM); Potassium 4.6 mmol/L (3.5-5.1); Sodium 129 mmol/L (137-145); Total Bilirubin 1.2 mg/dL (0.2-1.3); Total Protein 5.4 g/dL (6.3-8.2)
--- NOTE | 2020-10-13 09:36 | P.PCN ---
Date of Procedure: 10/13/20 Procedure(s) Performed: Brief history: Patient is a 75-year-old pleasant scheduled for an EGD with PEG tube placement today. He was diagnosed with Covid 19 pneumonia a month ago at which time he presented with acute respiratory failure. He recovered and was transferred to the rehab [facility]. However he has failure to thrive. Has decreased appetite, fatigue, denies weakness and progressive weight loss. He scheduled for an upper endoscopy with a PEG tube placement for nutritional purposes Procedure performed: EGD with PEG tube placement Preoperative diagnosis: Failure to thrive/decreased appetite IV sedation by anesthesia Procedure: After informed consent was obtained with the patient as well as the family the patient was brought into the endoscopy unit. IV conscious sedation was administered by anesthesia under continuous monitoring. The Olympus GF 160 video endoscope was inserted into the mouth and esophagus intubated without any difficulty and was gradually advanced to the stomach and duodenum. The bulb and second part of the duodenum was visualized which appeared normal. The scope at this time was withdrawn to the stomach adequately insufflated with air. Adequate transillumination was achieved onto the anterior abdominal wall. At the site of adequate transillumination and maximal finger indentation, on the anterior abdominal wall, this area was sterilely prepped and draped. One percent Xylocaine was infiltrated into the skin and a small incision was made. Trocar and cannula was passed through the incision into the stomach cavity. The trocar was removed. Guidewire was passed through the cannula into the stomach cavity which was held by the snare that was passed through the scope. The guidewire along with the scope was gently withdrawn from the stomach esophagus out of the mouth. A 20-[employer] PEG tube was passed over the guidewire and was gently advanced into the mouth and esophagus and stomach. With gentle traction the guidewire along with the PEG tube was pulled from the anterior abdominal wall until the internal bumper appeared to be in secure position. Repeat EGD was performed and the esophagus intubated without any difficulty and was advanced into the stomach. The internal bumper appeared to be in secure position. The visualized portions of the antrum body cardia and fundus of the stomach appeared normal. The esophagus was carefully examined as the scope was gradually being withdrawn which appeared normal. At this time external bumper was placed on the PEG tube closer to the anterior abdominal wall at 3 cm doug. The patient tolerated the procedure well. Impression: Successful 20-[employer] PEG tube placement as described above. Small hiatal hernia. Recommendations: Findings of this examination were discussed with the patient's family. The patient will be started on tube feeds tomorrow. Post-PEG tube orders were written.
[2020-10-13] MEDS: ENOXAPARIN 30 MG/0.3 ML SYRINGE SQ SCH ×2 (11:41→21:18)
--- NOTE | 2020-10-13 11:42 | P.PN ---
Subjective Progress Note Date: 10/13/20 HISTORY OF PRESENT ILLNESS 75-year-old male one of Dr. Crocker patient was hospitalized last week for Covid symptoms at the time was mildly hypoxic but was having more constitutional symptoms consistent with fever chills generalized fatigue tiredness with mild exertional shortness of breath. This is a subsequent rehospitalization secondary to hypoxemia, increasing dyspnea, was diagnosed to have Covid this September 20, and readmitted September 25, for increasing dyspnea, weakness, and hypoxemia. Patient resides at [facility], for which they had transferred the patient for hypoxemia, and fatigue, and anorexia. He was transferred from [facility] to the emergency room for the above. Chest x- ray with CTA showed extensive interstitial pulmonary infiltrates that are improved compared to previous examination consistent with resolving interstitial pneumonia, no pulmonary mass, no evidence of pulmonary emboli. Urinalysis is negative, glucose at 222, lactic acid 1.1, pCO2 23, sodium 136, creatinine 1.07 patient admitted for suspected nosocomial infection/pneumonia,, globulin level is normal on 2.6, ferritin still elevated at 3227, ProcalAmine 1.93, worse than previous admission hemoglobin at 8.1, WBC count of 21.7 urinalysis normal October 07: Patient has not been eating, no energy at all, no appetite, patient denies any aspiration, has been noted to have more anasarca at this time, nutritional supplement 3 times a day would be ordered, T-max 98 blood pressure 120 to 1:30, slightly tachypneic consult were made with Dr. Peterson and Tomy 10/08: Patient denies having any abdominal pain, nausea or vomiting. No diarrhea. Patient continues to have difficulty breathing with cough. He has been afebrile, heart rate 75, blood pressure 140/74, pulse ox 95% on 6 L nasal cannula. Repeat blood work reveals the previously 11.5, hemoglobin 8.6. Hemoglobin yesterday was 7 and he received 1 unit of packed RBCs. Sodium 132, potassium 4.6, creatinine 0.72. Patient was hypoglycemic this morning with a blood sugar of 49, currently 103. Insulins will be adjusted. Levemir will be decreased to 10 units at bedtime. Patient was evaluated by speech therapy with recommendations for nectar thick liquids, chopped diet and aspiration precautions. 10/09:He continues to have a hard time with breathing along with little cough. He denies having any fever or chills. No nausea or vomiting. No diarrhea. No abdominal pain. Incentive spirometry will be added. Sputum culture to be obtained. Repeat blood work reveals WBC 11.5, hemoglobin 8.6 status post 1 unit of packed RBCs. Lymphocytes 0.3. Creatinine 0.72. Speech therapy to reevaluate tomorrow with plan for possible modified barium swallow. 10/10: Patient is currently on 4 L nasal cannula with pulse ox of 94-96%. Patient was started on antidepressant yesterday. He continues to be quite lethargic. He needs significant encouragement to get out of bed or do anything on his own. He is stating that he wants to go home but he was a 2 person assist to get up to the chair today. Plan is for him to return to [facility]. He has been continued on cefepime and vancomycin. Patient is afebrile, heart rate 68, blood pressure 142/72. Anticipate possible discharge on or Thursday this week. 10/11: Patient underwent modified barium swallow and is at high risk for aspiration with all consistencies. Speech therapy has recommended aspiration precautions, dysphagia diet pured, honey thick liquids, chin tuck with all oral intake. We'll plan to discuss PEG tube placement with patient tomorrow. Patient continues to complain of shortness of breath difficulty breathing. Repeat chest x-ray reveals improving but residual peripheral basilar infiltrate. Other bilateral interstitial infiltrates are similar. Lung sounds are improving. Patient continues to be quite lethargic and needs significant encouragement to participate in his own care. He has been afebrile, heart rate 82, blood pressure 135/73, pulse ox 96% on 4 L nasal cannula. Repeat blood work reveals WBC 12.7, hemoglobin 9.7. Sodium 129. Creatinine 0.85. AST 60, ALT 78, alkaline phosphatase 45. LDH 1226. C-reactive protein normal at 8.2. Blood sugars improved today with running between 73 and 112. Anticipate possible discharge back to [facility] on Thursday. 10/12: Patient has been refusing to eat and refusing his medication. Nurse was able to convince him this morning to take his morning medications. Based on findings from modified barium swallow, discussed PEG tube option with the patient. Also contacted patient's and son. They wish for him to go for PEG tube placement. Patient subsequently agreed for PEG tube. Consult placed with GI with anticipated placement on Thursday. [place] has been updated. Patient has been afebrile, heart rate 82, blood pressure 137/70, pulse ox 98% on 4 L nasal cannula. Patient continues to complain of feeling short of breath. Patient is continued on cefepime and vancomycin, followed by Dr. Peterson. 10/13: Initially patient was stating that he was not going to have a PEG tube p laced. After long discussion with Dr. Mcdaniel and Dr. Lopez, patient agreed to go for PEG tube placement which is done today. Dietitian consult is in place for tube feeding recommendations. He continues to be quite lethargic, general malaise and poor motivation. Patient was started on Lexapro during this hospitalization. He has been afebrile, heart rate 78, blood pressure 146/75, pulse ox 98% on 4 L nasal cannula. Repeat blood work reveals the CBC 10.1, hemoglobin 9.7, platelet count 208. Sodium 129 other electrolytes normal, creatinine 0.8. AST 65 and ALT 86. Repeat coven 19 testing done yesterday is positive. REVIEW OF SYSTEMS Constitutional: Reports reports anorexia, Denies chills, Denies chronic headaches, reports daytime sleepiness, reports fatigue, Denies fever, reports lethargy, reports malaise, Denies night sweats, reports poor appetite, Denies sw eats, reports weakness, Denies weight loss. Patient appears depressed. Ears, nose, mouth and throat: No sore throat. Dysphagia. Cardiovascular: Reports decreased exercise tolerance, Reports dyspnea on exertion Respiratory: Reports cough, Reports dyspnea, Denies congestion, Denies cough with sputum, Denies excessive sputum, Denies hemoptysis, reports home oxygen, Denies pain, Denies pain on inspiration, Denies pleurisy, Denies respiratory infections, Denies sleep apnea, Denies snoring, Denies wheezing Gastrointestinal: No abdominal pain, no nausea, no vomiting, no diarrhea. Reports no appetite. Genitourinary: No urinary retention, no dysuria Musculoskeletal: Denies arm numbness/tingling, Denies atrophy, Denies fractures, Denies frequent falls, reports gait dysfunction, Denies hot joints, Denies leg numbness/tingling, Denies limitation of motion, Denies loss of height, Denies low back pain, Denies morning stiffness, Denies muscle cramps, Denies muscle weakness, Denies myalgias, Denies neck pain, Denies neck stiffness, Denies prior amputations, Denies redness of joints, Denies shooting arm pain, Denies shooting leg pain, reports generalized weakness. Integumentary: No rash, no wounds PHYSICAL EXAMINATION Gen: This is a 75-year-old male. Patient is resting in bed and appears to be fatigued and weak but no respiratory distress noted. HEENT: Head is atraumatic, normocephalic. Pupils equal, round. Sclerae is anicteric. Dry mucous membranes. NECK: Supple. No JVD. No lymphadenopathy. No thyromegaly. LUNGS: Mild rhonchi bilaterally. No intercostal retractions. HEART: Regular rate and rhythm. No murmur. ABDOMEN: Soft. Bowel sounds are present. No masses. No tenderness. EXTREMITIES: No pedal edema. No calf tenderness. Dorsalis pedis palpable bilaterally. NEUROLOGICAL: Patient is awake, alert and oriented x3. Cranial nerves 2 through 12 are grossly intact. ASSESSMENT AND PLAN 1. Acute Covid pneumonitis with suspected coinfection with facility acquired pneumonia, possible aspiration pneumonia, secondary to debility with failure of outpatient treatment, and relapse from last week with much worsening hypoxia, chest x-ray and CTA of the chest consistent with Covid pneumonitis, negative for PE patient completed Remdisevir during last September 25 admission, restart Decadron 4 mg twice daily, O2, updraft treatment zinc vitamin D vitamin C. ID consultation appreciated patient is on antibiotics for bacteria Sputum culture, cefepime and Vanco continued, 2. Acute on chronic hypoxic respiratory failure secondary to Covid pneumonia with possible aspiration pneumonia. Continue oxygen therapy and continue to wean and antibiotics. 3. Possible gram-negative pneumonia versus aspiration pneumonia. Continue cefepime and vancomycin. ID consult appreciated. 4. Diabetes mellitus type 2 uncontrolled with episodes of hypoglycemia. Levemir decreased to 10 units at bedtime and insulin scale before meals and at bedtime. 5. Hypertension. Continue lisinopril 40 mg a day and atenolol 50 mg twice a day. 6. Hyperlipidemia. Continue statin. 7. Atherosclerotic heart disease: Remain on beta brayan, alex and isosorbide. 8. Severe GERD/GI prophylaxis: Patient will be on omeprazole or pantoprazole daily. 9. DVT prophylaxis: Patient will be on Lovenox 40 mg subcutaneous daily. 10. Anemia of unclear etiology. No sign of active bleeding. Stool for occult blood ordered. Patient is status post transfusion 1 unit of packed RBCs. 11. Aspiration with all consistencies. Consult with GI for PEG tube placement. Patient will be placed on. Diet with honey thick liquids for the weekend. PEG tube placed today. 12. Severe protein calorie malnutrition secondary to underlying illness, Covid 19, lack of appetite. Patient is status post PEG tube placement, start tube feedings. 13. Recurrent depression. Family has related that for the past 2 years he has not been motivated to care for himself. Patient was started on Lexapro 5 mg daily. CODE STATUS: NO code. DISCHARGE PLAN Return to [facility] on Thursday. Impression and plan of care have been directed as dictated by the signing physician. Cathy Walker nurse practitioner acting as scribe for signing niraj hill. Objective - Vital Signs Vital signs: Vital Signs Temp 98.3 F 10/13/20 04:00 Pulse 77 10/13/20 04:00 Resp 16 10/13/20 04:00 BP 143/77 10/13/20 04:00 Pulse Ox 95 10/13/20 04:00 Intake & Output 10/12/20 10/13/20 10/13/20 18:59 06:59 18:59 Intake Total 260 0 Output Total 675 800 Balance -415 -800 0 Weight 79 kg Intake: Oral 260 0 Output: Urine 675 800 Other: Voiding Method Urinal Urinal Diaper Diaper # Voids 2 1 - Labs CBC & Chem 7: 10/13/20 08:15 10/13/20 08:15 Labs: Abnormal Lab Results - Last 24 Hours (Table) 10/12/20 10/12/20 10/12/20 Range/Units 12:26 12:48 12:50 POC Glucose (mg/dL) 67 L 144 H 64 L (75-99) mg/dL Coronavirus (PCR) (Not Detectd) 10/12/20 10/12/20 10/13/20 Range/Units 17:23 20:41 06:45 POC Glucose (mg/dL) 102 H 102 H (75-99) mg/dL Coronavirus (PCR) Detected A (Not Detectd)
[2020-10-13] MEDS: ESCITALOPRAM 5 MG TAB PO SCH (11:53)
[2020-10-13] MEDS: PANTOPRAZOLE 40 MG TABLET PO SCH ×2 (11:53→17:16)
[2020-10-13] MEDS: ISOSORBIDE MONONITRATE ER 30 MG TAB.ER.24H PO SCH (11:53)
[2020-10-13] MEDS: dexAMETHasone 4 MG TAB PO SCH ×2 (11:53→17:13)
[2020-10-13] MEDS: atenoloL 50 MG TAB PO SCH ×2 (11:53→17:14)
[2020-10-13] MEDS: lisinopriL 20 MG TAB PO SCH (11:53)
[2020-10-13] MEDS: ACETAMINOPHEN TAB 325 MG TAB PO PRN (11:54)
[2020-10-13] MEDS: TIMOLOL 0.5% OPHTH DROPS 5 ML BTL BOTH EYES SCH ×2 (11:55→17:14)
[2020-10-13] MEDS: BRIMONIDINE TARTRATE 0.2% DROPS 5 ML BTL BOTH EYES SCH ×2 (11:55→17:14)
[2020-10-13] MEDS: FLUTICASONE 220 MCG INHALER INHALATION SCH ×2 (12:08→20:40)
[2020-10-13 12:37] LABS: Glucose,Whole Blood 90 mg/dL (75-99)
[2020-10-13] MEDS: ASCORBIC ACID 500 MG TAB PO SCH (17:13)
[2020-10-13] MEDS: AZITHROMYCIN 500 MG TAB PO SCH (17:13)
[2020-10-13] MEDS: FOLIC ACID 1 MG TAB PO SCH (17:13)
[2020-10-13] MEDS: ASPIRIN 81 MG PO SCH (17:13)
[2020-10-13] MEDS: ZINC SULFATE 220 MG CAP PO SCH (17:16)
[2020-10-13 17:26] LABS: Glucose,Whole Blood 176 mg/dL (75-99)
[2020-10-13 20:52] LABS: Glucose,Whole Blood 139 mg/dL (75-99)
[2020-10-13] MEDS: MELATONIN 3 MG TABLET PO SCH (21:18)
[2020-10-13] MEDS: ATORVASTATIN 10 MG TAB PO SCH (21:18)
[2020-10-13] MEDS: INSULIN DETEMIR (LEVEMIR) 100 UNIT/ML SYR SQ SCH (21:24)
--- NOTE | 2020-10-13 23:20 | PN ---
PROGRESS NOTE DATE OF SERVICE: 10/13/2020 REASON FOR FOLLOWUP: Pneumonia. INTERVAL HISTORY: The patient is currently afebrile. The patient is breathing comfortably. On only 2 L nasal cannula. Denies having chest pain. Has been feeling weak and tired, no energy. No nausea. No vomiting or diarrhea reported. PHYSICAL EXAMINATION: Blood pressure 132/69, pulse of 73, temperature 97.8. He is 100% on 2 L nasal cannula. General description is an elderly male lying in bed in no distress. Respiratory system: Unlabored breathing, decreased breath sounds in the base, no wheeze. Heart S1, S2. Regular rate and rhythm. ABDOMEN: Soft, no tenderness. LABS: Creatinine 9.7, white count 10.9, BUN of 18, creatinine 0.80. Blood culture negative. Sputum not collected. DIAGNOSTIC IMPRESSION AND PLAN: Patient admitted to hospital with generalized weakness, no energy and cough recently treated for COVID-19 pneumonia. This patient now with decreased oral intake, abnormal fluoroscopic swallow, status post PEG tube placement. Patient to continue cefepime. Discontinue the vancomycin and monitor clinical course closely. MMODL / IJN: [id number] /
[2020-10-13] MEDS: LATANOPROST 0.005% OPHTH DROPS 2.5 ML BTL BOTH EYES SCH (23:32)
[2020-10-14] MEDS: ALBUTEROL HFA INHALER INHALATION SCH ×4 (01:47→20:25)
[2020-10-14] MEDS ORDERED: VANCOMYCIN TROUGH DUE 1 EACH MISC MISCELLANE ONE (05:00)
[2020-10-14] MEDS: CEFEPIME 2 GM in SODIUM CHLORIDE 0.9% 100 ML IVPB SCH ×2 (05:25→18:12)
[2020-10-14 05:52] LABS: African American GFR (CKD) >90 (>60 ml/min/1.73 sqM); C Reactive Protein 23.9 mg/L (<10.0); Non-African American GFR(CKD) >90 (>60 ml/min/1.73 sqM)
[2020-10-14 06:24] LABS: Glucose,Whole Blood 147 mg/dL (75-99)
[2020-10-14] MEDS: DEXTROSE 5%-0.9% NACL 1,000 ML IV SCH ×3 (06:33→23:54)
[2020-10-14] MEDS: SODIUM CHLORIDE 0.9% 1,000 ML IV SCH ×3 (06:34→23:55)
[2020-10-14] MEDS: INSULIN ASPART (NovoLOG) 100 UNIT/ML VIAL SQ SCH ×4 (06:36→20:20)
[2020-10-14] MEDS: FLUTICASONE 220 MCG INHALER INHALATION SCH ×2 (09:11→20:25)
--- NOTE | 2020-10-14 09:14 | CDI ---
Documentation Clarification Form Date: 10/09/2020 12:41:00 PM From: Farzana Silva RN, CCDS Admit Date: 10/05/2020 05:18:00 PM Patient Name: Ihsan Godinez Visit Number: [id number] ATTENTION: The Clinical Documentation Specialists (CDI) and [facility] Coding Staff appreciate your assistance in clarifying documentation. Please respond to the clarification below the line at the bottom and electronically sign. The CDI & [facility] Coding staff will review the response and follow-up if needed. Please note: Queries are made part of the Legal Health Record. If you have any questions, please contact the author of this message via ITS. Dr. Eduardo Mcdaniel Patient was noted to have an elevated BUN and creatinine on admission, please provide clinical significance. History/Risk Factors: 09/25/2020 Patients baseline BUN/CR/GFR: 15/./89 Clinical Indicators: 10/05 Admission BUN/CR/GFR: 79/1.53/44 10/13 Current BUN/Cr/GFR:18/. Treatment: 10/05 2L 0.9% NS IVF Bolus Daily lab monitoring In order to capture the severity of condition, please clarify if the condition signifies: Acute renal failure, Please specify etiology (if known): Cortical Necrosis Medullary Necrosis Tubular Necrosis Acute kidney injury Acute on chronic renal failure CKD Stage 1 GFR >90 CKD Stage 2 GFR 60-89 CKD Stage 3 GFR 30-59 CKD Stage 4 GFR 15-29 xChronic renal failure/Chronic Kidney disease (CKD) please stage (if known): CKD Stage 1 GFR >90 xxx CKD Stage 2 GFR 60-89 CKD Stage 3 GFR 30-59 CKD Stage 4 GFR 15-29 Other, please specify Unable to determine (Last Revision: February 2018) MTDD
[2020-10-14] MEDS: lisinopriL 20 MG TAB PO SCH (09:19)
[2020-10-14] MEDS: CHOLECALCIFEROL 1,000 UNIT TAB PO SCH (09:19)
[2020-10-14] MEDS: ISOSORBIDE MONONITRATE ER 30 MG TAB.ER.24H PO SCH (09:19)
[2020-10-14] MEDS: TIMOLOL 0.5% OPHTH DROPS 5 ML BTL BOTH EYES SCH ×2 (09:20→17:45)
[2020-10-14] MEDS: PANTOPRAZOLE 40 MG TABLET PO SCH ×2 (09:20→17:55)
[2020-10-14] MEDS: dexAMETHasone 4 MG TAB PO SCH ×3 (09:20→17:56)
[2020-10-14] MEDS: BRIMONIDINE TARTRATE 0.2% DROPS 5 ML BTL BOTH EYES SCH ×2 (09:20→17:45)
[2020-10-14] MEDS: ENOXAPARIN 30 MG/0.3 ML SYRINGE SQ SCH ×2 (09:20→23:55)
[2020-10-14] MEDS: ESCITALOPRAM 5 MG TAB PO SCH (09:20)
[2020-10-14] MEDS: atenoloL 50 MG TAB PO SCH ×2 (09:20→17:57)
[2020-10-14 09:39] VITALS: BMI 26.3
--- NOTE | 2020-10-14 10:18 | PN ---
PROGRESS NOTE DATE OF SERVICE: October 14, 2020 Patient is a 75-year-old pleasant white male admitted to the hospital with failure to thrive post Covid 19 acute respiratory failure that was diagnosed a month ago. He has decreased appetite, not feeling well. He underwent an EGD with a PEG tube placement yesterday. The patient denies any abdominal pain. No nausea, vomiting. He complains of some shortness of breath. PHYSICAL EXAMINATION: Appears comfortable. Vital signs show blood pressure 134/71, pulse is 77, temperature 97.4. HEENT examination unremarkable. Conjunctivae pink. Sclerae anicteric. Oral cavity no lesions. Neck no JVD or lymph node enlargement. ABDOMEN: Soft. PEG tube in place. It was benign. Bowel sounds are positive. Extremities: No pedal edema. Neuro: He is alert and oriented x3. No focal deficits. LABS: From today WBC 10.1, hemoglobin 9.7, platelets normal. Basic metabolic panel showed a BUN of 18, creatinine 0.08, albumin is 2.8. IMPRESSION: 1. Status post PEG tube placement yesterday. Patient doing well. No abdominal complaints. 2. Covid 19 pneumonia/acute respiratory failure diagnosed a month ago. Continues to have persistent weakness, fatigue and failure to thrive. 3. Mild elevation of serum transaminases. RECOMMENDATIONS: Start the PEG tube with continuous feeding at 20 mL an hour and increase it to 40 mL an hour. Await recommendations from dietary tomorrow to establish a goal rate for the tube feeds. We will follow with you closely. Thank you for this consultation. MMODL / MARLEENN: [id number] /
--- NOTE | 2020-10-14 10:51 | P.PN ---
Subjective Progress Note Date: 10/14/20 HISTORY OF PRESENT ILLNESS 75-year-old male one of Dr. Crocker patient was hospitalized last week for Covid symptoms at the time was mildly hypoxic but was having more constitutional symptoms consistent with fever chills generalized fatigue tiredness with mild exertional shortness of breath. This is a subsequent rehospitalization secondary to hypoxemia, increasing dyspnea, was diagnosed to have Covid this September 20, and readmitted September 25, for increasing dyspnea, weakness, and hypoxemia. Patient resides at [facility], for which they had transferred the patient for hypoxemia, and fatigue, and anorexia. He was transferred from [facility] to the emergency room for the above. Chest x- ray with CTA showed extensive interstitial pulmonary infiltrates that are improved compared to previous examination consistent with resolving interstitial pneumonia, no pulmonary mass, no evidence of pulmonary emboli. Urinalysis is negative, glucose at 222, lactic acid 1.1, pCO2 23, sodium 136, creatinine 1.07 patient admitted for suspected nosocomial infection/pneumonia,, globulin level is normal on 2.6, ferritin still elevated at 3227, ProcalAmine 1.93, worse than previous admission hemoglobin at 8.1, WBC count of 21.7 urinalysis normal October 07: Patient has not been eating, no energy at all, no appetite, patient denies any aspiration, has been noted to have more anasarca at this time, nutritional supplement 3 times a day would be ordered, T-max 98 blood pressure 120 to 1:30, slightly tachypneic consult were made with Dr. Peterson and Tomy 10/08: Patient denies having any abdominal pain, nausea or vomiting. No diarrhea. Patient continues to have difficulty breathing with cough. He has been afebrile, heart rate 75, blood pressure 140/74, pulse ox 95% on 6 L nasal cannula. Repeat blood work reveals the previously 11.5, hemoglobin 8.6. Hemoglobin yesterday was 7 and he received 1 unit of packed RBCs. Sodium 132, potassium 4.6, creatinine 0.72. Patient was hypoglycemic this morning with a blood sugar of 49, currently 103. Insulins will be adjusted. Levemir will be decreased to 10 units at bedtime. Patient was evaluated by speech therapy with recommendations for nectar thick liquids, chopped diet and aspiration precautions. 10/09:He continues to have a hard time with breathing along with little cough. He denies having any fever or chills. No nausea or vomiting. No diarrhea. No abdominal pain. Incentive spirometry will be added. Sputum culture to be obtained. Repeat blood work reveals WBC 11.5, hemoglobin 8.6 status post 1 unit of packed RBCs. Lymphocytes 0.3. Creatinine 0.72. Speech therapy to reevaluate tomorrow with plan for possible modified barium swallow. 10/10: Patient is currently on 4 L nasal cannula with pulse ox of 94-96%. Patient was started on antidepressant yesterday. He continues to be quite lethargic. He needs significant encouragement to get out of bed or do anything on his own. He is stating that he wants to go home but he was a 2 person assist to get up to the chair today. Plan is for him to return to [facility]. He has been continued on cefepime and vancomycin. Patient is afebrile, heart rate 68, blood pressure 142/72. Anticipate possible discharge on or Thursday this week. 10/11: Patient underwent modified barium swallow and is at high risk for aspiration with all consistencies. Speech therapy has recommended aspiration precautions, dysphagia diet pured, honey thick liquids, chin tuck with all oral intake. We'll plan to discuss PEG tube placement with patient tomorrow. Patient continues to complain of shortness of breath difficulty breathing. Repeat chest x-ray reveals improving but residual peripheral basilar infiltrate. Other bilateral interstitial infiltrates are similar. Lung sounds are improving. Patient continues to be quite lethargic and needs significant encouragement to participate in his own care. He has been afebrile, heart rate 82, blood pressure 135/73, pulse ox 96% on 4 L nasal cannula. Repeat blood work reveals WBC 12.7, hemoglobin 9.7. Sodium 129. Creatinine 0.85. AST 60, ALT 78, alkaline phosphatase 45. LDH 1226. C-reactive protein normal at 8.2. Blood sugars improved today with running between 73 and 112. Anticipate possible discharge back to [facility] on Thursday. 10/12: Patient has been refusing to eat and refusing his medication. Nurse was able to convince him this morning to take his morning medications. Based on findings from modified barium swallow, discussed PEG tube option with the patient. Also contacted patient's and son. They wish for him to go for PEG tube placement. Patient subsequently agreed for PEG tube. Consult placed with GI with anticipated placement on Thursday. [place] has been updated. Patient has been afebrile, heart rate 82, blood pressure 137/70, pulse ox 98% on 4 L nasal cannula. Patient continues to complain of feeling short of breath. Patient is continued on cefepime and vancomycin, followed by Dr. Peterson. 10/13: Initially patient was stating that he was not going to have a PEG tube p laced. After long discussion with Dr. Mcdaniel and Dr. Lopez, patient agreed to go for PEG tube placement which is done today. Dietitian consult is in place for tube feeding recommendations. He continues to be quite lethargic, general malaise and poor motivation. Patient was started on Lexapro during this hospitalization. He has been afebrile, heart rate 78, blood pressure 146/75, pulse ox 98% on 4 L nasal cannula. Repeat blood work reveals the CBC 10.1, hemoglobin 9.7, platelet count 208. Sodium 129 other electrolytes normal, creatinine 0.8. AST 65 and ALT 86. Repeat coven 19 testing done yesterday is positive. 10/14: Dr. Lopez has ordered PEG tube feedings to start today. Dr. Peterson has ordered pro-calcitonin which is currently pending. C-reactive protein is 23.9. Creatinine 0.75. Blood sugars running between 139 and 176. Vancomycin has been discontinued and patient is currently only on cefepime for antibiotics. He has been afebrile, heart rate 77, blood pressure 1 3471 pulse ox 90% on 2 L. Patient continues to be quite depressed. Phone call placed to patient's and children as requested. Psychiatric consult will be added regarding depression. REVIEW OF SYSTEMS Constitutional: Reports reports anorexia, Denies chills, Denies chronic head aches, reports daytime sleepiness, reports fatigue, Denies fever, reports lethargy, reports malaise, Denies night sweats, reports poor appetite, Denies sweats, reports weakness, Denies weight loss. Patient appears depressed. Ears, nose, mouth and throat: No sore throat. Dysphagia. Cardiovascular: Reports decreased exercise tolerance, Reports dyspnea on exertion Respiratory: Reports cough, Reports dyspnea, Denies congestion, Denies cough with sputum, Denies excessive sputum, Denies hemoptysis, reports home oxygen, Denies pain, Denies pain on inspiration, Denies pleurisy, Denies respiratory in fections, Denies sleep apnea, Denies snoring, Denies wheezing Gastrointestinal: No abdominal pain, no nausea, no vomiting, no diarrhea. Reports no appetite. Genitourinary: No urinary retention, no dysuria Musculoskeletal: Denies arm numbness/tingling, Denies atrophy, Denies fractures, Denies frequent falls, reports gait dysfunction, Denies hot joints, Denies leg numbness/tingling, Denies limitation of motion, Denies loss of height, Denies low back pain, Denies morning stiffness, Denies muscle cramps, Denies muscle weakness, Denies myalgias, Denies neck pain, Denies neck stiffness, Denies prior amputations, Denies redness of joints, Denies shooting arm pain, Denies shooting leg pain, reports generalized weakness. Integumentary: No rash, no wounds Psych: depression PHYSICAL EXAMINATION Gen: This is a 75-year-old male. Patient is resting in bed and appe ars to be fatigued and weak but no respiratory distress noted. HEENT: Head is atraumatic, normocephalic. Pupils equal, round. Sclerae is anicteric. Dry mucous membranes. NECK: Supple. No JVD. No lymphadenopathy. No thyromegaly. LUNGS: Mild rhonchi bilaterally. No intercostal retractions. HEART: Regular rate and rhythm. No murmur. ABDOMEN: Soft. Bowel sounds are present. No masses. No tenderness. EXTREMITIES: No pedal edema. No calf tenderness. Dorsalis pedis palpable bilaterally. NEUROLOGICAL: Patient is awake, alert and oriented x3. Cranial nerves 2 through 12 are grossly intact. Flat affect, poor eye contact. ASSESSMENT AND PLAN 1. Acute Covid pneumonitis with suspected coinfection with facility acquired pneumonia, possible aspiration pneumonia, completed Remdisevir during last September 25 admission. Continue Decadron 4 mg twice daily, O2, updraft janell atment zinc vitamin D vitamin C, Lovenox. ID consultation appreciated patient is on antibiotics for bacteria Sputum culture, cefepime and Vanco discontinued, 2. Acute on chronic hypoxic respiratory failure secondary to Covid pneumonia with possible aspiration pneumonia. Continue oxygen therapy and continue to wean and antibiotics. 3. Possible gram-negative pneumonia versus aspiration pneumonia. Continue cefepime. ID consult appreciated. 4. Diabetes mellitus type 2 uncontrolled with episodes of hypoglycemia. Levemir decreased to 10 units at bedtime and insulin scale before meals and at bedtime. 5. Hypertension. Continue lisinopril 40 mg a day and atenolol 50 mg twice a day. 6. Hyperlipidemia. Continue statin. 7. Atherosclerotic heart disease: Remain on beta brayan, alex and isosorbide. 8. Severe GERD/GI prophylaxis: Patient will be on omeprazole or pantoprazole d ail. 9. DVT prophylaxis: Patient will be on Lovenox 40 mg subcutaneous daily. 10. Anemia of unclear etiology. No sign of active bleeding. Stool for occult blood ordered. Patient is status post transfusion 1 unit of packed RBCs. 11. Aspiration with all consistencies. Consult with GI for PEG tube placement. Patient will be placed on. Diet with honey thick liquids for the weekend. PEG tube placed today. 12. Severe protein calorie malnutrition secondary to underlying illness, Covid 19, lack of appetite. Patient is status post PEG tube placement, start tube feedings. 13. Recurrent depression. Family has related that for the past 2 years he has not been motivated to care for himself. Patient was started on Lexapro 5 mg daily. Consult with psychiatry. CODE STATUS: NO code. DISCHARGE PLAN Return to [facility] on Thursday. Impression and plan of care have been directed as dictated by the signing physician. Cathy Walker nurse practitioner acting as scribe for signing physician. Objective - Vital Signs Vital signs: Vital Signs Temp 97.4 F L 10/14/20 04:00 Pulse 77 10/14/20 04:00 Resp 18 10/14/20 04:00 BP 134/71 10/14/20 04:00 Pulse Ox 98 10/14/20 04:00 Intake & Output 10/13/20 10/14/20 10/14/20 18:59 06:59 18:59 Intake Total 1250 Output Total 500 300 Balance 750 -300 Weight 78.5 kg Intake: IV 250 Intake, IV Titration 950 Amount Cefepime 2 gm In Sodium 100 Chloride 0.9% 100 ml @ 25 mls/hr IVPB Q12H [facility] Rx# :[id number] Dextrose 5%-0.9% NaCl 1, 600 000 ml @ 75 mls/hr IV . [id number] [facility] Rx#:[id number] Vancomycin 1,250 mg In 250 Sodium Chloride 0.9% 250 ml @ 125 mls/hr IVPB Q12H [facility] Rx#:[id number] Oral 50 Output: Urine 500 300 Other: Voiding Method Urinal Urinal Diaper Diaper # Voids 4 1 # Bowel Movements 1 - Labs CBC & Chem 7: 10/13/20 08:15 10/14/20 05:20 Labs: Abnormal Lab Results - Last 24 Hours (Table) 10/13/20 10/13/20 10/13/20 Range/Units 08:15 08:15 17:09 RBC 3.03 L (4.30-5.90) m/uL Hgb 9.7 L (13.0-17.5) gm/dL Hct 28.2 L (39.0-53.0) % Sodium 129 L (137-145) mmol/L Glucose 68 L (74-99) mg/dL POC Glucose (mg/dL) 176 H (75-99) mg/dL Calcium 8.1 L (8.4-10.2) mg/dL AST 65 H (17-59) U/L ALT 86 H (4-49) U/L C-Reactive Protein (<10.0) mg/L Total Protein 5.4 L (6.3-8.2) g/dL Albumin 2.8 L (3.5-5.0) g/dL 10/13/20 10/14/20 10/14/20 Range/Units 20:41 05:20 06:21 RBC (4.30-5.90) m/uL Hgb (13.0-17.5) gm/dL Hct (39.0-53.0) % Sodium (137-145) mmol/L Glucose (74-99) mg/dL POC Glucose (mg/dL) 139 H 147 H (75-99) mg/dL Calcium (8.4-10.2) mg/dL AST (17-59) U/L ALT (4-49) U/L C-Reactive Protein 23.9 H (<10.0) mg/L Total Protein (6.3-8.2) g/dL Albumin (3.5-5.0) g/dL
[2020-10-14 12:23] LABS: Glucose,Whole Blood 199 mg/dL (75-99)
[2020-10-14] MEDS ORDERED: ESCITALOPRAM 5 MG TAB PO STA (16:27)
--- NOTE | 2020-10-14 16:41 | P.CN ---
Psychiatric Consult - . Consult date: 10/14/20 Consult:: 10/14/20 14:52 IDENTIFYING DATA: This patient is a 75-year-old male who is currently has 3 kids collects Social Security and pension.patient lives at [facility] REASON FOR REFERRAL: Psychiatry was consulted for depression HISTORY OF PRESENT ILLNESS: The patient presented to the hospital ER on 10/05/2020 for complaints of shortness of breath, fatigue feelings of on well and was a poor historian. Patient was found to be hypoxic including anxiety as well. Patient was recently diagnosed with Coronavirus and was intubated in his previous admission on September 20. Patient was coming from a extended care facility. patient's WBCs were elevated and creatinine and BUNs were elevated on admission. Patient was found to be hyponatremic. Patient was complaining of depression and was constricted in his affect on the medical floors. Patient was being treated for pneumonia with antibiotics. Patient's nurse claims that patient looks down and is complaining of being tired of the sickness and feeling like he is not improving with his condition. Patient was seen at the bedside and was struggling to breathe and was on nasal cannula. Patient claims that he is doing "not too bad" today and claims that he has been dealing with depression for several years. He was previously on Lexapro and taking it in the hospital 5 mg daily. He states that a lot of his depression is due to his sickness and he is been trying to eat more today as his appetite has been poor. He claims his sleep is also been poor. He denied any anxiety today and denied any other stressors in his life.At this time patient denies any suicidal or homical ideations, intent or plan. Patient denies any auditory, visual hallucinations and denies any paranoia or delusions. Patients admits to using no recreational drugs or cigarettes area PAST PSYCHIATRIC HISTORY: Patient has a a history of depression. patient was on Lexapro 5 mg daily for mood. [Patient denies any previous psychiatric hospitalizations.] [Patient denies any psychiatric outpatient follow-up.] [Patient denies any history of suicide attempts in the past PAST MEDICAL HISTORY: angina, diabetes mellitus, GERD, hyperlipidemia and hypertension. ALLERGIES: as per EMR. CHEMICAL DEPENDENCY HISTORY: as per HPI. FAMILY PSYCHIATRIC/SUBSTANCE USE HISTORY: [denies] SOCIAL HISTORY: Patient was born and raised in [facility]. He claims that he completed up to 10th grade in school. 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 He is currently collecting pension and Social Security and currently is residing at [facility]. he has 3 kids and is currently . He denies ever going to [facility] or [facility]. MENTAL STATUS EXAM: General Appearance: Patient appears to be Fairly ill and having shortness of breath stated age is alert, pleasant, and attempts to be cooperative. Patient appears to have [fair] hygiene and grooming wearing hospital gown with poor eye contact. Behavior: [Patient is calmly lying in bed without any agitated behavior.] Speech: Patient's speech is fluent and nonpressured. Mood/Affect: Patient reports their mood is "[depressed]", affect is congruent and constricted Suicidality/Homicidality: Patient denies having any suicidal or homicidal ideation intent or plan. Perceptions: Patient denies any visual hallucinations [and denies any auditory hallucinations] Though content/process: There is no evidence of any delusional thought content and thought process is linear and goal-directed. concrete Memory and concentration: AOX3, grossly intact for the purposes of this session. Can spell "WORLD" backwards Judgment and insight: fair IMPRESSIONS: Major depressive disorder mild PLAN: -At this time patient DOES NOT meet criteria for inpatient psychiatric admission. -it appears that patients depression is being exacerbated by his current pneumonia and medical condition, which will gradually improve as patient improves medically. -Would recommend the following medication changes/additions: Increased lexapro to 10mg daily for mood. Added Remeron 7.5 mg qhs for mood/sleep and appetite. -workers' compensation hearings officer to provide patient with outpatient mental health/psychiatry resources for appropriate follow up upon discharge -Psychiatry will sign off at this time. communicated plan to nurse. -Please contact with any questions. 10/14/20 16:29
[2020-10-14 17:35] LABS: Glucose,Whole Blood 215 mg/dL (75-99)
[2020-10-14] MEDS: ASPIRIN 81 MG PO SCH (17:55)
[2020-10-14] MEDS: ZINC SULFATE 220 MG CAP PO SCH (17:56)
[2020-10-14] MEDS: AZITHROMYCIN 500 MG TAB PO SCH (17:56)
[2020-10-14] MEDS: ASCORBIC ACID 500 MG TAB PO SCH (17:56)
[2020-10-14] MEDS: FOLIC ACID 1 MG TAB PO SCH (17:57)
[2020-10-14 20:13] LABS: Glucose,Whole Blood 223 mg/dL (75-99)
[2020-10-14] MEDS: ATORVASTATIN 10 MG TAB PO SCH (20:29)
[2020-10-14] MEDS: MELATONIN 3 MG TABLET PO SCH (20:29)
[2020-10-14] MEDS ORDERED: MIRTAZAPINE 15 MG TAB PO SCH (21:00)
--- NOTE | 2020-10-14 21:09 | PN ---
PROGRESS NOTE DATE OF SERVICE: 10/14/2020. REASON FOR FOLLOW UP: Pneumonia. INTERVAL HISTORY: The patient is currently afebrile, has been complaining of feeling weak and tired. No energy. The patient denies having any chest pain. Some shortness of breath. He did have a cough, not bringing up any sputum. No nausea, vomiting, abdominal pain or diarrhea. PHYSICAL EXAMINATION: Blood pressure 12/61 with a pulse of 77, temperature 98.4. He is 97% on 2 L nasal cannula. General description is an elderly male lying in bed in no distress. Respiratory system: Unlabored breathing, decreased breath sounds in the bases. No wheeze. Heart S1, S2. Regular rate and rhythm. ABDOMEN: Soft. No tenderness. LABS: Creatinine 0.75. Procalcitonin 0.35. CRP is 23.9. DIAGNOSTIC IMPRESSION AND PLAN: Patient with pneumonia recently for Covid, now admitted to the hospital with weakness and shortness of breath, cough. Patient is covered with cefepime. May consider oral antibiotic on discharge, a short course and close outpatient followup. MMODL / IJN: [id number] /
[2020-10-14] MEDS: INSULIN DETEMIR (LEVEMIR) 100 UNIT/ML SYR SQ SCH (23:55)
[2020-10-14] MEDS: LATANOPROST 0.005% OPHTH DROPS 2.5 ML BTL BOTH EYES SCH (23:55)
[2020-10-15] MEDS: ALBUTEROL HFA INHALER INHALATION SCH ×3 (04:01→11:38)
[2020-10-15 06:13] LABS: Glucose,Whole Blood 127 mg/dL (75-99)
[2020-10-15] MEDS: INSULIN ASPART (NovoLOG) 100 UNIT/ML VIAL SQ SCH ×2 (06:17→13:07)
[2020-10-15] MEDS: CEFEPIME 2 GM in SODIUM CHLORIDE 0.9% 100 ML IVPB SCH (06:53)
[2020-10-15] MEDS: FLUTICASONE 220 MCG INHALER INHALATION SCH (07:54)
[2020-10-15 08:33] VITALS: TEMP 97.9
--- NOTE | 2020-10-15 08:42 | P.DS ---
Providers Date of admission: 10/05/20 17:18 Expected date of discharge: 10/15/20 Attending physician: Eduardo Mcdaniel Consults: 10/07/20 10:46 Consult Physician Routine Consulting Provider: Alessandro Huitron Consult Reason/Comments: persistent covid pneumonia HAP Do you want consulting provider notified?: Yes Consult Physician Routine Consulting Provider: Tim Peterson Consult Reason/Comments: covid pneumonia HAP Do you want consulting provider notified?: Yes Primary care physician: [facility] Course: HISTORY OF PRESENT ILLNESS 75-year-old male one of Dr. Crocker patient was hospitalized last week for Covid symptoms at the time was mildly hypoxic but was having more constitutional symptoms consistent with fever chills generalized fatigue tiredness with mild exertional shortness of breath. This is a subsequent rehospitalization secondary to hypoxemia, increasing dyspnea, was diagnosed to have Covid this September 20, and readmitted September 25, for increasing dyspnea, weakness, and hypoxemia. Patient resides at [facility], for which they had transferred the patient for hypoxemia, and fatigue, and anorexia. He was transferred from [facility] to the emergency room for the above. Chest x- ray with CTA showed extensive interstitial pulmonary infiltrates that are improved compared to previous examination consistent with resolving interstitial pneumonia, no pulmonary mass, no evidence of pulmonary emboli. Urinalysis is negative, glucose at 222, lactic acid 1.1, pCO2 23, sodium 136, creatinine 1.07 patient admitted for suspected nosocomial infection/pneumonia,, globulin level is normal on 2.6, ferritin still elevated at 3227, ProcalAmine 1.93, worse than previous admission hemoglobin at 8.1, WBC count of 21.7 urinalysis normal October 07: Patient has not been eating, no energy at all, no appetite, patient denies any aspiration, has been noted to have more anasarca at this time, nutritional supplement 3 times a day would be ordered, T-max 98 blood pressure 120 to 1:30, slightly tachypneic consult were made with Dr. Celeste 10/08: Patient denies having any abdominal pain, nausea or vomiting. No diarrhea. Patient continues to have difficulty breathing with cough. He has been afebrile, heart rate 75, blood pressure 140/74, pulse ox 95% on 6 L nasal cannula. Repeat blood work reveals the previously 11.5, hemoglobin 8.6. Hemoglobin yesterday was 7 and he received 1 unit of packed RBCs. Sodium 132, potassium 4.6, creatinine 0.72. Patient was hypoglycemic this morning with a blood sugar of 49, currently 103. Insulins will be adjusted. Levemir will be decreased to 10 units at bedtime. Patient was evaluated by speech therapy with recommendations for nectar thick liquids, chopped diet and aspiration p recautions. 10/09:He continues to have a hard time with breathing along with little cough. He denies having any fever or chills. No nausea or vomiting. No diarrhea. No abdominal pain. Incentive spirometry will be added. Sputum culture to be obtained. Repeat blood work reveals WBC 11.5, hemoglobin 8.6 status post 1 unit of packed RBCs. Lymphocytes 0.3. Creatinine 0.72. Speech therapy to r eevaluate tomorrow with plan for possible modified barium swallow. 10/10: Patient is currently on 4 L nasal cannula with pulse ox of 94-96%. Patient was started on antidepressant yesterday. He continues to be quite lethargic. He needs significant encouragement to get out of bed or do anything on his own. He is stating that he wants to go home but he was a 2 person assist to get up to the chair today. Plan is for him to return to [facility]. He has been continued on cefepime and vancomycin. Patient is afebrile, heart rate 68, blood pressure 142/72. Anticipate possible discharge on or Thursday this week. 10/11: Patient underwent modified barium swallow and is at high risk for aspiration with all consistencies. Speech therapy has recommended aspiration precautions, dysphagia diet pured, honey thick liquids, chin tuck with all oral intake. We'll plan to discuss PEG tube placement with patient tomorrow. Patient continues to complain of shortness of breath difficulty breathing. Repeat chest x-ray reveals improving but residual peripheral basilar infiltrate. Other bilateral interstitial infiltrates are similar. Lung sounds are improving. Patient continues to be quite lethargic and needs significant encouragement to participate in his own care. He has been afebrile, heart rate 82, blood pressure 135/73, pulse ox 96% on 4 L nasal cannula. Repeat blood work reveals WBC 12.7, hemoglobin 9.7. Sodium 129. Creatinine 0.85. AST 60, ALT 78, alkaline phosphatase 45. LDH 1226. C-reactive protein normal at 8.2. Blood sugars improved today with running between 73 and 112. Anticipate possible discharge back to [facility] on Thursday. 10/12: Patient has been refusing to eat and refusing his medication. Nurse was able to convince him this morning to take his morning medications. Based on findings from modified barium swallow, discussed PEG tube option with the patient. Also contacted patient's and son. They wish for him to go for PEG tube placement. Patient subsequently agreed for PEG tube. Consult placed with GI with anticipated placement on Thursday. [facility] has been updated. Patient has been afebrile, heart rate 82, blood pressure 137/70, pulse ox 98% on 4 L nasal cannula. Patient continues to complain of feeling short of breath. Patient is continued on cefepime and vancomycin, followed by Dr. Peterson. 10/13: Initially patient was stating that he was not going to have a PEG tube placed. After long discussion with Dr. Mcdaniel and Dr. Lopez, patient agreed to go for PEG tube placement which is done today. Dietitian consult is in place for tube feeding recommendations. He continues to be quite lethargic, general malaise and poor motivation. Patient was started on Lexapro during this hospitalization. He has been afebrile, heart rate 78, blood pressure 146/75, pulse ox 98% on 4 L nasal cannula. Repeat blood work reveals the CBC 10.1, hemoglobin 9.7, platelet count 208. Sodium 129 other electrolytes normal, creatinine 0.8. AST 65 and ALT 86. Repeat coven 19 testing done yesterday is positive. 10/14: Dr. Lopez has ordered PEG tube feedings to start today. Dr. Peterson has ordered pro-calcitonin which is currently pending. C-reactive protein is 23.9. Creatinine 0.75. Blood sugars running between 139 and 176. Vancomycin has been discontinued and patient is currently only on cefepime for antibiotics. He has been afebrile, heart rate 77, blood pressure 1 3471 pulse ox 90% on 2 L. Patient continues to be quite depressed. Phone call placed to patient's and children as requested. Psychiatric consult will be added regarding depression. 10/15: Patient has been seen by psychiatry and added Remeron 7.5 mg at bedtime. Patient to follow-up with outpatient counseling after discharge. The PEG tube was placed on the weekend patient has started tube feedings. No residuals. He is currently on 1 L nasal cannula with pulse ox of 95%. His been afebrile, heart rate 76, blood pressure 146/81. Repeat blood work reveals Oliva BC 7.9, hemoglobin 8.6. Sodium 132, potassium 3.8, chloride 103, CO2 29, BUN 15 creatinine 0.68. Blood sugars are running between 85 and 127. The patient will be discharged to [facility] today in stable condition. ASSESSMENT AND PLAN 1. Acute Covid pneumonitis with suspected coinfection with facility acquired pneumonia, possible aspiration pneumonia, completed Remdisevir during last September 25 admission. 2. Acute on chronic hypoxic respiratory failure secondary to Covid pneumonia with possible aspiration pneumonia. 3. Possible gram-negative pneumonia, aspiration pneumonia. . 4. Diabetes mellitus type 2 uncontrolled with episodes of hypoglycemia. 5. Hypertension. 6. Hyperlipidemia. 7. Atherosclerotic heart disease. 8. Severe GERD. 9. DVT prophylaxis. 10. Anemia of unclear etiology. No sign of active bleeding. Status post transfusion 1 unit of packed RBCs. 11. Aspiration with all consistencies, rule out Parkinson's disease. Plan w [facility] as an outpatient. 12. Severe protein calorie malnutrition secondary to underlying illness, Covid 19, lack of appetite. 13. Recurrent depression. 14. Chronic kidney disease stage II. DISCHARGE PLAN Return to [facility] on Thursday. Impression and plan of care have been directed as dictated by the signing physician. Cathy Walker nurse practitioner acting as scribe for signing physician. Patient Condition at Discharge: Stable Plan - Discharge Summary Discharge Rx Participant: No New Discharge Prescriptions: New Escitalopram [Lexapro] 10 mg PO DAILY tab Enoxaparin [Lovenox] 40 mg SQ DAILY #10 syringe Melatonin 6 mg PO HS tablet INSULIN ASPART (NovoLOG) [NovoLOG (formulary)] 0 unit SQ ACHS vial Mirtazapine [Remeron] 7.5 mg PO HS tab Albuterol Inhaler [Ventolin Hfa Inhaler] 2 puff INHALATION RT-Q6H puff Continue Simvastatin 20 mg PO DAILY@2100 Omeprazole [PriLOSEC] 20 mg PO BID@0800,1700 Nitroglycerin Sl Tabs [Nitrostat] 0.4 mg PO Q5M PRN PRN Reason: Angina Cholecalciferol [Vitamin D3 (25 Mcg = 1000 Iu)] 5,000 unit PO MOWEFR@1700 atenoloL [Atenolol] 50 mg PO BID@0800,1700 Aspirin [Adult Low Dose Aspirin EC] 81 mg PO DAILY@1700 Brimonidine Tartrate [Alphagan P 0.2% Ophth Soln] 1 drop BOTH EYES BID@0800,1700 Insulin Glargine,Hum.rec.anlog [Lantus Solostar] 15 unit SQ HS@2130 Isosorbide Mononitrate ER [Imdur] 30 mg PO DAILY@0800 Latanoprost Ophth [Xalatan 0.005%] 1 drop BOTH EYES HS@2100 lisinopriL 40 mg PO DAILY@0800 Timolol 0.5% Ophth Soln [Timoptic 0.5% Ophth Soln] 1 drop BOTH EYES BID@0800,1700 Ondansetron [Zofran] 4 mg PO Q8HR PRN PRN Reason: Nausea bisacodyL [Dulcolax] 10 mg RECTAL DAILY PRN PRN Reason: Constipation Acetaminophen [Tylenol] 650 mg PO Q4H PRN PRN Reason: Fever And/ Or Pain Zinc Sulfate [Orazinc] 220 mg PO DAILY@1700 Folic Acid 1 mg PO DAILY@1700 Ascorbic Acid [Vitamin C] 500 mg PO DAILY@1700 Magnesium Hydroxide [Milk of Magnesia Concentrate] 7,200 mg PO DAILY PRN PRN Reason: Constipation Changed dexAMETHasone [Hexadrol] 4 mg PO DAILY #5 Discontinued Glimepiride [Amaryl] 4 mg PO BID@0800,1700 Azithromycin [Zithromax] 500 mg PO DAILY 5 Days #5 tab Na Phos,M-B/Na Phos,Di-Ba [Fleet Adult] 133 ml RECTAL DAILY PRN PRN Reason: Constipation Discharge Medication List Aspirin [Adult Low Dose Aspirin EC] 81 mg PO DAILY@1700 11/23/15 [History] Cholecalciferol [Vitamin D3 (25 Mcg = 1000 Iu)] 5,000 unit PO MOWEFR@1700 11/23/15 [History] Nitroglycerin Sl Tabs [Nitrostat] 0.4 mg PO Q5M PRN 11/23/15 [History] Omeprazole [PriLOSEC] 20 mg PO BID@0800,1700 11/23/15 [History] Simvastatin 20 mg PO DAILY@209911/23/15 [History] atenoloL [Atenolol] 50 mg PO BID@0800,1700 11/23/15 [History] Brimonidine Tartrate [Alphagan P 0.2% Ophth Soln] 1 drop BOTH EYES BID@0800,1700 09/17/20 [History] Insulin Glargine,Hum.rec.anlog [Lantus Solostar] 15 unit SQ HS@212909/17/20 [History] Isosorbide Mononitrate ER [Imdur] 30 mg PO DAILY@79909/17/20 [History] Latanoprost Ophth [Xalatan 0.005%] 1 drop BOTH EYES HS@209909/17/20 [History] Timolol 0.5% Ophth Soln [Timoptic 0.5% Ophth Soln] 1 drop BOTH EYES BID@0800,1700 09/17/20 [History] lisinopriL 40 mg PO DAILY@0809/17/20 [History] Ondansetron [Zofran] 4 mg PO Q8HR PRN 09/20/20 [History] Acetaminophen [Tylenol] 650 mg PO Q4H PRN 10/05/20 [History] Ascorbic Acid [Vitamin C] 500 mg PO DAILY@169910/05/20 [History] Folic Acid 1 mg PO DAILY@169910/05/20 [History] Magnesium Hydroxide [Milk of Magnesia Concentrate] 7,200 mg PO DAILY PRN 10/05/20 [History] Zinc Sulfate [Orazinc] 220 mg PO DAILY@169910/05/20 [History] bisacodyL [Dulcolax] 10 mg RECTAL DAILY PRN 10/05/20 [History] Albuterol Inhaler [Ventolin Hfa Inhaler] 2 puff INHALATION RT-Q6H puff 10/15/20 [Rx] Enoxaparin [Lovenox] 40 mg SQ DAILY #10 syringe 10/15/20 [Rx] Escitalopram [Lexapro] 10 mg PO DAILY tab 10/15/20 [Rx] INSULIN ASPART (NovoLOG) [NovoLOG (formulary)] 0 unit SQ ACHS vial 10/15/20 [Rx] Melatonin 6 mg PO HS tablet 10/15/20 [Rx] Mirtazapine [Remeron] 7.5 mg PO HS tab 10/15/20 [Rx] dexAMETHasone [Hexadrol] 4 mg PO DAILY #5 10/15/20 [Rx] Follow up Appointment(s)/Referral(s): dEuardo Mcdaniel MD [Primary Care Provider] - 1 Week (at [facility]) Activity/Diet/Wound Care/Special Instructions: COVID-19 Stay home until symptoms have subsided for three days. Monitor your symptoms; if you get worse call your healthcare provider immediately Get rest Stay hydrated If you have a medical appointment-Notify your provider that you are COVID positive For emergencies call 911 Cover your cough and sneezes Wash your hands often Try to stay in one place to reduce exposure Avoid sharing personal items Clean surfaces that you touch
[2020-10-15] MEDS ORDERED: ESCITALOPRAM 10 MG TAB PO SCH (09:00)
[2020-10-15 09:26] LABS: HCT 24.9 % (39.0-53.0); HGB 8.6 gm/dL (13.0-17.5); MCH 32.6 pg (25.0-35.0); MCHC 34.3 g/dL (31.0-37.0); Mean Platelet Volume 7.1; Platelet Count 170 k/uL (150-450); RBC 2.63 m/uL (4.30-5.90); RDW 14.4 % (11.5-15.5); WBC 7.9 k/uL (3.8-10.6)
[2020-10-15 09:42] LABS: ALT 73 U/L (4-49); AST 45 U/L (17-59); African American GFR (CKD) >90 (>60 ml/min/1.73 sqM); Albumin 2.5 g/dL (3.5-5.0); Alkaline Phosphatase 46 U/L (38-126); Anion Gap 0 mmol/L; Blood Urea Nitrogen 15 mg/dL (9-20); Calcium 7.5 mg/dL (8.4-10.2); Carbon Dioxide 29 mmol/L (22-30); Chloride 103 mmol/L (98-107); Glucose 85 mg/dL (74-99); Non-African American GFR(CKD) >90 (>60 ml/min/1.73 sqM); Potassium 3.8 mmol/L (3.5-5.1); Sodium 132 mmol/L (137-145); Total Bilirubin 0.9 mg/dL (0.2-1.3); Total Protein 4.9 g/dL (6.3-8.2)
[2020-10-15] MEDS ORDERED: polyethylene glycoL 3350 17 GM POWD.PACK PO SCH (10:00)
[2020-10-15] MEDS: PANTOPRAZOLE 40 MG TABLET PO SCH (11:09)
[2020-10-15] MEDS: SODIUM CHLORIDE 0.9% 1,000 ML IV SCH (11:10)
[2020-10-15] MEDS: atenoloL 50 MG TAB PO SCH (11:10)
[2020-10-15] MEDS: ISOSORBIDE MONONITRATE ER 30 MG TAB.ER.24H PO SCH ×2 (11:10→11:12)
[2020-10-15] MEDS: lisinopriL 20 MG TAB PO SCH (11:10)
[2020-10-15] MEDS: DEXTROSE 5%-0.9% NACL 1,000 ML IV SCH (11:11)
[2020-10-15] MEDS: ENOXAPARIN 30 MG/0.3 ML SYRINGE SQ SCH (11:11)
[2020-10-15] MEDS: BRIMONIDINE TARTRATE 0.2% DROPS 5 ML BTL BOTH EYES SCH (11:13)
[2020-10-15] MEDS: TIMOLOL 0.5% OPHTH DROPS 5 ML BTL BOTH EYES SCH (11:13)
[2020-10-15 11:32] VITALS: BP 129/62; PULSE 81; RESP 14
[2020-10-15 12:15] LABS: Glucose,Whole Blood 124 mg/dL (75-99)
--- NOTE | 2020-10-15 14:28 | P.PN ---
Subjective Progress Note Date: 10/15/20 Principal diagnosis: Failure to thrive, dysphagia 75-year-old pleasant white male who was admitted to the hospital with failure to thrive postcode 19 with acute respiratory failure. He underwent an EGD with PEG tube placement 2 days ago. He is denying any abdominal pain, nausea, or vomiting. He is tolerating his tube feedings well, and is at 30 ML an hour. Plan is for discharge to [facility] today. Objective - Vital Signs Vital signs: Vital Signs Temp 97.9 F 10/15/20 11:30 Pulse 81 10/15/20 11:30 Resp 14 10/15/20 11:30 BP 129/62 10/15/20 11:30 Pulse Ox 94 L 10/15/20 11:30 Intake & Output 10/14/20 10/15/20 10/15/20 18:59 06:59 18:59 Intake Total 725 Output Total 525 327 Balance 200 -327 Weight 78.5 kg 71.5 kg Intake: Intake, IV Titration 700 Amount Cefepime 2 gm In Sodium 100 Chloride 0.9% 100 ml @ 25 mls/hr IVPB Q12H [facility]FINO Rx# :[id number] Dextrose 5%-0.9% NaCl 1, 600 000 ml @ 75 mls/hr IV . [id number] DELFINO Rx#:[id number] Oral 25 Output: Urine 525 327 Other: Voiding Method Urinal Diaper # Voids 1 # Bowel Movements 1 - Exam General appearance: The patient is alert, oriented, in no acute distress. Ill appearing, frail. HET: Head is normocephalic and atraumatic. Conjunctiva pink. Sclera anicteric. Neck: Supple without lymphadenopathy. Abdomen: Soft, thin, nontender, nondistended with bowel sounds. No guarding or rigidity. PEG tube in place. Extremities: Normal skin color and turgor. No pedal edema Neurological: No focal deficits. Alert and oriented 3. - Labs CBC & Chem 7: 10/15/20 07:55 10/15/20 07:55 Labs: Abnormal Lab Results - Last 24 Hours (Table) 10/14/20 10/14/20 10/15/20 Range/Units 17:23 20:13 06:12 RBC (4.30-5.90) m/uL Hgb (13.0-17.5) gm/dL Hct (39.0-53.0) % Sodium (137-145) mmol/L POC Glucose (mg/dL) 215 H 223 H 127 H (75-99) mg/dL Calcium (8.4-10.2) mg/dL ALT (4-49) U/L Total Protein (6.3-8.2) g/dL Albumin (3.5-5.0) g/dL 10/15/20 10/15/20 10/15/20 Range/Units 07:55 07:55 11:56 RBC 2.63 L (4.30-5.90) m/uL Hgb 8.6 L (13.0-17.5) gm/dL Hct 24.9 L (39.0-53.0) % Sodium 132 L (137-145) mmol/L POC Glucose (mg/dL) 124 H (75-99) mg/dL Calcium 7.5 L (8.4-10.2) mg/dL ALT 73 H (4-49) U/L Total Protein 4.9 L (6.3-8.2) g/dL Albumin 2.5 L (3.5-5.0) g/dL Assessment and Plan (1) Failure to thrive syndrome, adult Narrative/Plan: Failure to thrive with decreased oral intake, decreased appetite and evidence of aspiration with possible aspiration pneumonia. Patient is status post PEG tube placement. Current Visit: Yes Status: Acute Code(s): R62.7 - ADULT FAILURE TO THRIVE SNOMED Code(s): 205077640 (2) COVID-19 Narrative/Plan: Recent Covid 19 pneumonia for which he was hospitalized a month ago and had acute respiratory failure for which he was intubated and subsequently discharged home to rehab with return to the hospital for weakness, shortness of breath, and aspiration. Current Visit: Yes Status: Acute Code(s): U07.1 - COVID-19 SNOMED Code(s): 237956238 Plan: 1. Status post PEG tube placement. Patient doing well overall. May increase to feedings up to 40 mL per hour, patient currently at 30 mL per hour. Production Editor to the goal rate for tube feeds. 2. Supportive care. 3. Thank you for this consultation, we will sign off at this time. Dr. Bose I agree with the dictator's note, documented as a scribe by Kady Bonds.
== END 2020-10-15 16:00 | DRG 177 ==
LOC: EC 15:11 → 3SCARD 17:18
PROVIDERS: ADMIT Internal Medicine Geriatric Medicine; ATTEND Internal Medicine Geriatric Medicine
PROC: 30233N1 Transfusion of Nonautologous Red Blood Cells into Peripheral Vein, Percutaneous Approach (ICD-10-PCS; 2020-10-09)
PROC: 0DH63UZ Insertion of Feeding Device into Stomach, Percutaneous Approach (ICD-10-PCS; 2020-10-13)
PROC: 3E0G76Z Introduction of Nutritional Substance into Upper GI, Via Natural or Artificial Opening (ICD-10-PCS; principal; 2020-10-14)
DX: U07.1 COVID-19 (principal); J12.89 Other viral pneumonia; J96.21 Acute and chronic respiratory failure with hypoxia; J69.0 Pneumonitis due to inhalation of food and vomit; E43 Unspecified severe protein-calorie malnutrition; J15.6 Pneumonia due to other Gram-negative bacteria; R64 Cachexia; F33.9 Major depressive disorder, recurrent, unspecified; E11.649 Type 2 diabetes mellitus with hypoglycemia without coma; R62.7 Adult failure to thrive; R13.10 Dysphagia, unspecified; D63.1 Anemia in chronic kidney disease; E11.22 Type 2 diabetes mellitus with diabetic chronic kidney disease; Z79.4 Long term (current) use of insulin; F41.9 Anxiety disorder, unspecified; E78.5 Hyperlipidemia, unspecified; N18.2 Chronic kidney disease, stage 2 (mild); I12.9 Hypertensive chronic kidney disease with stage 1 through stage 4 chronic kidney disease, or unspecified chronic kidney disease; K21.9 Gastro-esophageal reflux disease without esophagitis; I25.10 Atherosclerotic heart disease of native coronary artery without angina pectoris; K44.9 Diaphragmatic hernia without obstruction or gangrene; Y95 Nosocomial condition; Z80.3 Family history of malignant neoplasm of breast; Z68.25 Body mass index [BMI] 25.0-25.9, adult; Z79.899 Other long term (current) drug therapy; Z79.82 Long term (current) use of aspirin; Z90.49 Acquired absence of other specified parts of digestive tract; Z87.891 Personal history of nicotine dependence; Z88.1 Allergy status to other antibiotic agents; Z88.0 Allergy status to penicillin; Z88.8 Allergy status to other drugs, medicaments and biological substances; Z82.49 Family history of ischemic heart disease and other diseases of the circulatory system; Z71.3 Dietary counseling and surveillance
CPT/HCPCS: 36415; 43246; 71045; 71275; 74230; 80048; 80053; 80202; 81003; 82565; 82728; 82784; 82785; 83605; 83615; 83735; 83880; 84145; 84484; 85025; 85027; 85379; 85610; 85730; 86140; 86850; 86900; 86901; 86920; 87040; 87635; 93005; 94640; 96361; 96365; 96366; 96367; 99291

== ENCOUNTER 2020-10-22 15:38 | Inpatient (IN) | payer MEDICARE ==
[2020-10-22] MEDS ORDERED: SODIUM CHLORIDE 0.9% 1,000 ML IV STA ×2 (15:43)
--- NOTE | 2020-10-22 15:47 | ED ---
Altered Mental Status HPI - General Stated Complaint: lethargy Time Seen by Provider: 10/22/20 15:38 Source: EMS, RN notes reviewed, old records reviewed Mode of arrival: EMS - History of Present Illness Initial Comments: This is a 75-year-old male with a history of recent diagnoses of Covid 19 on October 03 who was ICU bound and was [facility] afterwards he does also have a history of depression and 2 diabetes at the scrotum coronary vascular disease retention and anemia who apparently is been dealing with low blood pressure since he was discharged from the hospital. He does have a PEG tube and he's been getting fluids through the PEG tube but he still has decreased responsiveness and was noted have a blood pressure in the systolic range of 60 and the penitentiary. EMS was called the phone 98/49. No fevers or chills reported. No nausea no vomiting. No other modifying factors at this time MD Complaint: altered mental status, decreased responsiveness, other - Related Data Home Medications Medication Instructions Recorded Confirmed Aspirin [Adult Low Dose Aspirin EC] 81 mg PEG/G-TUBE DAILY@0 11/23/15 10/22/20 Cholecalciferol [Vitamin D3 (25 5,000 unit PEG/G-TUBE MOWEFR@169911/23/15 10/22/20 Mcg = 1000 Iu)] Nitroglycerin Sl Tabs [Nitrostat] 0.4 mg SUBLINGUAL Q5M PRN 11/23/15 10/22/20 Simvastatin 20 mg PEG/G-TUBE HS@209911/23/15 10/22/20 atenoloL [Atenolol] 50 mg PEG/G-TUBE BID@0800,0 11/23/15 10/22/20 Brimonidine Tartrate [Alphagan P 1 drop BOTH EYES BID@0800,1700 09/17/20 10/22/20 0.2% Ophth Soln] Insulin Glargine,Hum.rec.anlog 15 unit SQ HS@212909/17/20 10/22/20 [Lantus Solostar] Isosorbide Mononitrate ER [Imdur] 30 mg PO DAILY@0800 09/17/20 10/22/20 Latanoprost Ophth [Xalatan 0.005%] 1 drop BOTH EYES HS@209909/17/20 10/22/20 Timolol 0.5% Ophth Soln [Timoptic 1 drop BOTH EYES BID@0800,1700 09/17/20 10/22/20 0.5% Ophth Soln] lisinopriL 40 mg PEG/G-TUBE DAILY@0800 09/17/20 10/22/20 Ondansetron [Zofran] 4 mg PEG/G-TUBE Q8HR PRN 09/20/20 10/05/20 Acetaminophen [Tylenol] 650 mg PEG/G-TUBE Q4H PRN 10/05/20 10/22/20 Ascorbic Acid [Vitamin C] 500 mg PEG/G-TUBE DAILY@1700 10/05/20 10/22/20 Folic Acid 1 mg PEG/G-TUBE DAILY@17010/05/20 10/22/20 Magnesium Hydroxide [Milk of 7,200 mg PEG/G-TUBE DAILY PRN 10/05/20 10/22/20 Magnesia Concentrate] Zinc Sulfate [Orazinc] 220 mg PEG/G-TUBE DAILY@17010/05/20 10/22/20 bisacodyL [Dulcolax] 10 mg RECTAL DAILY PRN 10/05/20 10/22/20 Albuterol Inhaler [Ventolin Hfa 2 puff INHALATION 10/22/20 10/22/20 Inhaler] RT-Q6H@00,06,, Enoxaparin [Lovenox] 40 mg SQ DAILY@0800 10/22/20 10/22/20 Escitalopram [Lexapro] 10 mg PEG/G-TUBE DAILY@0810/22/20 10/22/20 Famotidine [Pepcid] 20 mg PO BID@0800,1700 10/22/20 10/22/20 INSULIN ASPART (NovoLOG) [NovoLOG See Protocol SQ 10/22/20 10/22/20 (formulary)] ACHS@07,11,1630,2130 Melatonin 6 mg PEG/G-TUBE HS@209910/22/20 10/22/20 Mirtazapine 7.5 mg PEG/G-TUBE HS@209910/22/20 10/22/20 Na Phos,M-B/Na Phos,Di-Ba [Fleet 133 ml RECTAL DAILY PRN 10/22/20 10/22/20 Adult] Allergies Allergy/AdvReac Type Severity Reaction Status Date / Time cyclobenzaprine Allergy Unknown Verified 10/22/20 16:16 [From Flexeril] doxycycline Allergy Unknown Verified 10/22/20 16:16 metformin Allergy Unknown Verified 10/22/20 16:16 Penicillins Allergy Unknown Verified 10/22/20 16:16 Review of Systems ROS Statement: Those systems with pertinent positive or pertinent negative responses have been documented in the HPI. ROS Other: All systems not noted in ROS Statement are negative. Past Medical History Past Medical History: Chest Pain / Angina, Diabetes Mellitus, GERD/Reflux, Hyperlipidemia, Hypertension Additional Past Medical History / Comment(s): covid positive. was recently intubated in [facility] ICU-went to [facility] for rehab and ongoing care. History of Any Multi-Drug Resistant Organisms: None Reported Past Surgical History: Appendectomy, Heart Catheterization Additional Past Surgical History / Comment(s): Patient has never had a colonoscopy. Past Anesthesia/Blood Transfusion Reactions: No Reported Reaction Past Psychological History: No Psychological Hx Reported Smoking Status: Former smoker Past Alcohol Use History: Rare Additional Past Alcohol Use History / Comment(s): Quit smoking 30 years ago. He occasionally drinks alcohol. Past Drug Use History: None Reported - Past Family History Mother Additional Family Medical History / Comment(s): BREAST Father Additional Family Medical History / Comment(s): Father at age 60 from a myocardial infarction. Brother(s) Additional Family Medical History / Comment(s): Patient has 7 brothers and one has coronary artery disease status post 3 vessel CABG. Patient does not have any sisters. Patient has 3 children, 2 boys and one girl with no major medical problems. General Exam - General Exam Comments Initial Comments: This is a well-developed sec appearing male was awake alert but lethargic. He does follow request. Limitations: altered mental status, physical limitation General appearance: alert, in no apparent distress Head exam: Present: atraumatic, normocephalic, normal inspection Eye exam: Present: normal appearance, PERRL, EOMI. Absent: scleral icterus, conjunctival injection, periorbital swelling ENT exam: Present: mucous membranes dry Neck exam: Present: normal inspection, full ROM, other (No stridor JVD or bruits). Absent: tenderness, meningismus, lymphadenopathy Respiratory exam: Present: decreased breath sounds. Absent: respiratory distress, wheezes, rales, rhonchi, stridor Cardiovascular Exam: Present: regular rate, normal rhythm, normal heart sounds. Absent: systolic murmur, diastolic murmur, rubs, gallop, clicks GI/Abdominal exam: Present: soft, normal bowel sounds, other (PEG tube in place). Absent: distended, tenderness, guarding, rebound, rigid Extremities exam: Present: normal inspection, full ROM, normal capillary refill. Absent: tenderness, pedal edema, joint swelling, calf tenderness Back exam: Present: normal inspection Neurological exam: Present: alert, oriented X3, CN II-XII intact Psychiatric exam: Present: normal mood, flat affect Skin exam: Present: warm, dry, intact, normal color. Absent: rash Course Vital Signs 10/22/20 10/22/20 10/22/20 15:40 17:17 18:02 Temperature 98.5 F Pulse Rate 67 60 66 Respiratory 18 18 22 Rate Blood Pressure 97/55 85/51 107/62 O2 Sat by Pulse 98 100 100 Oximetry 10/22/20 18:58 Temperature Pulse Rate 64 Respiratory 18 Rate Blood Pressure 118/62 O2 Sat by Pulse 100 Oximetry - Reevaluation(s) Reevaluation #1: 10/22/20 19:31 Evaluation patient finds he still very lethargic in spite of IV fluids his blood pressure has improved however. Patient has been on long-term steroids and likely does have a component of adrenal suppression. He will be given IV hydrocortisone. Medical Decision Making - Medical Decision Making I did discuss findings with the patient and with Dr. Mcdaniel who did come the emergency department see the patient patient will be admitted for IV hydration he does demonstrate hyponatremia failure to thrive and likely adrenal suppression. - Lab Data Result diagrams: 10/22/20 16:39 10/22/20 16:39 Lab Results 10/22/20 10/22/20 10/22/20 Range/Units 16:39 16:39 16:39 WBC 4.7 (3.8-10.6) k/uL RBC 3.04 L (4.30-5.90) m/uL Hgb 9.6 L (13.0-17.5) gm/dL Hct 28.8 L (39.0-53.0) % MCV 94.7 (80.0-100.0) fL MCH 31.4 (25.0-35.0) pg MCHC 33.2 (31.0-37.0) g/dL RDW 14.6 (11.5-15.5) % Plt Count 288 (150-450) k/uL MPV 7.3 Neutrophils % 68 % Lymphocytes % 18 % Monocytes % 7 % Eosinophils % 3 % Basophils % 1 % Neutrophils # 3.2 (1.3-7.7) k/uL Lymphocytes # 0.8 L (1.0-4.8) k/uL Monocytes # 0.3 (0-1.0) k/uL Eosinophils # 0.2 (0-0.7) k/uL Basophils # 0.1 (0-0.2) k/uL Sodium 126 L (137-145) mmol/L Potassium 5.3 H (3.5-5.1) mmol/L Chloride 96 L (98-107) mmol/L Carbon Dioxide 29 (22-30) mmol/L Anion Gap 1 mmol/L BUN 55 H (9-20) mg/dL Creatinine 1.10 (0.66-1.25) mg/dL Est GFR (CKD-EPI)AfAm 76 (>60 ml/min/1.73 sqM) Est GFR (CKD-EPI)NonAf 66 (>60 ml/min/1.73 sqM) Glucose 109 H (74-99) mg/dL Plasma Lactic Acid Yovany (0.7-2.0) mmol/L Calcium 8.2 L (8.4-10.2) mg/dL Magnesium 2.4 H (1.6-2.3) mg/dL Total Bilirubin 0.8 (0.2-1.3) mg/dL AST 38 (17-59) U/L ALT 54 H (4-49) U/L Alkaline Phosphatase 57 (38-126) U/L Creatine Kinase 59 (55-170) U/L Troponin I (0.000-0.034) ng/mL Total Protein 5.2 L (6.3-8.2) g/dL Albumin 2.6 L (3.5-5.0) g/dL Urine Color Yellow Urine Appearance Clear (Clear) Urine pH 7.0 (5.0-8.0) Ur Specific [place] 1.019 (1.001-1.035) Urine Protein Trace H (Negative) Urine Glucose (UA) Negative (Negative) Urine Ketones Negative (Negative) Urine Blood Negative (Negative) Urine Nitrite Negative (Negative) Urine Bilirubin Negative (Negative) Urine Urobilinogen 12.0 (<2.0) mg/dL Ur Leukocyte Esterase Negative (Negative) 10/22/20 10/22/20 Range/Units 16:39 16:39 WBC (3.8-10.6) k/uL RBC (4.30-5.90) m/uL Hgb (13.0-17.5) gm/dL Hct (39.0-53.0) % MCV (80.0-100.0) fL MCH (25.0-35.0) pg MCHC (31.0-37.0) g/dL RDW (11.5-15.5) % Plt Count (150-450) k/uL MPV Neutrophils % % Lymphocytes % % Monocytes % % Eosinophils % % Basophils % % Neutrophils # (1.3-7.7) k/uL Lymphocytes # (1.0-4.8) k/uL Monocytes # (0-1.0) k/uL Eosinophils # (0-0.7) k/uL Basophils # (0-0.2) k/uL Sodium (137-145) mmol/L Potassium (3.5-5.1) mmol/L Chloride (98-107) mmol/L Carbon Dioxide (22-30) mmol/L Anion Gap mmol/L BUN (9-20) mg/dL Creatinine (0.66-1.25) mg/dL Est GFR (CKD-EPI)AfAm (>60 ml/min/1.73 sqM) Est GFR (CKD-EPI)NonAf (>60 ml/min/1.73 sqM) Glucose (74-99) mg/dL Plasma Lactic Acid Yovany 1.1 (0.7-2.0) mmol/L Calcium (8.4-10.2) mg/dL Magnesium (1.6-2.3) mg/dL Total Bilirubin (0.2-1.3) mg/dL AST (17-59) U/L ALT (4-49) U/L Alkaline Phosphatase (38-126) U/L Creatine Kinase (55-170) U/L Troponin I <0.012 (0.000-0.034) ng/mL Total Protein (6.3-8.2) g/dL Albumin (3.5-5.0) g/dL Urine Color Urine Appearance (Clear) Urine pH (5.0-8.0) Ur Specific [place] (1.001-1.035) Urine Protein (Negative) Urine Glucose (UA) (Negative) Urine Ketones (Negative) Urine Blood (Negative) Urine Nitrite (Negative) Urine Bilirubin (Negative) Urine Urobilinogen (<2.0) mg/dL Ur Leukocyte Esterase (Negative) - EKG Data -: EKG Interpreted by De EKG shows normal: sinus rhythm EKG Comments: Since her liver screen AV block rate 63. Interval 236 QRS 174 QT since QTC 460/470 and axis deviation a bundle-branch block pattern - Radiology Data Radiology results: report reviewed (Imaging reviewed evidence of persisting bilateral viral pneumonitis), image reviewed Disposition Clinical Impression: Steroid-induced adrenal suppression, Dehydration, Hypotensive episode, Hyponatremia syndrome, Failure to thrive, History of 2019 novel coronavirus disease (COVID-19) Disposition: ADMITTED IP TO THIS HOSP Condition: Fair Referrals: Eduardo Mcdaniel MD [Primary Care Provider] - 1-2 days
--- NOTE | 2020-10-22 16:05 | XR ---
EXAMINATION TYPE: XR chest 1V portable DATE OF EXAM: 10/22/2020 COMPARISON: Chest x-ray 11 days ago and ultrasound studies. CTA chest October 05, 2020 HISTORY: Weakness. TECHNIQUE: Single AP portable frontal upright view of the chest is obtained. FINDINGS: There is diminished inspiration on current study. Persistent reticular and increased opaci ties bilaterally greatest in the lower lungs. The cardiac silhouette size remains within normal limi ts. The osseous structures remain intact. IMPRESSION: Persistent bilateral multifocal acute infiltrates greatest in the lower lungs consistent with covid 19 infection. No significant change from recent prior studies.
[2020-10-22 16:44] LABS: Basophils # (A) 0.1 k/uL (0-0.2); Basophils % (A) 1 %; Eosinophils # (A) 0.2 k/uL (0-0.7); Eosinophils % (A) 3 %; HCT 28.8 % (39.0-53.0); HGB 9.6 gm/dL (13.0-17.5); Lymphocytes # (A) 0.8 k/uL (1.0-4.8); Lymphocytes % (A) 18 %; MCH 31.4 pg (25.0-35.0); MCHC 33.2 g/dL (31.0-37.0); MCV 94.7 fL (80.0-100.0); Mean Platelet Volume 7.3; Monocytes # (A) 0.3 k/uL (0-1.0); Monocytes % (A) 7 %; Neutrophils # (A) 3.2 k/uL (1.3-7.7); Neutrophils % (A) 68 %; Platelet Count 288 k/uL (150-450); RBC 3.04 m/uL (4.30-5.90); RDW 14.6 % (11.5-15.5); WBC 4.7 k/uL (3.8-10.6)
[2020-10-22 16:50] LABS: Appearance,Urine Clear (Clear); Bilirubin,Urine Negative (Negative); Blood,Urine Negative (Negative); Color,Urine Yellow; Glucose,Urine (UA) Negative (Negative); Ketones,Urine Negative (Negative); Leukocyte Esterase,Urine Negative (Negative); Nitrite,Urine Negative (Negative); Protein,Urine Trace (Negative); Specific Gravity,Urine 1.019 (1.001-1.035)
[2020-10-22 16:54] LABS: Albumin 2.6 g/dL (3.5-5.0); Calcium 8.2 mg/dL (8.4-10.2); Magnesium 2.4 mg/dL (1.6-2.3); Potassium 5.3 mmol/L (3.5-5.1); Total Bilirubin 0.8 mg/dL (0.2-1.3); Total Protein 5.2 g/dL (6.3-8.2)
[2020-10-22] MEDS ORDERED: NALOXONE 0.4 MG/ML 1 ML VIAL IV PRN (19:33)
[2020-10-22] MEDS ORDERED: NITROGLYCERIN SL TABS 0.4 MG TAB SUBLINGUAL PRN (19:35)
[2020-10-22] MEDS ORDERED: bisacodyL 10 MG SUPP RECTAL PRN (19:35)
[2020-10-22] MEDS ORDERED: MAGNESIUM HYDROXIDE 2,400 MG/10 ML CUP PEG/G-TUBE PRN (19:35)
[2020-10-22] MEDS ORDERED: ONDANSETRON 4 MG TAB PEG/G-TUBE PRN (19:35)
[2020-10-22] MEDS ORDERED: ACETAMINOPHEN TAB 325 MG TAB PEG/G-TUBE PRN (19:35)
[2020-10-22] MEDS ORDERED: NA PHOS,M-B/NA PHOS,DI-BA 133 ML ENEMA RECTAL PRN (19:35)
[2020-10-22] MEDS ORDERED: HYDROCORTISONE SUCCINATE 100 MG/2 ML VIAL IV STA (19:52)
[2020-10-22] MEDS: MELATONIN 3 MG TABLET PEG/G-TUBE SCH (21:39)
[2020-10-22] MEDS: ATORVASTATIN 10 MG TAB PEG/G-TUBE SCH (21:39)
[2020-10-22] MEDS: LATANOPROST 0.005% OPHTH DROPS 2.5 ML BTL BOTH EYES SCH (21:40)
[2020-10-22] MEDS: MIRTAZAPINE 15 MG TAB PEG/G-TUBE SCH (21:40)
[2020-10-22 21:42] LABS: Glucose,Whole Blood 104 mg/dL (75-99)
[2020-10-22] MEDS: INSULIN ASPART (NovoLOG) 100 UNIT/ML VIAL SQ SCH (21:43)
--- NOTE | 2020-10-22 22:39 | P.HPIM ---
History of Present Illness H&P Date: 10/22/20 Chief Complaint: Change in Mental status, severe hypertension, dehydration, adrenal insuffic 75-year-old male one of Dr. mishra's patient with past medical history of hypertension, hyperlipidemia, type 2 diabetes, non-diagnosis Parkinson disease who was hospitalized 3 times so far last time was hospitalized for extended period of time for active Covid pneumonitis with severe hypoxia and worsening sepsis. Patient had developed severe dysphagia ended up having PEG tube has been on PEG feeding. Also developed to have significant tachycardia was in beta brayan and blood pressure has been elevated patient has been on lisinopril higher dose. Blood sugar has been fluctuating up and down. Patient developed at [facility] to have significant hypotension decrease level of responsiveness with worsening condition overall blood pressure running in the 70 systolic and patient has not been able to stay up not been able to interact much doing physical therapy are do any kind of movement. Patient ended up coming to the emergency department at [facility] where was diagnosed with significant dehydration severe hypertension. After stopping his lisinopril and changes metoprolol patient was hydrated with over 2 L of normal saline his blood pressure had responded some found to have severe hyponatremia with sodium of 126 with significant type II chronic kidney disease blood sugar was mildly elevated chest x-ray showed the same change was seen last on his x-ray with the significant Covid pneumonitis lower lung field bilaterally still have significant picture of groundglass infiltrate. Patient was diagnosed with hyponatremia hypotension dehydration and adrenal insufficiency was started on hydration also hydrocortisone and fludrocortisone admit patient to the hospital. Review of Systems CONSTITUTIONAL: Well-developed no acute respiratory distress. EYES: No icterus sclerae, no conjunctivitis. EARS, NOSE, MOUTH, THROAT, and FACE: No sore throat, lymphadenopathy, carotid bruits or deformity. RESPIRATORY: Significant shortness of breath cough and wheezes. CARDIOVASCULAR: Positive PND orthopnea palpitation with hypotension and tachycar tere GASTROINTESTINAL: Positive abdominal pain with dysphagia nausea with no vomiting no diarrhea GENITOURINARY: Decrease urine output lately with no hematuria positive BPH symptoms INTEGUMENT/BREAST: Negative for any muscular injury with mild osteoarthritis.. HEMATOLOGIC/LYMPHATIC: Anemia and thrombocytopenia no active bleed. MUSCULOSKELTAL: Negative for Myalgia or arthralgia. NEURLOGICAL:? Parkinson disease significant generalized weakness and debility since his Covid few weeks ago BEHAVIORAL/PSYCH: Mild memory loss debility with flat affect severe depression. ENDOCRINE: Negative. Past Medical History Past Medical History: Chest Pain / Angina, Diabetes Mellitus, GERD/Reflux, Hyperlipidemia, Hypertension Additional Past Medical History / Comment(s): covid positive. was recently intubated in [facility] ICU-went to [facility] for rehab and ongoing care. History of Any Multi-Drug Resistant Organisms: None Reported Past Surgical History: Appendectomy, Heart Catheterization Additional Past Surgical History / Comment(s): Patient has never had a colonoscopy. Past Anesthesia/Blood Transfusion Reactions: No Reported Reaction Past Psychological History: No Psychological Hx Reported Smoking Status: Former smoker Past Alcohol Use History: Rare Additional Past Alcohol Use History / Comment(s): Quit smoking 30 years ago. He occasionally drinks alcohol. Past Drug Use History: None Reported - Past Family History Mother Additional Family Medical History / Comment(s): BREAST Father Additional Family Medical History / Comment(s): Father at age 60 from a myocardial infarction. Brother(s) Additional Family Medical History / Comment(s): Patient has 7 brothers and one has coronary artery disease status post 3 vessel CABG. Patient does not have any sisters. Patient has 3 children, 2 boys and one girl with no major medical problems. Medications and Allergies Home Medications Medication Instructions Recorded Confirmed Type Aspirin [Adult Low Dose Aspirin EC] 81 mg PEG/G-TUBE DAILY@1700 11/23/15 10/22/20 History Cholecalciferol [Vitamin D3 (25 5,000 unit PEG/G-TUBE MOWEFR@169911/23/15 10/22/20 History Mcg = 1000 Iu)] Nitroglycerin Sl Tabs [Nitrostat] 0.4 mg SUBLINGUAL Q5M PRN 11/23/15 10/22/20 History Simvastatin 20 mg PEG/G-TUBE HS@2100 11/23/15 10/22/20 History atenoloL [Atenolol] 50 mg PEG/G-TUBE BID@0800,1700 11/23/15 10/22/20 History Brimonidine Tartrate [Alphagan P 1 drop BOTH EYES BID@0800,1700 09/17/20 10/22/20 History 0.2% Ophth Soln] Insulin Glargine,Hum.rec.anlog 15 unit SQ HS@2130 09/17/20 10/22/20 History [Lantus Solostar] Isosorbide Mononitrate ER [Imdur] 30 mg PO DAILY@0800 09/17/20 10/22/20 History Latanoprost Ophth [Xalatan 0.005%] 1 drop BOTH EYES HS@2100 09/17/20 10/22/20 History Timolol 0.5% Ophth Soln [Timoptic 1 drop BOTH EYES BID@0800,1700 09/17/20 10/22/20 History 0.5% Ophth Soln] lisinopriL 40 mg PEG/G-TUBE DAILY@0800 09/17/20 10/22/20 History Ondansetron [Zofran] 4 mg PEG/G-TUBE Q8HR PRN 09/20/20 10/05/20 History Acetaminophen [Tylenol] 650 mg PEG/G-TUBE Q4H PRN 10/05/20 10/22/20 History Ascorbic Acid [Vitamin C] 500 mg PEG/G-TUBE DAILY@1700 10/05/20 10/22/20 History Folic Acid 1 mg PEG/G-TUBE DAILY@1700 10/05/20 10/22/20 History Magnesium Hydroxide [Milk of 7,200 mg PEG/G-TUBE DAILY PRN 10/05/20 10/22/20 History Magnesia Concentrate] Zinc Sulfate [Orazinc] 220 mg PEG/G-TUBE DAILY@1700 10/05/20 10/22/20 History bisacodyL [Dulcolax] 10 mg RECTAL DAILY PRN 10/05/20 10/22/20 History Albuterol Inhaler [Ventolin Hfa 2 puff INHALATION 10/22/20 10/22/20 History Inhaler] RT-Q6H@00,06,12,18 Enoxaparin [Lovenox] 40 mg SQ DAILY@0800 10/22/20 10/22/20 History Escitalopram [Lexapro] 10 mg PEG/G-TUBE DAILY@0800 10/22/20 10/22/20 History Famotidine [Pepcid] 20 mg PO BID@0800,1700 10/22/20 10/22/20 History INSULIN ASPART (NovoLOG) [NovoLOG See Protocol SQ 10/22/20 10/22/20 History (formulary)] ACHS@07,11,1630,2130 Melatonin 6 mg PEG/G-TUBE HS@209910/22/20 10/22/20 History Mirtazapine 7.5 mg PEG/G-TUBE HS@209910/22/20 10/22/20 History Na Phos,M-B/Na Phos,Di-Ba [Fleet 133 ml RECTAL DAILY PRN 10/22/20 10/22/20 History Adult] Allergies Allergy/AdvReac Type Severity Reaction Status Date / Time cyclobenzaprine Allergy Unknown Verified 10/22/20 16:16 [From Flexeril] doxycycline Allergy Unknown Verified 10/22/20 16:16 metformin Allergy Unknown Verified 10/22/20 16:16 Penicillins Allergy Unknown Verified 10/22/20 16:16 Physical Exam Vitals: Vital Signs Temp Pulse Pulse Resp BP BP Pulse Ox 10/22/20 20:40 99.4 F 69 20 110/58 97 10/22/20 20:15 98.5 F 64 18 98/58 100 10/22/20 19:38 98/58 10/22/20 18:58 64 18 118/62 100 10/22/20 18:02 66 22 107/62 100 10/22/20 17:17 60 18 85/51 100 10/22/20 15:40 98.5 F 67 18 97/55 98 Intake and Output 10/22/20 10/22/20 10/22/20 06:59 14:59 22:59 Other: Weight 74.843 kg General Appearance: Alert, cooperative, no distress, appears older than his age keep in mind patient was exam at least 2 hours after he was hydrated and become slightly bit better with time. Neck HEENT: Supple, no lymphadenopathy, no thyroid enlargement, no carotid bruits. Still have significant dry mucosa. Lungs: Decreased breath sound in the bases bilaterally past fine rhonchi with mild crackles in the bases with expiratory wheezes. Chest Wall: Decrease expansion with deep inspiration no tenderness and no deformity was found on exam, no costochondral pain or discomfort. Heart: Regular rate and rhythm, S1, S2 normal, no murmur, rub or gallop. Mild PVCs and arrhythmia. Back: Symmetric, no curvature, ROM normal, no CVA tenderness. Abdomen: Soft, non-tender, bowel sounds active all four quadrants, no masses, no organomegaly. PEG tube in the middle still looks fine Extremities: Extremities normal, atraumatic, no cyanosis or edema. Pulses: 2+ and symmetric. Skin: Skin color, texture, tugor normal, no rashes or lesions. Neurologic: Alert oriented x3 cranial nerves II through XII intact, generalized motor deficit and weakness along with severe abnormal balancing gait. Patient has a flat affect on his facial muscle consistent with most likely Parkinson Results CBC & Chem 7: 10/22/20 16:39 10/22/20 16:39 Labs: Abnormal Lab Results - Last 24 Hours (Table) 10/22/20 10/22/20 10/22/20 Range/Units 16:39 16:39 16:39 RBC 3.04 L (4.30-5.90) m/uL Hgb 9.6 L (13.0-17.5) gm/dL Hct 28.8 L (39.0-53.0) % Lymphocytes # 0.8 L (1.0-4.8) k/uL Sodium 126 L (137-145) mmol/L Potassium 5.3 H (3.5-5.1) mmol/L Chloride 96 L (98-107) mmol/L BUN 55 H (9-20) mg/dL Glucose 109 H (74-99) mg/dL POC Glucose (mg/dL) (75-99) mg/dL Calcium 8.2 L (8.4-10.2) mg/dL Magnesium 2.4 H (1.6-2.3) mg/dL ALT 54 H (4-49) U/L Total Protein 5.2 L (6.3-8.2) g/dL Albumin 2.6 L (3.5-5.0) g/dL Urine Protein Trace H (Negative) 10/22/20 Range/Units 21:40 RBC (4.30-5.90) m/uL Hgb (13.0-17.5) gm/dL Hct (39.0-53.0) % Lymphocytes # (1.0-4.8) k/uL Sodium (137-145) mmol/L Potassium (3.5-5.1) mmol/L Chloride (98-107) mmol/L BUN (9-20) mg/dL Glucose (74-99) mg/dL POC Glucose (mg/dL) 104 H (75-99) mg/dL Calcium (8.4-10.2) mg/dL Magnesium (1.6-2.3) mg/dL ALT (4-49) U/L Total Protein (6.3-8.2) g/dL Albumin (3.5-5.0) g/dL Urine Protein (Negative) Thrombosis Risk Factor Assmnt - DVT/VTE Prophylaxis DVT/VTE Prophylaxis: Pharmacologic Prophylaxis ordered, Mechanical Prophylaxis ordered Assessment and Plan Assessment: 1. Altered mental status: Secondary to severe dehydration and adrenal insufficiency reaction to Covid so far with long-standing illness so far since he had his Covid early. 2 severe dehydration: Continue hydration for now continue to watch his kidney function and sodium level in the next 48 hours. 3 adrenal insufficiency: Patient has been on steroids for long time with the blood pressure been quite bit low along with dehydration and the slight the challenge on his sodium potassium level patient be started on hydrocortisone IV will be switched to Cortef eventually patient can benefit from adrenal suppression testing. 4 hyponatremia: Most like secondary to dehydration and adrenal insufficiency continue to watch sodium level after hydration. 5 bilateral aggressive Covid pneumonitis with sepsis: Has been slightly better so far he finished antiviral management and steroid this point. 6 acute kidney injury: Stage III continue hydration repeat BUN/creatinine. 7 severe dysphagia: On PEG feeding continue hydration and nutrition speech therapy and reexam dysphagia again. 8 possible Parkinson disease with flat affect no management or treatment at this point patient can benefit from seen neurology as an outpatient. 9 type 2 diabetes on insulin: Continue insulin continue Accu-Chek sliding scales coverage for now. 10 iron deficiency anemia: Continue patient on supplement. 11 hypotension: We'll stop lisinopril continue patient on small dose of beta brayan. 12 DVT prophylaxis: Patient remain on Lovenox for another week. 13 GI prophylaxis: Continue patient on pantoprazole. CODE STATUS: Full code. Admit patient to the inpatient service for more than 2 night stay.
[2020-10-22] MEDS ORDERED: ALBUTEROL NEBULIZED 2.5 MG/3 ML INHALATION PRN (22:47)
[2020-10-23] MEDS ORDERED: ALBUTEROL NEBULIZED 2.5 MG/3 ML INHALATION SCH
[2020-10-23] MEDS ORDERED: HEPARIN SODIUM,PORCINE 5,000 UNIT/ML 1 ML VIAL SQ SCH
[2020-10-23] MEDS: HYDROCORTISONE SUCCINATE 100 MG/2 ML VIAL IV SCH ×4 (00:10→23:31)
[2020-10-23 06:38] LABS: Basophils # (A) 0.1 k/uL (0-0.2); Basophils % (A) 1 %; Eosinophils % (A) 0 %; HCT 28.4 % (39.0-53.0); HGB 9.4 gm/dL (13.0-17.5); Lymphocytes # (A) 0.7 k/uL (1.0-4.8); Lymphocytes % (A) 16 %; MCH 32.3 pg (25.0-35.0); MCHC 33.1 g/dL (31.0-37.0); MCV 97.6 fL (80.0-100.0); Mean Platelet Volume 7.4; Monocytes # (A) 0.2 k/uL (0-1.0); Monocytes % (A) 4 %; Neutrophils # (A) 3.2 k/uL (1.3-7.7); Neutrophils % (A) 76 %; Platelet Count 281 k/uL (150-450); RBC 2.91 m/uL (4.30-5.90); RDW 14.2 % (11.5-15.5); WBC 4.2 k/uL (3.8-10.6)
[2020-10-23 07:23] LABS: Glucose,Whole Blood 162 mg/dL (75-99)
[2020-10-23] MEDS: ALBUTEROL NEBULIZED 2.5 MG/3 ML INHALATION SCH ×4 (09:18→20:18)
[2020-10-23] MEDS: ENOXAPARIN 40 MG/0.4 ML SYRINGE SQ SCH (09:38)
[2020-10-23] MEDS: FAMOTIDINE 20 MG TAB PO SCH ×2 (09:39→17:31)
[2020-10-23] MEDS: atenoloL 50 MG TAB PEG/G-TUBE SCH ×2 (09:39→17:31)
[2020-10-23] MEDS: ISOSORBIDE MONONITRATE ER 30 MG TAB.ER.24H PO SCH (09:39)
[2020-10-23] MEDS: lisinopriL 20 MG TAB PEG/G-TUBE SCH (09:39)
[2020-10-23] MEDS: ESCITALOPRAM 10 MG TAB PEG/G-TUBE SCH (09:40)
--- NOTE | 2020-10-23 09:40 | P.PN ---
Subjective Progress Note Date: 10/23/20 HISTORY OF PRESENT ILLNESS 75-year-old male one of Dr. mishra's patient with past medical history of hypertension, hyperlipidemia, type 2 diabetes, non-diagnosis Parkinson disease who was hospitalized 3 times so far last time was hospitalized for extended period of time for active Covid pneumonitis with severe hypoxia and worsening sepsis. Patient had developed severe dysphagia ended up having PEG tube has been on PEG feeding. Also developed to have significant tachycardia was in beta brayan and blood pressure has been elevated patient has been on lisinopril higher dose. Blood sugar has been fluctuating up and down. Patient developed at [facility] to have significant hypotension decrease level of responsiveness with worsening condition overall blood pressure running in the 70 systolic and patient has not been able to stay up not been able to interact much doing physical therapy are do any kind of movement. Patient ended up coming to the emergency department at [facility] where was diagnosed with significant dehydration severe hypertension. After stopping his lisinopril and changes metoprolol patient was hydrated with over 2 L of normal saline his blood pres sure had responded some found to have severe hyponatremia with sodium of 126 with significant type II chronic kidney disease blood sugar was mildly elevated chest x-ray showed the same change was seen last on his x-ray with the significant Covid pneumonitis lower lung field bilaterally still have si gnificant picture of groundglass infiltrate. Patient was diagnosed with hyponatremia hypotension dehydration and adrenal insufficiency was started on hydration also hydrocortisone and fludrocortisone admit patient to the hospital. 10/23: Patient states and it was okay. He continues to be lethargic. Dietitian consult is in to start tube feedings. Consult with neurology admitted for encephalopathy and rule out Parkinson's. Patient is on Solu-Cortef and Florinef added. Patient has been afebrile, heart rate 80, blood pressure 105/64, pulse ox 96% on 2 L nasal cannula. Repeat blood work reveals WBC 5.2, hemoglobin 9.4, lymphocytes 0.7. CMP is pending at the time of this dictation. REVIEW OF SYSTEMS CONSTITUTIONAL: Well-developed no acute respiratory distress. No fevers. EYES: No icterus sclerae, no conjunctivitis. EARS, NOSE, MOUTH, THROAT, and FACE: No sore throat, lymphadenopathy, carotid bruits or deformity. RESPIRATORY: Significant shortness of breath cough and wheezes. CARDIOVASCULAR: Positive PND orthopnea palpitation with hypotension and tachycar tere GASTROINTESTINAL: Positive abdominal pain with dysphagia nausea with no vomiting no diarrhea GENITOURINARY: Decrease urine output lately with no hematuria positive BPH symptoms INTEGUMENT/BREAST: Negative for any muscular injury with mild osteoarthritis.. HEMATOLOGIC/LYMPHATIC: Anemia and thrombocytopenia no active bleed. MUSCULOSKELTAL: Negative for Myalgia or arthralgia. NEURLOGICAL:? Parkinson disease significant generalized weakness and debility since his Covid few weeks ago BEHAVIORAL/PSYCH: Mild memory loss debility with flat affect severe depression. ENDOCRINE: Negative. PHYSICAL EXAMINATION General Appearance: Alert, cooperative, no distress, appears older than his age keep in mind patient was exam at least 2 hours after he was hydrated and become slightly bit better with time. Neck HEENT: Supple, no lymphadenopathy, no thyroid enlargement, no carotid bruits. Still have significant dry mucosa. Lungs: Decreased breath sound in the bases bilaterally past fine rhonchi with mild crackles in the bases with expiratory wheezes. Chest Wall: Decrease expansion with deep inspiration no tenderness and no deformity was found on exam, no costochondral pain or discomfort. Heart: Regular rate and rhythm, S1, S2 normal, no murmur, rub or gallop. Mild PVCs and arrhythmia. Back: Symmetric, no curvature, ROM normal, no CVA tenderness. Abdomen: Soft, non-tender, bowel sounds active all four quadrants, no masses, no organomegaly. PEG tube in the middle still looks fine Extremities: Extremities normal, atraumatic, no cyanosis or edema. Pulses: 2+ and symmetric. Skin: Skin color, texture, tugor normal, no rashes or lesions. Neurologic: Alert oriented x3 cranial nerves II through XII intact, generalized motor deficit and weakness. Patient has a flat affect on his facial muscle consistent with most likely Parkinson ASSESSMENT AND PLAN 1. Metabolic encephalopathy secondary to severe dehydration, adrenal insufficiency, hyponatremia, recent Covid infection. Patient has been started on Solu-Cortef 100 mg IV every 8 hours, Florinef 0.05 mg twice daily. Neurology consult. Patient is status post 2 L of IV fluid. 2 severe dehydration. Monitor kidney function and sodium level in the next 48 hours. 3 adrenal insufficiency: Patient has been on steroids for long time with the blood pressure been quite bit low along with dehydration and the slight the challenge on his sodium potassium level patient be started on hydrocortisone IV will be switched to Cortef eventually patient can benefit from adrenal suppression testing. 4 hyponatremia: Most like secondary to dehydration and adrenal insufficiency continue to watch sodium level after hydration. 5 bilateral aggressive Covid pneumonitis with sepsis: Has been slightly better so far he finished antiviral management and steroid this point. Continue supplements. 6 acute kidney injury: Stage III continue hydration repeat BUN/creatinine. 7 severe dysphagia: On PEG feeding continue hydration and nutrition speech therapy and reexam dysphagia again. 8 possible Parkinson disease with flat affect. Consult neurology. 9 type 2 diabetes on insulin: Continue insulin continue Accu-Chek sliding scales coverage for now. 10 iron deficiency anemia: Continue patient on supplement. 11 hypotension: We'll stop lisinopril continue patient on small dose of beta brayan. 12 DVT prophylaxis: Patient remain on Lovenox for another week. 13 GI prophylaxis: Continue patient on pantoprazole. CODE STATUS: Full code. DISCHARGE PLAN Rerurn to [facility], possible hospice care. Impression and plan of care have been directed as dictated by the signing physician. Cathy Walker nurse practitioner acting as scribe for signing physician. Objective - Vital Signs Vital signs: Vital Signs Temp 98.3 F 10/23/20 05:00 Pulse 80 10/23/20 05:00 Resp 20 10/23/20 05:00 BP 105/64 10/23/20 05:00 Pulse Ox 96 10/23/20 05:00 Intake & Output 10/22/20 10/23/20 10/23/20 18:59 06:59 18:59 Intake Total 1690 Balance 1690 Weight 74.843 kg 74.843 kg Intake: Intake, IV Titration 1600 Amount Sodium Chloride 0.9% 1, 1600 000 ml @ 130 mls/hr IV . Q7H42M STA Rx#:[id number] Other 90 Other: # Voids 2 - Labs CBC & Chem 7: 10/23/20 05:44 10/22/20 16:39 Labs: Abnormal Lab Results - Last 24 Hours (Table) 10/22/20 10/22/20 10/22/20 Range/Units 16:39 16:39 16:39 RBC 3.04 L (4.30-5.90) m/uL Hgb 9.6 L (13.0-17.5) gm/dL Hct 28.8 L (39.0-53.0) % Lymphocytes # 0.8 L (1.0-4.8) k/uL Sodium 126 L (137-145) mmol/L Potassium 5.3 H (3.5-5.1) mmol/L Chloride 96 L (98-107) mmol/L BUN 55 H (9-20) mg/dL Glucose 109 H (74-99) mg/dL POC Glucose (mg/dL) (75-99) mg/dL Calcium 8.2 L (8.4-10.2) mg/dL Magnesium 2.4 H (1.6-2.3) mg/dL ALT 54 H (4-49) U/L Total Protein 5.2 L (6.3-8.2) g/dL Albumin 2.6 L (3.5-5.0) g/dL Urine Protein Trace H (Negative) 10/22/20 10/23/20 10/23/20 Range/Units 21:40 05:44 07:21 RBC 2.91 L (4.30-5.90) m/uL Hgb 9.4 L (13.0-17.5) gm/dL Hct 28.4 L (39.0-53.0) % Lymphocytes # 0.7 L (1.0-4.8) k/uL Sodium (137-145) mmol/L Potassium (3.5-5.1) mmol/L Chloride (98-107) mmol/L BUN (9-20) mg/dL Glucose (74-99) mg/dL POC Glucose (mg/dL) 104 H 162 H (75-99) mg/dL Calcium (8.4-10.2) mg/dL Magnesium (1.6-2.3) mg/dL ALT (4-49) U/L Total Protein (6.3-8.2) g/dL Albumin (3.5-5.0) g/dL Urine Protein (Negative)
[2020-10-23] MEDS: INSULIN ASPART (NovoLOG) 100 UNIT/ML VIAL SQ SCH ×4 (09:44→21:26)
[2020-10-23] MEDS: TIMOLOL 0.5% OPHTH DROPS 5 ML BTL BOTH EYES SCH ×2 (09:45→17:48)
[2020-10-23] MEDS: BRIMONIDINE TARTRATE 0.2% DROPS 5 ML BTL BOTH EYES SCH ×2 (09:46→17:48)
[2020-10-23] MEDS: FLUDROCORTISONE 0.1 MG TAB PO SCH ×2 (09:55→21:37)
[2020-10-23 11:23] LABS: Glucose,Whole Blood 145 mg/dL (75-99)
[2020-10-23 14:14] LABS: African American GFR (CKD) 85.6 (60.0-200.0); Albumin 2.8 g/dL (3.80-4.90); Albumin/Globulin Ratio 1.56 (1.60-3.17); Anion Gap 5.7 mmol/L (4.00-12.00); Carbon Dioxide 27.3 mmol/L (21.6-31.8); Globulin 1.8 g/dL (1.6-3.3); Non-African American GFR(CKD) 73.8 (60.0-200.0); Potassium 5.3 mmol/L (3.5-5.5); Total Bilirubin 0.6 mg/dL (0.3-1.2); Total Protein 4.6 g/dL (6.2-8.2)
[2020-10-23 14:18] VITALS: BMI 25.0
--- NOTE | 2020-10-23 16:35 | P.CNNES ---
History of Present Illness Consult date: 10/23/20 Requesting physician: Cathy Walker Reason for Consult: Encephalopathy History of Present Illness: Patient is a 75-year-old male came to the hospital yesterday at 3:38 PM, recent diagnosis of Covid 19 on October 03, who was ICU bound and was sent to long term afterwards. Patient has been dealing with low blood pressure since he was discharged from the hospital. He does have PEG tube placement and has been gett ing fluids through the PEG tube but still has decreased responsiveness and was noted to have blood pressure in the systolic range of 60 in the long term. EMS was called. No fever or chills. No nausea vomiting. Patient was noted to be lethargic in the ER despite giving IV fluids. Patient has been on long-term steroids and likely does have a component of adrenal suppression. He was given IV hydrocortisone. Patient admitted for steroid-induced adrenal suppression, dehydration, hypotensive episode, hyponatremia, failure to thrive with recent infection with novel pleitez virus disease. Patient's Vital signs on arrival was blood pressure 97/55, pulse rate 67 temperature 98.5. Chest x-ray showed persistent bilateral multifocal acute infiltrates greatest in the lower lungs consistent with COVID-19 infection. No significant change from recent prior studies. EKG shows sinus rhythm with first-degree AV block. Left axis deviation. Left bundle branch block. Patient's blood test shows WBC 4.7 hemoglobin 9.6, platelets 288. Sodium 126 potassium 5.3, BUN 55, creatinine 1.10. AST 38, ALT 54. Troponin negative. UA negative. Patient has positive pleitez virus PCR on 10/12/2020. Review of Systems ROS unobtainable: due to mental status Past Medical History Past Medical History: Chest Pain / Angina, Diabetes Mellitus, GERD/Reflux, Hyperlipidemia, Hypertension Additional Past Medical History / Comment(s): covid positive. was recently intubated in [facility] ICU-went to [facility] for rehab and ongoing care. History of Any Multi-Drug Resistant Organisms: None Reported Past Surgical History: Appendectomy, Heart Catheterization Additional Past Surgical History / Comment(s): Patient has never had a colonoscopy. Past Anesthesia/Blood Transfusion Reactions: No Reported Reaction Past Psychological History: No Psychological Hx Reported Smoking Status: Former smoker Past Alcohol Use History: Rare Additional Past Alcohol Use History / Comment(s): Quit smoking 30 years ago. He occasionally drinks alcohol. Past Drug Use History: None Reported - Past Family History Mother Additional Family Medical History / Comment(s): BREAST Father Additional Family Medical History / Comment(s): Father at age 60 from a myocardial infarction. Brother(s) Additional Family Medical History / Comment(s): Patient has 7 brothers and one h as coronary artery disease status post 3 vessel CABG. Patient does not have any sisters. Patient has 3 children, 2 boys and one girl with no major medical problems. Medications and Allergies Home Medications Medication Instructions Recorded Confirmed Type Aspirin [Adult Low Dose Aspirin EC] 81 mg PEG/G-TUBE DAILY@0 11/23/15 10/22/20 History Cholecalciferol [Vitamin D3 (25 5,000 unit PEG/G-TUBE MOWEFR@169911/23/15 10/22/20 History Mcg = 1000 Iu)] Nitroglycerin Sl Tabs [Nitrostat] 0.4 mg SUBLINGUAL Q5M PRN 11/23/15 10/22/20 History Simvastatin 20 mg PEG/G-TUBE HS@209911/23/15 10/22/20 History atenoloL [Atenolol] 50 mg PEG/G-TUBE BID@0800,1700 11/23/15 10/22/20 History Brimonidine Tartrate [Alphagan P 1 drop BOTH EYES BID@0800,1700 09/17/20 10/22/20 History 0.2% Ophth Soln] Insulin Glargine,Hum.rec.anlog 15 unit SQ HS@212909/17/20 10/22/20 History [Lantus Solostar] Isosorbide Mononitrate ER [Imdur] 30 mg PO DAILY@0800 09/17/20 10/22/20 History Latanoprost Ophth [Xalatan 0.005%] 1 drop BOTH EYES HS@209909/17/20 10/22/20 History Timolol 0.5% Ophth Soln [Timoptic 1 drop BOTH EYES BID@0800,1700 09/17/20 10/22/20 History 0.5% Ophth Soln] lisinopriL 40 mg PEG/G-TUBE DAILY@0800 09/17/20 10/22/20 History Ondansetron [Zofran] 4 mg PEG/G-TUBE Q8HR PRN 09/20/20 10/05/20 History Acetaminophen [Tylenol] 650 mg PEG/G-TUBE Q4H PRN 10/05/20 10/22/20 History Ascorbic Acid [Vitamin C] 500 mg PEG/G-TUBE DAILY@1700 10/05/20 10/22/20 History Folic Acid 1 mg PEG/G-TUBE DAILY@1700 10/05/20 10/22/20 History Magnesium Hydroxide [Milk of 7,200 mg PEG/G-TUBE DAILY PRN 10/05/20 10/22/20 History Magnesia Concentrate] Zinc Sulfate [Orazinc] 220 mg PEG/G-TUBE DAILY@1700 10/05/20 10/22/20 History bisacodyL [Dulcolax] 10 mg RECTAL DAILY PRN 10/05/20 10/22/20 History Albuterol Inhaler [Ventolin Hfa 2 puff INHALATION 10/22/20 10/22/20 History Inhaler] RT-Q6H@00,06,12,18 Enoxaparin [Lovenox] 40 mg SQ DAILY@0800 10/22/20 10/22/20 History Escitalopram [Lexapro] 10 mg PEG/G-TUBE DAILY@0800 10/22/20 10/22/20 History Famotidine [Pepcid] 20 mg PO BID@0800,1700 10/22/20 10/22/20 History INSULIN ASPART (NovoLOG) [NovoLOG See Protocol SQ 10/22/20 10/22/20 History (formulary)] ACHS@07,11,1630,2130 Melatonin 6 mg PEG/G-TUBE HS@2100 10/22/20 10/22/20 History Mirtazapine 7.5 mg PEG/G-TUBE HS@2100 10/22/20 10/22/20 History Na Phos,M-B/Na Phos,Di-Ba [Fleet 133 ml RECTAL DAILY PRN 10/22/20 10/22/20 History Adult] Allergies Allergy/AdvReac Type Severity Reaction Status Date / Time cyclobenzaprine Allergy Unknown Verified 10/22/20 16:16 [From Flexeril] doxycycline Allergy Unknown Verified 10/22/20 16:16 metformin Allergy Unknown Verified 10/22/20 16:16 Penicillins Allergy Unknown Verified 10/22/20 16:16 Physical Examination - Vital Signs Vital Signs: Vital Signs Temp Pulse Pulse Resp BP BP Pulse Ox 10/23/20 05:00 98.3 F 80 20 105/64 96 10/22/20 23:00 97.9 F 64 20 114/68 96 10/22/20 20:40 99.4 F 69 20 110/58 97 10/22/20 20:15 98.5 F 64 18 98/58 100 10/22/20 20:00 20 10/22/20 19:38 98/58 10/22/20 18:58 64 18 118/62 100 10/22/20 18:02 66 22 107/62 100 10/22/20 17:17 60 18 85/51 100 10/22/20 15:40 98.5 F 67 18 97/55 98 Intake and Output 10/22/20 10/23/20 10/23/20 22:59 06:59 14:59 Intake Total 1690 Balance 1690 Intake: Intake, IV Titration 1600 Amount Sodium Chloride 0.9% 1, 1600 000 ml @ 130 mls/hr IV . Q7H42M STA Rx#:[id number] Other 90 Other: # Voids 2 Weight 74.843 kg On examination patient is an elderly male, who is severely encephalopathic. Patient keeps his eyes closed. Does not open his eyes to calling his name. Sometimes opens his eyes slightly to noxious stimulus but then again closes it. Patient does not answer to any question. Does not follow commands. Pupils are round and reacting. Oculocephalics are slightly present. Visual mcgowan could not be tested. Face is symmetric. Patient did not protrude his tongue. Palate could not be checked. Facial sensations could not be check ed. Hearing could not be checked. On muscle strength testing, patient did not squeeze hands. His tone is mild to moderately increased in his arms and neck. No obvious focal weakness observed.. Reflexes are 1+ and plantars are possibly upgoing. Cerebellar functions, gait could not be checked. On general examination, there is no obvious bruit, S1 and S2 audible, speech abdomen soft, chest is clear. Mild peripheral edema. Results - Laboratory Findings CBC and BMP: 10/23/20 05:44 10/23/20 05:44 Abnormal Lab Findings: Abnormal Labs 10/22/20 10/22/20 10/22/20 16:39 16:39 16:39 RBC 3.04 L Hgb 9.6 L Hct 28.8 L Lymphocytes # 0.8 L Sodium 126 L Potassium 5.3 H Chloride 96 L BUN 55 H Glucose 109 H POC Glucose (mg/dL) Calcium 8.2 L Magnesium 2.4 H ALT 54 H Total Protein 5.2 L Albumin 2.6 L Urine Protein Trace H 10/22/20 10/23/20 10/23/20 21:40 05:44 07:21 RBC 2.91 L Hgb 9.4 L Hct 28.4 L Lymphocytes # 0.7 L Sodium Potassium Chloride BUN Glucose POC Glucose (mg/dL) 104 H 162 H Calcium Magnesium ALT Total Protein Albumin Urine Protein Assessment and Plan Assessment: * Altered mental status, likely due to toxic metabolic encephalopathy. * Persistent hypotension, possible adrenal insufficiency. * Hyponatremia * Recent history of COVID-19 infection. * Dehydration * Severe dysphagia, has PEG placement * Rule out Parkinson's versus parkinsonism. * Diabetes, controlled, A1c 6.5 on 10/17/2020. Plan: * Patient has severe encephalopathy. Reasons as mentioned above. * EEG to evaluate for any epileptiform activity. * MRI of the brain to rule out CVA. * Treatment of various medical conditions as per IM. * We will follow.
[2020-10-23 16:57] LABS: Glucose,Whole Blood 127 mg/dL (75-99)
[2020-10-23] MEDS: ASPIRIN 81 MG PEG/G-TUBE SCH (17:31)
[2020-10-23] MEDS: FOLIC ACID 1 MG TAB PEG/G-TUBE SCH (17:31)
[2020-10-23] MEDS: ASCORBIC ACID 500 MG TAB PEG/G-TUBE SCH (17:31)
[2020-10-23] MEDS: ZINC SULFATE 220 MG CAP PEG/G-TUBE SCH (17:32)
[2020-10-23 20:45] LABS: Glucose,Whole Blood 186 mg/dL (75-99)
[2020-10-23] MEDS: MELATONIN 3 MG TABLET PEG/G-TUBE SCH (21:25)
[2020-10-23] MEDS: ATORVASTATIN 10 MG TAB PEG/G-TUBE SCH (21:26)
[2020-10-23] MEDS: MIRTAZAPINE 15 MG TAB PEG/G-TUBE SCH (21:26)
[2020-10-23] MEDS: LATANOPROST 0.005% OPHTH DROPS 2.5 ML BTL BOTH EYES SCH (21:27)
[2020-10-24 07:13] LABS: Glucose,Whole Blood 197 mg/dL (75-99)
[2020-10-24] MEDS: ALBUTEROL NEBULIZED 2.5 MG/3 ML INHALATION SCH (07:27)
[2020-10-24] MEDS ORDERED: ALBUTEROL HFA INHALER INHALATION PRN (07:38)
[2020-10-24] MEDS: atenoloL 50 MG TAB PEG/G-TUBE SCH ×2 (09:23→17:15)
[2020-10-24] MEDS: FLUDROCORTISONE 0.1 MG TAB PO SCH ×2 (09:23→22:20)
[2020-10-24] MEDS: ISOSORBIDE MONONITRATE ER 30 MG TAB.ER.24H PO SCH (09:23)
[2020-10-24] MEDS: FAMOTIDINE 20 MG TAB PO SCH (09:23)
[2020-10-24] MEDS: lisinopriL 20 MG TAB PEG/G-TUBE SCH (09:23)
[2020-10-24] MEDS: ENOXAPARIN 40 MG/0.4 ML SYRINGE SQ SCH (09:25)
[2020-10-24] MEDS: HYDROCORTISONE SUCCINATE 100 MG/2 ML VIAL IV SCH ×3 (09:25→23:37)
[2020-10-24] MEDS: INSULIN ASPART (NovoLOG) 100 UNIT/ML VIAL SQ SCH ×4 (09:26→22:20)
[2020-10-24] MEDS: ALBUTEROL HFA INHALER INHALATION SCH ×4 (09:28→19:06)
[2020-10-24] MEDS: ESCITALOPRAM 10 MG TAB PEG/G-TUBE SCH (09:28)
[2020-10-24] MEDS: BRIMONIDINE TARTRATE 0.2% DROPS 5 ML BTL BOTH EYES SCH ×2 (09:34→17:53)
[2020-10-24] MEDS: TIMOLOL 0.5% OPHTH DROPS 5 ML BTL BOTH EYES SCH ×2 (09:34→17:53)
[2020-10-24 10:00] LABS: African American GFR (CKD) 97.2 (60.0-200.0); Albumin 2.9 g/dL (3.80-4.90); Albumin/Globulin Ratio 1.61 (1.60-3.17); Anion Gap 3.2 mmol/L (4.00-12.00); Calcium 8.1 mg/dL (8.7-10.3); Carbon Dioxide 29.8 mmol/L (21.6-31.8); Globulin 1.8 g/dL (1.6-3.3); Non-African American GFR(CKD) 83.8 (60.0-200.0); Total Bilirubin 0.5 mg/dL (0.3-1.2); Total Protein 4.7 g/dL (6.2-8.2)
--- NOTE | 2020-10-24 10:33 | P.PN ---
Subjective Progress Note Date: 10/24/20 HISTORY OF PRESENT ILLNESS 75-year-old male one of Dr. mishra's patient with past medical history of hypertension, hyperlipidemia, type 2 diabetes, non-diagnosis Parkinson disease who was hospitalized 3 times so far last time was hospitalized for extended period of time for active Covid pneumonitis with severe hypoxia and worsening sepsis. Patient had developed severe dysphagia ended up having PEG tube has been on PEG feeding. Also developed to have significant tachycardia was in beta brayan and blood pressure has been elevated patient has been on lisinopril higher dose. Blood sugar has been fluctuating up and down. Patient developed at [facility] to have significant hypotension decrease level of responsiveness with worsening condition overall blood pressure running in the 70 systolic and patient has not been able to stay up not been able to interact much doing physical therapy are do any kind of movement. Patient ended up coming to the emergency department at [facility] where was diagnosed with significant dehydration severe hypertension. After stopping his lisinopril and changes metoprolol patient was hydrated with over 2 L of normal saline his blood pres sure had responded some found to have severe hyponatremia with sodium of 126 with significant type II chronic kidney disease blood sugar was mildly elevated chest x-ray showed the same change was seen last on his x-ray with the significant Covid pneumonitis lower lung field bilaterally still have si gnificant picture of groundglass infiltrate. Patient was diagnosed with hyponatremia hypotension dehydration and adrenal insufficiency was started on hydration also hydrocortisone and fludrocortisone admit patient to the hospital. 10/23: Patient states and it was okay. He continues to be lethargic. Dietitian consult is in to start tube feedings. Consult with neurology admitted for encephalopathy and rule out Parkinson's. Patient is on Solu-Cortef and Florinef added. Patient has been afebrile, heart rate 80, blood pressure 105/64, pulse ox 96% on 2 L nasal cannula. Repeat blood work reveals WBC 5.2, hemoglobin 9.4, lymphocytes 0.7. CMP is pending at the time of this dictation. 10/24: She is currently pulse ox 95% on 2 L nasal cannula, he's been afebrile, heart rate 69, blood pressure 125/71. Blood sugars are running between 120-197. Patient has been seen by neurology for possible toxic metabolic encephalopathy, rule out Parkinson's versus parkinsonism. EEG and MRI were ordered. Yesterday's lab work revealed sodium 135, potassium 5.3, chloride 102, CO2 27, BUN 14 creatinine 1. Patient has been seen by dietitian and continued on PEG tube feedings with Glucerna at 65 ML's per hour with bolus feeding 6 times per day, 30 mL free water flush every 4 hours. Consult added for speech therapy to evaluate swallow. Patient is more awake today but continues to be quite ilan rgic. Patient's , Mitali, has been contacted and updated regarding condition. Discussed option of possibly going home. She will follow-up with social work regarding discharge planning. REVIEW OF SYSTEMS CONSTITUTIONAL: Well-developed no acute respiratory distress. No fevers. EYES: No icterus sclerae, no conjunctivitis. EARS, NOSE, MOUTH, THROAT, and FACE: No sore throat, lymphadenopathy, carotid bruits or deformity. RESPIRATORY: Significant shortness of breath cough and wheezes. CARDIOVASCULAR: Positive PND orthopnea palpitation with hypotension and tachycardia GASTROINTESTINAL: Positive abdominal pain with dysphagia nausea with no vomiting no diarrhea GENITOURINARY: Decrease urine output lately with no hematuria positive BPH symptoms INTEGUMENT/BREAST: Negative for any muscular injury with mild osteoarthritis.. HEMATOLOGIC/LYMPHATIC: Anemia and thrombocytopenia no active bleed. MUSCULOSKELTAL: Negative for Myalgia or arthralgia. NEURLOGICAL:? Parkinson disease significant generalized weakness and debility since his Covid few weeks ago BEHAVIORAL/PSYCH: Mild memory loss debility with flat affect severe depression. ENDOCRINE: Negative. PHYSICAL EXAMINATION General Appearance: Alert, cooperative, no distress, appears older than his age keep in mind patient was exam at least 2 hours after he was hydrated and become slightly bit better with time. Neck HEENT: Supple, no lymphadenopathy, no thyroid enlargement, no carotid bruits. Still have significant dry mucosa. Lungs: Decreased breath sound in the bases bilaterally past fine rhonchi with mild crackles in the bases with expiratory wheezes. Chest Wall: Decrease expansion with deep inspiration no tenderness and no deformity was found on exam, no costochondral pain or discomfort. Heart: Regular rate and rhythm, S1, S2 normal, no murmur, rub or gallop. Mild PVCs and arrhythmia. Back: Symmetric, no curvature, ROM normal, no CVA tenderness. Abdomen: Soft, non-tender, bowel sounds active all four quadrants, no masses, no organomegaly. PEG tube in the middle still looks fine Extremities: Extremities normal, atraumatic, no cyanosis or edema. Pulses: 2+ and symmetric. Skin: Skin color, texture, tugor normal, no rashes or lesions. Neurologic: Alert oriented x1 cranial nerves II through XII intact, generalized motor deficit and weakness. Patient has a flat affect on his facial muscle consistent with most likely Parkinson ASSESSMENT AND PLAN 1. Toxic metabolic encephalopathy secondary to severe dehydration, possible adrenal insufficiency, hyponatremia, recent Covid infection. Patient has been started on Solu-Cortef 100 mg IV every 8 hours, Florinef 0.05 mg twice daily. Neurology consult. Patient is status post 2 L of IV fluid. MRI of the brain and EEG ordered for today. 2 severe dehydration. Monitor kidney function and sodium level in the next 48 hours. 3 adrenal insufficiency: Patient has been on steroids for long time with the blood pressure been quite bit low along with dehydration and the slight the challenge on his sodium potassium level patient be started on hydrocortisone IV will be switched to Cortef eventually patient can benefit from adrenal suppression testing. 4 hyponatremia: Most like secondary to dehydration and adrenal insufficiency continue to watch sodium level after hydration. 5 bilateral aggressive Covid pneumonitis with sepsis: Has been slightly better so far he finished antiviral management and steroid this point. Continue supplements. 6 acute kidney injury: Stage III continue hydration repeat BUN/creatinine. 7 severe dysphagia: On PEG feeding continue hydration and nutrition speech therapy and reexam dysphagia again. 8 possible Parkinson disease with flat affect. Consult neurology. 9 type 2 diabetes on insulin: Continue insulin continue Accu-Chek sliding scales coverage for now. 10 iron deficiency anemia: Continue patient on supplement. 11 hypotension: We'll stop lisinopril continue patient on small dose of beta brayan. 12 DVT prophylaxis: Patient remain on Lovenox for another week. 13 GI prophylaxis: Continue patient on pantoprazole. CODE STATUS: Full code. DISCHARGE PLAN Rerurn to [facility], possible hospice care. Impression and plan of care have been directed as dictated by the signing physician. Cathy Walker nurse practitioner acting as scribe for signing physician. Objective - Vital Signs Vital signs: Vital Signs Temp 97.7 F 10/24/20 05:00 Pulse 69 10/24/20 05:00 Resp 18 10/23/20 21:37 BP 125/71 10/24/20 05:00 Pulse Ox 95 10/24/20 05:00 Intake & Output 10/23/20 10/24/20 10/24/20 18:59 06:59 18:59 Intake Total 860 Balance 860 Weight 74.843 kg 73 kg Intake: Tube Feeding 620 Other 240 Other: # Voids 3 1 # Bowel Movements 1 - Labs CBC & Chem 7: 10/23/20 05:44 10/24/20 06:31 Labs: Abnormal Lab Results - Last 24 Hours (Table) 10/23/20 10/23/20 10/23/20 Range/Units 05:44 11:21 16:55 BUN 40.0 H (9.0-27.0) mg/dL BUN/Creatinine Ratio 40.00 H (12.00-20.00) Ratio Glucose 158 H (70-110) mg/dL POC Glucose (mg/dL) 145 H 127 H (75-99) mg/dL Calcium 8.0 L (8.7-10.3) mg/dL Total Protein 4.6 L (6.2-8.2) g/dL Albumin 2.80 L (3.80-4.90) g/dL Albumin/Globulin Ratio 1.56 L (1.60-3.17) g/dL 10/23/20 10/24/20 Range/Units 20:32 07:12 BUN (9.0-27.0) mg/dL BUN/Creatinine Ratio (12.00-20.00) Ratio Glucose (70-110) mg/dL POC Glucose (mg/dL) 186 H 197 H (75-99) mg/dL Calcium (8.7-10.3) mg/dL Total Protein (6.2-8.2) g/dL Albumin (3.80-4.90) g/dL Albumin/Globulin Ratio (1.60-3.17) g/dL
[2020-10-24 11:15] LABS: Glucose,Whole Blood 199 mg/dL (75-99)
[2020-10-24] MEDS ORDERED: SODIUM CHLORIDE 0.9% 500 ML 500 ML IV ONE (12:05)
--- NOTE | 2020-10-24 14:51 | EEG ---
ELECTROENCEPHALOGRAM REPORT DATE OF SERVICE: 10/24/2020 PREAMBLE: This is a 75-year-old male who has a history of COVID-19 pneumonia, has altered mental status. This study is performed to evaluate for any epileptiform activity. EEG FINDINGS: This is an 18 channel limited EEG performed utilizing COVID protocol. The background consists of well-developed and regulated mixed frequencies of 8-9 hertz alpha with some 7 hertz theta activity seen in posterior head region. Some low-voltage fast frequency beta was seen in the frontal region. Different stages of sleep were not seen. No focal or generalized epileptiform activity was seen. IMPRESSION: This is a borderline abnormal EEG due to minimal background slowing. This can be seen with an encephalopathy. No epileptiform activity was seen. MMODL / IJN: [id number] /
[2020-10-24] MEDS ORDERED: ONDANSETRON 4 MG/2 ML VIAL IVP PRN (15:07)
[2020-10-24] MEDS ORDERED: ACETAMINOPHEN ORAL SUSP (PEDS) 3,840 MG/120 ML BOTTLE PEG/G-TUBE PRN (15:09)
[2020-10-24] MEDS: PANTOPRAZOLE 40 MG/10 ML VIAL IVP SCH ×2 (15:23→23:37)
--- NOTE | 2020-10-24 16:03 | P.PN ---
Subjective Progress Note Date: 10/24/20 Patient was seen for a follow-up. Patient is much more alert and awake, answering appropriately, following commands, denies any headache or any problems with vision or speech, numbness or tingling. Objective - Vital Signs Vital signs: Vital Signs Temp 97.4 F L 10/24/20 11:00 Pulse 63 10/24/20 14:53 Resp 17 10/24/20 11:00 BP 93/49 10/24/20 14:53 Pulse Ox 95 10/24/20 11:00 Intake & Output 10/23/20 10/24/20 10/24/20 18:59 06:59 18:59 Intake Total 860 Balance 860 Weight 74.843 kg 73 kg Intake: Tube Feeding 620 Other 240 Other: # Voids 3 1 # Bowel Movements 1 - Exam Patient is very alert and awake, slightly slow mentation. Patient is fully oriented, know it is October 2020, and that he is in [facility]. He knows name of the current president Hailee, and the upcoming president Mr. Greer. patient's pupils are round and reacting to light, visual mcgowan are full on confrontation with no neglect. Extraocular muscles are intact. Face is symmetric. Tongue protrudes to the midline. Muscle strength is normal in the arms and legs. No ataxia for [id number] testing. Plantars are withdrawal. Sensations to touch is equal with no neglect on double simultaneous termination. Gait deferred. Per nursing report, patient was seated in the recliner, and was doing better. Gen. examination revealed no carotid bruit, S1 and S2 audible. Peripheral pulses are present. No peripheral edema. Neck is supple. No rigidity. - Labs CBC & Chem 7: 10/23/20 05:44 10/24/20 06:31 Labs: Abnormal Lab Results - Last 24 Hours (Table) 10/23/20 10/23/20 10/24/20 Range/Units 16:55 20:32 06:31 Anion Gap 3.20 L (4.00-12.00) mmol/L BUN 36.0 H (9.0-27.0) mg/dL BUN/Creatinine Ratio 40.00 H (12.00-20.00) Ratio Glucose 214 H (70-110) mg/dL POC Glucose (mg/dL) 127 H 186 H (75-99) mg/dL Calcium 8.1 L (8.7-10.3) mg/dL Total Protein 4.7 L (6.2-8.2) g/dL Albumin 2.90 L (3.80-4.90) g/dL 10/24/20 10/24/20 Range/Units 07:12 11:13 Anion Gap (4.00-12.00) mmol/L BUN (9.0-27.0) mg/dL BUN/Creatinine Ratio (12.00-20.00) Ratio Glucose (70-110) mg/dL POC Glucose (mg/dL) 197 H 199 H (75-99) mg/dL Calcium (8.7-10.3) mg/dL Total Protein (6.2-8.2) g/dL Albumin (3.80-4.90) g/dL Assessment and Plan Assessment: * Altered mental status, likely due to toxic metabolic encephalopathy. * Persistent hypotension, possible adrenal insufficiency. * Hyponatremia * Recent history of COVID-19 infection. * Dehydration * Severe dysphagia, has PEG placement * Rule out Parkinson's versus parkinsonism. * Diabetes, controlled, A1c 6.5 on 10/17/2020. Plan: * Patient's encephalopathy has remarkably improved. His examination is nonfocal. Patient's mentation is almost back to baseline. * EEG was performed today, which was borderline, with minimal background slowing, consistent with encephalopathy. No epileptiform activity was seen. * MRI of the brain canceled, as patient mentation is almost back to normal and examination is nonfocal. * Treatment of various medical conditions as per IM. * No meningeal signs. Patient denies headache.
[2020-10-24] MEDS ORDERED: CHOLECALCIFEROL 1,000 UNIT TAB PEG/G-TUBE SCH (17:00)
[2020-10-24] MEDS: FOLIC ACID 1 MG TAB PEG/G-TUBE SCH (17:15)
[2020-10-24] MEDS: ASCORBIC ACID 500 MG TAB PEG/G-TUBE SCH (17:15)
[2020-10-24] MEDS: ASPIRIN 81 MG PEG/G-TUBE SCH (17:16)
[2020-10-24 17:18] LABS: Glucose,Whole Blood 177 mg/dL (75-99)
[2020-10-24] MEDS: ZINC SULFATE 220 MG CAP PEG/G-TUBE SCH (17:22)
[2020-10-24 20:33] LABS: Glucose,Whole Blood 174 mg/dL (75-99)
[2020-10-24] MEDS: MELATONIN 3 MG TABLET PEG/G-TUBE SCH (22:20)
[2020-10-24] MEDS: MIRTAZAPINE 15 MG TAB PEG/G-TUBE SCH (22:20)
[2020-10-24] MEDS: ATORVASTATIN 10 MG TAB PEG/G-TUBE SCH (22:20)
[2020-10-24] MEDS: LATANOPROST 0.005% OPHTH DROPS 2.5 ML BTL BOTH EYES SCH (22:22)
[2020-10-25 07:06] LABS: Glucose,Whole Blood 247 mg/dL (75-99)
--- NOTE | 2020-10-25 07:50 | P.DS ---
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 Patient had developed severe dysphagia ended up having PEG tube has been on PEG feeding. Also developed to have significant tachycardia was in beta brayan and blood pressure has been elevated patient has been on lisinopril higher dose. Blood sugar has been fluctuating up and down. Patient developed at [facility] to have significant hypotension decrease level of responsiveness with worsening condition overall blood pressure running in the 70 systolic and patient has not been able to stay up not been able to interact much doing physical therapy are do any kind of movement. Patient ended up coming to the emergency department at [facility] where was diagnosed with significant dehydration severe hypertension. After stopping his lisinopril and changes metoprolol patient was hydrated with over 2 L of normal saline his blood pressure had responded some found to have severe hyponatremia with sodium of 126 with significant type II chronic kidney disease blood sugar was mildly elevated chest x-ray showed the same change was seen last on his x-ray with the significant Covid pneumonitis lower lung field bilaterally still have significant picture of groundglass infiltrate. Patient was diagnosed with hyponatremia hypotension dehydration and adrenal insufficiency was started on hydration also hydrocortisone and fludrocortisone admit patient to the hospital. 10/23: Patient states and it was okay. He continues to be lethargic. Dietitian consult is in to start tube feedings. Consult with neurology admitted for encephalopathy and rule out Parkinson's. Patient is on Solu-Cortef and Florinef added. Patient has been afebrile, heart rate 80, blood pressure 105/64, pulse ox 96% on 2 L nasal cannula. Repeat blood work reveals WBC 5.2, hemoglobin 9.4, lymphocytes 0.7. CMP is pending at the time of this dictation. 10/24: She is currently pulse ox 95% on 2 L nasal cannula, he's been afebrile, heart rate 69, blood pressure 125/71. Blood sugars are running between 120-197. Patient has been seen by neurology for possible toxic metabolic encephalopathy, rule out Parkinson's versus parkinsonism. EEG and MRI were ordered. Yesterday's lab work revealed sodium 135, potassium 5.3, chloride 102, CO2 27, BUN 14 creatinine 1. Patient has been seen by dietitian and continued on PEG tube feedings with Glucerna at 65 ML's per hour with bolus feeding 6 times per day, 30 mL free water flush every 4 hours. Consult added for speech therapy to evaluate swallow. Patient is more awake today but continues to be quite lethargic. Patient's , Mitali, has been contacted and updated regarding condition. Discussed option of possibly going home. She will follow-up with social work regarding discharge planning. 10/25: Neurology is canceled MRI of the brain as patient mentation was back to his baseline. Examination was nonfocal. Patient was evaluated by speech therapy and is still at risk for aspiration requiring PEG tube feedings will be continued at [facility]. Patient has been afebrile, heart rate 66, blood pressure 145/74, pulse ox 100% on 2 L nasal cannula. Patient will be discharged back to [facility] today in stable condition. ASSESSMENT AND PLAN 1. Toxic metabolic encephalopathy secondary to severe dehydration, possible adrenal insufficiency, hyponatremia, recent Covid infection. 2 severe dehydration. 3 adrenal insufficiency 4 hyponatremia: Most like secondary to dehydration and adrenal insufficienc 5 bilateral aggressive Covid pneumonitis with sepsis 6 acute kidney injury CKD Stage III 7 severe dysphagia: On PEG feeding 8 possible Parkinson disease with flat affect 9 type 2 diabetes on insulin 10 iron deficiency anemia 11 hypotension 12 severe protein calorie malnutrition requiring PEG tube feedings DISCHARGE PLAN Return to [facility]. Impression and plan of care have been directed as dictated by the signing physician. Cathy Walker nurse practitioner acting as scribe for signing physician. Patient Condition at Discharge: Good Plan - Discharge Summary New Discharge Prescriptions: New Hydrocortisone [Cortef] 10 mg PO BID #60 tablet Fludrocortisone [Florinef] 0.05 mg PO BID tab Continue Simvastatin 20 mg PEG/G-TUBE HS@2100 Nitroglycerin Sl Tabs [Nitrostat] 0.4 mg SUBLINGUAL Q5M PRN PRN Reason: Angina Cholecalciferol [Vitamin D3 (25 Mcg = 1000 Iu)] 5,000 unit PEG/G-TUBE MOWEFR@1700 atenoloL [Atenolol] 50 mg PEG/G-TUBE BID@0800,1700 Aspirin [Adult Low Dose Aspirin EC] 81 mg PEG/G-TUBE DAILY@1700 Brimonidine Tartrate [Alphagan P 0.2% Ophth Soln] 1 drop BOTH EYES BID@0800,1700 Insulin Glargine,Hum.rec.anlog [Lantus Solostar] 15 unit SQ HS@2130 Isosorbide Mononitrate ER [Imdur] 30 mg PO DAILY@0800 Latanoprost Ophth [Xalatan 0.005%] 1 drop BOTH EYES HS@2100 lisinopriL 40 mg PEG/G-TUBE DAILY@0800 Timolol 0.5% Ophth Soln [Timoptic 0.5% Ophth Soln] 1 drop BOTH EYES BID@0800,1700 Ondansetron [Zofran] 4 mg PEG/G-TUBE Q8HR PRN PRN Reason: Nausea bisacodyL [Dulcolax] 10 mg RECTAL DAILY PRN PRN Reason: Constipation Acetaminophen [Tylenol] 650 mg PEG/G-TUBE Q4H PRN PRN Reason: General Discomfort Zinc Sulfate [Orazinc] 220 mg PEG/G-TUBE DAILY@1700 Folic Acid 1 mg PEG/G-TUBE DAILY@1700 Ascorbic Acid [Vitamin C] 500 mg PEG/G-TUBE DAILY@1700 Magnesium Hydroxide [Milk of Magnesia Concentrate] 7,200 mg PEG/G-TUBE DAILY PRN PRN Reason: Constipation Albuterol Inhaler [Ventolin Hfa Inhaler] 2 puff INHALATION RT-Q6H@00,06,12,18 INSULIN ASPART (NovoLOG) [NovoLOG (formulary)] See Protocol SQ ACHS@07,11,1630,2130 Famotidine [Pepcid] 20 mg PO BID@0800,1700 Mirtazapine 7.5 mg PEG/G-TUBE HS@2100 Melatonin 6 mg PEG/G-TUBE HS@2100 Escitalopram [Lexapro] 10 mg PEG/G-TUBE DAILY@0800 Enoxaparin [Lovenox] 40 mg SQ DAILY@0800 Na Phos,M-B/Na Phos,Di-Ba [Fleet Adult] 133 ml RECTAL DAILY PRN PRN Reason: Constipation Discharge Medication List Aspirin [Adult Low Dose Aspirin EC] 81 mg PEG/G-TUBE DAILY@1700 11/23/15 [History] Cholecalciferol [Vitamin D3 (25 Mcg = 1000 Iu)] 5,000 unit PEG/G-TUBE MOWEFR@169911/23/15 [History] Nitroglycerin Sl Tabs [Nitrostat] 0.4 mg SUBLINGUAL Q5M PRN 11/23/15 [History] Simvastatin 20 mg PEG/G-TUBE HS@209911/23/15 [History] atenoloL [Atenolol] 50 mg PEG/G-TUBE BID@0800,17011/23/15 [History] Brimonidine Tartrate [Alphagan P 0.2% Ophth Soln] 1 drop BOTH EYES BID@0800,17009/17/20 [History] Insulin Glargine,Hum.rec.anlog [Lantus Solostar] 15 unit SQ HS@21309/17/20 [History] Isosorbide Mononitrate ER [Imdur] 30 mg PO DAILY@0809/17/20 [History] Latanoprost Ophth [Xalatan 0.005%] 1 drop BOTH EYES HS@209909/17/20 [History] Timolol 0.5% Ophth Soln [Timoptic 0.5% Ophth Soln] 1 drop BOTH EYES BID@0800,17009/17/20 [History] lisinopriL 40 mg PEG/G-TUBE DAILY@0809/17/20 [History] Ondansetron [Zofran] 4 mg PEG/G-TUBE Q8HR PRN 09/20/20 [History] Acetaminophen [Tylenol] 650 mg PEG/G-TUBE Q4H PRN 10/05/20 [History] Ascorbic Acid [Vitamin C] 500 mg PEG/G-TUBE DAILY@169910/05/20 [History] Folic Acid 1 mg PEG/G-TUBE DAILY@169910/05/20 [History] Magnesium Hydroxide [Milk of Magnesia Concentrate] 7,200 mg PEG/G-TUBE DAILY PRN 10/05/20 [History] Zinc Sulfate [Orazinc] 220 mg PEG/G-TUBE DAILY@1700 10/05/20 [History] bisacodyL [Dulcolax] 10 mg RECTAL DAILY PRN 10/05/20 [History] Albuterol Inhaler [Ventolin Hfa Inhaler] 2 puff INHALATION RT-Q6H@00,06,12,18 10/22/20 [History] Enoxaparin [Lovenox] 40 mg SQ DAILY@0800 10/22/20 [History] Escitalopram [Lexapro] 10 mg PEG/G-TUBE DAILY@0800 10/22/20 [History] Famotidine [Pepcid] 20 mg PO BID@0800,1700 10/22/20 [History] INSULIN ASPART (NovoLOG) [NovoLOG (formulary)] See Protocol SQ ACHS@07,11,1630,2130 10/22/20 [History] Melatonin 6 mg PEG/G-TUBE HS@2100 10/22/20 [History] Mirtazapine 7.5 mg PEG/G-TUBE HS@2100 10/22/20 [History] Na Phos,M-B/Na Phos,Di-Ba [Fleet Adult] 133 ml RECTAL DAILY PRN 10/22/20 [History] Fludrocortisone [Florinef] 0.05 mg PO BID tab 10/25/20 [Rx] Hydrocortisone [Cortef] 10 mg PO BID #60 tablet 10/25/20 [Rx] Follow up Appointment(s)/Referral(s): Eduardo Mcdaniel MD [Primary Care Provider] - 1-2 days (at [facility]) Discharge Disposition: TRANSFER TO SNF/F
[2020-10-25] MEDS: ALBUTEROL HFA INHALER INHALATION SCH ×2 (08:22→11:30)
[2020-10-25] MEDS: INSULIN ASPART (NovoLOG) 100 UNIT/ML VIAL SQ SCH ×2 (09:35→12:10)
[2020-10-25] MEDS: ENOXAPARIN 40 MG/0.4 ML SYRINGE SQ SCH (09:36)
[2020-10-25] MEDS: TIMOLOL 0.5% OPHTH DROPS 5 ML BTL BOTH EYES SCH (09:37)
[2020-10-25] MEDS: BRIMONIDINE TARTRATE 0.2% DROPS 5 ML BTL BOTH EYES SCH (09:37)
[2020-10-25] MEDS: ESCITALOPRAM 10 MG TAB PEG/G-TUBE SCH (09:40)
[2020-10-25] MEDS: atenoloL 50 MG TAB PEG/G-TUBE SCH (09:40)
[2020-10-25] MEDS: ISOSORBIDE MONONITRATE ER 30 MG TAB.ER.24H PO SCH (09:41)
[2020-10-25] MEDS: lisinopriL 20 MG TAB PEG/G-TUBE SCH (09:41)
[2020-10-25] MEDS: FLUDROCORTISONE 0.1 MG TAB PO SCH (09:41)
[2020-10-25] MEDS: HYDROCORTISONE SUCCINATE 100 MG/2 ML VIAL IV SCH (09:41)
[2020-10-25] MEDS: PANTOPRAZOLE 40 MG/10 ML VIAL IVP SCH (09:42)
[2020-10-25 10:47] LABS: Albumin 2.8 g/dL (3.80-4.90); Albumin/Globulin Ratio 1.65 (1.60-3.17); Anion Gap 3.9 mmol/L (4.00-12.00); Calcium 7.9 mg/dL (8.7-10.3); Carbon Dioxide 28.1 mmol/L (21.6-31.8); Globulin 1.7 g/dL (1.6-3.3); Potassium 4.6 mmol/L (3.5-5.5); Total Bilirubin 0.5 mg/dL (0.2-1.2); Total Protein 4.5 g/dL (6.2-8.2)
[2020-10-25 11:19] LABS: Glucose,Whole Blood 236 mg/dL (75-99)
[2020-10-25 11:37] VITALS: BP 105/55; PULSE 67; RESP 17; TEMP 97.8
== END 2020-10-25 13:34 | DRG 643 ==
LOC: EC 15:38 → 6NMEDSUR 19:33
PROVIDERS: ADMIT Internal Medicine Geriatric Medicine; ATTEND Internal Medicine Geriatric Medicine
DX: E27.40 Unspecified adrenocortical insufficiency (principal); G92 Toxic encephalopathy; E43 Unspecified severe protein-calorie malnutrition; N17.9 Acute kidney failure, unspecified; Z43.1 Encounter for attention to gastrostomy; E87.1 Hypo-osmolality and hyponatremia; E11.22 Type 2 diabetes mellitus with diabetic chronic kidney disease; G20 Parkinson's disease; I95.9 Hypotension, unspecified; D50.9 Iron deficiency anemia, unspecified; Z79.4 Long term (current) use of insulin; R62.7 Adult failure to thrive; N18.30 Chronic kidney disease, stage 3 unspecified; I12.9 Hypertensive chronic kidney disease with stage 1 through stage 4 chronic kidney disease, or unspecified chronic kidney disease; T38.0X5A Adverse effect of glucocorticoids and synthetic analogues, initial encounter; E86.0 Dehydration; E78.5 Hyperlipidemia, unspecified; R13.10 Dysphagia, unspecified; N40.0 Benign prostatic hyperplasia without lower urinary tract symptoms; I44.0 Atrioventricular block, first degree; I44.7 Left bundle-branch block, unspecified; K21.9 Gastro-esophageal reflux disease without esophagitis; M19.90 Unspecified osteoarthritis, unspecified site; F32.9 Major depressive disorder, single episode, unspecified; Z79.82 Long term (current) use of aspirin; Z79.52 Long term (current) use of systemic steroids; Z79.899 Other long term (current) drug therapy; Z86.19 Personal history of other infectious and parasitic diseases; Z87.891 Personal history of nicotine dependence; Z90.49 Acquired absence of other specified parts of digestive tract; Z87.19 Personal history of other diseases of the digestive system; Z98.890 Other specified postprocedural states; Z88.1 Allergy status to other antibiotic agents; Z88.0 Allergy status to penicillin; Z88.8 Allergy status to other drugs, medicaments and biological substances; Z82.49 Family history of ischemic heart disease and other diseases of the circulatory system
CPT/HCPCS: 36415; 71045; 80053; 81003; 82550; 83605; 83735; 84484; 85025; 93005; 95816; 96361; 96374; 99285

== ENCOUNTER → 2021-04-04 | Outpatient (CLI) | payer MEDICARE, OTHER ==
--- NOTE | 2021-04-04 10:17 | XR ---
EXAMINATION TYPE: XR chest 2V DATE OF EXAM: 04/04/2021 COMPARISON: 10/22/2020 HISTORY: Covid 19 TECHNIQUE: Frontal and lateral views of the chest are obtained. FINDINGS: Low lung volumes. Heart size is within normal limits. No pleural effusion, focal consolida tion or pneumothorax. Degenerative changes of the thoracic spine. IMPRESSION: 1. No acute pulmonary disease.
== END | disposition home or self-care (01) ==
LOC: RADXRMAIN 07:11
PROVIDERS: ATTEND Internal Medicine Geriatric Medicine
DX: U07.1 COVID-19 (principal)
CPT/HCPCS: 71046

== ENCOUNTER 2021-06-26 22:24 | Emergency (ER) | payer MEDICARE ==
[2021-06-26 22:48] VITALS: TEMP 97.6
[2021-06-26 22:48] LABS: Glucose,Whole Blood 416 mg/dL (75-99)
[2021-06-27 00:20] LABS: Glucose,Whole Blood 354 mg/dL (75-99)
[2021-06-27] MEDS ORDERED: INSULIN REGULAR 100 UNIT/ML VIAL (IV) IV STA (00:27)
--- NOTE | 2021-06-27 01:02 | ED ---
Recheck HPI - General Chief Complaint: Recheck/Abnormal Lab/Rx Stated Complaint: Hperglycemia Time Seen by Provider: 06/27/21 00:26 Source: patient Mode of arrival: ambulatory Limitations: no limitations - History of Present Illness Initial Comments: This patient is 76-year-old man who presents here to have evaluation because he checked his blood sugar at home and it was 504. The patient had earlier seen Dr. Azevedo about a problem he is having with cough. He was started on a steroid taper, and was warned to be vigilant about his blood sugar. When checked tonight at home the blood sugar was 504. Patient denies having any symptoms related to the blood sugar, but given that it was very high he presented here for evaluation. The patient did take his Lantus insulin. Complaint: other -: hour(s) Initial Visit For: other Returns Today for: other Symptoms Since Prior Visit: no new symptoms Context: other Associated Symptoms: none Treatments Prior to Arrival: other (Lantus insulin) - Related Data Home Medications Medication Instructions Recorded Confirmed Aspirin [Adult Low Dose Aspirin EC] 81 mg PEG/G-TUBE DAILY@1700 11/23/15 10/22/20 Cholecalciferol [Vitamin D3 (25 5,000 unit PEG/G-TUBE MOWEFR@1700 11/23/15 10/22/20 Mcg = 1000 Iu)] Nitroglycerin Sl Tabs [Nitrostat] 0.4 mg SUBLINGUAL Q5M PRN 11/23/15 10/22/20 Simvastatin 20 mg PEG/G-TUBE HS@2100 11/23/15 10/22/20 atenoloL [Atenolol] 50 mg PEG/G-TUBE BID@0800,1700 11/23/15 10/22/20 Brimonidine Tartrate [Alphagan P 1 drop BOTH EYES BID@0800,1700 09/17/20 10/22/20 0.2% Ophth Soln] Insulin Glargine,Hum.rec.anlog 15 unit SQ HS@2130 09/17/20 10/22/20 [Lantus Solostar] Isosorbide Mononitrate ER [Imdur] 30 mg PO DAILY@0800 09/17/20 10/22/20 Latanoprost Ophth [Xalatan 0.005%] 1 drop BOTH EYES HS@209909/17/20 10/22/20 Timolol 0.5% Ophth Soln [Timoptic 1 drop BOTH EYES BID@0800,1700 09/17/20 10/22/20 0.5% Ophth Soln] lisinopriL 40 mg PEG/G-TUBE DAILY@0800 09/17/20 10/22/20 Ondansetron [Zofran] 4 mg PEG/G-TUBE Q8HR PRN 09/20/20 10/05/20 Acetaminophen [Tylenol] 650 mg PEG/G-TUBE Q4H PRN 10/05/20 10/22/20 Ascorbic Acid [Vitamin C] 500 mg PEG/G-TUBE DAILY@169910/05/20 10/22/20 Folic Acid 1 mg PEG/G-TUBE DAILY@169910/05/20 10/22/20 Magnesium Hydroxide [Milk of 7,200 mg PEG/G-TUBE DAILY PRN 10/05/20 10/22/20 Magnesia Concentrate] Zinc Sulfate [Orazinc] 220 mg PEG/G-TUBE DAILY@169910/05/20 10/22/20 bisacodyL [Dulcolax] 10 mg RECTAL DAILY PRN 10/05/20 10/22/20 Albuterol Inhaler [Ventolin Hfa 2 puff INHALATION 10/22/20 10/22/20 Inhaler] RT-Q6H@00,06,12,18 Enoxaparin [Lovenox] 40 mg SQ DAILY@0810/22/20 10/22/20 Escitalopram [Lexapro] 10 mg PEG/G-TUBE DAILY@0810/22/20 10/22/20 Famotidine [Pepcid] 20 mg PO BID@0800,1700 10/22/20 10/22/20 INSULIN ASPART (NovoLOG) [NovoLOG See Protocol SQ 10/22/20 10/22/20 (formulary)] ACHS@07,11,1630,2130 Melatonin 6 mg PEG/G-TUBE HS@209910/22/20 10/22/20 Mirtazapine 7.5 mg PEG/G-TUBE HS@209910/22/20 10/22/20 Na Phos,M-B/Na Phos,Di-Ba [Fleet 133 ml RECTAL DAILY PRN 10/22/20 10/22/20 Adult] Previous Rx's Medication Instructions Recorded Fludrocortisone [Florinef] 0.05 mg PO BID tab 10/25/20 Hydrocortisone [Cortef] 10 mg PO BID #60 tablet 10/25/20 Allergies Allergy/AdvReac Type Severity Reaction Status Date / Time cyclobenzaprine Allergy Unknown Verified 06/26/21 22:48 [From Flexeril] doxycycline Allergy Unknown Verified 06/26/21 22:48 metformin Allergy Unknown Verified 06/26/21 22:48 Penicillins Allergy Unknown Verified 06/26/21 22:48 Review of Systems ROS Statement: Those systems with pertinent positive or pertinent negative responses have been documented in the HPI. ROS Other: All systems not noted in ROS Statement are negative. Constitutional: Denies: fever, chills, weakness ENT: Denies: throat pain Respiratory: Reports: cough. Denies: dyspnea, wheezes Cardiovascular: Denies: chest pain, palpitations, orthopnea, syncope Gastrointestinal: Denies: abdominal pain, vomiting, diarrhea Genitourinary: Denies: dysuria, frequency, hematuria Musculoskeletal: Denies: back pain Skin: Denies: rash Neurological: Denies: headache Past Medical History Past Medical History: Chest Pain / Angina, Diabetes Mellitus, GERD/Reflux, Hyperlipidemia, Hypertension Additional Past Medical History / Comment(s): covid positive. was recently intubated in [facility] ICU-went to [facility] for rehab and ongoing care. History of Any Multi-Drug Resistant Organisms: None Reported Past Surgical History: Appendectomy, Heart Catheterization Additional Past Surgical History / Comment(s): Patient has never had a colonoscopy. Past Anesthesia/Blood Transfusion Reactions: No Reported Reaction Past Psychological History: No Psychological Hx Reported Smoking Status: Former smoker Past Alcohol Use History: Rare Past Drug Use History: None Reported - Past Family History Mother Additional Family Medical History / Comment(s): BREAST Father Additional Family Medical History / Comment(s): Father at age 60 from a myocardial infarction. Brother(s) Additional Family Medical History / Comment(s): Patient has 7 brothers and one has coronary artery disease status post 3 vessel CABG. Patient does not have any sisters. Patient has 3 children, 2 boys and one girl with no major medical problems. General Exam Limitations: no limitations General appearance: alert, in no apparent distress Head exam: Present: atraumatic, normocephalic Respiratory exam: Present: normal lung sounds bilaterally. Absent: respiratory distress, wheezes, rales, rhonchi, stridor Cardiovascular Exam: Present: regular rate, normal rhythm, normal heart sounds. Absent: systolic murmur, diastolic murmur, rubs, gallop Neurological exam: Present: alert Skin exam: Present: warm, dry, intact, normal color. Absent: rash Course Vital Signs 06/26/21 22:43 Temperature 97.6 F Pulse Rate 67 Respiratory 18 Rate Blood Pressure 152/76 O2 Sat by Pulse 96 Oximetry Medical Decision Making - Medical Decision Making Patient is 76-year-old man with hyperglycemia probably related to steroid taper that he is taking. His blood sugar was above 500 at home, when rechecked here was already trending down. It is checked again and trending further down and the patient declines to have further workup or treatment. We discussed appropriate further care and follow-up. Return parameters discussed. - Lab Data Lab Results 06/26/21 06/27/21 06/27/21 Range/Units 22:46 00:18 01:04 POC Glucose (mg/dL) 416 H 354 H 298 H (75-99) mg/dL POC Glu Drafter Structural Rubens Maldonado Blain Radtke, Blain Disposition Clinical Impression: Hyperglycemia Disposition: HOME SELF-CARE Condition: Good Instructions (If sedation given, give patient instructions): Diabetic Hyperglycemia (ED) Is patient prescribed a controlled substance at d/c from ED?: No Referrals: Eduardo Mcdaniel MD [Primary Care Provider] - 1-2 days
[2021-06-27 01:06] LABS: Glucose,Whole Blood 298 mg/dL (75-99)
[2021-06-27 01:45] VITALS: BP 141/71; PULSE 72; RESP 16
== END 2021-06-27 01:35 | disposition home or self-care (01) ==
LOC: EC 22:24
DX: E11.65 Type 2 diabetes mellitus with hyperglycemia (principal); I10 Essential (primary) hypertension; E78.5 Hyperlipidemia, unspecified; K21.9 Gastro-esophageal reflux disease without esophagitis; Z88.0 Allergy status to penicillin; Z88.1 Allergy status to other antibiotic agents; Z79.4 Long term (current) use of insulin; Z79.82 Long term (current) use of aspirin; Z86.16 Personal history of COVID-19; Z90.49 Acquired absence of other specified parts of digestive tract; Z87.891 Personal history of nicotine dependence
CPT/HCPCS: 36415; 99284

== ENCOUNTER 2021-06-30 17:46 | Emergency (ER) | payer MEDICARE ==
--- NOTE | 2021-06-30 18:38 | ED ---
General Adult HPI <Anil Cota - Last Filed: 06/30/21 18:35> <LawrenceraymundoIwona Yoli - Last Filed: 07/13/21 15:04> - General Stated complaint: constipation - History of Present Illness Initial comments: 76-year-old male presenting to the emergency department with a chief complaint of constipation. States last time was approximately 2 days ago. Patient reports she still able to pass gas. No associated nausea or vomiting or abdominal pain. He administered an enema at home with no improvement in his symptoms. Abdominal surgical history of appendectomy from many years ago. Denies any respiratory infectious urinary symptoms. Denies hematuria, hematochezia or melena. States these constipation issues have been more common is a lately. No recent narcotic use. (Anil Cota) - Related Data Home Medications Medication Instructions Recorded Confirmed Aspirin [Adult Low Dose Aspirin EC] 81 mg PEG/G-TUBE DAILY@1700 11/23/15 10/22/20 Cholecalciferol [Vitamin D3 (25 5,000 unit PEG/G-TUBE MOWEFR@169911/23/15 10/22/20 Mcg = 1000 Iu)] Nitroglycerin Sl Tabs [Nitrostat] 0.4 mg SUBLINGUAL Q5M PRN 11/23/15 10/22/20 Simvastatin 20 mg PEG/G-TUBE HS@2100 11/23/15 10/22/20 atenoloL [Atenolol] 50 mg PEG/G-TUBE BID@0800,1700 11/23/15 10/22/20 Brimonidine Tartrate [Alphagan P 1 drop BOTH EYES BID@0800,1700 09/17/20 10/22/20 0.2% Ophth Soln] Insulin Glargine,Hum.rec.anlog 15 unit SQ HS@21309/17/20 10/22/20 [Lantus Solostar Pen] Isosorbide Mononitrate ER [Imdur] 30 mg PO DAILY@0800 09/17/20 10/22/20 Latanoprost Ophth [Xalatan 0.005%] 1 drop BOTH EYES HS@2100 09/17/20 10/22/20 Timolol 0.5% Ophth Soln [Timoptic 1 drop BOTH EYES BID@0800,1700 09/17/20 10/22/20 0.5% Ophth Soln] lisinopriL 40 mg PEG/G-TUBE DAILY@0800 09/17/20 10/22/20 Ondansetron [Zofran] 4 mg PEG/G-TUBE Q8HR PRN 09/20/20 10/05/20 Acetaminophen [Tylenol] 650 mg PEG/G-TUBE Q4H PRN 10/05/20 10/22/20 Ascorbic Acid [Vitamin C] 500 mg PEG/G-TUBE DAILY@1700 10/05/20 10/22/20 Folic Acid 1 mg PEG/G-TUBE DAILY@1700 10/05/20 10/22/20 Magnesium Hydroxide [Milk of 7,200 mg PEG/G-TUBE DAILY PRN 10/05/20 10/22/20 Magnesia Concentrate] Zinc Sulfate [Orazinc] 220 mg PEG/G-TUBE DAILY@1700 10/05/20 10/22/20 bisacodyL [Dulcolax] 10 mg RECTAL DAILY PRN 10/05/20 10/22/20 Albuterol Inhaler [Ventolin Hfa 2 puff INHALATION 10/22/20 10/22/20 Inhaler] RT-Q6H@00,06,12,18 Enoxaparin [Lovenox] 40 mg SQ DAILY@0800 10/22/20 10/22/20 Escitalopram [Lexapro] 10 mg PEG/G-TUBE DAILY@0800 10/22/20 10/22/20 Famotidine [Pepcid] 20 mg PO BID@0800,1700 10/22/20 10/22/20 INSULIN ASPART (NovoLOG) [NovoLOG See Protocol SQ 10/22/20 10/22/20 (formulary)] ACHS@07,11,1630,2130 Melatonin 6 mg PEG/G-TUBE HS@209910/22/20 10/22/20 Mirtazapine 7.5 mg PEG/G-TUBE HS@209910/22/20 10/22/20 Na Phos,M-B/Na Phos,Di-Ba [Fleet 133 ml RECTAL DAILY PRN 10/22/20 10/22/20 Adult] Previous Rx's Medication Instructions Recorded Fludrocortisone [Florinef] 0.05 mg PO BID tab 10/25/20 Hydrocortisone [Cortef] 10 mg PO BID #60 tablet 10/25/20 Docusate [Colace] 100 mg PO BID #60 capsule 06/30/21 Allergies Allergy/AdvReac Type Severity Reaction Status Date / Time cyclobenzaprine Allergy Unknown Verified 06/26/21 22:48 [From Flexeril] doxycycline Allergy Unknown Verified 06/26/21 22:48 metformin Allergy Unknown Verified 06/26/21 22:48 Penicillins Allergy Unknown Verified 06/26/21 22:48 Review of Systems ROS Other: All systems not noted in ROS Statement are negative. <Anil Cota - Last Filed: 06/30/21 18:35> ROS Other: All systems not noted in ROS Statement are negative. <Iwona Nieto - Last Filed: 07/13/21 15:04> ROS Statement: Those systems with pertinent positive or pertinent negative responses have been documented in the HPI. Past Medical History Past Medical History: Chest Pain / Angina, Diabetes Mellitus, GERD/Reflux, Hy perlipidemia, Hypertension Additional Past Medical History / Comment(s): covid positive. was recently intubated in [facility] ICU-went to [facility] for rehab and ongoing care. History of Any Multi-Drug Resistant Organisms: None Reported Past Surgical History: Appendectomy, Heart Catheterization Additional Past Surgical History / Comment(s): Patient has never had a colonoscopy. Past Anesthesia/Blood Transfusion Reactions: No Reported Reaction Past Psychological History: No Psychological Hx Reported Smoking Status: Former smoker Past Alcohol Use History: Rare Past Drug Use History: None Reported - Past Family History Mother Additional Family Medical History / Comment(s): BREAST Father Additional Family Medical History / Comment(s): Father at age 60 from a myocardial infarction. Brother(s) Additional Family Medical History / Comment(s): Patient has 7 brothers and one has coronary artery disease status post 3 vessel CABG. Patient does not have any sisters. Patient has 3 children, 2 boys and one girl with no major medical problems. <Anil Cota - Last Filed: 06/30/21 18:35> General Exam Limitations: no limitations General appearance: alert, in no apparent distress <Anil Cota - Last Filed: 06/30/21 18:35> General appearance: alert, in no apparent distress Head exam: Present: atraumatic, normocephalic, normal inspection Eye exam: Present: normal appearance, PERRL, EOMI. Absent: scleral icterus, conjunctival injection, periorbital swelling ENT exam: Present: normal exam, mucous membranes moist Neck exam: Present: normal inspection. Absent: tenderness, meningismus, lymphadenopathy Respiratory exam: Present: normal lung sounds bilaterally. Absent: respiratory distress, wheezes, rales, rhonchi, stridor Cardiovascular Exam: Present: regular rate, normal rhythm, normal heart sounds. Absent: systolic murmur, diastolic murmur, rubs, gallop, clicks GI/Abdominal exam: Present: soft, normal bowel sounds. Absent: distended, tenderness, guarding, rebound, rigid Extremities exam: Present: normal inspection, full ROM, normal capillary refill. Absent: tenderness, pedal edema, joint swelling, calf tenderness Back exam: Present: normal inspection Neurological exam: Present: alert, oriented X3, CN II-XII intact Psychiatric exam: Present: normal affect, normal mood Skin exam: Present: warm, dry, intact, normal color. Absent: rash <Iwona Nieto - Last Filed: 07/13/21 15:04> Course Vital Signs 06/30/21 06/30/21 06/30/21 18:35 20:28 21:50 Temperature 98.0 F Pulse Rate 81 75 72 Respiratory 18 16 16 Rate Blood Pressure 138/83 96/82 136/83 O2 Sat by Pulse 95 98 97 Oximetry Medical Decision Making - Lab Data Result diagrams: 06/30/21 19:25 06/30/21 19:32 <Iwona Nieto - Last Filed: 07/13/21 15:04> - Medical Decision Making Upon arrival the patient is placed in room 26. A thorough history and physical exam was performed. KUB is evaluated and does demonstrate some bowel dilation with a air-fluid level concerning for small bowel obstruction. Because of this we did insert an IV. Lab studies were ordered which demonstrated white count of 15. Glucose 190. Patient sent for CT of his abdomen and pelvis which demonstrates rectal impaction with stercoral colitis. No signs of bowel obstruction. I did go back into the room to reevaluate the patient and recommended administration of enema. The patient does have a large bowel movement all over the floor of the bathroom. He states he feels much improved at this time. I did further offer an additional enema rectal disimpaction over the patient feels comfortable going home at this time. He has an appointment Dr. Mcdaniel on Thursday. Patient is to follow-up at his scheduled appointment. Take Colace daily for which it is in a prescription to pharmacy. Return to the emergency room for any new or worsening symptoms. Patient discharged home in stable condition (Iwona Nieto) - Lab Data Lab Results 06/30/21 06/30/21 06/30/21 Range/Units 19:25 19:32 19:32 WBC 15.0 H (3.8-10.6) k/uL RBC 4.53 (4.30-5.90) m/uL Hgb 14.1 (13.0-17.5) gm/dL Hct 42.5 (39.0-53.0) % MCV 93.7 (80.0-100.0) fL MCH 31.2 (25.0-35.0) pg MCHC 33.3 (31.0-37.0) g/dL RDW 13.1 (11.5-15.5) % Plt Count 284 (150-450) k/uL MPV 7.7 Neutrophils % 83 % Lymphocytes % 9 % Monocytes % 7 % Eosinophils % 1 % Basophils % 0 % Neutrophils # 12.4 H (1.3-7.7) k/uL Lymphocytes # 1.3 (1.0-4.8) k/uL Monocytes # 1.0 (0-1.0) k/uL Eosinophils # 0.1 (0-0.7) k/uL Basophils # 0.1 (0-0.2) k/uL Sodium 137 (137-145) mmol/L Potassium 5.3 H (3.5-5.1) mmol/L Chloride 101 (98-107) mmol/L Carbon Dioxide 24 (22-30) mmol/L Anion Gap 12 mmol/L BUN 33 H (9-20) mg/dL Creatinine 1.17 (0.66-1.25) mg/dL Est GFR (CKD-EPI)AfAm 70 (>60 ml/min/1.73 sqM) Est GFR (CKD-EPI)NonAf 61 (>60 ml/min/1.73 sqM) Glucose 190 H (74-99) mg/dL Plasma Lactic Acid Yovany 1.4 (0.7-2.0) mmol/L Calcium 9.8 (8.4-10.2) mg/dL Total Bilirubin 0.3 (0.2-1.3) mg/dL AST 31 (17-59) U/L ALT 35 (4-49) U/L Alkaline Phosphatase 66 (38-126) U/L Total Protein 7.9 (6.3-8.2) g/dL Albumin 4.9 (3.5-5.0) g/dL Lipase 38 (23-300) U/L Disposition <Anil Cota - Last Filed: 06/30/21 18:35> Is patient prescribed a controlled substance at d/c from ED?: No Time of Disposition: 21:35 <Iwona Nieto - Last Filed: 07/13/21 15:04> Clinical Impression: Constipation Disposition: HOME SELF-CARE Condition: Stable Instructions (If sedation given, give patient instructions): Constipation (ED) Additional Instructions: Please follow-up with Dr. Mcdaniel your scheduled appointment on Thursday. Return to the emergency room for any new or worsening symptoms Prescriptions: Docusate [Colace] 100 mg PO BID #60 capsule Referrals: Eduardo Mcdaniel MD [Primary Care Provider] - 1-2 days
[2021-06-30 18:41] VITALS: TEMP 98
--- NOTE | 2021-06-30 19:04 | XR ---
EXAMINATION TYPE: XR KUB DATE OF EXAM: 06/30/2021 6:55 PM CLINICAL HISTORY: Abdominal pain, constipation TECHNIQUE: Single supine KUB image of the abdomen is obtained. COMPARISON: None. FINDINGS: Dilated loops of small bowel in the right lower abdomen with air-fluid level measuring up to 4.5 cm i n diameter. Gaseous distention of the colon is present. Some stool are seen throughout the colon and rectum. No free air. No abnormal intra-abdominal calcifications. Lung bases appear clear. IMPRESSION: Dilated small bowel in the right lower abdomen with air-fluid level, along with gaseous distention of the colon and stool throughout the colon. Findings may represent an early small bowel obstruction or partial small bowel obstruction. Further evaluation with CT can be performed if clinically indicated .
[2021-06-30] MEDS ORDERED: SODIUM CHLORIDE 0.9% 1,000 ML IV STA (19:14)
[2021-06-30 19:58] LABS: Basophils # (A) 0.1 k/uL (0-0.2); Basophils % (A) 0 %; Eosinophils # (A) 0.1 k/uL (0-0.7); Eosinophils % (A) 1 %; HCT 42.5 % (39.0-53.0); HGB 14.1 gm/dL (13.0-17.5); Lymphocytes # (A) 1.3 k/uL (1.0-4.8); Lymphocytes % (A) 9 %; MCH 31.2 pg (25.0-35.0); MCHC 33.3 g/dL (31.0-37.0); MCV 93.7 fL (80.0-100.0); Mean Platelet Volume 7.7; Monocytes % (A) 7 %; Neutrophils # (A) 12.4 k/uL (1.3-7.7); Neutrophils % (A) 83 %; Platelet Count 284 k/uL (150-450); RBC 4.53 m/uL (4.30-5.90); RDW 13.1 % (11.5-15.5)
[2021-06-30 20:18] LABS: Albumin 4.9 g/dL (3.5-5.0); Calcium 9.8 mg/dL (8.4-10.2); Potassium 5.3 mmol/L (3.5-5.1); Total Bilirubin 0.3 mg/dL (0.2-1.3); Total Protein 7.9 g/dL (6.3-8.2)
[2021-06-30 20:29] VITALS: RESP 16
--- NOTE | 2021-06-30 21:17 | CT ---
EXAMINATION TYPE: CT abdomen pelvis w con DATE OF EXAM: 06/30/2021 COMPARISON: None available HISTORY: abdominal/rectal pain, constipation CT DLP: 1037.6 mGycm Automated exposure control for dose reduction was used. TECHNIQUE: Helical acquisition of images was performed from the lung bases through the pelvis. Sagit alexx and coronal reformatted images were obtained. CONTRAST: Performed without Oral Contrast and with IV Contrast, patient injected with 100 mL of Isovue 300. FINDINGS: Lung bases appear clear. Liver, spleen, pancreas, and bilateral adrenal glands appear unremarkable. Gallbladder is present. No intrahepatic or extrahepatic biliary ductal dilatation. Kidneys are symmet tramaine in size. Prominent right extrarenal pelvis. An area bladder appears unremarkable. Moderate enlarg ement of the prostate gland. Bowel is of normal caliber without evidence of bowel obstruction. Moderate amount of retained stool t hroughout the colon particularly within the rectal vault which demonstrates mild wall thickening and perirectal inflammation. No free air. Abdominal aorta is of normal caliber. No intra-abdominal retroperitoneal lymphadenopathy. Mild multilevel degenerative changes of the visualized thoracolumbar spine. IMPRESSION: Moderate amount of retained stool throughout the colon most pronounced in the rectal vault where ther e is diffuse rectal wall thickening and perirectal inflammation which can be seen with stercoral coli tis.
[2021-06-30 21:53] VITALS: BP 136/83; PULSE 72
== END 2021-06-30 21:50 | disposition home or self-care (01) ==
LOC: EC 17:46
DX: K59.00 Constipation, unspecified (principal); E11.9 Type 2 diabetes mellitus without complications; I10 Essential (primary) hypertension; E78.5 Hyperlipidemia, unspecified; K21.9 Gastro-esophageal reflux disease without esophagitis; Z79.01 Long term (current) use of anticoagulants; Z79.4 Long term (current) use of insulin; Z79.82 Long term (current) use of aspirin; Z79.51 Long term (current) use of inhaled steroids; Z79.899 Other long term (current) drug therapy; Z87.891 Personal history of nicotine dependence; Z88.0 Allergy status to penicillin; Z90.49 Acquired absence of other specified parts of digestive tract; Z82.49 Family history of ischemic heart disease and other diseases of the circulatory system
CPT/HCPCS: 36415; 80053; 83605; 83690; 85025; 74018; 74177; 99284; Q9967

== ENCOUNTER 2022-10-19 07:24 | Emergency (ER) | payer MEDICARE ==
[2022-10-19 07:31] VITALS: RESP 18
[2022-10-19] MEDS ORDERED: ONDANSETRON ODT 4 MG TAB PO STA (07:50)
--- NOTE | 2022-10-19 07:54 | ED ---
General Adult HPI - General Chief complaint: Upper Respiratory Infection Stated complaint: cough Time Seen by Provider: 10/19/22 07:27 Source: patient, RN notes reviewed Mode of arrival: ambulatory Limitations: no limitations - History of Present Illness Initial comments: Patient is a pleasant 77-year-old male presenting to the emergency Department with cough. Onset of symptoms was a few days ago. Patient does have productive yellow or green sputum. Patient does have sinus congestion. Patient tested for COVID-19 infection just a couple days ago. No fevers. Patient states it does hurt somewhat cough. - Related Data Home Medications Medication Instructions Recorded Confirmed Aspirin [Adult Low Dose Aspirin EC] 81 mg PEG/G-TUBE DAILY@0 11/23/15 10/22/20 Cholecalciferol [Vitamin D3 (25 5,000 unit PEG/G-TUBE MOWEFR@169911/23/15 10/22/20 Mcg = 1000 Iu)] Nitroglycerin Sl Tabs [Nitrostat] 0.4 mg SUBLINGUAL Q5M PRN 11/23/15 10/22/20 Simvastatin 20 mg PEG/G-TUBE HS@209911/23/15 10/22/20 atenoloL [Atenolol] 50 mg PEG/G-TUBE BID@0800,17011/23/15 10/22/20 Brimonidine Tartrate [Alphagan P 1 drop BOTH EYES BID@0800,1700 09/17/20 10/22/20 0.2% Ophth Soln] Insulin Glargine,Hum.rec.anlog 15 unit SQ HS@212909/17/20 10/22/20 [Lantus Solostar Pen] Isosorbide Mononitrate ER [Imdur] 30 mg PO DAILY@0800 09/17/20 10/22/20 Latanoprost Ophth [Xalatan 0.005%] 1 drop BOTH EYES HS@209909/17/20 10/22/20 Timolol 0.5% Ophth Soln [Timoptic 1 drop BOTH EYES BID@0800,1700 09/17/2010/09 0.5% Ophth Soln] lisinopriL 40 mg PEG/G-TUBE DAILY@0800 09/17/20 10/22/20 Ondansetron [Zofran] 4 mg PEG/G-TUBE Q8HR PRN 09/20/20 10/05/20 Acetaminophen [Tylenol] 650 mg PEG/G-TUBE Q4H PRN 10/05/20 10/22/20 Ascorbic Acid [Vitamin C] 500 mg PEG/G-TUBE DAILY@1700 10/05/20 10/22/20 Folic Acid 1 mg PEG/G-TUBE DAILY@1700 10/05/20 10/22/20 Magnesium Hydroxide [Milk of 7,200 mg PEG/G-TUBE DAILY PRN 10/05/20 10/22/20 Magnesia Concentrate] Zinc Sulfate [Orazinc] 220 mg PEG/G-TUBE DAILY@1700 10/05/20 10/22/20 bisacodyL [Dulcolax] 10 mg RECTAL DAILY PRN 10/05/20 10/22/20 Albuterol Inhaler [Ventolin Hfa 2 puff INHALATION 10/22/20 10/22/20 Inhaler] RT-Q6H@00,06,12,18 Enoxaparin [Lovenox] 40 mg SQ DAILY@0800 10/22/20 10/22/20 Escitalopram [Lexapro] 10 mg PEG/G-TUBE DAILY@0800 10/22/20 10/22/20 Famotidine [Pepcid] 20 mg PO BID@0800,1700 10/22/20 10/22/20 INSULIN ASPART (NovoLOG) [NovoLOG See Protocol SQ 10/22/20 10/22/20 (formulary)] ACHS@07,11,1630,2130 Melatonin 6 mg PEG/G-TUBE HS@2100 10/22/20 10/22/20 Mirtazapine 7.5 mg PEG/G-TUBE HS@2100 10/22/20 10/22/20 Na Phos,M-B/Na Phos,Di-Ba [Fleet 133 ml RECTAL DAILY PRN 10/22/20 10/22/20 Adult] Previous Rx's Medication Instructions Recorded Fludrocortisone [Florinef] 0.05 mg PO BID tab 10/25/20 Hydrocortisone [Cortef] 10 mg PO BID #60 tablet 10/25/20 Docusate [Colace] 100 mg PO BID #60 capsule 06/30/21 Albuterol Inhaler [Ventolin Hfa 2 puff INHALATION Q4HR PRN #1 each 10/19/22 Inhaler] Ondansetron Odt [Zofran Odt] 4 mg PO Q8HR PRN #10 tab 10/19/22 Allergies Allergy/AdvReac Type Severity Reaction Status Date / Time cyclobenzaprine Allergy Unknown Verified 10/19/22 07:31 [From Flexeril] doxycycline Allergy Unknown Verified 10/19/22 07:31 metformin Allergy Unknown Verified 10/19/22 07:31 Penicillins Allergy Unknown Verified 10/19/22 07:31 Review of Systems ROS Statement: Those systems with pertinent positive or pertinent negative responses have been documented in the HPI. ROS Other: All systems not noted in ROS Statement are negative. Constitutional: Denies: fever Eyes: Denies: eye pain ENT: Reports: congestion. Denies: ear pain Respiratory: Reports: cough Cardiovascular: Denies: palpitations Endocrine: Denies: fatigue Gastrointestinal: Denies: abdominal pain Genitourinary: Denies: dysuria Musculoskeletal: Denies: back pain Skin: Denies: rash Neurological: Denies: weakness Past Medical History Past Medical History: Chest Pain / Angina, Diabetes Mellitus, GERD/Reflux, Hyperlipidemia, Hypertension Additional Past Medical History / Comment(s): covid positive. was recently intubated in [facility] ICU-went to [facility] for rehab and ongoing care. Parkinsons. History of Any Multi-Drug Resistant Organisms: None Reported Past Surgical History: Appendectomy, Heart Catheterization Additional Past Surgical History / Comment(s): Patient has never had a colonoscopy. Past Anesthesia/Blood Transfusion Reactions: No Reported Reaction Past Psychological History: No Psychological Hx Reported Smoking Status: Former smoker Past Alcohol Use History: Rare Past Drug Use History: None Reported - Past Family History Mother Additional Family Medical History / Comment(s): BREAST Father Additional Family Medical History / Comment(s): Father at age 60 from a myocardial infarction. Brother(s) Additional Family Medical History / Comment(s): Patient has 7 brothers and one has coronary artery disease status post 3 vessel CABG. Patient does not have any sisters. Patient has 3 children, 2 boys and one girl with no major medical problems. General Exam Limitations: no limitations General appearance: alert, in no apparent distress Head exam: Present: normocephalic Eye exam: Present: normal appearance Neck exam: Present: normal inspection Respiratory exam: Present: wheezes, rhonchi Cardiovascular Exam: Present: regular rate, normal rhythm GI/Abdominal exam: Present: soft. Absent: tenderness Extremities exam: Present: normal inspection. Absent: pedal edema, calf tenderness Neurological exam: Present: alert Psychiatric exam: Present: normal affect, normal mood Skin exam: Present: normal color Course Vital Signs 10/19/22 07:28 Temperature 98.1 F Pulse Rate 78 Respiratory 18 Rate Blood Pressure 123/60 O2 Sat by Pulse 95 Oximetry EKG Findings - EKG Results: EKG: interpreted by ERMD (Left axis. Left bundle branch block. Previous EKG reviewed 10/22/20), sinus rhythm Medical Decision Making - Medical Decision Making Patient reevaluated and feeling better, nausea improved and patient requests prescription. Patient and family updated on results and plan. - Lab Data Lab Results 10/19/22 Range/Units 08:01 Influenza Type A (PCR) Not Detected (Not Detectd) Influenza Type B (PCR) Not Detected (Not Detectd) RSV (PCR) Detected A (Not Detectd) SARS-CoV-2 (PCR) Not Detected (Not Detectd) - Radiology Data Interpreted by me: Chest x-ray shows poor inspiration. Questionable right infrahilar changes. Disposition Clinical Impression: RSV infection Disposition: HOME SELF-CARE Condition: Stable Instructions (If sedation given, give patient instructions): Upper Respiratory Infection (ED), Respiratory Syncytial Virus (ED) Additional Instructions: Prescriptions have been sent to pharmacy. Please do follow-up to primary care physician in the next day or 2 for recheck. Return for difficulty breathing, fevers, worsening or changing symptoms or any other concerns. Prescriptions: Albuterol Inhaler [Ventolin Hfa Inhaler] 2 puff INHALATION Q4HR PRN #1 each PRN Reason: Dyspnea Ondansetron Odt [Zofran Odt] 4 mg PO Q8HR PRN #10 tab PRN Reason: Nausea Is patient prescribed a controlled substance at d/c from ED?: No Referrals: Eduardo Mcdainel MD [Primary Care Provider] - 1-2 days Time of Disposition: 09:40
--- NOTE | 2022-10-19 08:20 | XR ---
EXAMINATION TYPE: XR chest 2V DATE OF EXAM: 10/19/2022 COMPARISON: 04/04/2021 HISTORY: Shortness of breath TECHNIQUE: Frontal and lateral views of the chest are obtained. FINDINGS: Scattered senescent parenchymal changes noted. The degree of inspiration is limiting. I cannot exclude developing infiltrate right infrahilar. Heart size is stable. Mediastinal structures are stable and grossly unremarkable. No evidence for hilar prominence. Degenerative changes dorsal spine. IMPRESSION: 1. The degree of inspiration is limiting. I cannot exclude developing infiltrate right infrahilar.
[2022-10-19 10:38] VITALS: BP 118/74; PULSE 67; TEMP 98
== END 2022-10-19 09:50 | disposition home or self-care (01) ==
LOC: EC 07:24
DX: R05.9 Cough, unspecified (principal); B97.4 Respiratory syncytial virus as the cause of diseases classified elsewhere; E11.9 Type 2 diabetes mellitus without complications; E78.5 Hyperlipidemia, unspecified; I10 Essential (primary) hypertension; Z87.891 Personal history of nicotine dependence; Z79.84 Long term (current) use of oral hypoglycemic drugs; Z79.4 Long term (current) use of insulin; Z79.899 Other long term (current) drug therapy; Z79.82 Long term (current) use of aspirin; Z86.16 Personal history of COVID-19; Z88.1 Allergy status to other antibiotic agents; Z88.0 Allergy status to penicillin; Z88.8 Allergy status to other drugs, medicaments and biological substances; Z20.822 Contact with and (suspected) exposure to COVID-19; Z90.49 Acquired absence of other specified parts of digestive tract
CPT/HCPCS: 71046; 87636; 93005; 99284

== ENCOUNTER 2024-03-28 12:22 | Emergency (ER) | payer MEDICARE ==
--- NOTE | 2024-03-28 12:36 | ED ---
URI HPI - General Source: patient, RN notes reviewed Mode of arrival: ambulatory Limitations: no limitations <Corine Moffett - Last Filed: 03/28/24 15:01> <Diana Faulkner - Last Filed: 03/28/24 19:39> - General Stated Complaint: Cough with flem Time Seen by Provider: 03/28/24 12:35 - History of Present Illness Initial Comments: Quick note: 79-year-old male presented to the ER with a chief complaint of cough and congestion. He states this has been going on for "a while". He denies any fevers. (Corine Moffett) This is a 79-year-old male presents emergency department chief complaint of cough and congestion over the past few weeks to months. He states that he was treated with antibiotics a couple weeks ago with no relief. He states that he is experiencing a yellowish type productive cough with rhinorrhea. He denies fevers, lightheadedness, dizziness, fatigue. Patient states that he was hospitalized in 2019 with COVID for about 2 months. States after hospitalization he has suffered with low oxygen levels checking his levels at home he normally runs in the low 90s. Patient also has a 10-year smoking history where he smoked about a pack a day. Denies history of asthma or COPD. Denies use of steroids or inhalers or breathing treatments. (Diana Faulkner) - Related Data Home Medications Medication Instructions Recorded Confirmed Aspirin [Adult Low Dose Aspirin EC] 81 mg PEG/G-TUBE DAILY@1700 11/23/15 10/22/20 Cholecalciferol [Vitamin D3 (25 5,000 unit PEG/G-TUBE MOWEFR@17011/23/15 10/22/20 Mcg = 1000 Iu)] Nitroglycerin Sl Tabs [Nitrostat] 0.4 mg SUBLINGUAL Q5M PRN 11/23/15 10/22/20 Simvastatin 20 mg PEG/G-TUBE HS@2100 11/23/15 10/22/20 atenoloL [Atenolol] 50 mg PEG/G-TUBE BID@0800,1700 11/23/15 10/22/20 Brimonidine Tartrate [Alphagan P 1 drop BOTH EYES BID@0800,1700 09/17/20 10/22/20 0.2% Ophth Soln] Insulin Glargine,Hum.rec.anlog 15 unit SQ HS@2130 09/17/20 10/22/20 [Lantus Solostar Pen] Isosorbide Mononitrate ER [Imdur] 30 mg PO DAILY@0800 09/17/20 10/22/20 Latanoprost Ophth [Xalatan 0.005%] 1 drop BOTH EYES HS@2100 09/17/20 10/22/20 Timolol 0.5% Ophth Soln [Timoptic 1 drop BOTH EYES BID@0800,1700 09/17/20 10/22/20 0.5% Ophth Soln] lisinopriL 40 mg PEG/G-TUBE DAILY@0800 09/17/20 10/22/20 Ondansetron [Zofran] 4 mg PEG/G-TUBE Q8HR PRN 09/20/20 10/05/20 Acetaminophen [Tylenol] 650 mg PEG/G-TUBE Q4H PRN 10/05/20 10/22/20 Ascorbic Acid [Vitamin C] 500 mg PEG/G-TUBE DAILY@1700 10/05/20 10/22/20 Folic Acid 1 mg PEG/G-TUBE DAILY@1700 10/05/20 10/22/20 Magnesium Hydroxide [Milk of 7,200 mg PEG/G-TUBE DAILY PRN 10/05/20 10/22/20 Magnesia Concentrate] Zinc Sulfate [Orazinc] 220 mg PEG/G-TUBE DAILY@1700 10/05/20 10/22/20 bisacodyL [Dulcolax] 10 mg RECTAL DAILY PRN 10/05/20 10/22/20 Albuterol Inhaler [Ventolin Hfa 2 puff INHALATION 10/22/20 10/22/20 Inhaler] RT-Q6H@00,06,12,18 Enoxaparin [Lovenox] 40 mg SQ DAILY@0800 10/22/20 10/22/20 Escitalopram [Lexapro] 10 mg PEG/G-TUBE DAILY@0800 10/22/20 10/22/20 Famotidine [Pepcid] 20 mg PO BID@0800,1700 10/22/20 10/22/20 INSULIN ASPART (NovoLOG) [NovoLOG See Protocol SQ 10/22/20 10/22/20 (formulary)] ACHS@07,11,1630,2130 Melatonin 6 mg PEG/G-TUBE HS@209910/22/20 10/22/20 Mirtazapine 7.5 mg PEG/G-TUBE HS@209910/22/20 10/22/20 Na Phos,M-B/Na Phos,Di-Ba [Fleet 133 ml RECTAL DAILY PRN 10/22/20 10/22/20 Adult] Previous Rx's Medication Instructions Recorded Fludrocortisone [Florinef] 0.05 mg PO BID tab 10/25/20 Hydrocortisone [Cortef] 10 mg PO BID #60 tablet 10/25/20 Docusate [Colace] 100 mg PO BID #60 capsule 06/30/21 Albuterol Inhaler [Ventolin Hfa 2 puff INHALATION Q4HR PRN #1 each 10/19/22 Inhaler] Ondansetron Odt [Zofran Odt] 4 mg PO Q8HR PRN #10 tab 10/19/22 Albuterol Inhaler [Ventolin Hfa 1 - 2 puff INHALATION Q6H PRN #1 03/28/24 Inhaler] each Loratadine-Pseudoeph 5-120 mg 1 tab PO Q12HR #14 tab 03/28/24 [Claritin-D 12 Hour] Allergies Allergy/AdvReac Type Severity Reaction Status Date / Time cyclobenzaprine Allergy Unknown Verified 03/28/24 13:48 [From Flexeril] doxycycline Allergy Unknown Verified 03/28/24 13:48 metformin Allergy Unknown Verified 03/28/24 13:48 Penicillins Allergy Unknown Verified 03/28/24 13:48 Review of Systems ROS Other: All systems not noted in ROS Statement are negative. <Corine Moffett - Last Filed: 03/28/24 15:01> ROS Other: All systems not noted in ROS Statement are negative. <Diana Faulkner - Last Filed: 03/28/24 19:39> ROS Statement: Those systems with pertinent positive or pertinent negative responses have been documented in the HPI. Past Medical History Past Medical History: Chest Pain / Angina, Diabetes Mellitus, GERD/Reflux, Hyperlipidemia, Hypertension Additional Past Medical History / Comment(s): covid positive. was recently intu bated in [facility] ICU-went to [facility] for rehab and ongoing care. Parkinsons. History of Any Multi-Drug Resistant Organisms: None Reported Past Surgical History: Appendectomy, Heart Catheterization Additional Past Surgical History / Comment(s): Patient has never had a colonoscopy. Past Anesthesia/Blood Transfusion Reactions: No Reported Reaction Past Psychological History: No Psychological Hx Reported Smoking Status: Former smoker Past Alcohol Use History: Rare Past Drug Use History: None Reported - Past Family History Mother Additional Family Medical History / Comment(s): BREAST Father Additional Family Medical History / Comment(s): Father at age 60 from a myocardial infarction. Brother(s) Additional Family Medical History / Comment(s): Patient has 7 brothers and one has coronary artery disease status post 3 vessel CABG. Patient does not have any sisters. Patient has 3 children, 2 boys and one girl with no major medical problems. <Corine Moffett - Last Filed: 03/28/24 15:01> General Exam <Corine Moffett - Last Filed: 03/28/24 15:01> General appearance: alert, in no apparent distress Head exam: Present: atraumatic, normocephalic, normal inspection Eye exam: Present: normal appearance, PERRL, EOMI. Absent: scleral icterus, conjunctival injection, periorbital swelling ENT exam: Present: normal exam, mucous membranes moist Neck exam: Present: normal inspection. Absent: tenderness, meningismus, lymphadenopathy Respiratory exam: Present: wheezes (left lower lung base). Absent: normal lung sounds bilaterally, decreased breath sounds Cardiovascular Exam: Present: regular rate, normal rhythm, normal heart sounds. Absent: systolic murmur, diastolic murmur, rubs, gallop, clicks GI/Abdominal exam: Present: soft, normal bowel sounds. Absent: distended, tenderness, guarding, rebound, rigid Extremities exam: Present: normal inspection, full ROM, normal capillary refill. Absent: tenderness, pedal edema, joint swelling, calf tenderness Back exam: Present: normal inspection Neurological exam: Present: alert, oriented X3, CN II-XII intact Psychiatric exam: Present: normal affect, normal mood Skin exam: Present: warm, dry, intact, normal color. Absent: rash <Diana Faulkner - Last Filed: 03/28/24 19:39> - General Exam Comments Initial Comments: Visual Physical Exam General: Well-appearing, nontoxic, no acute distress. Head: Normocephalic, atraumatic Eyes: PERRLA, EOMI ENT: Airway patent Chest: Nonlabored breathing Skin: No visual rash, normal skin tone Neuro: Alert and oriented 3 Musculoskeletal: No gross abnormalities (Corine Moffett) Course Vital Signs 03/28/24 03/28/24 03/28/24 13:42 16:05 16:10 Temperature 97.8 F Pulse Rate 72 68 Respiratory 18 16 18 Rate Blood Pressure 165/77 O2 Sat by Pulse 88 L 94 L Oximetry 03/28/24 03/28/24 03/28/24 17:01 17:10 17:20 Temperature 98.1 F Pulse Rate 68 68 89 Respiratory 18 Rate Blood Pressure 136/70 O2 Sat by Pulse 94 L Oximetry Medical Decision Making <Corine Moffett - Last Filed: 03/28/24 15:01> <Diana Faulkner - Last Filed: 03/28/24 19:39> - Medical Decision Making I performed the quick note portion of this chart. Electronically signed by Corine Moffett PA-C (Corine Moffett) Was pt. sent in by a medical professional or institution ([facility], CHIP BIN OPERATOR, urgent care, hospital, or longterm...) When possible be specific @ -No Did you speak to anyone other than the patient for history (EMS, parent, family, police, friend...)? What history was obtained from this source @ -No Did you review nursing and triage notes (agree or disagree)? Why? @ -I reviewed and agree with nursing and triage notes Were old charts reviewed (outside hosp., previous admission, EMS record, old EKG, old radiological studies, urgent care reports/EKG's, longterm records)? Report findings @ -No old charts were reviewed Differential Diagnosis (chest pain, altered mental status, abdominal pain women, abdominal pain men, vaginal bleeding, weakness, fever, dyspnea, syncope, headache, dizziness, GI bleed, back pain, seizure, CVA, palpatations, mental health, musculoskeletal)? @ -COVID 19, RSV, influenza, pneumonia, acute bronchitis, URI, this list is not all inclusive EKG interpreted by me (3pts min.). @ -None X-rays interpreted by me (1pt min.). @ -Past x-ray no acute cardiopulmonary process CT interpreted by me (1pt min.). @ -None done U/S interpreted by me (1pt. min.). @ -None done What testing was considered but not performed or refused? (CT, X-rays, U/S, labs)? Why? @ -None What meds were considered but not given or refused? Why? @ -None Did you discuss the management of the patient with other professionals (niraj cline i.e. , PA, CHIP BIN OPERATOR, lab, RT, psych nurse, social media content specialist, supervising airplane pilot, teacher, youth liaison officer, family independence case manager)? Give summary @ -No Was smoking cessation discussed for >3mins.? @ -No Was critical care preformed (if so, how long)? @ -No Were there social determinants of health that impacted care today? How? (Homelessness, low income, unemployed, alcoholism, drug addiction, transportation, low edu. Level, literacy, decrease access to med. care, [facility], rehab)? @ -No Was there de-escalation of care discussed even if they declined (Discuss DNR or withdrawal of care, Hospice)? DNR status @ -No What co-morbidities impacted this encounter? (DM, HTN, Smoking, COPD, CAD, Cancer, CVA, ARF, Chemo, Hep., AIDS, mental health diagnosis, sleep apnea, morbid obesity)? @ -None Was patient admitted / discharged? Hospital course, mention meds given and route, prescriptions, significant lab abnormalities, going to OR and other pertinent info. @ -79-year-old male with productive cough and rhinorrhea. On examination patient noted to have wheezes of the left lower lung base. Additional physical exam benign. Chest x-ray nonconcerning for signs of pneumonia. Reviewed patient's vitals showed that he was hypoxic in triage with a level of 80% on room air. Patient was placed on O2. Reevaluation, discussion with patient at bedside without nasal cannula he is satting in the mid 90s. 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 States that his oxygen is normally in the low 90s. Patient is provided with a breathing treatment and given a shot of Decadron. He will be discharged home with Claritin-D in addition to a breathing treatment. 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 All ques tions answered at bedside. Patient is stable for discharge. Case discussed with Dr. Larose Undiagnosed new problem with uncertain prognosis? @ -No Drug Therapy requiring intensive monitoring for toxicity (Heparin, Nitro, Insulin, Cardizem)? @ -No Were any procedures done? @ -No Diagnosis/symptom? @ -productive cough, bronchitis Acute, or Chronic, or Acute on Chronic? @ -acute Uncomplicated (without systemic symptoms) or Complicated (systemic symptoms)? @ -uncomplicated Side effects of treatment? @ -No Exacerbation, Progression, or Severe Exacerbation? @ -No Poses a threat to life or bodily function? How? (Chest pain, [place], [place], pneumonia, PE, COPD, DKA, ARF, appy, cholecystitis, CVA, Diverticulitis, Homicidal, Suicidal, threat to staff... and all critical care pts) @ -No (Diana Faulkner) - Lab Data Lab Results 03/28/24 Range/Units 13:41 Influenza Type A (PCR) Not Detected (Not Detectd) Influenza Type B (PCR) Not Detected (Not Detectd) RSV (PCR) Not Detected (Not Detectd) SARS-CoV-2 (PCR) Not Detected (Not Detectd) Disposition <Corine Moffett - Last Filed: 03/28/24 15:01> Is patient prescribed a controlled substance at d/c from ED?: No Time of Disposition: 16:33 <Diana Faulkner - Last Filed: 03/28/24 19:39> Clinical Impression: Bronchitis Narrative: Please return to the Emergency Department if symptoms worsen or any other concerns. (Diana Faulkner) Disposition: HOME SELF-CARE Condition: Good Instructions (If sedation given, give patient instructions): Acute Bronchitis (ED) Prescriptions: Loratadine-Pseudoeph 5-120 mg [Claritin-D 12 Hour] 1 tab PO Q12HR #14 tab Albuterol Inhaler [Ventolin Hfa Inhaler] 1 - 2 puff INHALATION Q6H PRN #1 each PRN Reason: Shortness Of Breath Referrals: Eduardo Mcdaniel MD [Primary Care Provider] - 1-2 days
--- NOTE | 2024-03-28 13:01 | XR ---
EXAMINATION TYPE: XR chest 2V DATE OF EXAM: 03/28/2024 COMPARISON: 10/19/2022 INDICATION: Cough congestion TECHNIQUE: Frontal and lateral views of the chest are obtained. FINDINGS: The heart size is normal. The pulmonary vasculature is normal. The lungs are clear. IMPRESSION: 1. No acute pulmonary process.
[2024-03-28 14:20] VITALS: RESP 18
[2024-03-28] MEDS: DEXAMETHASONE SOD PHOSPHATE 10 MG/ML 1 ML VIAL IM STA (16:54)
[2024-03-28] MEDS: IPRATROPIUM-ALBUTEROL 3 ML NEB INHALATION STA (17:00)
[2024-03-28 17:53] VITALS: BP 136/70; PULSE 89; TEMP 98.1
== END 2024-03-28 17:22 | disposition home or self-care (01) ==
LOC: EC 12:22
DX: J40 Bronchitis, not specified as acute or chronic (principal); Z88.0 Allergy status to penicillin; Z87.891 Personal history of nicotine dependence; Z86.16 Personal history of COVID-19
CPT/HCPCS: 94640; 87636; 71046; 99283; 96372; J1100